=== PATIENT | male | born 1960 | race Caucasian/White ===

== ENCOUNTER 2021-05-28 10:03 | Emergency (ER) | payer OTHER, SELFPAY ==
--- NOTE | ~2021-05-28 | XR_ITS ---
EXAMINATION: XR knee LT min 4V EXAM DATE: 05/28/2021 10:37 INDICATION: Left knee pain after slipping on ice this morning. TECHNIQUE: Left knee frontal, crosstable lateral, orthogonal oblique projections for interpretation. There is no prior study for comparison. FINDINGS: No evidence osteochondral defect or joint body in the left knee joint. There are no acute fractures or dislocations identified. There is no subcutaneous gas. There is small joint effusion. Faint meniscal calcification. Chondrocalcinosis can be an age related finding, but with other possib le etiologies including CPPD, parathyroid disorders, hemochromatosis, gout. Mild arteriosclerosis. T here are no radiopaque foreign bodies. There is mild tricompartmental primary osteoarthritis. IMPRESSION: Mild degenerative changes. Reviewed, dictated and finalized at location B. INTERN IMPRESSION: Mild degenerative changes.
--- NOTE | 2021-05-28 10:10 | ED.LOWEXIN ---
HPI - Extremity Injury (Lower) General Chief Complaint: Extremity Injury, Lower Stated Complaint: lt knee injury Time Seen by Provider: 05/28/21 10:20 Source: patient, RN notes reviewed and old records reviewed Mode of arrival: ambulatory Limitations: no limitations History of Present Illness HPI Narrative: 60-year-old male presents to the [facility] with complaints of left knee pain for slipping on ice and hyperextending the left knee. States that occurred this morning. Did not hit head. No loss of consciousness. No back or neck pain. Has taken Tylenol. Related Data Home Medications Medication Instructions Recorded Confirmed atorvastatin 10 mg PO DAILY 05/28/21 05/28/21 losartan 50 mg PO DAILY 05/28/21 05/28/21 metoprolol tartrate 12.5 mg PO BID 05/28/21 05/28/21 Allergies Allergy/AdvReac Type Severity Reaction Status Date / Time lisinopril Allergy Unknown Verified 05/28/21 10:26 Review of Systems Review of Systems: All systems reviewed & are unremarkable except as noted in HPI and below Constitutional: Constitutional: Reports no additional constitutional complaints, Denies chills and Denies fever(s) Eyes: Eyes: Reports no additional eye complaints ENT: Reports system reviewed and no additional complaints, except as documented Cardiovascular: Cardiovascular: Reports no additional cardiovascular complaints and Denies chest pain Respiratory: Respiratory: Reports no additional respiratory complaints, Denies cough, Denies dyspnea and Denies wheezing Gastrointestinal: Gastrointestinal: Reports no additional gastrointestinal complaints, Denies abdominal pain, Denies nausea and Denies vomiting Musculoskeletal: Musculoskeletal: Reports as per HPI and Reports arthralgias (left knee) Integumentary/Breasts: Skin/Breast: Reports system reviewed and no additional complaints, except as docu Neurologic: Reports system reviewed and no additional complaints, except as documented Psychiatric: Psychiatric: Reports no additional psychiatric complaints Allergic/Immunologic: Allergic/Immunologic: Reports no additional allergic/immunologic complaints [facility] Past Medical History Medical History (Updated 05/28/21 @ 10:50 by Kristine Storey) High cholesterol History of high blood pressure Past heart attack Surgical History Surgical History (Updated 05/28/21 @ 10:27 by Kristine Storey) H/O eye surgery Lasik H/O gastric sleeve History of right hip replacement S/P coronary artery stent placement Social History Social History (Updated 05/28/21 @ 10:26 by Kristine Rayo Smoking status: Never smoker Living arrangements: with family Gender identity (if verbalized by the patient): Male Comments At the time of my signature, I reviewed and agree with the nursing past medical, surgical, social, and family history. There is no relevant family history pertinent to the patient complaint. Exam Const: General: healthy appearing, no acute distress and alert Nutritional Appearance: well nourished Orientation/consciousness: patient oriented x3 Limitations: no limitations HENMT: Head: normal to inspection Ears: external ears normal Eyes: Pupils: Equal, round and reactive pupils present Neck: Neck: normal visual inspection, no lymphadenopathy and no meningeal signs Chest: Chest palpation & inspection: normal inspection of the chest Resp: Effort & Inspection: normal respiratory effort and no use of accessory muscles Auscultation: clear to auscultation bilaterally, no crackles, no rales, no rhonchi and no wheezes Cardio: Rate: regular rate Rhythm: regular rhythm Back/Spine/Pelvis: Back: no CVA tenderness Cervical Spine: normal cervical lordosis, No cervical muscular tenderness and cervical ROM abnormal Thoracic/Lumbar Spine: thoracic and lumbar spine normal to inspection, No thoracic spinal tenderness and No lumbar spinal tenderness Skin: General skin exam: normal color Rashes: no rashes Wounds: no woun
[2021-05-28 10:24] VITALS: BP 180/81; PULSE 59; RESP 18; TEMP 36.8; O2SAT 100
[2021-05-28 10:58] VITALS: BP 158/77
== END 2021-05-28 10:58 | disposition home or self-care (01) ==
PROVIDERS: Emergency Provider Nurse Practitioner
DX: S83.92XA Sprain of unspecified site of left knee, initial encounter (principal); W18.40XA Slipping, tripping and stumbling without falling, unspecified, initial encounter; M25.462 Effusion, left knee; E78.00 Pure hypercholesterolemia, unspecified; I10 Essential (primary) hypertension; Z86.73 Personal history of transient ischemic attack (TIA), and cerebral infarction without residual deficits; Z98.84 Bariatric surgery status; Z96.641 Presence of right artificial hip joint; Z95.5 Presence of coronary angioplasty implant and graft
CPT/HCPCS: 73564; 99213; G0463

== ENCOUNTER 2021-09-01 00:42 | Day surgery (SDC) | payer OTHER, SELFPAY ==
[2021-08-11 14:59] VITALS: BMI 28.1
--- NOTE | 2021-09-01 07:26 | PM.HPGS ---
History of Present Illness History of Present Illness Consent: Risks, benefits, and alternatives have been discussed and questions answered. Patient agrees to proceed with procedure. Chief complaint: neoplasm screening Narrative: Hernan Landis is a 61 year old male For colon cancer screening. Review of Systems Review of Systems: All systems reviewed & are unremarkable except as noted in HPI and below PMFSH Past Medical History Medical History High cholesterol History of high blood pressure Past heart attack Surgical History Surgical History H/O eye surgery Lasik H/O gastric sleeve History of right hip replacement S/P coronary artery stent placement Social History Social History Smoking status: Never smoker Alcohol intake: current Alcohol use details: 1-2 drinks/month Substance use: never Substance use type: does not use Living arrangements: with family Gender identity (if verbalized by the patient): Male Spiritual care concerns: No Meds Home Medications and Allergies Home Medications Medication Instructions Recorded Confirmed Type atorvastatin 10 mg PO DAILY 05/28/21 08/11/21 History losartan 50 mg PO DAILY 05/28/21 08/11/21 History metoprolol tartrate 12.5 mg PO BID 05/28/21 08/11/21 History hydrochlorothiazide 12.5 mg PO DAILY 08/11/21 08/11/21 History Allergies Allergy/AdvReac Type Severity Reaction Status Date / Time lisinopril Allergy Intermediate Dyspnea / Verified 09/01/21 10:00 SOB Exam Resp: Auscultation: clear to auscultation bilaterally Cardio: Rate: regular rate Rhythm: regular rhythm GI: GI Palp: Yes Soft to palpation and No Tenderness to palpation present (GI) Assessment and Plan Assessment and plan (1) Colon cancer screening: Code(s): Z12.11 - Encounter for screening for malignant neoplasm of colon Status: Acute Assessment and Plan: Colonoscopy with possible biopsy or polypectomy or cautery or injection of substances.
[2021-09-01 10:02] VITALS: BP 137/74; PULSE 54; RESP 18; TEMP 36.9; O2SAT 100
[2021-09-01] MEDS: LACTATED RINGERS 1,000 ML 150 ML IV CONT (10:11)
--- NOTE | 2021-09-01 10:42 | WPDANESEPPF ---
Anes - Initial Pre Proc Eval Procedure: Operation Date: 09/01/21 11:00 Proposed Procedures p Screening Colonoscopy - Lee Melendez MD Date/Time: 09/01/21 10:42 Surgeon: Lee Melendez MD Pre Op Diagnosis: neoplasm screening Patient Data Age: 61 Gender: M Height: 1.73 m Weight: 82.1 kg Last Vital Signs Temp 98.5 F 09/01/21 10:02 Pulse 54 L 09/01/21 10:02 Resp 18 09/01/21 10:02 BP 137/74 09/01/21 10:02 Pulse Ox 100 09/01/21 10:02 Allergies Allergy/AdvReac Type Severity Reaction Status Date / Time lisinopril Allergy Intermediate Dyspnea / Verified 09/01/21 10:00 SOB Home Medications Medication Instructions Recorded Confirmed Type atorvastatin 10 mg PO DAILY 05/28/21 08/11/21 History losartan 50 mg PO DAILY 05/28/21 08/11/21 History metoprolol tartrate 12.5 mg PO BID 05/28/21 08/11/21 History hydrochlorothiazide 12.5 mg PO DAILY 08/11/21 08/11/21 History Patient hx anesthesia problems: none Family hx anesthesia problems: none Results Review: All pre-operative results and documents have been reviewed as part of the pre-operative evaluation. [facility] Past Medical History Medical History High cholesterol History of high blood pressure Past heart attack Surgical History Surgical History H/O eye surgery Lasik H/O gastric sleeve History of right hip replacement S/P coronary artery stent placement Social History Social History Smoking status: Never smoker Alcohol intake: current Alcohol use details: 1-2 drinks/month Substance use: never Substance use type: does not use Living arrangements: with family Gender identity (if verbalized by the patient): Male Spiritual care concerns: No Anes - Eval Final PreProcedure Day of Procedure 09/01/21 10:42 Patient weight: normal Heart: bradycardia Lungs: clear to auscultation Airway: Mallampati scale class II Neurological: alert and oriented Last oral intake: >/= 8 hours ASA classification: III Emergent: no Anesthetic plan: proceed Anesthesia type and monitoring: general GIVS and standard monitoring Results Review: All pre-operative results and documents have been reviewed as part of the pre-operative evaluation. Informed Consent: The patient's anesthetic plan and its attendant risks and benefits were discussed with the patient/family/POA. Questions were solicited and answers provided to the satisfaction of the patient/family/POA.
[2021-09-01 11:05] VITALS: BP 99/59; PULSE 57; RESP 14; O2SAT 100
[2021-09-01 11:15] VITALS: BP 105/65; PULSE 56; RESP 21; O2SAT 100
[2021-09-01 11:25] VITALS: BP 126/74; PULSE 53; RESP 20; O2SAT 99
== END 2021-09-01 11:37 | disposition home or self-care (01) ==
PROVIDERS: Visit Provider Internal Medicine Gastroenterology
PROC: 0DJD8ZZ Inspection of Lower Intestinal Tract, Via Natural or Artificial Opening Endoscopic (ICD-10-PCS; CPT 45378; principal; 2021-09-01 11:00)
DX: Z12.11 Encounter for screening for malignant neoplasm of colon (principal); K57.30 Diverticulosis of large intestine without perforation or abscess without bleeding; I10 Essential (primary) hypertension; I25.2 Old myocardial infarction; E78.00 Pure hypercholesterolemia, unspecified; Z95.5 Presence of coronary angioplasty implant and graft; Z98.84 Bariatric surgery status
CPT/HCPCS: 45378; J2704; J7120

== ENCOUNTER 2023-08-18 08:52 | Emergency (ER) | payer OTHER, SELFPAY ==
--- NOTE | ~2023-08-18 | XR_ITS ---
EXAMINATION: XR chest 2V DATE: 08/18/2023 09:48 INDICATION: Cough. Upper respiratory infection. Fever. TECHNIQUE: Frontal and lateral views of the chest were obtained. COMPARISON: Chest 2 views 10/08/2008 FINDINGS: A calcified right lung nodule and calcified right hilar lymph nodes are consistent with old granulomatous disease. No pleural effusion or pneumothorax. The heart size is normal. IMPRESSION: 1. No acute cardiopulmonary disease. Reviewed, dictated and finalized at location A.
--- NOTE | ~2023-08-18 | CT_ITS ---
EXAMINATION: CT abdomen pelvis wo con DATE: 08/18/2023 09:44 INDICATION: Right-sided flank pain. Fever. TECHNIQUE: Computed tomography (CT) of the abdomen and pelvis was performed without intravenous contr ast. Automated exposure control and iterative reconstruction technique were employed. The dose-length product was 690.21 mGy-cm. COMPARISON: None. FINDINGS: The visualized portions of the lung bases demonstrate mild atelectasis. No pleural effusion . The heart size is normal. There are coronary artery calcifications. No pericardial effusion. There is a small sliding hiatal hernia. There are changes of gastric sleeve procedure. The liver and gallbl adder are normal. Calcifications in the spleen are consistent with old granulomatous disease. The ortiz creas and adrenal glands are normal. There is a 1 mm stone in right kidney. There are peripelvic cyst s in left kidney measuring up to 3.3 cm. There is calcified atherosclerosis of the aorta and many of the other arteries. The prostate is mildly enlarged. There is diffuse bladder wall thickening, likely secondary to chronic outlet obstruction from the mildly enlarged prostate. There are no dilated loop s of bowel. The appendix is normal. There are no pathologically enlarged lymph nodes. There is no radha e intraperitoneal fluid. There is a total right hip arthroplasty. There is severe lumbar spondylosis. There is mild chronic anterior wedging of multiple lower thoracic vertebral bodies. IMPRESSION: 1. No specific etiology for the patient's symptoms. Reviewed, dictated and finalized at location A.
[2023-08-18 08:57] VITALS: BP 189/72; PULSE 95; RESP 18; TEMP 38.4; O2SAT 99
[2023-08-18 09:32] LABS: Basophils Percent Auto 0.2 % (0.2-1.2); Eosinophils Percent Auto 0.1 % (0-4.4); Hematocrit 42.3 % (42.0-52.0); Hemoglobin 14.3 g/dL (14.0-18.0); Immature Granulocyte Absolute 0.05 K/mm3 (0.00-0.031); Immature Granulocyte Percent A 0.3 % (0-0.5); Lymphocytes Absolute Auto 0.69 K/mm3 (0.9-3.2); Lymphocytes Percent Auto 4.7 % (18.3-44.2); Mean Corpuscular HGB Conc 33.8 g/dl (32-36); Mean Corpuscular Volume 88.7 fl (80-100); Monocytes Percent Auto 6.5 % (2.6-8.5); Neutrophils Absolute Auto 12.8 K/mm3 (1.3-6.7); Neutrophils Percent Auto 88.2 % (45.5-73.1); Platelet Count Result 164 k/mm3 (150-375); Red Blood Count 4.77 M/mm3 (4.6-6.20); Red Cell Distribution Width 12.8 % (11.5-14.5); White Blood Count 14.6 K/mm3 (4.5-10.0)
[2023-08-18 09:36] LABS: Alanine Aminotransferase 16 U/L (6-50); Albumin Level 4.3 g/dL (3.5-5.1); Alkaline Phosphatase 115 U/L (38-126); Anion Gap 7 mmol/L (4-12); Aspartate Amino Transferase 21 U/L (17-59); Bilirubin,Total 1.7 mg/dL (0.2-1.3); Blood Urea Nitrogen 16 mg/dL (9-20); Calcium 9.2 mg/dL (8.4-10.2); Carbon Dioxide 29 mmol/L (22-30); Chloride 101 mmol/L (98-107); Estimated CRCL calculation 72 ml/min; Estimated Glomerular Filt Rate > 60; Glucose 122 mg/dL (65-110); Potassium 3.5 mmol/L (3.4-5.0); Sodium 137 mmol/L (137-145)
[2023-08-18 09:37] LABS: Lactic Acid Reflex 1.2 mmol/L (0.7-2.0)
--- NOTE | 2023-08-18 09:41 | ED.GENADULT ---
HPI - General Adult General Chief complaint: Urogenital-Male Stated complaint: myalgias Time Seen by Provider: 08/18/23 09:09 Source: patient Mode of arrival: ambulatory Limitations: no limitations History of Present Illness HPI narrative: Patient is a 63-year-old male, with PMH of gastric sleeve, presents to the ED with report of fever, abdominal/flank pain. Patient reports since Wednesday night, he has had intermittent chills, fevers, nausea, difficulty urinating. He states he feels the urge to urinate, but is only able to void small amounts. Reports dysuria. Denies hematuria. Denies vomiting. Has been taking Tylenol for his fever at home. He does complain of intermittent pain throughout his right lower abdomen, extending around to his right lower back. He reports having a similar episode of symptoms 3 weeks ago, but states symptoms resolved on their own. Denies previous history of kidney stones. He does also complain of cough and sinus drainage. Denies sick contacts. Related Data Home Medications Medication Instructions Recorded Confirmed atorvastatin 10 mg tablet 10 mg PO DAILY 05/28/21 08/11/21 losartan 50 mg tablet 50 mg PO DAILY 05/28/21 08/11/21 metoprolol tartrate 25 mg tablet 12.5 mg PO BID 05/28/21 08/11/21 hydrochlorothiazide 12.5 mg capsule 12.5 mg PO DAILY 08/11/21 08/11/21 Allergies Allergy/AdvReac Type Severity Reaction Status Date / Time lisinopril Allergy Intermediate Dyspnea / Verified 09/01/21 10:00 SOB Review of Systems Review of Systems: CONSTITUTIONAL: See HPI. ENT: Reports sinus drainage. CARDIOVASCULAR: Denies chest pain, palpitations, or edema. RESPIRATORY: Reports cough. Denies dyspnea. GASTROINTESTINAL: See HPI. GENITOURINARY: See HPI. MUSCULOSKELETAL: See HPI. All systems reviewed & are unremarkable except as noted in HPI and below PMFSH Past Medical History Medical History High cholesterol History of high blood pressure Past heart attack Surgical History Surgical History H/O eye surgery Lasik H/O gastric sleeve History of right hip replacement S/P coronary artery stent placement Social History Social History Smoking status: Never smoker Alcohol intake: current Alcohol use details: 1-2 drinks/month Substance use: never Substance use type: does not use Living arrangements: with family Gender identity (if verbalized by the patient): Male Spiritual care concerns: No Exam Narrative: GENERAL: Mildly ill appearing, well-nourished, in no acute distress. HEAD: Normocephalic, atraumatic. RESPIRATORY: Airway patent, respirations nonlabored. Clear to auscultation bilaterally, no rales, rhonchi, wheezing. No focal lung sounds. CARDIOVASCULAR: Borderline tachycardic with regular rhythm without murmurs, rubs, or gallops. ABDOMINAL: Soft, mild tenderness throughout right lower abdomen, right lateral abdomen, nondistended. Normoactive BS. No significant CVA tenderness to percussion. MUSCULOSKELETAL: Moves all extremities. No gross deformities. SKIN: Warm, dry, mildly diaphoretic and flushed appearing. NEURO: A&O X3. Speech clear. PSYCHIATRIC: Appropriate mood and affect. Normal interaction. Course Vital Signs Vital signs: Vital Signs Temperature 101.2 F H 08/18/23 08:57 Pulse Rate 95 08/18/23 08:57 Respiratory Rate 18 08/18/23 08:57 Blood Pressure 189/72 H 08/18/23 08:57 Pulse Oximetry 99 08/18/23 08:57 Temperature 98.6 F 08/18/23 11:27 Pulse Rate 74 08/18/23 11:23 Respiratory Rate 18 08/18/23 11:23 Blood Pressure 123/59 L 08/18/23 11:23 Pulse Oximetry 97 08/18/23 11:23 Medical Decision Making MDM Narrative Medical decision making narrative: Patient presented to ED with fever, right-sided abdominal and flank pain,
[2023-08-18] MEDS: ONDANSETRON INJ 4 MG/2 ML VIAL IV PUSH (09:59)
[2023-08-18] MEDS: ACETAMINOPHEN 500 MG TABLET 1000 MG PO (09:59)
[2023-08-18] MEDS: MORPHINE SULFATE (*CRX) 4 MG/ML INJ IV PUSH (09:59)
[2023-08-18] MEDS: SODIUM CHLORIDE 0.9% IV 1,000 ML 999 ML IV CONT (10:00)
[2023-08-18 10:08] LABS: Influenza A QL RT-PCR Negative (Negative); Influenza B QL RT-PCR Negative (Negative); RSV RNA, RT-PCR Negative (Negative); SARS-CoV-2 RNA PCR Negative (Negative)
[2023-08-18 10:30] LABS: Appearance Urine Turbid (Clear); Bacteria Urine 4+ /hpf; Bilirubin Urine Negative (Negative); Blood Urine 3+ (Negative); Color Urine Yellow (Yellow); Glucose Urine UA Negative (Negative); Ketones Urine Trace mg/dL (Negative); Leukocyte Esterase Ur 3+ LEU/UL (Negative); Nitrate Urine Positive (Negative); Protein Urine 2+ mg/dL (Negative); RBC Urine 21-50 /hpf (0-2); Specific Grav Ur 1.021 (1.001-1.035); Squamous Epithelial Cell Urine None Seen /hpf (Few); WBC Urine >100 /hpf (0-3); pH Urine 5.5 (5.0-9.0)
[2023-08-18 10:33] LABS: Add Urine Microscopic? YES
[2023-08-18 11:23] VITALS: BP 123/59; PULSE 74; RESP 18; TEMP 37; O2SAT 97
[2023-08-18 11:27] VITALS: TEMP 37
== END 2023-08-18 12:19 | disposition home or self-care (01) ==
PROVIDERS: Emergency Medicine; Emergency Provider Physician Assistant
DX: N30.01 Acute cystitis with hematuria (principal); N40.0 Benign prostatic hyperplasia without lower urinary tract symptoms; Z20.822 Contact with and (suspected) exposure to COVID-19; I10 Essential (primary) hypertension; I25.2 Old myocardial infarction; E78.00 Pure hypercholesterolemia, unspecified; Z98.84 Bariatric surgery status; Z96.641 Presence of right artificial hip joint; Z95.5 Presence of coronary angioplasty implant and graft
CPT/HCPCS: 36415; 71046; 74176; 80053; 81001; 83605; 85025; 87040; 87077; 87086; 87088; 87186; 87637; 96361; 96365; 96375; 99284; A9270; J0696; J2270; J2405; J7030

== ENCOUNTER 2023-10-04 13:13 | Outpatient (CLI) | payer OTHER, SELFPAY ==
--- NOTE | ~2023-10-04 | XR_ITS ---
XR knee LT min 4V 10/04/2023 13:39 Indication: Left knee pain Procedure: 4 views left knee Comparison: 05/28/2021 Findings: Mild tricompartment osteoarthritis. No fracture, subluxation or dislocation. No significant joint effusion. No foreign bodies. Impression: 1: Mild tricompartment osteoarthritis of the left knee. Reviewed, dictated and finalized at location B. Impression: 1: Mild tricompartment osteoarthritis of the left knee.
--- NOTE | ~2023-10-04 | XR_ITS ---
XR hip LT min 2V 10/04/2023 13:38 Indication: Left hip pain Procedure: 2 views left hip Comparison: No prior studies for comparison. Findings: There is moderate osteoarthritis of the left hip. No significant soft tissue abnormality. T here is lower lumbar spondylosis. There is atherosclerosis. Impression: 1: Moderate osteoarthritis of the left hip. Reviewed, dictated and finalized at location B. Impression: 1: Moderate osteoarthritis of the left hip.
== END 2023-10-04 13:14 | disposition home or self-care (01) ==
LOC: ANHIMG 13:15
DX: M25.552 Pain in left hip (principal); M17.12 Unilateral primary osteoarthritis, left knee; M16.12 Unilateral primary osteoarthritis, left hip
CPT/HCPCS: 73502; 73564

== ENCOUNTER 2023-11-26 14:01 | Outpatient (CLI) | payer OTHER, SELFPAY ==
--- NOTE | 2023-11-26 14:19 | ECG_ITS ---
Test Date: 2023-11-26 14:31:13 Measurements Intervals [place] Rate: 61 P: 42 TN: 175 QRS: 26 QRSD: 146 T: -1 QT: 427 QTc: 431 Interpretive Statements SINUS RHYTHM RIGHT BUNDLE BRANCH BLOCK [120+ ms QRS DURATION, UPRIGHT V1, 40+ ms S IN I/aVL/V4/V5/V6] ABNORMAL ECG No previous ECG available for comparison Electronically Signed On 11-26-2023 15:09:06 CDT by Andreas Carbajal M.D.
[2023-11-26 14:26] LABS: Hematocrit 42.5 % (42.0-52.0); Hemoglobin 14.5 g/dL (14.0-18.0)
[2023-11-26 14:36] LABS: Albumin Level 3.9 g/dL (3.5-5.1); Estimated Glomerular Filt Rate 56; Glucose 114 mg/dL (65-110)
== END 2023-11-26 14:02 | disposition home or self-care (01) ==
LOC: ANHLAB 14:04
PROVIDERS: Visit Provider Orthopaedic Surgery
DX: Z01.818 Encounter for other preprocedural examination (principal); M16.12 Unilateral primary osteoarthritis, left hip; E78.5 Hyperlipidemia, unspecified; I25.10 Atherosclerotic heart disease of native coronary artery without angina pectoris
CPT/HCPCS: 36415; 82040; 82565; 82947; 85014; 85018; 93005

== ENCOUNTER 2024-02-02 07:48 | Outpatient (CLI) | payer OTHER, SELFPAY ==
[2024-02-02 09:57] LABS: Basophils Percent Auto 0.6 % (0.2-1.2); Eosinophils Absolute Auto 0.2 K/mm3 (0-0.3); Eosinophils Percent Auto 2.8 % (0-4.4); Hematocrit 39.1 % (42.0-52.0); Hemoglobin 13.4 g/dL (14.0-18.0); Immature Granulocyte Absolute 0.01 K/mm3 (0.00-0.031); Immature Granulocyte Percent A 0.2 % (0-0.5); Lymphocytes Absolute Auto 1.52 K/mm3 (0.9-3.2); Mean Corpuscular HGB Conc 34.3 g/dl (32-36); Mean Corpuscular Hemoglobin 30.9 pg (26-34); Mean Corpuscular Volume 90.1 fl (80-100); Mean Platelet Volume 10.6 fl (7.4-10.4); Monocytes Absolute Auto 0.5 K/mm3 (0.1-0.6); Monocytes Percent Auto 8.2 % (2.6-8.5); Neutrophils Absolute Auto 4.1 K/mm3 (1.3-6.7); Neutrophils Percent Auto 64.2 % (45.5-73.1); Platelet Count Result 156 k/mm3 (150-375); Red Blood Count 4.34 M/mm3 (4.6-6.20); Red Cell Distribution Width 13.1 % (11.5-14.5); White Blood Count 6.3 K/mm3 (4.5-10.0)
[2024-02-02 10:22] LABS: Albumin Level 4.3 g/dL (3.5-5.1)
[2024-02-02 10:25] LABS: Anion Gap 7 mmol/L (4-12); Blood Urea Nitrogen 16 mg/dL (9-20); Calcium 9.6 mg/dL (8.4-10.2); Carbon Dioxide 30 mmol/L (22-30); Chloride 103 mmol/L (98-107); Estimated Glomerular Filt Rate > 60; Glucose 104 mg/dL (65-110); Potassium 3.5 mmol/L (3.4-5.0); Sodium 140 mmol/L (137-145)
[2024-02-02 10:32] LABS: Urine Cotinine NEGATIVE
[2024-02-02 11:04] LABS: Hemoglobin A1C 5.4 % (<5.7)
[2024-02-02 12:40] LABS: MRSA (PCR) NOT DETECTED (NOT DETECTE)
== END 2024-02-02 07:49 | disposition home or self-care (01) ==
LOC: ANHSURGERY 07:56
PROVIDERS: Anesthesiology; Visit Provider Orthopaedic Surgery
DX: Z01.812 Encounter for preprocedural laboratory examination (principal); M16.12 Unilateral primary osteoarthritis, left hip; I10 Essential (primary) hypertension
CPT/HCPCS: 36415; 80048; 80307; 82040; 83036; 85025; 87641

== ENCOUNTER 2024-02-24 00:19 | Day surgery (SDC) | payer OTHER, SELFPAY ==
[2024-02-02 08:01] VITALS: BMI 31.2
--- NOTE | 2024-02-02 08:43 | PC.NURSE ---
Report to the Outpatient Waiting Room, entrance under the green pavilion located off [facility], at time _8 AM on date 02/24/24 . Planned Procedure Time: _10 AM .? Time changes happen often and if your time is changed the preop area will call you the afternoon before. - You and your visitor will be asked to self-screen and do not enter if you have any COVID symptoms. Please call surgeon if you need to reschedule. - A mask is optional within the hospital at this time. Patients may have clear liquids (water, carbonated beverages, clear teas, apple juice) until 3 hours prior to surgery ( 7AM)with a maximum of 20 ounces. - No food from midnight until time of surgery and no smoking - Infants may have breast milk until 4 hours before surgery, infant formula 6 hours prior to surgery. - Children will be allowed to drink immediately following surgery.? If applicable, please bring a bottle or sippy cup to assist with drinking. Juice, water, soda, and popsicles are readily available.? For infants on formula, please bring formula the day of surgery.? Pacifiers are allowed. Take only the following medications with a SIP of water on the morning of surgery: CARVEDILOL, HYDROCODONE IF NEEDED FOR PAIN DO NOT STOP ANY OF YOUR OTHER PRESCRIPTION MEDICATIONS PRIOR TO SURGERY EXCEPT THE FOLLOWING Medications to discontinue per physician _HOLD ASPIRIN PER DR YAN . _DR PRUITT STATES HOLD ASPIRIN 3-5 DAYS PRE OP. HOLD ALL VITAMINS AND SUPPLEMENTS 3 DAYS PRE OP .LAST DOSE02/20/24 Please no make-up, nail nigerien, hairspray, perfume, deodorant, or body powder the day of surgery.? No jewelry (including any body piercings) or valuables the day of surgery, leave them at home.? Please take a shower or bath the night before, or the morning of, surgery with an antibacterial soap.? Wear comfortable, loose fitting clothing.? Children are encouraged to wear pajamas. - Jewelry must be removed prior to entering the operating room.? Rings and piercings that are not removed may be cut off. - The hospital will not accept responsibility for valuables.? - Please leave all valuables, including medications, at home the day of surgery. If you are going home after surgery, a licensed airport driver must drive you home.? - NO public transportation without another adult if you receive anesthesia. - We recommend that an adult stay with you for 24 hours following discharge. - We also recommend that you do not drive, make important decision, drink alcoholic beverages, or take any drugs that were not prescribed by your health care provider for at least 24 hours after your discharge time. For Pediatric surgeries, we recommend two adults accompany the child home. Follow any additional instructions given to you from your surgeon. VERBAL AND WRITTEN instructions given to PATIENT AND AYSE and asked if any additional questions and then verbalized understanding. Patient advised to call surgeon office or pre surgery nurse liaison [phone] if any additional questions.
[2024-02-02 09:03] VITALS: BP 151/79; PULSE 57; RESP 18; TEMP 37.4; O2SAT 97
[2024-02-24] VITALS (13 sets, daily range): BP systolic 105–175; BP diastolic 47–85; PULSE 58–78; RESP 10–20; TEMP 36.4–36.8; O2SAT 93–100
--- NOTE | ~2024-02-24 | XR_ITS ---
EXAMINATION: XR hip LT min 2V DATE: 02/24/2024 12:30 INDICATION: Total left hip arthroplasty. Postop. TECHNIQUE: 2 views of left hip were obtained. COMPARISON: Left hip radiographs 01/03/24 FINDINGS: There is a total left hip arthroplasty in near-anatomic alignment. No fracture. There is ga s in the soft tissues, consistent with recent surgery. IMPRESSION: 1. Total left hip arthroplasty in near-anatomic alignment. Reviewed, dictated and finalized at location A. LLIGENCE CHIEF
--- NOTE | 2024-02-24 07:06 | WPDHPUPDATE1 ---
History and Physical Update Update Date/Time: 02/24/24 07:06 History and Physical has been reviewed, including an updated exam of the patient. There are NO changes in the patient's condition. Risks, benefits, and alternatives have been discussed and questions answered. Patient agrees to proceed with procedure.
[2024-02-24] MEDS: LACTATED RINGERS 1,000 ML 30 ML IV CONT ×2 (09:00→12:04)
[2024-02-24] MEDS: ACETAMINOPHEN 500 MG TABLET 1000 MG PO (09:00)
[2024-02-24] MEDS: TRANEXAMIC ACID 1,000MG/ISO100 1,000 MG/100 ML BAG 200 MG IVPB (09:00)
--- NOTE | 2024-02-24 09:13 | P.PNAN_ITS ---
Anes - Initial Pre Proc Eval Procedure: Operation Date: 02/24/24 10:00 Proposed Procedures p Left Total Hip Arthroplasty - Catrachito Lay MD Date/Time: 02/24/24 09:13 Surgeon: Catrachito Lay MD Pre Op Diagnosis: Prim O A Left Hip Patient Data Age: 63 Gender: M Height: 1.68 m Weight: 87.8 kg Last Vital Signs Temp 37.4 C 02/02/24 09:03 Pulse 57 L 02/02/24 09:03 Resp 18 02/02/24 09:03 BP 151/79 H 02/02/24 09:03 Pulse Ox 97 02/02/24 09:03 Allergies Allergy/AdvReac Type Severity Reaction Status Date / Time lisinopril Allergy Intermediate Dyspnea / Verified 02/02/24 09:37 SOB Home Medications Medication Instructions Recorded Confirmed Type atorvastatin 10 mg tablet 10 mg PO DAILY 05/28/21 02/02/24 History losartan 50 mg tablet 50 mg PO DAILY 05/28/21 02/02/24 History hydrochlorothiazide 12.5 mg capsule 12.5 mg PO DAILY 08/11/21 02/02/24 History ascorbate calcium (vitamin C) 500 500 mg PO DAILY 10/19/23 02/02/24 History mg tablet aspirin 81 mg chewable tablet 81 mg PO DAILY 10/19/23 02/02/24 History calcium 600 mg (as 1 tablet PO DAILY 10/19/23 02/02/24 History carbonate)-vitamin D3 10 mcg (400 unit) tablet carvedilol 6.25 mg tablet 6.25 mg PO BID 10/19/23 02/02/24 History multivitamin (Multiple Vitamins 1 tablet PO DAILY 10/19/23 02/02/24 History tablet) fexofenadine 180 mg tablet 180 mg PO DAILY 11/12/23 02/02/24 History (Trista Hives) cyanocobalamin (vitamin B-12) 500 500 mcg PO DAILY 02/02/24 02/02/24 History mcg tablet glucosamine HCl 1,500 mg tablet 1,500 mg PO BID 02/02/24 02/02/24 History hydrocodone 5 mg-acetaminophen 325 1 - 2 tablet PO PRN PRN pain 02/02/24 02/02/24 History mg tablet (scale score 7-10) tamsulosin 0.4 mg capsule 0.4 mg PO HS 02/02/24 02/02/24 History turmeric 400 mg capsule 400 mg PO DAILY 02/02/24 02/02/24 History vitamin B complex 1 tablet PO DAILY 02/02/24 02/02/24 History aspirin 81 mg tablet,delayed 81 mg PO BID 14 days #28 tabs 02/24/24 Rx release oxycodone-acetaminophen 5 mg-325 1 - 2 tablet PO Q4-6H PRN pain 7 02/24/24 Rx mg tablet days #30 tabs Laboratory Tests 02/24/24 08:22 Blood Type Pending Antibody Screen Pending Patient hx anesthesia problems: none Family hx anesthesia problems: none Results Review: All pre-operative results and documents have been reviewed as part of the pre- operative evaluation. [facility] Past Medical History Medical History Aortic valve sclerosis Asthma Benign paroxysmal positional vertigo CAD (coronary artery disease) [place]/STENT 2013 Coronary stent patent DJD (degenerative joint disease) ETD (eustachian tube dysfunction) bilateral High cholesterol History of high blood pressure Hyperlipemia Hypertension Mild intermittent asthma with (acute) exacerbation 12/22/2016 Obstructive sleep apnea 12/22/2016- Resolved NABIL on CPAP Other hyperlipidemia 12/22/2016 Other obesity due to excess calories BMI 38 [facility] needs to lose 12/22/2016 Past heart attack PLMD (periodic limb movement disorder) 07/04/2020 Primary snoring 09/26/2020 Sensorineural hearing loss (SNHL) of both ears Tinnitus of both ears Surgical History Surgical History H/O arthroscopic knee surgery (~09/2021) left knee H/O cardiac catheterization (~2013) H/O eye surgery Lasik H/O gastric sleeve (~01/2019) H/O sinus surgery History of carpal tunnel release Bilateral History of right hip replacement S/P coronary artery stent placement Family History Family History Father Heart disease Hypertension Mother Breast cancer Grandparent Hypertension Skin cancer Social History Social History Smoking status: Never smoker Additional smoking assessment comments: DENIES ANY FORM OF TOBACCO USE Alcohol intake: current Alcohol use details: 1-2 DRINKS PER MONTH Substance use: never Substance use type: does not use Do You Feel Safe in your Home?: Yes Lack of Transportation: No Lack of Food: Never True Current Housing: I Have Housing Concerned About Future Housing: No Difficulty Paying Gas/Electric Bills: No Difficulty Paying for Meds: No Currently Unemployed: No Education: High School Diploma/GED Difficulty w/ Childcare or Family Care: No Living arrangements: with family Gender identity (if verbalized by the patient): Male Spiritual care concerns: No Anes - Eval Final PreProcedure Day of Procedure 02/24/24 09:13 Patient weight: obese Heart: regular rate and rhythm Lungs: clear to auscultation Airway: Mallampati scale class II Neurological: alert and oriented Last oral intake: >/= 8 hours ASA classification: III Emergent: no Anesthetic plan: proceed Anesthesia type and monitoring: general ETT and standard monitoring Results Review: All pre-operative results and documents have been reviewed as part of the pre- operative evaluation. Informed Consent: The patient's anesthetic plan and its attendant risks and benefits were discussed with the patient/family/POA. Questions were solicited and answers provided to the satisfaction of the patient/family/POA.
[2024-02-24] MEDS: ceFAZolin 2 GM/D5W 50 ML 2 GM/50 ML BAG IVPB ×3 (09:55→23:02)
[2024-02-24] MEDS: SODIUM CHLORIDE 0.9% IV 37.7 ML, MORPHINE SULFATE INJ (*CRX) 2 MG, ROPivacaine HCL 1% 2... INFILTRATE (10:29)
--- NOTE | 2024-02-24 13:40 | ADMGEN ---
This patient, Hernan Landis, was admitted to Medical Room 242-01. Patient/family oriented to hospital policies and general routines including ID bracelet, bed and alarms, visiting hours, pain management, procedures, bathroom and other care routines, personal items, smoking policy, room service/diet, and visiting hours. Information on how to activate the Rapid Response Team has been discussed. Patient/Family are encouraged to report perceived risks to care and to ask questions if they do not understand what they are told or what they should do.
[2024-02-24] MEDS: ACETAMINOPHEN 325 MG TABLET 650 MG PO ×3 (14:15→23:01)
[2024-02-24] MEDS: SODIUM CHLORIDE 0.9% IV 1,000 ML 125 ML IV CONT ×2 (14:16→22:54)
--- NOTE | 2024-02-24 14:49 | PCOTNOTE ---
Pt currently sleeping after hip sx this morning. Will see pt in the am for OT evaluation.
--- NOTE | 2024-02-24 16:34 | P.OP_ITS ---
Procedure Note - Detailed Date of Procedure 02/24/24 Pre-op Diagnosis Left hip degenerative arthritis. Post-op Diagnosis Same Procedure Performed Left Total Hip Arthroplasty Surgeon Catrachito Lay MD Guide Changer Rosalba Prabhakar PA-C Anesthesia General Description of Procedure The patient was given preoperative antibiotics. A general anesthetic was administered. The patient was carefully placed in the lateral decubitus position on the PEG board. The shoulders and hips were carefully positioned for component and leg length positioning reference. The hip was prepped and draped in the usual sterile fashion. A longitudinal incision was created over the posterior aspect of the greater trochanter. Careful dissection was brought down through the deep fascia with electrocautery. A minimally invasive optimized posterior approach to the hip was performed. The short external rotators and capsule were taken down in an L-shaped capsulotomy. The tissue was tagged for later repair using number 2 high strength suture. The femoral neck was measured and taken in situ. The femoral head was removed. The acetabulum was carefully exposed. The inferior capsule was released. The labrum was resected. The acetabulum was sequentially reamed to one over the intended cup size. The cup was impacted into position with excellent press-fit. Typical anatomic landmarks, including the bony contact points as well as the inferior transverse acetabular ligament were used to confirm cup positioning with preoperative templating. Attention was turned to the femur, which was carefully exposed. The hip was reamed and then broached sequentially. Excellent press-fit was obtained with the broach. The hip was trialed. Measurements were utilized, including the lesser trochanter as well as the center of the femoral head and the tip of the trochanter, and excellent assessment of the offset and leg lengths were confirmed. The real component was impacted into position. Trialing confirmed appropriate leg length and offset with soft tissue balancing as well apparent feel of the leg, both at the knee and the heel. Soft tissues were assessed using the the iliotibial band. Reduction of the posterior capsule and external rotators were also used as a secondary assessment. The hip was copiously irrigated with pulsatile lavage periodically throughout the procedure. The real components were then assembled and reduced. The hip was stable throughout typical maneuvers, including extension, external rotation to 70 degrees, the position of sleep as well as flexion to 90 degrees with internal rotation past 35 degrees. The shake test confirmed stability without impingement. Osteo phytes were removed as necessary. The short external rotators and capsule were repaired back to the posterior trochanter through drill holes. The deep fascia was repaired with running number 2 barbed suture, followed by 2-0 Stratafix suture and 3-0 Stratafix suture in the dermis. Steri-Strips were placed on the skin, followed by a sterile occlusive dressing. There were no complications. Meticulous hemostasis was maintained with the AquaMantys device. The patient was brought to the recovery room in stable condition. There were no complications. Physician assistant professor of dietetics, Rosalba Prabhakar PA-C, required for surgery; including patient positioning, draping, tissue retraction, maintaining instrument position, hip dislocation/ relocation, wound closure, and dressing placement. Implants The Accolade II hip stem, 132 degree size 6 , was utilized with excellent press-fit. The 54 mm Trident II acetabular component was impacted with excellent press-fit stability. 10 degree elevated polyethylene liner the +0, 36 mm Biolox ceramic femoral head was utilized. Estimated Blood Loss 200 Drains No Packing No Pathology None sent Complications No immediate complications Condition Stable Disposition PACU [facility] Billing Surgery - Charge Forward: Surgery Billing
[2024-02-24] MEDS: ASPIRIN 81 MG ENTERIC TABLET PO (17:30)
[2024-02-24] MEDS: SENNA/DOCUSATE SODIUM TABLET 2 TAB PO (17:30)
[2024-02-24] MEDS: carvediloL 6.25 MG TABLET PO (17:30)
[2024-02-24] MEDS: oxyCODONE/ACETAMINOPHEN (*CRX) 5-325 MG TABLET 1 TABLET PO (17:34)
[2024-02-24] MEDS: TAMSULOSIN HCL 0.4 MG CAPSULE PO (20:59)
[2024-02-24] MEDS: FAMOTIDINE 20 MG TABLET PO (20:59)
[2024-02-24] MEDS: traMADol HCL (*CRX) 50 MG TABLET PO (23:01)
[2024-02-25 00:28] VITALS: BP 117/60; PULSE 64; RESP 20; TEMP 37; O2SAT 98
[2024-02-25] MEDS: oxyCODONE/ACETAMINOPHEN (*CRX) 5-325 MG TABLET 1 TABLET PO (05:08)
[2024-02-25 05:46] LABS: Basophils Percent Auto 0.2 % (0.2-1.2); Eosinophils Percent Auto 0.1 % (0-4.4); Hematocrit 36.4 % (42.0-52.0); Hemoglobin 12.5 g/dL (14.0-18.0); Immature Granulocyte Absolute 0.03 K/mm3 (0.00-0.031); Immature Granulocyte Percent A 0.3 % (0-0.5); Immature Platelet Fraction Pct 2.9 % (0.9-11.2); Lymphocytes Absolute Auto 1.08 K/mm3 (0.9-3.2); Lymphocytes Percent Auto 11.5 % (18.3-44.2); Mean Corpuscular HGB Conc 34.3 g/dl (32-36); Mean Corpuscular Hemoglobin 30.9 pg (26-34); Mean Corpuscular Volume 89.9 fl (80-100); Mean Platelet Volume 10.5 fl (7.4-10.4); Monocytes Absolute Auto 0.7 K/mm3 (0.1-0.6); Monocytes Percent Auto 7.3 % (2.6-8.5); Neutrophils Absolute Auto 7.6 K/mm3 (1.3-6.7); Neutrophils Percent Auto 80.6 % (45.5-73.1); Platelet Count Result 137 k/mm3 (150-375); Red Blood Count 4.05 M/mm3 (4.6-6.20); Red Cell Distribution Width 12.2 % (11.5-14.5); White Blood Count 9.4 K/mm3 (4.5-10.0)
[2024-02-25 06:00] VITALS: BP 142/62; PULSE 61; RESP 18; TEMP 36.8; O2SAT 97
[2024-02-25 06:02] LABS: Anion Gap 4 mmol/L (4-12); Blood Urea Nitrogen 16 mg/dL (9-20); Calcium 8.5 mg/dL (8.4-10.2); Carbon Dioxide 29 mmol/L (22-30); Chloride 105 mmol/L (98-107); Estimated CRCL calculation 78 ml/min; Estimated Glomerular Filt Rate > 60; Glucose 105 mg/dL (65-110); Potassium 4.1 mmol/L (3.4-5.0); Sodium 138 mmol/L (137-145)
[2024-02-25] MEDS: ACETAMINOPHEN 325 MG TABLET 650 MG PO (06:03)
[2024-02-25] MEDS: ceFAZolin 2 GM/D5W 50 ML 2 GM/50 ML BAG IVPB (06:04)
--- NOTE | 2024-02-25 07:43 | P.DS_ITS ---
DS: Admitting Diagnosis Discharge Date 02/25/24 Admitting Diagnosis Hip arthritis DS: Discharge Diagnosis Discharge Diagnosis (1) Status post total hip replacement, left: Code(s): Z96.642 - Presence of left artificial hip joint Status: Acute Assessment and Plan: Postop day 1: Left total Hip arthroplasty. Patient tolerated procedure well. No complications. Pain manageable with pain medication. No numbness or tingling. We had a lengthy discussion regarding postoperative wound care, limitations, expectations, and exercises. Patient shows good understanding. He has had initial physical therapy and is tolerating it well. DVT prophylaxis: 81 mg baby aspirin b.i.d. for 14 days. Pain medication: Percocet. Patient has followup appointment with Dr. Lay in 3 weeks. DS: Summary Hospital Course Reason for hospitalization: Total hip arthroplasty Hospital Course: Patient tolerated procedure well. Has had initial PT/OT and made good progress. Status at Discharge Functional status at discharge: uses cane/walker Overall status at discharge: patient is progressing back to baseline Time Spent with Patient Time attestation: Total time spent providing and/or coordinating discharge services: Exam Narrative: Overweight 63 y/o male. Resting comfortably in bed. Wearing compression socks bilaterally. Dressing dry and intact with no drainage. Mild swelling. No ecchymosis. No erythema. No hematoma. Range of motion limited due to pain. Calf nontender. Thigh nontender. Neurologic status intact. No varicosities. Distal pulses palpable. DS: Data Data Completed and Pending Labs on day of discharge: Labs from last 24 hours 02/25/24 02/24/24 05:03 08:22 WBC 9.4 RBC 4.05 L Hgb 12.5 L Hct 36.4 L MCV 89.9 MCH 30.9 MCHC 34.3 RDW 12.2 Plt Count 137 L MPV 10.5 H Immature Gran % (Auto) 0.3 Neut % (Auto) 80.6 H Lymph % (Auto) 11.5 L Emmons % (Auto) 7.3 Eos % (Auto) 0.1 Baso % (Auto) 0.2 Lymph # (Auto) 1.08 Emmons # (Auto) 0.7 H Eos # (Auto) 0.0 Baso # (Auto) 0.0 Abs Immat Gran (auto) 0.03 Absolute Neuts (auto) 7.6 H Absolute Nucleated RBC 0.000 Nucleated RBC % 0.0 % Immature Plt Fraction 2.9 Sodium 138 Potassium 4.1 Chloride 105 Carbon Dioxide 29 Anion Gap 4 BUN 16 Creatinine 0.90 Estim Creat Clear Calc 78 Estimated GFR > 60 Glucose 105 Calcium 8.5 Blood Type O Positive Antibody Screen Negative Discharge Plan Discharge Patient Disposition: Home, Self-Care Discharge Instructions: see green instruction sheets Patient Instructions: Pain Management (DC) Stand Alone Forms: General Discharge Instructions Follow-up/Referrals: Rosalba Prabhakar PA [Physician Market Superintendent] - Discharge Medications: New aspirin 81 mg tablet,delayed release (DR/EC) 81 mg PO BID 14 Days Qty: 28 0RF oxycodone-acetaminophen 5-325 mg tablet 1 - 2 tablet PO Q4-6H MDD 6 PRN (Reason: pain) 7 Days Qty: 30 0RF Continued losartan 50 mg tablet 50 mg PO DAILY atorvastatin 10 mg tablet 10 mg PO DAILY fexofenadine [Trista Hives] 180 mg tablet 180 mg PO DAILY calcium carbonate-vitamin D3 600 mg-10 mcg (400 unit) tablet 1 tablet PO DAILY carvedilol 6.25 mg tablet 6.25 mg PO BID Rx Instructions: must administer with a meal/food multivitamin [Multiple Vitamins] Tablet 1 tablet PO DAILY ascorbate calcium (vitamin C) 500 mg tablet 500 mg PO DAILY hydrochlorothiazide 12.5 mg Capsule 12.5 mg PO DAILY tamsulosin 0.4 mg capsule 0.4 mg PO HS vitamin B complex Tablet 1 tablet PO DAILY turmeric 400 mg Capsule 400 mg PO DAILY glucosamine HCl 1,500 mg Tablet 1,500 mg PO BID Rx Instructions: administer with a meal cyanocobalamin (vitamin B-12) 500 mcg Tablet 500 mcg PO DAILY Held hydrocodone-acetaminophen 5-325 mg tablet 1 - 2 tablet PO PRN MDD 3 PRN (Reason: pain (scale score 7-10)) Hold Instructions: Resume on 03/23/24. Hold while taking Oxycodone.
--- NOTE | 2024-02-25 07:46 | P.PNAN_ITS ---
Anes - Prog Note Post-Op Date/Time: 02/25/24 07:46 Cardiovascular status: normal Respiratory status: normal Airway patency: baseline Mental status: baseline Post-Op hydration status: normal Vital Signs: Last Vital Signs Temp 36.8 C 02/25/24 06:00 Pulse 61 02/25/24 06:00 Resp 18 02/25/24 06:00 BP 142/62 H 02/25/24 06:00 Pulse Ox 97 02/25/24 06:00 O2 Del Method Room Air 02/24/24 20:50 O2 Flow Rate 8 02/24/24 12:30 Pain Score (VAS): 2 I/O: Intake & Output 02/24/24 02/24/24 02/25/24 15:59 23:59 07:59 Intake Total 50 1530 250 Output Total 325 1000 Balance 50 1205 -750 Laboratory Tests 02/25/24 05:03 02/25/24 05:03 02/24/24 02/25/24 08:22 05:03 WBC 9.4 RBC 4.05 L Hgb 12.5 L Hct 36.4 L MCV 89.9 MCH 30.9 MCHC 34.3 RDW 12.2 Plt Count 137 L MPV 10.5 H Immature Gran % (Auto) 0.3 Neut % (Auto) 80.6 H Lymph % (Auto) 11.5 L Grundy % (Auto) 7.3 Eos % (Auto) 0.1 Baso % (Auto) 0.2 Lymph # (Auto) 1.08 Grundy # (Auto) 0.7 H Eos # (Auto) 0.0 Baso # (Auto) 0.0 Abs Immat Gran (auto) 0.03 Absolute Neuts (auto) 7.6 H Absolute Nucleated RBC 0.000 Nucleated RBC % 0.0 % Immature Plt Fraction 2.9 Sodium 138 Potassium 4.1 Chloride 105 Carbon Dioxide 29 Anion Gap 4 BUN 16 Creatinine 0.90 Estim Creat Clear Calc 78 Estimated GFR > 60 Glucose 105 Calcium 8.5 Blood Type O Positive Antibody Screen Negative Post-procedural complaints: none Patient Feedback: Patient satisfied with anesthetic care.
[2024-02-25] MEDS: FAMOTIDINE 20 MG TABLET PO (09:00)
[2024-02-25] MEDS: polyethylene glycoL 3350 17 GM POWD.PACK PO (09:00)
[2024-02-25] MEDS: ATORVASTATIN 10 MG TABLET PO (09:00)
[2024-02-25 09:01] VITALS: PULSE 60
[2024-02-25] MEDS: hydroCHLOROthiazide 12.5 MG CAPSULE PO (09:01)
[2024-02-25] MEDS: carvediloL 6.25 MG TABLET PO (09:01)
[2024-02-25] MEDS: SENNA/DOCUSATE SODIUM TABLET 2 TAB PO (09:01)
[2024-02-25] MEDS: LOSARTAN POTASSIUM 50 MG TABLET PO (09:01)
[2024-02-25] MEDS: ASPIRIN 81 MG ENTERIC TABLET PO (09:01)
[2024-02-25 09:56] VITALS: O2SAT 97
== END 2024-02-25 10:30 | disposition home or self-care (01) ==
LOC: ANHSURGERY 08:53 → ANH2MED 13:22
PROVIDERS: Physician Assistant Surgical; Visit Provider Orthopaedic Surgery
PROC: (CPT 27130; principal; 2024-02-24 10:00)
DX: M16.12 Unilateral primary osteoarthritis, left hip (principal); I10 Essential (primary) hypertension; E78.5 Hyperlipidemia, unspecified; I25.10 Atherosclerotic heart disease of native coronary artery without angina pectoris; J45.20 Mild intermittent asthma, uncomplicated; G47.33 Obstructive sleep apnea (adult) (pediatric); I25.2 Old myocardial infarction; G47.61 Periodic limb movement disorder; Z95.5 Presence of coronary angioplasty implant and graft; Z98.84 Bariatric surgery status; E66.9 Obesity, unspecified; Z68.31 Body mass index [BMI] 31.0-31.9, adult
CPT/HCPCS: 27130; 36415; 73502; 80048; 85025; 85055; 86850; 86900; 86901; 97110; 97161; 97165; A9270; C1776; J0171; J0330; J0690; J1100; J1171; J1200; J1885; J2003; J2250; J2270; J2405; J2704; J2795; J3010; J7030; J7120

== ENCOUNTER 2024-03-15 08:33 | Outpatient (CLI) | payer OTHER, SELFPAY ==
--- NOTE | ~2024-03-15 | XR_ITS ---
XR hip LT 2V w AP pelvis Ordering provider: NIKHIL Green History: . Z96.642 - Presence of left artificial hip joint . Comparison: None. FINDINGS: BONES: No acute fracture or dislocation. HIP JOINT SPACES: Bilateral hip arthroplasty. SACROILIAC JOINT SPACES/LUMBAR SPINE: The sacroiliac joint spaces are normal. Mild degenerative headley es of the visualized lower lumbar spine. PUBIC SYMPHYSIS: Pubic symphysitis. SOFT TISSUES: Normal. IMPRESSION: No acute osseous abnormality pelvis and left hip. Bilateral hip arthroplasty. Reviewed, dictated and finalized at location A. OL TRAFFIC SUPERVISOR
== END 2024-03-15 08:34 | disposition home or self-care (01) ==
PROVIDERS: Visit Provider Physician Assistant Surgical
DX: Z96.642 Presence of left artificial hip joint (principal)
CPT/HCPCS: 73502

== ENCOUNTER 2024-03-30 13:32 | Emergency (ER) | payer OTHER, SELFPAY ==
[2024-03-30 13:36] VITALS: BP 139/68; PULSE 73; RESP 18; TEMP 37.1; O2SAT 100
[2024-03-30 15:43] LABS: Add Urine Microscopic? YES; Appearance Urine Turbid (Clear); Bilirubin Urine Negative (Negative); Blood Urine 3+ (Negative); Color Urine Dark Yellow (Yellow); Glucose Urine UA Negative (Negative); Ketones Urine Trace mg/dL (Negative); Leukocyte Esterase Ur 3+ LEU/UL (Negative); Nitrate Urine Negative (Negative); Protein Urine 2+ mg/dL (Negative); Specific Grav Ur 1.023 (1.001-1.035); pH Urine 5.5 (5.0-9.0)
[2024-03-30 15:52] LABS: Bacteria Urine 2+ /hpf; Mucus Urine Present /lpf; Squamous Epithelial Cell Urine Occasional /hpf (Few); WBC Urine 51-100 /hpf (0-3)
[2024-03-30] MEDS: SULFAMETHOXAZOLE/TRIMETHOPRIM 800/160 MG DS TABLET 1 TAB PO (16:10)
--- NOTE | 2024-03-30 16:54 | ED.MALEGU ---
HPI - Male Genitourinary General Chief complaint: Urogenital-Male Stated complaint: chills, fever, foul urine Time Seen by Provider: 03/30/24 14:09 History of Present Illness HPI Narrative: Patient who has had struggles with multiple UTIs this year presents here with several days chills, suprapubic his comfort, foul-smelling urine, concerned that he has no other UTI. Called his urologist who told him to go to the ER. Related Data Home Medications ?Medication ?Instructions ?Recorded ?Confirmed ?Last Taken ?Type atorvastatin 10 mg tablet 10 mg PO DAILY 05/28/21 02/02/24 08/31/21 History losartan 50 mg tablet 50 mg PO DAILY 05/28/21 02/02/24 08/31/21 History hydrochlorothiazide 12.5 mg capsule 12.5 mg PO DAILY 08/11/21 02/02/24 08/31/21 History ascorbate calcium (vitamin C) 500 500 mg PO DAILY 10/19/23 02/02/24 Unknown History mg tablet calcium 600 mg (as 1 tablet PO DAILY 10/19/23 02/02/24 Unknown History carbonate)-vitamin D3 10 mcg (400 unit) tablet carvedilol 6.25 mg tablet 6.25 mg PO BID 10/19/23 02/24/24 02/24/24 History multivitamin (Multiple Vitamins 1 tablet PO DAILY 10/19/23 02/24/24 02/19/24 History tablet) fexofenadine 180 mg tablet 180 mg PO DAILY 11/12/23 02/02/24 Unknown History (Trista Hives) cyanocobalamin (vitamin B-12) 500 500 mcg PO DAILY 02/02/24 02/02/24 Unknown History mcg tablet glucosamine HCl 1,500 mg tablet 1,500 mg PO BID 02/02/24 02/02/24 Unknown History hydrocodone 5 mg-acetaminophen 325 1 - 2 tablet PO PRN PRN pain 02/02/24 02/02/24 Unknown History mg tablet (scale score 7-10) tamsulosin 0.4 mg capsule 0.4 mg PO HS 02/02/24 02/02/24 Unknown History turmeric 400 mg capsule 400 mg PO DAILY 02/02/24 02/02/24 Unknown History vitamin B complex 1 tablet PO DAILY 02/02/24 02/02/24 Unknown History Allergies Allergy/AdvReac Type Severity Reaction Status Date / Time lisinopril Allergy Intermediate Dyspnea / Verified 03/15/24 09:29 SOB Review of Systems Review of Systems: All systems reviewed & are unremarkable except as noted in HPI and below [facility] Past Medical History Medical History Aortic valve sclerosis Asthma Benign paroxysmal positional vertigo CAD (coronary artery disease) [place]/STENT 2013 Coronary stent patent DJD (degenerative joint disease) ETD (eustachian tube dysfunction) bilateral High cholesterol History of high blood pressure Hyperlipemia Hypertension Mild intermittent asthma with (acute) exacerbation 12/22/2016 Obstructive sleep apnea 12/22/2016- Resolved NABIL on CPAP Other hyperlipidemia 12/22/2016 Other obesity due to excess calories BMI 38 [facility] needs to lose 12/22/2016 Past heart attack PLMD (periodic limb movement disorder) 07/04/2020 Primary snoring 09/26/2020 Sensorineural hearing loss (SNHL) of both ears Tinnitus of both ears Surgical History Surgical History H/O arthroscopic knee surgery (~09/2021) left knee H/O cardiac catheterization (~2013) H/O eye surgery Lasik H/O gastric sleeve (~01/2019) H/O sinus surgery History of carpal tunnel release Bilateral History of right hip replacement S/P coronary artery stent placement Family History Family History Father Heart disease Hypertension Mother Breast cancer Grandparent Hypertension Skin cancer Social History Social History Smoking status: Never smoker Additional smoking assessment comments: DENIES ANY FORM OF TOBACCO USE Alcohol intake: never Alcohol use details: 1-2 DRINKS PER MONTH Substance use: never Substance use type: does not use Do You Feel Safe in your Home?: Yes Lack of Transportation: No Lack of Food: Never True Current Housing: I Have Housing Concerned About Future Housing: No Difficulty Paying Gas/Electric Bills: No Difficulty Paying for Meds: No Currently Unemployed: No Education: High School Diploma/GED Difficulty w/ Childcare or Family Care: No Living arrangements: with family Gender identity (if verbalized by the patient): Male Spiritual care concerns: No Exam Narrative: EXAMINATION OF ORGAN SYSTEMS/BODY AREAS: Constitutional: Vital signs per nursing GENERAL:[No acute distress, non-toxic appearing.] HEAD: Normal with no signs of head trauma. EYES: EOMI, conjunctiva normal ENT: Hearing grossly intact LUNGS: Nonlabored breathing. HEART: [Regular rate and rhythm] ABD: [Soft], [nontender to palpation]; No flank pain EXT: Normal range of motion SKIN: [No rashes or lesions.] NEURO: [Alert and oriented x 3. No gross focal sensory or strength deficits.] PSYCH: Normal affect Course Vital Signs Vital signs: Vital Signs Temperature 98.7 F 03/30/24 13:36 Pulse Rate 73 03/30/24 13:36 Respiratory Rate 18 03/30/24 13:36 Blood Pressure 139/68 03/30/24 13:36 Pulse Oximetry 100 03/30/24 13:36 Oxygen Delivery Room Air 03/30/24 13:36 Temperature 98.7 F 03/30/24 13:36 Pulse Rate 73 03/30/24 13:36 Respiratory Rate 18 03/30/24 13:36 Blood Pressure 139/68 03/30/24 13:36 Pulse Oximetry 100 03/30/24 13:36 Oxygen Delivery Room Air 03/30/24 13:36 MDM - Male Genitourinary MDM Narrative Medical decision making narrative: patient presenting with UTI symptoms, I did review urine culture from August with susceptibility to Bactrim and Macrobid. Patient has done well with bactrim in the past so I will start him on this, culture sent, follow-up to Urology provided, patient and agreeable to plan, return precautions provided Lab Data Labs: Lab Results 03/30/24 Range/Units 15:23 Urine Color Dark yellow (Yellow) Urine Appearance Turbid H (Clear) Urine pH 5.5 (5.0-9.0) Ur Specific Evans 1.023 (1.001-1.035) Urine Protein 2+ H (Negative) mg/dL Urine Glucose (UA) Negative (Negative) mg/dL Urine Ketones Trace H (Negative) mg/dL Ur Blood (Man) 3+ H (Negative) Urine Nitrate Negative (Negative) Urine Bilirubin Negative (Negative) Urine Urobilinogen 1.0 (<2.0) mg/dL Leukocyte Esterase Rfl 3+ H (Negative) JORDYN/UL Urine RBC 6-10 H (0-2) /hpf Urine WBC 51-100 H (0-3) /hpf Ur Squamous Epith Cells Occasional (Few) /hpf Urine Bacteria 2+ /hpf Urine Mucus Present /lpf Discharge Plan Discharge Clinical Impression: Urinary tract infection Patient Disposition: Home, Self-Care Condition: Stable Instructions: Antibiotic Form, Urinary Tract Infection in Men (ED) Additional Instructions: Please follow-up with your urologist, take the antibiotics as prescribed, you can always return to the ER if symptoms do not improve or if they worsen. Patient Language: French Prescriptions: New sulfamethoxazole-trimethoprim [Bactrim DS] 800-160 mg tablet 1 tablet PO Q12H Qty: 14 0RF No Action losartan 50 mg tablet 50 mg PO DAILY atorvastatin 10 mg tablet 10 mg PO DAILY fexofenadine [Trista Hives] 180 mg tablet 180 mg PO DAILY calcium carbonate-vitamin D3 600 mg-10 mcg (400 unit) tablet 1 tablet PO DAILY carvedilol 6.25 mg tablet 6.25 mg PO BID Rx Instructions: must administer with a meal/food multivitamin [Multiple Vitamins] Tablet 1 tablet PO DAILY ascorbate calcium (vitamin C) 500 mg tablet 500 mg PO DAILY hydrochlorothiazide 12.5 mg Capsule 12.5 mg PO DAILY tamsulosin 0.4 mg capsule 0.4 mg PO HS hydrocodone-acetaminophen 5-325 mg tablet 1 - 2 tablet PO PRN MDD 3 PRN (Reason: pain (scale score 7-10)) vitamin B complex Tablet 1 tablet PO DAILY turmeric 400 mg Capsule 400 mg PO DAILY glucosamine HCl 1,500 mg Tablet 1,500 mg PO BID Rx Instructions: administer with a meal cyanocobalamin (vitamin B-12) 500 mcg Tablet 500 mcg PO DAILY Follow-up/Referrals: Vikash Jones MD [Physician] - 3 Days UNKNOWN,DOCTOR [Primary Care Provider] -
== END 2024-03-30 16:10 | disposition home or self-care (01) ==
PROVIDERS: Emergency Provider Emergency Medicine
DX: N39.0 Urinary tract infection, site not specified (principal); I35.0 Nonrheumatic aortic (valve) stenosis; I25.10 Atherosclerotic heart disease of native coronary artery without angina pectoris; I25.2 Old myocardial infarction; I10 Essential (primary) hypertension; J45.20 Mild intermittent asthma, uncomplicated; E78.00 Pure hypercholesterolemia, unspecified; G47.33 Obstructive sleep apnea (adult) (pediatric); Z98.84 Bariatric surgery status; Z95.5 Presence of coronary angioplasty implant and graft; Z96.641 Presence of right artificial hip joint; Z79.899 Other long term (current) drug therapy
CPT/HCPCS: 81001; 87077; 87086; 87186; 99283; A9270

== ENCOUNTER 2024-06-21 12:35 | Outpatient (CLI) | payer OTHER, SELFPAY ==
--- NOTE | ~2024-06-21 | XR_ITS ---
XR knee LT min 4V Ordering provider: Catrachito Lay MD History: . M17.12 - Unilateral primary osteoarthritis, left knee . Comparison: October 04, 2023 FINDINGS: BONES: No acute fracture or dislocation. JOINT SPACES: Narrowing of the medial compartment. SOFT TISSUES: Normal. IMPRESSION: No acute osseous abnormality left knee. Severe osteoarthritic changes. Reviewed, dictated and finalized at location A. O ASSISTANT
--- OUTSIDE RECORDS SUMMARY | 2024-06-21 13:52 | XMS_ITS | Referral Summary ---
Author Organization [facility] Address [address] [place] [address] Care Team Providers Care Welding Machine Operator Electron Beam Name Role Phone Jordi Marcus MD Primary Care Provide r Allergies Active Allergy Reactions Criticality Noted Date Comments Lisinopril Unknown 02/13/2014 Medications fexofenadine (SHANNON ALLERGY) 180 mg tablet daily. 02/13/2014 Active ascorbic acid (VITAMIN C) 1,000 mg tablet daily. Acti ve aspirin 81 mg tablet daily. Active multivitamin tabletIndicatio ns:Vitamin Deficiency Prevention daily. Active nitroglycerin (NITROSTAT) 0.[address] 1 tablet (0.4 mg total) under the tongue every 5 (five) minutes as needed for chest pain. 90 tablet 1 10/27/2017 Active albuterol HFA (PROVENTIL HFA,VENTOLIN HFA,PROAIR HFA) 90 mcg/actuation inhaler Inhale 2 puffs every 6 hours as needed Active UNABLE TO FIND Med Name: Vitamin B complex B12 liquid 600mcg QD Active calcium carb/vit D3/minerals (CALCIUM-VITAMI N D ORAL) Take by mouth (Liquid) 500MG BID Active metoprolol tartrate (LOPRESSOR) 25 mg immediate release tablet Take 1/2 (one-half) tablet by mouth twice daily 90 tablet 3 08/28/2019 Active losartan (COZAAR) 50 mg tablet Take 1 tablet by mouth once daily 90 tablet 3 02/26/2020 Active atorvastatin (LIPITOR) 10 mg tablet Take 1 tablet (10 mg total) by mouth daily 90 tablet 3 03/01/2020 Active azelastine-flut icasone 137-50 mcg/spray spray,non-aeros olIndications:E TD (Eustachian tube dysfunction), bilateral 1 spray each side bid 23 g 5 05/26/2021 Active Active Problems Problem Noted Date Diagnosed Date ETD (Eustachian tube dysfunction), bilateral 11/2021 Tinnitus of both ears 05/27/2021 Sensorineural hearing loss (SNHL) of both ears 0 05/27/2021 Nasal obstruction 05/27/2021 Primary snoring 09/26/2020 Assessment & Plan (09/26/2020 2:47 PM CDT): Patient's most recent nocturnal polysomnogram completed on July 23, 2020 following 85 lb weight loss, demonstrated an AHI within normal limits. The patient was provided instructions on positional therapy, exercise program and a snore guard and continued weight loss if necessary. NABIL (obstructive sleep apnea) 07/04/2020 Assessment & Plan (07/04/2020 3:10 PM CDT): Due to the patient's weight loss I have ordered a nocturnal polysomnogram split night protocol if necessary, no MSLT. If insurance not approve in-lab sleep study the patient may proceed with a home sleep test. Patient will follow-up after the study is complete. PLMD (periodic limb movement disorder) Assessment & Plan (09/26/2020 2:48 PM CDT): Limbs movement are asymptomatic Assessment & Plan (07/04/2020 3:10 PM CDT): Patient denies that his limbs are moving at night when he sleeps. Social History Tobacco Use Types Packs/Day Years Used Date Smoking Tobacco: Never Smokeless Tobacco: Never Sex and Gender Information Value Date Recorded Sex Assigned at Not on file Legal Sex Male 3:32 AM REGISTERED NURSE AMBULATORY Gender Identity Male 09/06/2019 6:23 AM CDT Sexual Orientation Choose not to disclose 2019 6:23 AM CDT Last Filed Vital Signs Vital Sign Reading Time Taken Comments Blood Pressure 110/78 09/26/2020 2:31 PM CDT Pulse 64 09/26/2020 2:31 PM CDT Temperature 36.7 C (98.1 F) 05/26/2021 1:49 PM REGISTERED NURSE AMBULATORY Respiratory Rate 18 09/26/2020 2:31 PM CDT Oxygen Saturation 98% 09/26/2020 2:31 PM CDT Inhaled Oxygen Concentration - - Weight 79.4 kg (175 lb) 05/26/2021 1:49 PM REGISTERED NURSE AMBULATORY Height 172.7 cm (5' 8 ) 05/26/2021 1:49 PM REGISTERED NURSE AMBULATORY Body Mass Index 26.61 05/26/2021 1:49 PM REGISTERED NURSE AMBULATORY Plan of Treatment Not on file Insurance [facility] H[facility]O Address: [facility] [id number] [place] [id number] [facility] Member Subscriber Plan / Payer (Ef fective 2023-Present) Name:Hernan Landis Relation to Subscriber:Self Name:Hernan Landis Payer ID:[id number] (NAIC) Type:[employer] Address: [address] [place] [id number] Care Teams Welding Machine Operator Electron Beam Relationship Specialty Start Date End Date Jordi Marcus MD [address] [place] [address] PCP - General Family Medicine 07/04/20
--- OUTSIDE RECORDS SUMMARY | 2024-06-21 13:52 | XMS_ITS | Clinical Summary ---
Author Organization [facility] Address [address] [place] [address] Phone Care Team Providers Care Shake Loader Name Role Phone Ashley Gandhi MD Primary Care Provider [phone] Allergies Active Allergy Reactions Criticality Noted Date Comments Lisinopril Other (See Comments),Cough Medium 9 Wheezing Medications metoprolol tartrate (LOPRESSOR) 25 mg tablet Take 12.5 mg by mouth 2 times daily. Active atorvastatin (LIPITOR) 10 mg tablet Take 10 mg by mouth daily with supper. Active aspirin (ECOTRIN EC) 81 mg Tablet, Delayed Release (E.C.) Take 81 mg by mouth daily. Active fexofenadine (SHANNON) 180 mg tablet Take 180 mg by mouth daily. Active nitroglycerin (NITROSTAT) 0.4 mg Tablet, Sublingual Place 0.4 mg under tongue every 5 minutes as needed for Chest Pain. Active albuterol HFA 90 mcg inhaler Take 2 Puffs by inhalation every 6 hours as needed for Shortness of Breath. Active ondansetron (ZOFRAN ODT) 4 mg Tablet, Rapid Dissolve Place 1 Tablet (4 mg) under tongue every 6 hours as needed for Nausea/Emesis. 10 Tablet 02/16/2019 3:12 PM CDT 9 Active amLODIPine (NORVASC) 10 mg tablet Take 0.5 Tablets (5 mg) by mouth daily. Hold for sbp less than 130 30 Tablet 02/16/2019 3:12 PM CDT 9 Active Active Problems Problem Noted Date Diagnosed Date Post-operative nausea and vomiting 02/16/2019 Post-op pain 02/16/2019 Morbid obesity with body mass index of 40.0-49.9 02/15/2019 HTN (hypertension) 02/15/2019 Hyperlipidemia 02/15/2019 Obstructive sleep apnea 02/15/2019 Overview (02/15/2019): uses cpap Immunizations Immunization Administration Dates Next Due Influenza Seasonal Unspecified Formulation IM Family History Medical History Relation Name Comments Heart Disease Father Diabetes Mother Relation Name Status Comments Father Mother Alive Social History Tobacco Use Types Packs/Day Years Used Date Smoking Tobacco: Never Smokeless Tobacco: Never Alcohol Use Standard Drinks/Week Comments Yes 0 (1 standard drink = 0.6 oz pur e alcohol) mixed drinks 1 per month Sex and Gender Information Value Date Recorded Sex Assigned at Not on file Legal Sex Male 10:03 AM CDT Gender Identity Not on file Sexual Orientation Not on file Last Filed Vital Signs Vital Sign Reading Time Taken Comments Blood Pressure 139/70 02/16/2019 12:14 PM CDT Pulse 90 02/16/2019 12:14 PM CDT Temperature 36.8 C (98.3 F) 02/16/2019 12:14 PM CDT Respiratory Rate 16 02/16/2019 12:1 4 PM CDT Oxygen Saturation 97% 02/16/2019 12: 14 PM CDT Inhaled Oxygen Concentration - - Weight 112.6 kg (248 lb 3.2 oz) 02/16/2019 4:00 AM CDT Height 167.6 cm (5' 6 ) 02/15/2019 12:5 4 PM CDT Body Mass Index 40.06 02/15/2019 12:54 PM CDT Plan of Treatment Health Maintenance Due Date Last Done Comments Pre-Diabetes and Diabetes Screening 1961 DTAP/TDAP/TD VACCINES (1 - Tdap) 1980 COLORECTAL SCREENING 2006 Colorectal Cancer Screening 2006 FIT-DNA Q 3 years 2006 FIT/FOBT Q 1 year 2006 Flex Sig/CT Colonography Q 5 years 2006 ZOSTER VACCINE (1 of 2) 07/02/2011 RSV VACCINE (60+ or ) (1 - Risk 60-74 years 1-dose series) 2021 INFLUENZA VACCINE (#1) 2023 02/07/2018 PNEUMOCOCCAL VACCINE 0-49 YEARS Aged Out No longer eligible based on patient's age to complete this topic Medical Devices Implanted Type Area Operating Room Surgical Technologist Device Identifier Shelf Expiration Date Model / Serial / Lot Seamguard Endogia 60 Prpl [id number] - [id number] Implanted:Qty : 2 on 02/15/2019 by Elis Bales MD at [facility] Biological N/A: Stomach [employer] 10/16/2021 [id number] / / [id number] Seamguard Endogia 60 Blck [id number] - [id number] Implanted:Qty : 2 on 02/15/2019 by Elis Bales MD at [facility] Biological N/A: Stomach [employer] 01/16/2022 [id number] / / [id number] Seamguard Endogia 60 Prpl [id number] - [id number] Implanted:Qty : 1 on 02/15/2019 by Elis Bales MD at [facility] Biological N/A: Stomach [employer] 10/16/2021 [id number] / / [id number] Hip Hip Stent Stent Description:states one stent to lad Insurance RX [employer] PLANS (INTERNAL) [facility] Advance Directives For more information, please contact: [phone] * Full Code (Latest Code Status on File) Date Activated Date Inactivated Comments 02/15/2019 12:50 PM 02/16/2019 5:46 PM * Full Code Date Activated Date Inactivated Comments 02/15/2019 8:36 AM 02/15/2019 12:50 PM Care Teams Shake Loader Relationship Specialty Start Date End Date Ashley Gandhi MD [address] [place] [phone] PCP - General Internal Medicine 01/31/19
--- OUTSIDE RECORDS SUMMARY | 2024-06-21 13:52 | XMS_ITS | Encounter Summary ---
Author Organization [facility] Address [address] [place] [address] Care Team Providers Care Billiard Player Name Role Phone Ashley Gandhi MD Primary Care Provider [phone] Encounter Details Date Type Department Care Team (Late st Contact Info) Description 02/07/2019 Abstract [facility] Non Integrated Provider [address] [place] [address] [place] [address] [place] [address] [place] [address] Social History Tobacco Use Types Packs/Day Years [...] on file Sexual Orientation Not on file documented as of this encounter Functional Status documented as of this encounter Plan of Treatment Not on file documented as of this encounter Visit Diagnoses Not on filedocumented in this encounter Care Teams Billiard Player Relationship Specialty Start Date End Date Ashley Gandhi MD [address] [place] [phone] PCP - General Internal Medicine 01/31/19 documented as of this encounter
--- OUTSIDE RECORDS SUMMARY | 2024-06-21 13:52 | XMS_ITS | Clinical Summary ---
Author Organization [facility] Address [address] [place] [address] Care Team Providers Care Homebirth Midwife Name Role Phone Jodri Marcus MD Primary Care Provide r Allergies [...] are moving at night when he sleeps. Surgical History Surgery Date Site/Laterality Comments CARDIAC STENT PLACEMENT TOTAL HIP ARTHROPLASTY Right SINUS SURGERY CARDIAC CATHETERIZATION CARPAL TUNNEL RELEASE Bilateral LASIK Bilateral SLEEVE GASTROPLASTY Medical History Medical History Date Comments Allergic rhinitis Heart attack (HCC) Hypertension Family History Medical History Relation Name Comments Coronary artery disease Brother Fami ly history of coronary artery disease - (Added by TW Conv) Coronary artery disease Father Fami ly history of coronary artery disease - (Added by TW Conv) Heart attack Father Family history of heart attack - (Added by TW Conv) Cancer Mother Family history of cancer - (Added by TW Conv) Diabetes Mother Family history of diabetes mellitus - (Added by TW Conv) Relation Name Status Comments Brother Father Mother Social History Tobacco Use Types Packs/Day Years Used Date Smoking Tobacco: Never Smokeless Tobacco: Never Sex and Gender Information Value Date Recorded Sex Assigned at Not on file Legal Sex Male 3:32 AM CLAIMS ADJUSTOR Gender Identity Male 09/06/2019 6:23 AM CDT Sexual Orientation Choose not to disclose 2019 6:23 AM CDT Obstetrics History Last Filed Vital Signs Vital Sign Reading Time Taken Comments Blood Pressure 110/78 09/26/2020 2:31 PM CDT Pulse 64 09/26/2020 2:31 PM CDT Temperature 36.7 C (98.1 F) 05/26/2021 1:49 PM CLAIMS ADJUSTOR Respiratory Rate 18 09/26/2020 2:31 PM CDT Oxygen Saturation 98% 09/26/2020 2:31 PM CDT Inhaled Oxygen Concentration - - Weight 79.4 kg (175 lb) 05/26/2021 1:49 PM CLAIMS ADJUSTOR Height 172.7 cm (5' 8 ) 05/26/2021 1:49 PM CLAIMS ADJUSTOR Body Mass Index 26.61 05/26/2021 1:49 PM CLAIMS ADJUSTOR Plan of Treatment Health Maintenance Due Date Last Done Comments Colon Cancer Screening-Colonoscopy 1961 Depression Screening 1961 Hepatitis C Screening 1961 Prostate Cancer Screening-PSA 1961 Hepatitis B Screening 07/02/1979 Regular Well Visit/Exam 18-64 07/02/1979 Influenza Vaccine (#1) 2023 1, 03/22/2019, 03/22/2019, Additional history exists DTaP/Tdap/Td Vaccine (3 - Td or Tdap) 03/09/2024 03/09/2014, 07/30/2011 Pneumococcal vaccine <65 Aged Out 019, 02/21/2014, 02/02/2014, Additional history exists No longer eligible based on patient's age to complete this topic Zoster Vaccine Completed 08/23/2019, 04/18/2019 Insurance [facility] Care Teams Homebirth Midwife Relationship Specialty Start Date End Date Jordi Marcus MD [address] [place] [address] PCP - General Family Medicine 07/04/20
== END 2024-06-21 12:36 | disposition home or self-care (01) ==
PROVIDERS: Visit Provider Orthopaedic Surgery
DX: M17.12 Unilateral primary osteoarthritis, left knee (principal)
CPT/HCPCS: 73564

== ENCOUNTER 2024-07-08 14:59 | Emergency (ER) | payer OTHER, SELFPAY ==
[2024-07-08] VITALS (11 sets, daily range): BP systolic 118–143; BP diastolic 64–83; PULSE 61–84; RESP 11–18; TEMP 36.7; O2SAT 96–99
--- NOTE | ~2024-07-08 | XR_ITS ---
XR ankle RT min 3V DATE: 07/08/2024 17:16 INDICATION: Mild irregularity noted in the distal anterior margin of the tibia on right lower leg rad iographs TECHNIQUE: 4 views COMPARISON: 07/08/2024 right tibia and fibula FINDINGS: Smooth mild irregularity along the distal anterior tibial margin. No recent fracture or dis location of the ankle. Ankle mortise is intact. Extensive arterial calcifications. IMPRESSION: No recent fracture or dislocation Reviewed, dictated and finalized at location A.
--- NOTE | ~2024-07-08 | CT_ITS ---
EXAMINATION: CT chest abdomen pelvis w con DATE: 07/08/2024 16:25 INDICATION: Trauma. Left shoulder and rib pain. TECHNIQUE: Computed tomography (CT) of the chest, abdomen, and pelvis was performed with 100 CC Omnip aque 350 intravenous contrast. Automated exposure control and iterative reconstruction technique were employed. Exam dose: 1641.75 mGy-cm total exam DLP. COMPARISON: None FINDINGS: CHEST CT: Normal heart size. Prominent coronary artery calcifications. No pericardial effusion. There is aortic arch calcification but no thoracic aortic aneurysm or dissection is detected. No hilar or mediastinal mass lesion or lymphadenopathy. No pleural effusion. The lungs are clear of infiltrate or consolidation. No pneumothorax. Small sliding hiatal hernia ABDOMEN/PELVIS CT: The liver, gallbladder, bile ducts, pancreas, pancreatic duct, spleen, and adrenal glands are unremar kable. No space-occupying mass lesion or visceral laceration. Left parapelvic renal cyst. No suspicious renal mass lesions or urinary tract calculi or hydrouretero nephrosis. There is considerable streak artifact through the lower pelvis due to bilateral total hip arthroplast y. There is prostate enlargement calcifications. The urinary bladder is not completely demonstrated b ut no bladder wall thickening is identified in the areas where the bladder is well demonstrated. There is atherosclerotic calcification but no abdominal aortic aneurysm or dissection. No intraperitoneal or retroperitoneal or pelvic mass lesion or adenopathy or ascites. Postoperative change of the stomach. No bowel obstruction, bowel wall thickening, pneumatosis or intraperitoneal free air. Small fat-containing umbilical hernia. Hydroceles. Skeletal: There is a comminuted midshaft left clavicular fracture. Diffuse idiopathic skeletal hyperostosis of the thoracic spine. Prominent multilevel degenerative disc disease of the lumbar spine. Status post bilateral total hip arthroplasty. IMPRESSION: Comminuted fracture of the mid left clavicular shaft Prominent coronary artery calcification Small sliding hiatal hernia Left parapelvic renal cyst Postoperative change of the stomach Bilateral total hip arthroplasty Reviewed, dictated and finalized at Location A. Reviewed, dictated and finalized at location A.
--- NOTE | ~2024-07-08 | CT_ITS ---
EXAMINATION: CT cervical spine wo con DATE: 07/08/2024 16:18 INDICATION: Trauma TECHNIQUE: Computed tomography (CT) of the cervical spine was performed without intravenous contrast. Automated exposure control and iterative reconstruction technique were employed. Exam dose: 519.48 mGy-cm total exam DLP. COMPARISON: None FINDINGS: Normal alignment at the atlantoaxial joints. C1 and C2 are normally aligned and the odontoi d process is intact. No fracture or dislocation or locked facet or prevertebral soft tissue swelling. There is cervical spondylosis including severe degenerative disease at C5-6 and C6-7, degenerative ch camelia of the facet joints and prominent uncovertebral joint spurring at C5-6 and C6-7. No cervical mass lesion or lymphadenopathy. No mass or adenopathy of the superior mediastinum. Aortic arch calcification. The included upper lung zones are clear IMPRESSION: Cervical spondylosis, particularly involving C5-6 and C6-7; no fracture or dislocation o r locked facet Reviewed, dictated and finalized at Location A. Reviewed, dictated and finalized at location A. IMPRESSION: Cervical spondylosis, particularly involving C5-6 and C6-7; no fra cture or dislocation or locked facet
--- NOTE | ~2024-07-08 | XR_ITS ---
XR hip LT 2V w AP pelvis DATE: 07/08/2024 15:41 INDICATION: Left hip pain TECHNIQUE: AP pelvis. AP and lateral views of left hip. COMPARISON: 04/14/2024 pelvis and left hip FINDINGS: Prominent degenerative disc disease in the lower lumbar spine. Normal alignment at the pubic symphysis and sacral iliac joints. No pelvic fracture or bone destruction. Bilateral hip arthroplasty. No fracture or dislocation of either hip. Bilateral femoral artery calcifications. IMPRESSION: Bilateral hip arthroplasty; no fracture or dislocation Reviewed, dictated and finalized at location A.
--- NOTE | ~2024-07-08 | XR_ITS ---
XR tibia fibula RT 2V DATE: 07/08/2024 15:40 INDICATION: Anterior leg trauma TECHNIQUE: AP and lateral projections, 4 views COMPARISON: None FINDINGS: Normal alignment at the knee and ankle joints. There is mild irregularity at the distal anterior margin of the tibia. Right ankle 4 view radiographi c examination is recommended for more optimal evaluation of this area. Otherwise no fracture or dislocation of the tibia or fibula. Prominent femoral, popliteal, anterior posterior tibial artery calcification. IMPRESSION: Mild irregularity along the distal anterior tibial margin; right ankle 4 view radiographi c examination is recommended Reviewed, dictated and finalized at location A. IMPRESSION: Mild irregularity along the distal anterior tibial margin; right an kle 4 view radiographic examination is recommended
--- NOTE | ~2024-07-08 | CT_ITS ---
EXAMINATION: CT brain wo con DATE: 07/08/2024 16:17 INDICATION: Trauma TECHNIQUE: Computed tomography (CT) of the head was performed without intravenous contrast. The mA wa s adjusted according to patient size. Iterative reconstruction technique was employed. Exam dose: 60 5.33 mGy-cm total exam DLP. COMPARISON: None FINDINGS: Bilateral vertebral artery and particularly prominent lower carotid siphon internal carotid artery calcifications. No intracranial mass lesion or hemorrhage or cerebrovascular accident, midline shift or mass effect. Normal ventricular size. No subdural or epidural hematoma. The orbital contents are unremarkable. Bilateral nasal antral windows. Status post bilateral partial ethmoidectomy, with some soft tissue th ickening in the ethmoid regions. There is mild mucoperiosteal thickening of the maxillary sinuses, ri ght greater than left and a 1.6 cm mucous retention cyst or polyp along the left maxillary sinus wall . Small fluid levels in the sphenoid sinuses. The mastoid air cells are well-developed and aerated. No fracture or bone destruction of the cranial vault. IMPRESSION: Cerebral atherosclerosis No acute intracranial finding Status post bilateral nasal antral windows and partial ethmoidectomies Paranasal sinus disease as indicated above Reviewed, dictated and finalized at Location A. Reviewed, dictated and finalized at location A.
--- OUTSIDE RECORDS SUMMARY | 2024-07-08 15:02 | XMS_ITS | Encounter Summary ---
Author Organization [facility] Address [address] [place] [address] Care Team Providers Care Piped Buttonhole Machine Operator Name Role Phone Ivania Coates NP Primary Care Provider [phone] Regina Camilo- Primary Care Provid er Encounter Details Date Type Department Care Team (Late st Contact Info) Description 04/10/2022 Abstract [facility] [address] Jet Gomez [place] Social History Tobacco Use Types Packs/Day Years Used Date Smoking Tobacco: Never Smokeless Tobacco: Never Alcohol Use Standard Drinks/Week Comments Yes 0 (1 standard drink = 0.6 oz pur e alcohol) AUDIT-C Answer Date Recorded Frequency of Alcohol Consumption Monthly or less 06/13/2018 Average Number of Drinks Not on file 019 Frequency of Binge Drinking Not on file 05/21 PHQ-2 Answer Date Recorded PHQ-2 Score - If the patient scores above 3, please move on to questions 3-9 0 01/12/2022 Sex and Gender Information Value Date Recorded Sex Assigned at Not on file Legal Sex Male 1:16 AM CDT Gender Identity Not on file Sexual Orientation Not on file COVID-19 Exposure Response Date Recorded In the last 10 days, have yo u been in contact with someone who was confirmed or suspected to have Coronavirus/COVID-19? No / Unsure 03/31/2022 11:29 AM DIRECTOR OF MANAGED SERVICES documented as of this encounter Plan of Treatment Upcoming Encounters Date Type Department Care Team (Late st Contact Info) Description 07/25/2024 2:20 PM CDT Office Visit [facility] [address] [place] [phone] Regina Camilo, [facility]CULATION [facility] [address] [place], [place] [phone] 02/27/2025 2:00 PM DIRECTOR OF MANAGED SERVICES Office Visit [facility] [address] [place] [address] Jerardo Valenzuela MD [address] [facility] [address] [place] [phone] documented as of this encounter Procedures Procedure Name Priority Date/Time Associated Diagnosis Comments FOLATE (OUTSIDE LAB) Routine 02/20/2022 CBC (OUTSIDE LAB) Routine 02/20/2022 VITAMIN B-12 Routine 02/20/2022 COMPREHENSIVE METABOLIC PANEL Routine 02/20/2022 LIPID PANEL Routine 02/20/2022 MAGNESIUM Routine 02/20/2022 documented in this encounter Results * CBC (OUTSIDE LAB) (02/20/2022) WBC 4.6 HGB 15.3 HCT 45.2 PLT 140 02/20/2022 us Default History Genericprovider LAB-OUTSIDE/ABST RACTED Final Result * MAGNESIUM (02/20/2022) MAGNESIUM 2.4 02/20/2022 us Default History Genericprovider LABORATORY Final Result * LIPID PANEL (02/20/2022) Pathologist [facility] CHOLESTEROL 130 HDL 53 TRIGLYCERIDES 63 NON HDL CHOLESTEROL 77 LDL (CALCULATED) 63 02/20/2022 us Default History Genericprovider LABORATORY Final Result * FOLATE (OUTSIDE LAB) (02/20/2022) Pathologist [facility] FOLATE 22.0 02/20/2022 Default History Genericprovider LAB-OUTSIDE/ABST RACTED Final Result * VITAMIN B-12 (02/20/2022) [facility] VITAMIN B12 S/P/B 1,275 02/20/2022 Default History Genericprovider LABORATORY Final Result * (ABNORMAL) COMPREHENSIVE METABOLIC PANEL (02/20/2022) [facility] SODIUM S/P/B 141 POTASSIUM S/P/B 4.5 CO2 34 CHLORIDE S/P/B 105 GLUCOSE 98 mg/dL CALCIUM S/P/B 9.3 BUN 16 CREATININE S/P/B 0.93 0.7 - 1.3 EGFR NON-AFR. AMER. 94(A) <=90 ALKALINE PHOSPHATASE S/P/B 70 ALT 21 AST 18 BILIRUBIN TOTAL S/P/B 0.9 ALBUMIN S/P/B 4.2 3.5 - 5.0 TOTAL PROTEIN S/P/B 6.1 GLOBULIN 1.9 02/20/2022 Default History Genericprovider LABORATORY Final Result documented in this encounter Visit Diagnoses Not on filedocumented in this encounter Additional Health Concerns Infection Onset Date Last Indicated Resolved Time COVID-19 Rule Out 04/14/2023 04/14/2023 04/14/2023 7:19 AM DIRECTOR OF MANAGED SERVICES Influenza - Seasonal 04/14/2023 04/14/2023 024 12:33 AM DIRECTOR OF MANAGED SERVICES COVID-19 Rule Out 04/14/2023 04/14/2023 04/14/2023 11:18 AM DIRECTOR OF MANAGED SERVICES COVID-19 Rule Out 07/19/2023 07/19/2023 07/19/2023 10:33 AM CDT COVID-19 Rule Out 12/15/2023 12/15/2023 12/15/2023 4:19 PM CDT Assessment Noted Time PHQ-9 Depression Total Score: 0 07/09/19 2:46 PM CDT documented as of this encounter Care Teams Piped Buttonhole Machine Operator Relationship Specialty Start Date End Date Ivania Coates NP [address] [place] [address] PCP - General NURSE PRACTITIONER 06/24/21 06/16/22 Regina Camilo, FEDERICO- [address] [place] [address] PCP - General Nurse Practitioner Family 06/17/22 documented as of this encounter
--- OUTSIDE RECORDS SUMMARY | 2024-07-08 15:02 | XMS_ITS | Referral Summary ---
Author Organization [facility] Address [address] [place] [address] Care Team Providers Care Freight Clerk Name Role Phone Jordi Marcus MD Primary [...] on file Legal Sex Male 3:32 AM GENERAL MACHINE OPERATOR Gender Identity Male 09/06/2019 6:23 AM CDT Sexual Orientation Choose not to disclose 2019 6:23 AM CDT Last Filed Vital Signs Vital Sign Reading Time Taken Comments Blood Pressure 110/78 09/26/2020 2:31 PM CDT Pulse 64 09/26/2020 2:31 PM CDT Temperature 36.7 C (98.1 F) 05/26/2021 1:49 PM GENERAL MACHINE OPERATOR Respiratory Rate 18 09/26/2020 2:31 PM CDT Oxygen Saturation 98% 09/26/2020 2:31 PM CDT Inhaled Oxygen Concentration - - Weight 79.4 kg (175 lb) 05/26/2021 1:49 PM GENERAL MACHINE OPERATOR Height 172.7 cm (5' 8 ) 05/26/2021 1:49 PM GENERAL MACHINE OPERATOR Body Mass Index 26.61 05/26/2021 1:49 PM GENERAL MACHINE OPERATOR Plan of Treatment Not on file Insurance [facility] H[facility]/O Address: [facility] [id number] [place] [phone] [facility] Member Subscriber Plan / Payer (Ef fective 2023-Present) Name:Hernan Landis Relation to Subscriber:Self Name:Hernan Landis Payer ID:[id number] (NAIC) Type:[employer] Address: [address] [place] [id number] Care Teams Freight Clerk Relationship Specialty Start Date End Date Jordi Marcus MD [address] [place] [address] PCP - General Family Medicine 07/04/20
--- OUTSIDE RECORDS SUMMARY | 2024-07-08 15:02 | XMS_ITS | Encounter Summary ---
Author Organization [facility] Address [address] [place] [address] Care Team Providers Care Marketing Project Manager Name Role Phone Ashley Gandhi MD Primary Care Provider Un available Jordi Deng MD Primary Care Provider Unavailable Ahsley Gandhi MD Primary Care Provider Un available Jordi Marcus MD Primary Care Provider Jovanna vailable Ivania Coates SENIOR TECH MANUFACTURING ENGINEERING Primary Care Provider [phone] Regina CamiloDANIELA Primary Care Provid er Encounter Details Date Type Department Care Team (Late st Contact Info) Description 02/13/2015 Abstract [facility] [address] [place] [address] , Patti Solo MD Social History Tobacco Use Types Packs/Day Years Used Date Smoking Tobacco: Never Assessed Sex and Gender Information Value Date Recorded Sex Assigned at Not on file Legal Sex Male 1:16 AM CDT Gender Identity Not on file Sexual Orientation Not on file documented as of this encounter Plan of Treatment Upcoming Encounters Date Type Department Care Team (Late st Contact Info) Description 07/25/2024 2:20 PM CDT Office Visit [facility] [address] [place] [address] Regina Camilo FNP-BC [address] [place] [address] 02/27/2025 2:00 PM MANAGER CUSTOMER Office Visit [facility] [address] [place] [phone] Jerardo Valenzuela MD [address] [facility] [address] [place] [address] documented as of this encounter Visit Diagnoses Not on filedocumented in this encounter Additional Health Concerns Infection Onset Date Last Indicated Resolved Time COVID-19 Rule Out 04/14/2023 04/14/2023 04/14/2023 7:19 AM MANAGER CUSTOMER Influenza - Seasonal 04/14/2023 04/14/2023 024 12:33 AM MANAGER CUSTOMER COVID-19 Rule Out 04/14/2023 04/14/2023 04/14/2023 11:18 AM MANAGER CUSTOMER COVID-19 Rule Out 07/19/2023 07/19/2023 07/19/2023 10:33 AM CDT COVID-19 Rule Out 12/15/2023 12/15/2023 12/15/2023 4:19 PM CDT documented as of this encounter Care Teams Marketing Project Manager Relationship Specialty Start Date End Date Ashley Gandhi MD PCP - General INTERNAL MEDICINE 04/22/18 06/05/18 Jordi Deng MD PCP - General FAMILY PRACTICE 06/06/18 06/12/18 Ashley Gandhi MD PCP - General INTERNAL MEDICINE 06/13/18 05/14/20 Jordi Marcus MD PCP - General FAMILY PRACTICE 05/15/20 06/23/21 Ivania Coates NP [address] [place] [address] PCP - General NURSE PRACTITIONER 06/24/21 06/16/22 Regina Camilo, HOSPITALITY MANAGER-BC [address] [place] [address] PCP - General Nurse Practitioner Family 06/17/22 documented as of this encounter
--- OUTSIDE RECORDS SUMMARY | 2024-07-08 15:02 | XMS_ITS | Encounter Summary ---
Author Organization [facility] Address [address] [place] [address] Care Team Providers Care Mixing Pan Tender Name Role Phone Ashley Gandhi MD Primary Care Provider Un available Jordi Deng MD Primary Care Provider Unavailable Ashley Gandhi MD Primary Care Provider Un available Jordi Marcus MD Primary Care Provider Jovanna Ivania Perdomo SEISMIC OBSERVER Primary Care Provider [phone] Regina CamiloDANIELA Primary Care Provid er Encounter Details Date Type Department Care Team (Late st Contact Info) Description 07/07/[address] [facility] Conversion , Generic Conversion, Social History Tobacco Use Types Packs/Day Years [...] PM CDT Office Visit [facility] [address] [place] [phone] Regina Camilo FNP-BC [address] [place] [address] 02/27/2025 2:00 PM OIL HEAT TECHNICIAN Office Visit [facility] [address] [place] [address] Jerardo Valenzuela MD 3 [facility] [address] [place] [address] documented as of this encounter Visit Diagnoses Not on filedocumented in this encounter Additional Health Concerns Infection Onset Date Last Indicated Resolved Time COVID-19 Rule Out 04/14/2023 04/14/2023 04/14/2023 7:19 AM OIL HEAT TECHNICIAN Influenza - Seasonal 04/14/2023 04/14/2023 024 12:33 AM OIL HEAT TECHNICIAN COVID-19 Rule Out 04/14/2023 04/14/2023 04/14/2023 11:18 AM OIL HEAT TECHNICIAN COVID-19 Rule Out 07/19/2023 07/19/2023 07/19/2023 10:33 AM CDT COVID-19 Rule Out 12/15/2023 12/15/2023 12/15/2023 4:19 PM CDT documented as of this encounter Care Teams Mixing Pan Tender Relationship Specialty Start Date End Date Ashley Gandhi MD PCP - General INTERNAL MEDICINE 04/22/18 06/05/18 Jordi Deng MD PCP - General FAMILY PRACTICE 06/06/18 06/12/18 Ashley Gandhi MD PCP - General INTERNAL MEDICINE 06/13/18 05/14/20 Jordi Marcus MD PCP - General FAMILY PRACTICE 05/15/20 06/23/21 Ivania Coates NP [address] [place] [address] PCP - General NURSE PRACTITIONER 06/24/21 06/16/22 Regina Camilo FNP- [address] [place] [address] PCP - General Nurse Practitioner Family 06/17/22 documented as of this encounter
--- OUTSIDE RECORDS SUMMARY | 2024-07-08 15:02 | XMS_ITS | Clinical Summary ---
Author Organization [facility] Address [address] [place] [address] Care Team Providers Care Head Of Global Strategic Partnerships Name Role Phone Jordi Marcus MD Primary [...] on file Legal Sex Male 3:32 AM RADAR SYSTEMS ENGINEER Gender Identity Male 09/06/2019 6:23 AM CDT Sexual Orientation Choose not to disclose 2019 6:23 AM CDT Obstetrics History Last Filed Vital Signs Vital Sign Reading Time Taken Comments Blood Pressure 110/78 09/26/2020 2:31 PM CDT Pulse 64 09/26/2020 2:31 PM CDT Temperature 36.7 C (98.1 F) 05/26/2021 1:49 PM RADAR SYSTEMS ENGINEER Respiratory Rate 18 09/26/2020 2:31 PM CDT Oxygen Saturation 98% 09/26/2020 2:31 PM CDT Inhaled Oxygen Concentration - - Weight 79.4 kg (175 lb) 05/26/2021 1:49 PM RADAR SYSTEMS ENGINEER Height 172.7 cm (5' 8 ) 05/26/2021 1:49 PM RADAR SYSTEMS ENGINEER Body Mass Index 26.61 05/26/2021 1:49 PM RADAR SYSTEMS ENGINEER Plan of Treatment Health Maintenance Due Date [...] topic Zoster Vaccine Completed 08/23/2019, 04/18/2019 Insurance [facility] Care Teams Head Of Global Strategic Partnerships Relationship Specialty Start Date End Date Jordi aMrcus MD [address] [place] [address] PCP - General Family Medicine 07/04/20
--- OUTSIDE RECORDS SUMMARY | 2024-07-08 15:02 | XMS_ITS | Encounter Summary ---
Author Organization [facility] Address [address] [place] [address] Care Team Providers Care Finished Cigar Maker Name Role Phone Ashley Gandhi MD Primary Care Provider Un available Jordi Deng MD Primary Care Provider Unavailable Ashley Gandhi MD Primary Care Provider Un available Jordi Marcus MD Primary Care Provider Jovanna Ivania Perdomo PHOTOGRAPHY TEACHER Primary Care Provider [phone] Regina CamiloDANIELA Primary Care Provid er Encounter Details Date Type Department Care Team (Late st Contact Info) Description 02/03/2014 Abstract [facility] Clin[facility] Conversion , Generic Conversion, Social [...] Description 07/25/2024 2:20 PM CDT Office Visit [facility] [address] [place] [phone] Regina Camilo FNP-BC [address] [place] [address] 02/27/2025 2:00 PM YARROW GATHERER Office Visit [facility] [address] [place] [address] Jerardo Valenzuela MD 3 [facility] [address] [place] [address] documented as of this encounter Visit Diagnoses Not on filedocumented in this encounter Additional Health Concerns Infection Onset Date Last Indicated Resolved Time COVID-19 Rule Out 04/14/2023 04/14/2023 04/14/2023 7:19 AM YARROW GATHERER Influenza - Seasonal 04/14/2023 04/14/2023 024 12:33 AM YARROW GATHERER COVID-19 Rule Out 04/14/2023 04/14/2023 04/14/2023 11:18 AM YARROW GATHERER COVID-19 Rule Out 07/19/2023 07/19/2023 07/19/2023 10:33 AM CDT COVID-19 Rule Out 12/15/2023 12/15/2023 12/15/2023 4:19 PM CDT documented as of this encounter Care Teams Finished Cigar Maker Relationship Specialty Start Date End Date Ashley Gandhi MD PCP - General INTERNAL MEDICINE 04/22/18 06/05/18 Jordi Deng MD PCP - General FAMILY PRACTICE 06/06/18 06/12/18 Ashley Gandhi MD PCP - General INTERNAL MEDICINE 06/13/18 05/14/20 Jordi Marcus MD PCP - General FAMILY PRACTICE 05/15/20 06/23/21 Ivania Coates NP [address] [place] [address] PCP - General NURSE PRACTITIONER 06/24/21 06/16/22 Regina Camilo FNP- [address] [place] [address] PCP - General Nurse Practitioner Family 06/17/22 documented as of this encounter
--- OUTSIDE RECORDS SUMMARY | 2024-07-08 15:02 | XMS_ITS | Encounter Summary ---
Author Organization [facility] Address [address] [place] [address] Care Team Providers Care Steam Fitter Helper Name Role Phone Ashley Gandhi MD Primary Care Provider Un available Jordi Deng MD Primary Care Provider Unavailable Ashley Gandhi MD Primary Care Provider Un available Jordi Marcus MD Primary Care Provider Jovanna Ivania Perdomo CONSULTING ACTUARY Primary Care Provider [phone] Regina CamiloDANIELA Primary Care Provid er Encounter Details Date Type Department Care Team (Late st Contact Info) Description 06/06/2014 Abstract [facility] Conversion , Generic Conversion, Social History [...] 07/25/2024 2:20 PM CDT Office Visit [facility] [address] [place] [phone] Regina Camilo FNP-BC [address] [place] [address] 02/27/2025 2:00 PM INDUSTRIAL PSYCHOLOGIST Office Visit [facility] [address] [place] [address] Jerardo Valenzuela MD 3 [facility] [address] [place] [address] documented as of this encounter Visit Diagnoses Not on filedocumented in this encounter Additional Health Concerns Infection Onset Date Last Indicated Resolved Time COVID-19 Rule Out 04/14/2023 04/14/2023 04/14/2023 7:19 AM INDUSTRIAL PSYCHOLOGIST Influenza - Seasonal 04/14/2023 04/14/2023 024 12:33 AM INDUSTRIAL PSYCHOLOGIST COVID-19 Rule Out 04/14/2023 04/14/2023 04/14/2023 11:18 AM INDUSTRIAL PSYCHOLOGIST COVID-19 Rule Out 07/19/2023 07/19/2023 07/19/2023 10:33 AM CDT COVID-19 Rule Out 12/15/2023 12/15/2023 12/15/2023 4:19 PM CDT documented as of this encounter Care Teams Steam Fitter Helper Relationship Specialty Start Date End Date Ashley Gandhi MD PCP - General INTERNAL MEDICINE 04/22/18 06/05/18 Jordi Deng MD PCP - General FAMILY PRACTICE 06/06/18 06/12/18 Ashley Gandhi MD PCP - General INTERNAL MEDICINE 06/13/18 05/14/20 Jordi Marcus MD PCP - General FAMILY PRACTICE 05/15/20 06/23/21 Ivania Coates NP [address] [place] [address] PCP - General NURSE PRACTITIONER 06/24/21 06/16/22 Regina Camilo FNP- [address] [place] [address] PCP - General Nurse Practitioner Family 06/17/22 documented as of this encounter
--- OUTSIDE RECORDS SUMMARY | 2024-07-08 15:02 | XMS_ITS | Clinical Summary ---
Author Organization [facility] Address [address] [place] [address] Care Team Providers Care Chair Finisher Name Role Phone LucyRegina lback Elie [facility] Primary Care Provid er Allergies Active Allergy Reactions Criticality Noted Date Comments Lisinopril Shortness of Breath High 02/21/2014 Medications aspirin 81 MG chewable tablet Chew by mouth daily. 01/14/20 16 Active vitamin C (ASCORBIC ACID) 500 MG tablet Take by mouth daily. 04/16/20 15 Active Multiple Vitamin ([facility] DAILY MULTIPLE) Tab Take by mouth daily. 12/23/19 17 Active Calcium Carb-Cholecalcifero l (CALCIUM CARBONATE-VITAMIN D3) 600-400 MG-UNIT Tab Active Cyanocobalamin (VITAMIN B 12 OR) Ac tive nitroglycerin (NITROSTAT) 0.4 MG SL tabletIndications:S /P gastric bypass,Coronary atherosclerosis due to lipid rich plaque Place 1 tablet (0.4 mg total) under the tongue every 5 (five) minutes as needed for Chest Pain. 30 tablet 1 01/26/20 23 Active benzonatate (TESSALON PERLES) 100 MG capsuleIndications: Influenza A Take 1 capsule (100 mg total) by mouth 3 (three) times daily as needed for Cough. 30 capsule 04/14/20 23 Active tamsulosin (FLOMAX) 0.4 MG Cap Take 1 capsule (0.4 mg total) by mouth daily. 09/16/19 24 Active HYDROcodone-acetami nophen (NORCO) 5-325 MG tablet TAKE 1 TO 2 TABLETS BY MOUTH EVERY 12 HOURS NEEDED FOR PAIN 01/06/20 24 Active naloxone (NARCAN) 4 MG/0.1ML nasal spray CALL 911. ADMINISTER A SINGLE SPRAY INTRANASALLY INTO ONE NOSTRIL UPON SIGNS OF OPIOID OVERDOSE. MAY REPEAT AFTER 3 MINUTES IF NO RESPONSE. 01/06/20 24 Active atorvastatin (LIPITOR) 10 MG tabletIndications:O ther hyperlipidemia Take 1 tablet (10 mg total) by mouth nightly at bedtime. at bedtime 90 tablet 1 01/27/20 24 Active hydroCHLOROthiazide (MICROZIDE) 12.5 MG capsuleIndications: Essential hypertension Take 1 capsule (12.5 mg total) by mouth daily. 90 capsule 1 01/27/20 24 Active losartan (COZAAR) 50 MG tabletIndications:E ssential hypertension Take 1 tablet (50 mg total) by mouth daily. 90 tablet 1 01/27/20 24 Active carvedilol (COREG) 6.25 MG tablet Take 1 tablet by mouth twice daily 180 tablet 3 03/06/20 24 Active Active Problems Problem Noted Date Diagnosed Date Aortic valve sclerosis 02/17/2022 Coronary stent patent 02/13/2022 ETD (Eustachian tube dysfunction), bilateral 11/2021 Sensorineural hearing loss (SNHL) of both ears 0 05/27/2021 Tinnitus of both ears 05/27/2021 S/P gastric bypass 04/17/2019 Coronary artery disease of n ative artery of [place] heart with stable angina pectoris 12/22/2016 Overview (06/13/2018): jan [address] ramirez [place] Hypercholesterolemia 12/22/2016 Overview (06/13/2018): 11 8 14 normal 2015 [place] Benign paroxysmal positional vertigo 05/29/2013 Overview (06/13/2018): occasional bpv Essential hypertension 11/26/2011 Overview (06/13/2018): at home Resolved Problems Problem Noted Date Diagnosed Date Resolved Date Nasal obstruction 05/27/2021 11/02/2022 Primary snoring 09/26/2020 11/02/2022 Overview (11/02/2022): Last Assessment & Plan: Patient's most recent nocturnal polysomnogram completed on July 23, 2020 following 85 lb weight loss, demonstrated an AHI within normal limits. The patient was provided instructions on positional therapy, exercise program and a snore guard and continued weight loss if necessary. PLMD (periodic limb movement disorder) 07/04/2020 11/02/2022 Overview (11/02/2022): Last Assessment & Plan: Limbs movement are asymptomatic Mild intermittent asthma wit h acute exacerbation ([facility]) 12/22/2016 02/19/2021 Overview (06/13/2018): off meds no treatment Obstructive sleep apnea 12/22/201606/2020 Other depressive disorder 12/22/2016 Overview (06/13/2018): doing well on small dose of lexapro off meds Other obesity due to excess calories 12/22/2016 11/30/2019 Overview (06/13/2018): bmi 38 cardiac rehab needs to lose Encounters Date Type Department Care Team Description 06/27/2024 Telephone [facility], [address] [address] Jerardo Valenzuela MD Surgical Clearance 05/17/2024 Telephone [facility] [address] [place] [address] Regina Camilo, [facility]- Refill Request from Last 3 Months Immunizations Name Administration Dates Next Due Afluria 36 MONTHS+ (Prefille d Syringe IIV4) 03/22/2019 Flublok (RIV3, Trivalent, 0.5mL) 01/07/2024 Fluzone 6 Months+ Quad (0.5 mL Prefilled Syringe) 01/25/2023 Influenza (Fluvirin) >AGE 4 03/22/2019 Influenza (Generic) 02/17/2022 Influenza Adult (Generic) 02/27/2021,03/2018,02/05/2017,2014,02/05/2014,01/20/2013,02/17/2012,1 05/30/2009 Pneumococcal (Pneumovax 23) 06/13/2018, 0 Pneumococcal (Prevnar 13) 02/21/2014 Shingrix 08/23/2019,04/18/2019 Tdap (Adacel) 01/25/2023 Tdap (Generic) 07/30/2011 Family History Medical History Relation Comments Heart Disease Brother Other cancer Brother pacemaker Heart Disease Father Hypertension Father Cancer Maternal Aunt skin ca Hypertension Maternal Aunt No Known Problems Maternal Grandfather No Known Problems Maternal Grandmother Heart Disease Maternal Uncle Hypertension Maternal Uncle Cancer Mother breast ca Heart Disease Paternal Aunt No Known Problems Paternal Grandfather No Known Problems Paternal Grandmother Heart Disease Paternal Uncle Relation Status Comments Brother Alive Father Maternal Aunt Maternal Grandfather Maternal Grandmother Maternal Uncle Mother Alive Paternal Aunt Paternal Grandfather Paternal Grandmother Paternal Uncle Social History Tobacco Use Types Packs/Day Years Used Date Smoking Tobacco: Never Passive Smoke Exposure: Never Smokeless Tobacco: Never Tobacco Cessation:Counseling Given: Yes Alcohol Use Standard Drinks/Week Comments Yes 0 (1 standard drink = 0.6 oz pur e alcohol) 1-2 month AUDIT-C Answer Date Recorded Frequency of Alcohol Consumption Monthly or less 06/13/2018 Average Number of Drinks Not on file 019 Frequency of Binge Drinking Not on file 05/21 PHQ-2 Answer Date Recorded Patient Health Questionnaire-2 Score 0 12/15/2023 Sex and Gender Information Value Date Recorded Sex Assigned at Not on file Legal Sex Male 1:16 AM CDT Gender Identity Not on file Sexual Orientation Not on file Last Filed Vital Signs Vital Sign Reading Time Taken Comments Blood Pressure 160/90 02/22/2024 9:47 AM PRINCIPAL ACCOUNT CLERK Pulse 68 02/22/2024 9:47 AM PRINCIPAL ACCOUNT CLERK Temperature 36.7 C (98.1 F) 01/27/2024 3:10 PM CDT Respiratory Rate 20 01/27/2024 3:10 PM CDT Oxygen Saturation 99% 01/27/2024 3:10 PM CDT Inhaled Oxygen Concentration - - Weight 89.4 kg (197 lb) 02/22/2024 9:47 AM PRINCIPAL ACCOUNT CLERK Height 172.7 cm (5' 8 ) 02/22/2024 9:47 AM PRINCIPAL ACCOUNT CLERK Body Mass Index 29.95 02/22/2024 9:47 AM PRINCIPAL ACCOUNT CLERK Plan of Treatment Upcoming Encounters Date Type Department Care Team (Late st Contact Info) Description 07/25/2024 2:20 PM CDT Office Visit [facility] [address] [place] [address] [facility] [address] [place] [address] 02/27/2025 2:00 PM PRINCIPAL ACCOUNT CLERK Office Visit [facility] [address] [place] [phone] Jerardo Valenzuela MD 3 [facility] [address] [place] [address] Health Maintenance Due Date Last Done Comments Hepatitis C 07/02/1978 RSV Immunization or 60+ Years (1 - Risk 60-74 years 1-dose series) 2021 COVID-19 Vaccine ( - season) 2023 07/18/2020, 06/20/2020 PHQ-2 (Physician [place]) 04/19/2024 12/15/2023 Annual Physical 01/26/2025 01/27/2024, 12/2022, 01/12/2022, Additional history exists Pneumococcal Vaccine: Pediatrics (0 to 5 Years) and At-Risk Patients (6 to 64 Years) (3 of 3 - PPSV23 or PCV20) 2026 06/13/2018, 02/21/2014, 03/29/2010 Colorectal Cancer Screening Colonoscopy (10 Years) 09/02/2031 09/01/2021 DTaP, Tdap and Td Vaccines (3 - Td or Tdap) 01/25/2033 01/25/2023, 07/30/2011 Zoster Vaccines Completed 08/23/2019, 04/18/2019 Influenza Adult Completed 01/07/2024, 10/0 12/2022, 02/17/2022, Additional history exists Meningococcal B Vaccine Aged Out No l onger eligible based on patient's age to complete this topic Meningococcal Vaccine Aged Out No alondra william eligible based on patient's age to complete this topic RSV Immunizations Under 20 Months Aged Out No longer eligible based on patient's age to complete this topic Procedures Procedure Name Priority Date/Time Associated Diagnosis Comments COLONOSCOPY GENERIC (SCAN ORDER) 09/01/2021 from Last 3 Months or Most Recently Relevant to Health Maintenance Results * COLONOSCOPY GENERIC (09/01/2021) 09/01/2021 Narrative 09/01/2021 Ordered by an unspecified provider. us Documents Scanned SCANNING Final Result from Last 3 Months or Most Recently Relevant to Health Maintenance Insurance Advance Directives * Full Code (Latest Code Status on File) Date Activated Date Inactivated Comments 06/15/2022 10:28 AM 06/15/2022 5:12 PM Care Teams Chair Finisher Relationship Specialty Start Date End Date Regina Camilo, [facility] [address] [place] [address] PCP - General Nurse Practitioner Family 06/17/22
--- OUTSIDE RECORDS SUMMARY | 2024-07-08 15:02 | XMS_ITS | Encounter Summary ---
Author Organization [facility] Address [address] [place] [address] Care Team Providers Care Embossing Machine Operator Name Role Phone Ashley Gandhi MD Primary Care Provider Un available Jordi Deng MD Primary Care Provider Unavailable sAhley Gandhi MD Primary Care Provider Un available Jordi Marcus MD Primary Care Provider Jovanna vailable Ivania Coates PHYSICIAN RECRUITER Primary Care Provider [phone] Regina Camilo-DANIELA Primary Care Provid er Encounter Details Date Type Department Care Team (Late st Contact Info) Description 06/13/2013 Abstract [facility] CONVERSION [address] [place], [place] [id number] , Patti Solo MD Social History Tobacco [...] Description 07/25/2024 2:20 PM CDT Office Visit [address] [address] Regina Camilo FNP-BC [address] [place] [address] 02/27/2025 2:00 PM RESEARCH NUTRITIONIST Office Visit [facility] [address] [place] [phone] Jerardo Valenzuela MD 3 [facility] [address] [place] [address] documented as of this encounter Visit Diagnoses Not on filedocumented in this encounter Additional Health Concerns Infection Onset Date Last Indicated Resolved Time COVID-19 Rule Out 04/14/2023 04/14/2023 04/14/2023 7:19 AM RESEARCH NUTRITIONIST Influenza - Seasonal 04/14/2023 04/14/2023 024 12:33 AM RESEARCH NUTRITIONIST COVID-19 Rule Out 04/14/2023 04/14/2023 04/14/2023 11:18 AM RESEARCH NUTRITIONIST COVID-19 Rule Out 07/19/2023 07/19/2023 07/19/2023 10:33 AM CDT COVID-19 Rule Out 12/15/2023 12/15/2023 12/15/2023 4:19 PM CDT documented as of this encounter Care Teams Embossing Machine Operator Relationship Specialty Start Date End Date Ashley Gandhi MD PCP - General INTERNAL MEDICINE 04/22/18 06/05/18 Jordi Deng MD PCP - General FAMILY PRACTICE 06/06/18 06/12/18 Ashley Gandhi MD PCP - General INTERNAL MEDICINE 06/13/18 05/14/20 Jordi Marcus MD PCP - General FAMILY PRACTICE 05/15/20 06/23/21 Ivania Coates NP [address] [place] [address] PCP - General NURSE PRACTITIONER 06/24/21 06/16/22 Regina Camilo, PAINTING WORKER-BC [address] [place] [address] PCP - General Nurse Practitioner Family 06/17/22 documented as of this encounter
--- OUTSIDE RECORDS SUMMARY | 2024-07-08 15:02 | XMS_ITS | Encounter Summary ---
Author Organization [facility] Address [address] [place] [address] Care Team Providers Care Commercial Baking Teacher Name Role Phone Ashley Gandhi MD Primary Care Provider Un available Jordi Deng MD Primary Care Provider Unavailable Ashley Gandhi MD Primary Care Provider Un available Jordi Marcus MD Primary Care Provider Jovanna Ivania Perdomo GUT CARRIER Primary Care Provider [phone] Regina CamiloDANIELA Primary Care Provid er Encounter Details Date Type Department Care Team (Late st Contact Info) Description 06/26/2014 Abstract [facility] Clinics Conversion , Generic Conversion, Social [...] Description 07/25/2024 2:20 PM CDT Office Visit [facility] [address] [place] [phone] Regina Camilo FNP-BC [address] [place] [address] 02/27/2025 2:00 PM THUMB SEWER Office Visit [facility] [address] [place] [address] Jreardo Valenzuela MD 3 [facility] [address] [place] [address] documented as of this encounter Visit Diagnoses Not on filedocumented in this encounter Additional Health Concerns Infection Onset Date Last Indicated Resolved Time COVID-19 Rule Out 04/14/2023 04/14/2023 04/14/2023 7:19 AM THUMB SEWER Influenza - Seasonal 04/14/2023 04/14/2023 024 12:33 AM THUMB SEWER COVID-19 Rule Out 04/14/2023 04/14/2023 04/14/2023 11:18 AM THUMB SEWER COVID-19 Rule Out 07/19/2023 07/19/2023 07/19/2023 10:33 AM CDT COVID-19 Rule Out 12/15/2023 12/15/2023 12/15/2023 4:19 PM CDT documented as of this encounter Care Teams Commercial Baking Teacher Relationship Specialty Start Date End Date Ashley Gandhi MD PCP - General INTERNAL MEDICINE 04/22/18 06/05/18 Jordi Deng MD PCP - General FAMILY PRACTICE 06/06/18 06/12/18 Ashley Gandhi MD PCP - General INTERNAL MEDICINE 06/13/18 05/14/20 Jordi Marcus MD PCP - General FAMILY PRACTICE 05/15/20 06/23/21 Ivania Coates NP [address] [place] [address] PCP - General NURSE PRACTITIONER 06/24/21 06/16/22 Regina Camilo FNP- [address] [place] [address] PCP - General Nurse Practitioner Family 06/17/22 documented as of this encounter
--- OUTSIDE RECORDS SUMMARY | 2024-07-08 15:02 | XMS_ITS | Encounter Summary ---
Author Organization [facility] Address [address] [place] [address] Care Team Providers Care Photographic Machine Operator Name Role Phone Jordi Marcus MD Primary Care Provider Jovanna Ivania Perdomo NP Primary Care Provider [phone] Regina [facility] Primary Care Provid er Encounter Details Date Type Department Care Team (Late st Contact Info) Description 06/23/2021 [employer] Message [address] [address] [facility], [facility] Provider stent Social History Tobacco Use Types Packs/Day Years [...] please move on to questions 3-9 0 06/20/2021 Sex and Gender Information Value Date Recorded Sex Assigned at Not on file Legal Sex Male 1:16 AM CDT Gender Identity Not on file Sexual Orientation Not on file COVID-19 Exposure Response Date Recorded In the last 10 days, have yo u been in contact with someone who was confirmed or suspected to have Coronavirus/COVID-19? No / Unsure 06/20/2021 1:43 PM FINANCIAL REPRESENTATIVE documented as of this encounter Plan of Treatment Upcoming Encounters Date Type Department Care Team (Late st Contact Info) Description 07/25/2024 2:20 PM CDT Office Visit [facility] [address] [place] [phone] Regina Camilo [facility] [address] [place], [place] [phone] 02/27/2025 2:00 PM FINANCIAL REPRESENTATIVE [facility] [address] [place] [address] Jerardo Valenzuela MD 3 [facility] [address] [place] [phone] documented as of this encounter Visit Diagnoses Not on filedocumented in this encounter Additional Health Concerns Infection Onset Date Last Indicated Resolved Time COVID-19 Rule Out 04/14/2023 04/14/2023 04/14/2023 7:19 AM FINANCIAL REPRESENTATIVE Influenza - Seasonal 04/14/2023 04/14/2023 024 12:33 AM FINANCIAL REPRESENTATIVE COVID-19 Rule Out 04/14/2023 04/14/2023 04/14/2023 11:18 AM FINANCIAL REPRESENTATIVE COVID-19 Rule Out 07/19/2023 07/19/2023 07/19/2023 10:33 AM CDT COVID-19 Rule Out 12/15/2023 12/15/2023 12/15/2023 4:19 PM CDT Assessment Noted Time PHQ-9 Depression Total Score: 0 06/21/19 1:49 PM FINANCIAL REPRESENTATIVE documented as of this encounter Care Teams Photographic Machine Operator Relationship Specialty Start Date End Date Jordi Marcus MD PCP - General FAMILY PRACTICE 05/15/20 06/23/21 Ivania Coates NP [address] [place] [address] PCP - General NURSE PRACTITIONER 06/24/21 06/16/22 Regina Camilo, [facility]- [address] [place] [address] PCP - General Nurse Practitioner Family 06/17/22 documented as of this encounter
--- OUTSIDE RECORDS SUMMARY | 2024-07-08 15:02 | XMS_ITS | Encounter Summary ---
Author Organization [facility] Address [address] [place] [address] Care Team Providers Care Brush Holder Inspector Name Role Phone Ivania Coates NP Primary Care Provider [phone] [facility] Primary Care Provid er Encounter Details Date Type Department Care Team (Late st Contact Info) Description 08/11/2021 Open Learning Message [facility] [address] [place] [address] Ivania Coates PLASMA CUTTING MACHINE OPERATOR [address] [place] [address] Blood Pressure Social History Tobacco Use Types Packs/Day Years [...] please move on to questions 3-9 0 08/08/2021 Sex and Gender Information Value Date Recorded Sex Assigned at Not on file Legal Sex Male 1:16 AM CDT Gender Identity Not on file Sexual Orientation Not on file COVID-19 Exposure Response Date Recorded In the last 10 days, have yo u been in contact with someone who was confirmed or suspected to have Coronavirus/COVID-19? No / Unsure 08/08/2021 12:42 PM CDT documented as of this encounter Plan of Treatment Upcoming Encounters Date Type Department Care Team (Late st Contact Info) Description 07/25/2024 2:20 PM CDT Office Visit [facility] [address] [place] [address] Regina Camilo, [facility] [address] [place] [address] 02/27/2025 2:00 PM FARM CONSULTANT Office Visit [facility] [address] [place] [address] Jerardo Valenzuela MD 3 [facility] [address] [place] [phone] documented as of this encounter Visit Diagnoses Not on filedocumented in this encounter Additional Health Concerns Infection Onset Date Last Indicated Resolved Time COVID-19 Rule Out 04/14/2023 04/14/2023 04/14/2023 7:19 AM FARM CONSULTANT Influenza - Seasonal 04/14/2023 04/14/2023 024 12:33 AM FARM CONSULTANT COVID-19 Rule Out 04/14/2023 04/14/2023 04/14/2023 11:18 AM FARM CONSULTANT COVID-19 Rule Out 07/19/2023 07/19/2023 07/19/2023 10:33 AM CDT COVID-19 Rule Out 12/15/2023 12/15/2023 12/15/2023 4:19 PM CDT Assessment Noted Time PHQ-9 Depression Total Score: 0 07/09/19 2:46 PM CDT documented as of this encounter Care Teams Brush Holder Inspector Relationship Specialty Start Date End Date Ivania Coates NP [address] [place] [address] PCP - General NURSE PRACTITIONER 06/24/21 06/16/22 Regina Camilo, [facility] [address] [place] [address] PCP - General Nurse Practitioner [facility] 06/17/22 documented as of this encounter
--- OUTSIDE RECORDS SUMMARY | 2024-07-08 15:02 | XMS_ITS | Encounter Summary ---
Author Organization [facility] Address [address] [place] [address] Care Team Providers Care Med Spec Name Role Phone Ivania Coates NP Primary Care Provider [phone] Regina Camilo- Primary Care Provid er Encounter Details Date Type Department Care Team (Late st Contact Info) Description 02/02/[address] [facility] [address] [place] [address] [facility] Provider Summary of ECHO results Social History Tobacco Use Types Packs/Day Years [...] suspected to have Coronavirus/COVID-19? No / Unsure 01/27/2022 8:34 AM CDT documented as of this encounter Plan of Treatment Upcoming Encounters Date Type Department Care Team (Late st Contact Info) Description 07/25/2024 2:20 PM CDT Office Visit [facility] [address] [place] [phone] Regina Camilo, [facility] [address] [place] [address] 02/27/2025 2:00 PM BUSINESS ANALYTICS DIRECTOR Office Visit [facility] [address] [place] [address] Jerardo Valenzuela MD 3 [facility] [address] [place] [phone] documented as of this encounter Visit Diagnoses Not on filedocumented in this encounter Additional Health Concerns Infection Onset Date Last Indicated Resolved Time COVID-19 Rule Out 04/14/2023 04/14/2023 04/14/2023 7:19 AM BUSINESS ANALYTICS DIRECTOR Influenza - Seasonal 04/14/2023 04/14/2023 024 12:33 AM BUSINESS ANALYTICS DIRECTOR COVID-19 Rule Out 04/14/2023 04/14/2023 04/14/2023 11:18 AM BUSINESS ANALYTICS DIRECTOR COVID-19 Rule Out 07/19/2023 07/19/2023 07/19/2023 10:33 AM CDT COVID-19 Rule Out 12/15/2023 12/15/2023 12/15/2023 4:19 PM CDT Assessment Noted Time PHQ-9 Depression Total Score: 0 07/09/19 2:46 PM CDT documented as of this encounter Care Teams Med Spec Relationship Specialty Start Date End Date Ivania Coates NP [address] [place] [address] PCP - General NURSE PRACTITIONER 06/24/21 06/16/22 Regina Camilo, [facility]- [address] [place] [address] PCP - General Nurse Practitioner Family 06/17/22 documented as of this encounter
--- OUTSIDE RECORDS SUMMARY | 2024-07-08 15:02 | XMS_ITS | Encounter Summary ---
Author Organization [facility] Address [address] [place] [address] Care Team Providers Care Mortar Worker Name Role Phone Ivania Coates NP Primary Care Provider [phone] [facility] Primary Care Provid er Encounter Details Date Type Department Care Team (Late st Contact Info) Description 07/30/[address] [facility] [address] [place] [address] Ivania Coates BOTTOM PAINTER [address] [place] [address] GENEVIEVE Social History Tobacco Use Types Packs/Day Years [...] please move on to questions 3-9 0 07/08/2021 Sex and Gender Information Value Date Recorded Sex Assigned at Not on file Legal Sex Male 1:16 AM CDT Gender Identity Not on file Sexual Orientation Not on file COVID-19 Exposure Response Date Recorded In the last 10 days, have yo u been in contact with someone who was confirmed or suspected to have Coronavirus/COVID-19? No / Unsure 07/29/2021 7:10 AM CDT documented as of this encounter Plan of Treatment Upcoming Encounters Date Type Department Care Team (Late st Contact Info) Description 07/25/2024 2:20 PM CDT Office Visit [facility] [address] [place] [phone] Regina Camilo, [facility] [address] [place] [address] 02/27/2025 2:00 PM MEDICAL CASE WORKER Office Visit [facility] [address] [place] [phone] Jerardo Valenzuela MD 3 [facility] [address] [place] [phone] documented as of this encounter Visit Diagnoses Not on filedocumented in this encounter Additional Health Concerns Infection Onset Date Last Indicated Resolved Time COVID-19 Rule Out 04/14/2023 04/14/2023 04/14/2023 7:19 AM MEDICAL CASE WORKER Influenza - Seasonal 04/14/2023 04/14/2023 024 12:33 AM MEDICAL CASE WORKER COVID-19 Rule Out 04/14/2023 04/14/2023 04/14/2023 11:18 AM MEDICAL CASE WORKER COVID-19 Rule Out 07/19/2023 07/19/2023 07/19/2023 10:33 AM CDT COVID-19 Rule Out 12/15/2023 12/15/2023 12/15/2023 4:19 PM CDT Assessment Noted Time PHQ-9 Depression Total Score: 0 07/09/19 22 2:46 PM CDT documented as of this encounter Care Teams Mortar Worker Relationship Specialty Start Date End Date Ivania Coates, BOTTOM PAINTER [address] [place] [address] PCP - General NURSE PRACTITIONER 06/24/21 06/16/22 Regina Camilo, [facility] [address] [place] [address] PCP - General Nurse Practitioner [facility] 06/17/22 documented as of this encounter
--- OUTSIDE RECORDS SUMMARY | 2024-07-08 15:02 | XMS_ITS | Clinical Summary ---
Author Organization [facility] Address [address] [facility] [address] [place] [address] Phone Care Team Providers Care Community Health Program Representative Name Role Phone Ashley Gandhi MD Primary Care Provider [phone] Allergies Active Allergy Reactions Criticality Noted Date [...] this topic Medical Devices Implanted Type Area Graduate Nurse Device Identifier Shelf Expiration Date Model / Serial / Lot Seamguard Endogia 60 Prpl [id number] - [id number] Implanted:Qty : 2 on 02/15/2019 by Elis Bales MD at [facility] Biological N/A: Stomach [employer] 10/16/2021 [id number] / / [id number] Seamguard Endogia 60 Blck [id number] - [id number] Implanted:Qty : 2 on 02/15/2019 by Elis Bales MD at [facility] Biological N/A: Stomach [employer] 01/16/2022 [id number] / / [id number] Seamguard Endogia 60 Prpl [id number] - [id number] Implanted:Qty : 1 on 02/15/2019 by Elis Bales MD at [facility] Biological N/A: Stomach [employer] 10/16/2021 [id number] / / [id number] Hip Hip Stent Stent Description:states one stent to lad Insurance RX [employer] PLANS (INTERNAL) [facility] Plans Advance Directives For more information, please contact: [phone] * Full Code (Latest Code Status on File) Date Activated Date Inactivated Comments 02/15/2019 12:50 PM 02/16/2019 5:46 PM * Full Code Date Activated Date Inactivated Comments 02/15/2019 8:36 AM 02/15/2019 12:50 PM Care Teams Community Health Program Representative Relationship Specialty Start Date End Date Ashley Gandhi MD [address] [place] [phone] PCP - General Internal Medicine 01/31/19
--- OUTSIDE RECORDS SUMMARY | 2024-07-08 15:02 | XMS_ITS | Encounter Summary ---
Author Organization [facility] Address [address] [place] [address] Care Team Providers Care Laundry Housekeeping Aide Name Role Phone Ashley Gandhi MD Primary Care Provider [phone] Encounter Details Date Type Department Care Team (Late st Contact Info) Description 02/07/2019 Abstract [facility] Non Integrated Provider [address] [place] [address] [place] [address] [place] [address] [place] [address] Social History Tobacco Use Types [...] on filedocumented in this encounter Care Teams Laundry Housekeeping Aide Relationship Specialty Start Date End Date Ashley Gandhi MD [address] [place] [phone] PCP - General Internal Medicine 01/31/19 documented as of this encounter
--- OUTSIDE RECORDS SUMMARY | 2024-07-08 15:02 | XMS_ITS | Encounter Summary ---
Author Organization [facility] Address [address] [place] [address] Care Team Providers Care Loom Fixer Helper Name Role Phone Ashley Gandhi MD Primary Care Provider Un available Jordi Deng MD Primary Care Provider Unavailable Ashley Gandhi MD Primary Care Provider Un available Jordi Marcus MD Primary Care Provider Jovanna Ivania Perdomo CARGO VESSEL STEWARDESS Primary Care Provider [phone] Regina CamiloDANIELA Primary Care Provid er Encounter Details Date Type Department Care Team (Late st Contact Info) Description 03/16/2000 Abstract [facility] Conversion , Generic Conversion, Social [...] Description 07/25/2024 2:20 PM CDT Office Visit [facility] [address] [place] [phone] Regina Camilo FNP-BC [address] [place] [address] 02/27/2025 2:00 PM FIELD REP Office Visit [facility] [address] [place] [address] Jerardo Valenzuela MD 3 [facility] [address] [place] [address] documented as of this encounter Visit Diagnoses Not on filedocumented in this encounter Additional Health Concerns Infection Onset Date Last Indicated Resolved Time COVID-19 Rule Out 04/14/2023 04/14/2023 04/14/2023 7:19 AM FIELD REP Influenza - Seasonal 04/14/2023 04/14/2023 024 12:33 AM FIELD REP COVID-19 Rule Out 04/14/2023 04/14/2023 04/14/2023 11:18 AM FIELD REP COVID-19 Rule Out 07/19/2023 07/19/2023 07/19/2023 10:33 AM CDT COVID-19 Rule Out 12/15/2023 12/15/2023 12/15/2023 4:19 PM CDT documented as of this encounter Care Teams Loom Fixer Helper Relationship Specialty Start Date End Date Ashley Gandhi MD PCP - General INTERNAL MEDICINE 04/22/18 06/05/18 Jordi Deng MD PCP - General FAMILY PRACTICE 06/06/18 06/12/18 Ashley Gandhi MD PCP - General INTERNAL MEDICINE 06/13/18 05/14/20 Jordi Marcus MD PCP - General FAMILY PRACTICE 05/15/20 06/23/21 Ivania Coates NP [address] [place] [address] PCP - General NURSE PRACTITIONER 06/24/21 06/16/22 Regina Camilo FNP- [address] [place] [address] PCP - General Nurse Practitioner Family 06/17/22 documented as of this encounter
--- OUTSIDE RECORDS SUMMARY | 2024-07-08 15:02 | XMS_ITS | Encounter Summary ---
Author Organization [facility] Address [address] [place] [address] Care Team Providers Care Legal Biller Name Role Phone Ashley Gandhi MD Primary Care Provider Un available Jordi Deng MD Primary Care Provider Unavailable Ashley Gandhi MD Primary Care Provider Un available Jordi Marcus MD Primary Care Provider Jovanna vailable Ivania Coates [employer] Primary Care Provider [phone] Regina Camilo [facility] Primary Care Provid er Encounter Details Date Type Department Care Team (Late st Contact Info) Description 06/14/2017 Abstract [facility] Elinor Morales PA-C [address] [address] Social History Tobacco Use Types Packs/Day Years Used Date Smoking Tobacco: Never Assessed Sex and Gender Information Value Date Recorded Sex Assigned at Not on file Legal Sex Male 1:16 AM CDT Gender Identity Not on file Sexual Orientation Not on file documented as of this encounter Miscellaneous Notes * Letter - Elinor Morales PA-C - 06/14/2017 12:00 AM CST 06-14-2017 , Hernan Landis [address] [place] [id number] : 1960 Lab Order: PSA R35.0 Frequency of micturition PLEASE USE BLOOD THAT IS LAB ALREADY Normal [x] Stat [] MESSENGER documented in this encounter Plan of Treatment Upcoming Encounters Date Type Department Care Team (Late st Contact Info) Description 07/25/2024 2:20 PM CDT Office Visit [facility] [address] [place] [phone] Regina Camilo, [facility] [address] [place] [address] 02/27/2025 2:00 PM MAIL MESSENGER Office Visit [facility] [address] Jerardo Valenzuela MD [address] [place] [address] [place] [phone] documented as of this encounter Visit Diagnoses Not on filedocumented in this encounter Additional Health Concerns Infection Onset Date Last Indicated Resolved Time COVID-19 Rule Out 04/14/2023 04/14/2023 04/14/2023 7:19 AM MAIL MESSENGER Influenza - Seasonal 04/14/2023 04/14/2023 024 12:33 AM MAIL MESSENGER COVID-19 Rule Out 04/14/2023 04/14/2023 04/14/2023 11:18 AM MAIL MESSENGER COVID-19 Rule Out 07/19/2023 07/19/2023 07/19/2023 10:33 AM CDT COVID-19 Rule Out 12/15/2023 12/15/2023 12/15/2023 4:19 PM CDT documented as of this encounter Care Teams Legal Biller Relationship Specialty Start Date End Date Ashley Gandhi MD PCP - General INTERNAL MEDICINE 04/22/18 06/05/18 Jordi Deng MD PCP - General FAMILY PRACTICE 06/06/18 06/12/18 Ashley Gandhi MD PCP - General INTERNAL MEDICINE 06/13/18 05/14/20 Jordi Marcus MD PCP - General FAMILY PRACTICE 05/15/20 06/23/21 Ivania Coates, [facility] [address] [place] [address] PCP - General NURSE PRACTITIONER 06/24/21 06/16/22 Regina Camilo, [employer]- [address] [place] [address] PCP - General Nurse Practitioner Family 06/17/22 documented as of this encounter
--- NOTE | 2024-07-08 15:22 | ED_ITS ---
HPI - General Adult General Chief complaint: Trauma Stated complaint: tree fell on pt., multiple wounds Time Seen by Provider: 07/08/24 15:09 History of Present Illness HPI narrative: 64-year-old male presents emergency department for evaluation for head pain, neck pain, left shoulder pain, left hip pain and right tib-fib pain. Patient states that he was standing behind a tree that was felled. The tree then was than hold off him using a skid steer. Patient did sustain a left-sided head injury but denies any loss consciousness. Patient does have pain in the left shoulder with range of motion and pain the left upper back. Related Data Home Medications ?Medication ?Instructions ?Recorded ?Confirmed ?Last Taken ?Type atorvastatin 10 mg tablet 10 mg PO DAILY 05/28/21 06/21/24 08/31/21 History losartan 50 mg tablet 50 mg PO DAILY 05/28/21 06/21/24 08/31/21 History hydrochlorothiazide 12.5 mg capsule 12.5 mg PO DAILY 08/11/21 06/21/24 08/31/21 History ascorbate calcium (vitamin C) 500 500 mg PO DAILY 10/19/23 06/21/24 Unknown History mg tablet calcium 600 mg (as 1 tablet PO DAILY 10/19/23 06/21/24 Unknown History carbonate)-vitamin D3 10 mcg (400 unit) tablet carvedilol 6.25 mg tablet 6.25 mg PO BID 10/19/23 06/21/24 02/24/24 History multivitamin (Multiple Vitamins 1 tablet PO DAILY 10/19/23 06/21/24 02/19/24 History tablet) fexofenadine 180 mg tablet 180 mg PO DAILY 11/12/23 06/21/24 Unknown History (Trista Hives) cyanocobalamin (vitamin B-12) 500 500 mcg PO DAILY 02/02/24 06/21/24 Unknown History mcg tablet glucosamine HCl 1,500 mg tablet 1,500 mg PO BID 02/02/24 06/21/24 Unknown History hydrocodone 5 mg-acetaminophen 325 1 - 2 tablet PO PRN PRN pain 02/02/24 06/21/24 Unknown History mg tablet (scale score 7-10) tamsulosin 0.4 mg capsule 0.4 mg PO HS 02/02/24 06/21/24 Unknown History turmeric 400 mg capsule 400 mg PO DAILY 02/02/24 06/21/24 Unknown History vitamin B complex 1 tablet PO DAILY 02/02/24 06/21/24 Unknown History Allergies Allergy/AdvReac Type Severity Reaction Status Date / Time lisinopril Allergy Intermediate Dyspnea / Verified 07/08/24 15:26 SOB Review of Systems 2 Review of Systems: All systems reviewed & are unremarkable except as noted in HPI and below PMFSH Past Medical History Medical History Tinnitus of both ears Sensorineural hearing loss (SNHL) of both ears ETD (eustachian tube dysfunction) bilateral Aortic valve sclerosis Coronary stent patent Benign paroxysmal positional vertigo Primary snoring 09/26/2020 PLMD (periodic limb movement disorder) 07/04/2020 Other obesity due to excess calories BMI 38 [facility] needs to lose 12/22/2016 Other hyperlipidemia 12/22/2016 NABIL on CPAP Obstructive sleep apnea 12/22/2016- Resolved Mild intermittent asthma with (acute) exacerbation 12/22/2016 Hypertension Hyperlipemia DJD (degenerative joint disease) CAD (coronary artery disease) CT/STENT 2013 Asthma Past heart attack History of high blood pressure High cholesterol Surgical History Surgical History H/O sinus surgery History of carpal tunnel release Bilateral H/O cardiac catheterization (~2013) H/O arthroscopic knee surgery (~09/2021) left knee S/P coronary artery stent placement History of right hip replacement H/O eye surgery Lasik H/O gastric sleeve (~01/2019) Family History Family History Father Heart disease Hypertension Mother Breast cancer Grandparent Hypertension Skin cancer Social History Social History Smoking status: Never smoker Additional smoking assessment comments: DENIES ANY FORM OF TOBACCO USE Alcohol intake: never Alcohol use details: 1-2 DRINKS PER MONTH Substance use: never Substance use type: does not use Do You Feel Safe in your Home?: Yes Lack of Transportation: No Lack of Food: Never True Current Housing: I Have Housing Concerned About Future Housing: No Difficulty Paying Gas/Electric Bills: No Difficulty Paying for Meds: No Currently Unemployed: No Education: High School Diploma/GED Difficulty w/ Childcare or Family Care: No Living arrangements: with family Gender identity (if verbalized by the patient): Male Spiritual care concerns: No Exam 2 Narrative: APPEARANCE: Well appearing, no pain, no distress, well-nourished. HEAD: normocephalic, scalp abrasion EYES: PERRLA/EOMI, conjunctivae clear. NOSE: Normal no drainage EARS:TMS clear with good light reflex. THROAT: Pharynx clear, no exudate. NECK: Supple. No adenopathy, no masses. RESPIRATORY: Airway patent, respirations nonlabored. Clear to auscultation bilaterally, no rales, rhonchi, wheezing. CARDIOVASCULAR: Regular rate and rhythm without murmurs rubs or gallops. ABDOMINAL: Soft, nontender, nondistended, normal bowel sounds MUSCULOSKELETAL: Increased tenderness when moving left hip, pain with range of motion of left shoulder NEURO: Alert. Cranial nerves II through XII intact. Good gait. Good coordination SKIN: Skin abrasion to anterior right geiger PSYCHIATRIC: Normal affect/mood. Course Vital Signs Vital signs: Vital Signs Pulse Rate 61 07/08/24 15:14 Respiratory Rate 18 07/08/24 15:14 Blood Pressure 126/83 07/08/24 15:14 Pulse Oximetry 99 07/08/24 15:14 Oxygen Delivery Room Air 07/08/24 15:14 Temperature 98.1 F 07/08/24 15:45 Pulse Rate 65 07/08/24 18:46 Respiratory Rate 15 07/08/24 18:46 Blood Pressure 128/71 07/08/24 18:01 Pulse Oximetry 98 07/08/24 18:46 Oxygen Delivery Room Air 07/08/24 15:14 Medical Decision Making [facility] Narrative Medical decision making narrative: 64-year-old male presents emergency department for evaluation for injuries sustained after a felled tree landed on him. Patient did have a laceration to the left scalp that was repaired with [address] head and neck were negative. CT chest abdomen pelvis did show comminuted left clavicle fracture. Patient has no other lacerations but does have abrasions to his left clavicle and to right geiger. Patient was complaining of left hip pain, right geiger pain. X-rays of left hip and right geiger and right ankle were negative for acute fracture dislocation. Patient was up wound care, importance of follow-up with Orthopedics and on reasons to return to the emergency department. All questions are addressed. Differential Diagnosis Differential Diagnosis: Subdural hematoma, subarachnoid hemorrhage, cervical spine fracture, pneumonia, pneumothorax, pulmonary contusion, shoulder fracture, clavicle fracture, scapular fracture, hip dislocation, hip strain tibia and fibular fracture, ankle Vital Signs Vital Signs: Vital Signs Pulse Rate 61 07/08/24 15:14 Respiratory Rate 18 07/08/24 15:14 Blood Pressure 126/83 07/08/24 15:14 Pulse Oximetry 99 07/08/24 15:14 Oxygen Delivery Room Air 07/08/24 15:14 Temperature 98.1 F 07/08/24 15:45 Pulse Rate 65 07/08/24 18:46 Respiratory Rate 15 07/08/24 18:46 Blood Pressure 128/71 07/08/24 18:01 Pulse Oximetry 98 07/08/24 18:46 Oxygen Delivery Room Air 07/08/24 15:14 Lab Data Lab results reviewed: Yes I reviewed the patient's lab results. 07/08/24 15:22 07/08/24 16:09 Labs: Lab Results 07/08/24 07/08/24 Range/Units 15:22 16:09 WBC 8.8 (4.5-10.0) K/mm3 RBC 4.99 (4.6-6.20) M/mm3 Hgb 14.7 (14.0-18.0) g/dL Hct 43.7 (42.0-52.0) % MCV 87.6 (80-100) fl MCH 29.5 (26-34) pg MCHC 33.6 (32-36) g/dl RDW 13.4 (11.5-14.5) % Plt Count 169 (150-375) k/mm3 MPV 10.8 H (7.4-10.4) fl Immature Gran % (Auto) 1.0 H (0-0.5) % Neut % (Auto) 72.6 (45.5-73.1) % Lymph % (Auto) 18.7 (18.3-44.2) % [place] % (Auto) 5.7 (2.6-8.5) % Eos % (Auto) 1.8 (0-4.4) % Baso % (Auto) 0.2 (0.2-1.2) % Lymph # (Auto) 1.65 (0.9-3.2) K/mm3 [place] # (Auto) 0.5 (0.1-0.6) K/mm3 Eos # (Auto) 0.2 (0-0.3) K/mm3 Baso # (Auto) 0.0 (0.0-0.1) K/mm3 Abs Immat Gran (auto) 0.09 H (0.00-0.031) K/mm3 Absolute Neuts (auto) 6.4 (1.3-6.7) K/mm3 Absolute Nucleated RBC 0.000 (0.0-0.012) K/mm3 Nucleated RBC % 0.0 (0.0-0.2) % PT 13.9 (11.1-14.7) Seconds INR 1.0 APTT 24.2 (22.3-36.8) Seconds Sodium 138 (137-145) mmol/L Potassium 3.7 (3.4-5.0) mmol/L Chloride 102 (98-107) mmol/L Carbon Dioxide 28 (22-30) mmol/L Anion Gap 8 (4-12) mmol/L BUN 21 H (9-20) mg/dL Creatinine 1.11 1.30 (0.7-1.3) mg/dL Estim Creat Clear Calc 66 57 ml/min Estimated GFR > 60 56 L (59 - ) Glucose 122 H (65-110) mg/dL Calcium 9.4 (8.4-10.2) mg/dL Total Bilirubin 1.3 (0.2-1.3) mg/dL AST 39 (17-59) U/L ALT 25 (6-50) U/L Alkaline Phosphatase 97 (38-126) U/L Total Protein 7.0 (6.3-8.2) g/dL Albumin 4.3 (3.5-5.1) g/dL Imaging Data Radiologist's impression: Impressions Hip/Pelvis X-Ray 07/08/24 16:56 IMPRESSION: Bilateral hip arthroplasty; no fracture or dislocation Tibia/Fibula X-Ray 07/08/24 16:57 IMPRESSION: Mild irregularity along the distal anterior tibial margin; right ankle 4 view radiographic examination is recommended Head CT 07/08/24 17:03 IMPRESSION: Cerebral atherosclerosis No acute intracranial finding Status post bilateral nasal antral windows and partial ethmoidectomies Paranasal sinus disease as indicated above Ankle X-Ray 07/08/24 17:35 IMPRESSION: No recent fracture or dislocation Cervical Spine CT 07/08/24 18:14 IMPRESSION: Cervical spondylosis, particularly involving C5-6 and C6-7; no fracture or dislocation or locked facet Chest/Abdomen/Pelvis CT 07/08/24 18:19 IMPRESSION: Comminuted fracture of the mid left clavicular shaft Prominent coronary artery calcification Small sliding hiatal hernia Left parapelvic renal cyst Postoperative change of the stomach Bilateral total hip arthroplasty Discharge Plan Discharge Clinical Impression: Laceration of scalp, Closed fracture of left clavicle, Abrasion of leg Patient Disposition: Home, Self-Care Condition: Stable Instructions: Antibiotic Form, Clavicle Fracture (DC), How to Use a Sling (ED), Abrasion (ED), Staple Care (ED) Additional Instructions: Tylenol for pain control, replace Tylenol with [place] for additional pain control. Do not take [place] and Tylenol at the same time because both do contain acetaminophen. If you take Aleve make sure your also taking omeprazole/Prilosec for the next 2 weeks. Pouch sling on the left arm for comfort of the left clavicle fracture. Have close follow-up with Orthopedics. Your berto will need to come out in 7-10 days. These can be taken out by her primary care physician or by an urgent care. If you have any worsening symptoms then please call or return to the emergency department. Patient Language: Japanese Prescriptions: New cyclobenzaprine 10 mg tablet 10 mg PO BID PRN (Reason: muscle spasm) Qty: 14 0RF hydrocodone-acetaminophen 5-325 mg tablet 1 tablet PO Q12H PRN (Reason: pain) 7 Days Qty: 14 0RF No Action losartan 50 mg tablet 50 mg PO DAILY atorvastatin 10 mg tablet 10 mg PO DAILY fexofenadine [Trista Hives] 180 mg tablet 180 mg PO DAILY calcium carbonate-vitamin D3 600 mg-10 mcg (400 unit) tablet 1 tablet PO DAILY carvedilol 6.25 mg tablet 6.25 mg PO BID Rx Instructions: must administer with a meal/food multivitamin [Multiple Vitamins] Tablet 1 tablet PO DAILY ascorbate calcium (vitamin C) 500 mg tablet 500 mg PO DAILY hydrochlorothiazide 12.5 mg Capsule 12.5 mg PO DAILY tamsulosin 0.4 mg capsule 0.4 mg PO HS hydrocodone-acetaminophen 5-325 mg tablet 1 - 2 tablet PO PRN MDD 3 PRN (Reason: pain (scale score 7-10)) vitamin B complex Tablet 1 tablet PO DAILY turmeric 400 mg Capsule 400 mg PO DAILY glucosamine HCl 1,500 mg Tablet 1,500 mg PO BID Rx Instructions: administer with a meal cyanocobalamin (vitamin B-12) 500 mcg Tablet 500 mcg PO DAILY sulfamethoxazole-trimethoprim [Bactrim DS] 800-160 mg tablet 1 tablet PO Q12H Qty: 14 0RF Follow-up/Referrals: PHYSICIAN NOT ON STAFF,NONSTAFF [Primary Care Provider] - Catrachito Lay MD [Physician] -
--- NOTE | 2024-07-08 15:27 | ECG_ITS ---
Test Date: 2024-07-08 15:41:38 Measurements Intervals [place] Rate: 58 P: 38 CO: 181 QRS: 15 QRSD: 142 T: -13 QT: 412 QTc: 406 Interpretive Statements SINUS BRADYCARDIA RIGHT BUNDLE BRANCH BLOCK [120+ ms QRS DURATION, UPRIGHT V1, 40+ ms S IN I/aVL/V4/V5/V6] Compared to ECG 11/26/2023 14:31:13 NO SIGNIFICANT CHANGES Electronically Signed On 07-08-2024 17:41:21 CDT by Jessika Hyatt M.D.
[2024-07-08 15:28] LABS: Basophils Percent Auto 0.2 % (0.2-1.2); Eosinophils Absolute Auto 0.2 K/mm3 (0-0.3); Eosinophils Percent Auto 1.8 % (0-4.4); Hematocrit 43.7 % (42.0-52.0); Hemoglobin 14.7 g/dL (14.0-18.0); Immature Granulocyte Absolute 0.09 K/mm3 (0.00-0.031); Lymphocytes Absolute Auto 1.65 K/mm3 (0.9-3.2); Lymphocytes Percent Auto 18.7 % (18.3-44.2); Mean Corpuscular HGB Conc 33.6 g/dl (32-36); Mean Corpuscular Hemoglobin 29.5 pg (26-34); Mean Corpuscular Volume 87.6 fl (80-100); Mean Platelet Volume 10.8 fl (7.4-10.4); Monocytes Absolute Auto 0.5 K/mm3 (0.1-0.6); Monocytes Percent Auto 5.7 % (2.6-8.5); Neutrophils Absolute Auto 6.4 K/mm3 (1.3-6.7); Neutrophils Percent Auto 72.6 % (45.5-73.1); Platelet Count Result 169 k/mm3 (150-375); Red Blood Count 4.99 M/mm3 (4.6-6.20); Red Cell Distribution Width 13.4 % (11.5-14.5); White Blood Count 8.8 K/mm3 (4.5-10.0)
[2024-07-08] MEDS: HYDROmorphone HCL INJ (*CRX) 1 MG/ML SYR IV PUSH (15:35)
[2024-07-08 15:37] LABS: Alanine Aminotransferase 25 U/L (6-50); Albumin Level 4.3 g/dL (3.5-5.1); Alkaline Phosphatase 97 U/L (38-126); Anion Gap 8 mmol/L (4-12); Aspartate Amino Transferase 39 U/L (17-59); Bilirubin,Total 1.3 mg/dL (0.2-1.3); Blood Urea Nitrogen 21 mg/dL (9-20); Calcium 9.4 mg/dL (8.4-10.2); Carbon Dioxide 28 mmol/L (22-30); Chloride 102 mmol/L (98-107); Estimated CRCL calculation 66 ml/min; Estimated Glomerular Filt Rate > 60; Glucose 122 mg/dL (65-110); Potassium 3.7 mmol/L (3.4-5.0); Sodium 138 mmol/L (137-145)
[2024-07-08 15:39] LABS: Partial Thromboplastin Time 24.2 Seconds (22.3-36.8); Prothrombin Time 13.9 Seconds (11.1-14.7)
--- OUTSIDE RECORDS SUMMARY | 2024-07-08 16:03 | XMS_ITS | Encounter Summary ---
Author Organization [facility] Address [address] [place] [address] Care Team Providers Care Auditor Medical Claims Name Role Phone Ashley Gandhi MD Primary Care Provider Un available Jordi Deng MD Primary Care Provider Unavailable Ashley Gandhi MD Primary Care Provider Un available Jordi Marcus MD Primary Care Provider Jovanna Ivania Perdomo STRUCTURES TECHNICIAN Primary Care Provider [phone] Regina CamiloDANIELA Primary Care Provid er Encounter Details Date Type Department Care Team (Late st Contact Info) Description 02/03/2014 Abstract [facility] Clin[facility] Conversion , Generic Conversion, Social History [...] Description 07/25/2024 2:20 PM CDT Office Visit [address] [place] [phone] Regina Camilo FNP-BC [address] [place] [address] 02/27/2025 2:00 PM CAGER OPERATOR Office Visit [facility] [address] [place] [address] Jerardo Valenzuela MD 3 [facility] [address] [place] [address] documented as of this encounter Visit Diagnoses Not on filedocumented in this encounter Additional Health Concerns Infection Onset Date Last Indicated Resolved Time COVID-19 Rule Out 04/14/2023 04/14/2023 04/14/2023 7:19 AM CAGER OPERATOR Influenza - Seasonal 04/14/2023 04/14/2023 024 12:33 AM CAGER OPERATOR COVID-19 Rule Out 04/14/2023 04/14/2023 04/14/2023 11:18 AM CAGER OPERATOR COVID-19 Rule Out 07/19/2023 07/19/2023 07/19/2023 10:33 AM CDT COVID-19 Rule Out 12/15/2023 12/15/2023 12/15/2023 4:19 PM CDT documented as of this encounter Care Teams Auditor Medical Claims Relationship Specialty Start Date End Date Ashley Gandhi MD PCP - General INTERNAL MEDICINE 04/22/18 06/05/18 Jordi Deng MD PCP - General FAMILY PRACTICE 06/06/18 06/12/18 Ashley Gandhi MD PCP - General INTERNAL MEDICINE 06/13/18 05/14/20 Jordi Marcus MD PCP - General FAMILY PRACTICE 05/15/20 06/23/21 Ivania Coates NP [address] [place] [address] PCP - General NURSE PRACTITIONER 06/24/21 06/16/22 Regina Camilo FNP- [address] [place] [address] PCP - General Nurse Practitioner Family 06/17/22 documented as of this encounter
--- OUTSIDE RECORDS SUMMARY | 2024-07-08 16:03 | XMS_ITS | Encounter Summary ---
Author Organization [facility] Address [address] [place] [address] Care Team Providers Care Air Route Controller Name Role Phone Ivania Coates NP Primary Care Provider [phone] [facility] Primary Care Provid er Encounter Details Date Type Department Care Team (Late st Contact Info) Description 08/11/2021 [employer] Message [facility] [address] [place] [address] Ivania Coates CULLET CRUSHER AND WASHER [address] [place] [address] Blood Pressure Social History Tobacco [...] Description 07/25/2024 2:20 PM CDT Office Visit [facility] [address] [place] [address] Regina Camilo, [facility] [address] [place] [address] 02/27/2025 2:00 PM ATTENDING PSYCHIATRIST Office Visit [facility] [address] [place] [address] Jerardo Valenzuela MD 3 [facility] [address] [place] [address] documented as of this encounter Visit Diagnoses Not on filedocumented in this encounter Additional Health Concerns Infection Onset Date Last Indicated Resolved Time COVID-19 Rule Out 04/14/2023 04/14/2023 04/14/2023 7:19 AM ATTENDING PSYCHIATRIST Influenza - Seasonal 04/14/2023 04/14/2023 024 12:33 AM ATTENDING PSYCHIATRIST COVID-19 Rule Out 04/14/2023 04/14/2023 04/14/2023 11:18 AM ATTENDING PSYCHIATRIST COVID-19 Rule Out 07/19/2023 07/19/2023 07/19/2023 10:33 AM CDT COVID-19 Rule Out 12/15/2023 12/15/2023 12/15/2023 4:19 PM CDT Assessment Noted Time PHQ-9 Depression Total Score: 0 07/09/19 2:46 PM CDT documented as of this encounter Care Teams Air Route Controller Relationship Specialty Start Date End Date Ivania Coates NP [address] [place] [address] PCP - General NURSE PRACTITIONER 06/24/21 06/16/22 Regina Camilo, [facility] [address] [place] [address] PCP - General Nurse Practitioner [facility] 06/17/22 documented as of this encounter
--- OUTSIDE RECORDS SUMMARY | 2024-07-08 16:03 | XMS_ITS | Encounter Summary ---
Author Organization [facility] Address [address] [place] [address] Care Team Providers Care Wood Sawyer Name Role Phone Ashley Gandhi MD Primary Care Provider [phone] Encounter Details Date Type Department Care Team (Late st Contact Info) Description 02/07/2019 Abstract [facility] Non Integrated Provider [address] [place] [address] [place] [address] [place] [address] [place] [address] Social History Tobacco Use Types [...] on filedocumented in this encounter Care Teams Wood Sawyer Relationship Specialty Start Date End Date Ashley Gandhi MD [address] [place] [id number] PCP - General Internal Medicine 01/31/19 documented as of this encounter
--- OUTSIDE RECORDS SUMMARY | 2024-07-08 16:03 | XMS_ITS | Encounter Summary ---
Author Organization [facility] Address [address] [place] [address] Care Team Providers Care Math Professor Name Role Phone Ashley Gandhi MD Primary Care Provider Un available Jordi Deng MD Primary Care Provider Unavailable Ashley Gandhi MD Primary Care Provider Un available Jordi Marcus MD Primary Care Provider Jovanna Ivania Perdomo BUSINESS SERVICES VICE PRESIDENT Primary Care Provider [phone] Regina CamiloDANIELA Primary Care Provid er Encounter Details Date Type Department Care Team (Late st Contact Info) Description 06/06/2014 Abstract [facility] Clin[facility] Conversion , Generic Conversion, Social [...] 07/25/2024 2:20 PM CDT Office Visit [facility] [address] [place] [phone] Regina Camilo FNP-BC [address] [place] [address] 02/27/2025 2:00 PM PIG CASTING MACHINE OPERATOR Office Visit [facility] [address] [place] [address] Jerardo Valenzuela MD 3 [facility] [address] [place] [address] documented as of this encounter Visit Diagnoses Not on filedocumented in this encounter Additional Health Concerns Infection Onset Date Last Indicated Resolved Time COVID-19 Rule Out 04/14/2023 04/14/2023 04/14/2023 7:19 AM PIG CASTING MACHINE OPERATOR Influenza - Seasonal 04/14/2023 04/14/2023 024 12:33 AM PIG CASTING MACHINE OPERATOR COVID-19 Rule Out 04/14/2023 04/14/2023 04/14/2023 11:18 AM PIG CASTING MACHINE OPERATOR COVID-19 Rule Out 07/19/2023 07/19/2023 07/19/2023 10:33 AM CDT COVID-19 Rule Out 12/15/2023 12/15/2023 12/15/2023 4:19 PM CDT documented as of this encounter Care Teams Math Professor Relationship Specialty Start Date End Date Ashley Gandhi MD PCP - General INTERNAL MEDICINE 04/22/18 06/05/18 Jordi Deng MD PCP - General FAMILY PRACTICE 06/06/18 06/12/18 Ashley Gandhi MD PCP - General INTERNAL MEDICINE 06/13/18 05/14/20 Jordi Marcus MD PCP - General FAMILY PRACTICE 05/15/20 06/23/21 Ivania Coates NP [address] [place] [address] PCP - General NURSE PRACTITIONER 06/24/21 06/16/22 Regina Camilo FNP- [address] [place] [address] PCP - General Nurse Practitioner Family 06/17/22 documented as of this encounter
--- OUTSIDE RECORDS SUMMARY | 2024-07-08 16:03 | XMS_ITS | Encounter Summary ---
Author Organization [facility] Address [address] [place] [address] Care Team Providers Care Supervisor Display Fabrication Name Role Phone Ivania Coates NP Primary Care Provider [phone] Regina Camilo- Primary Care Provid er Encounter Details Date Type Department Care Team (Late st Contact Info) Description 02/02/2022 [employer] Message [facility] [address] [place] [address] [email or web address] Provider Summary of ECHO results Social [...] Description 07/25/2024 2:20 PM CDT Office Visit [facility] [address] [place] [phone] Regina Camilo, [facility] [address] [place] [address] 02/27/2025 2:00 PM UPHOLSTERER LIMOUSINE AND HEARSE Office Visit [facility] [address] [place] [address] Jerardo Valenzuela MD 3 [facility] [address] [place] [address] documented as of this encounter Visit Diagnoses Not on filedocumented in this encounter Additional Health Concerns Infection Onset Date Last Indicated Resolved Time COVID-19 Rule Out 04/14/2023 04/14/2023 04/14/2023 7:19 AM UPHOLSTERER LIMOUSINE AND HEARSE Influenza - Seasonal 04/14/2023 04/14/2023 024 12:33 AM UPHOLSTERER LIMOUSINE AND HEARSE COVID-19 Rule Out 04/14/2023 04/14/2023 04/14/2023 11:18 AM UPHOLSTERER LIMOUSINE AND HEARSE COVID-19 Rule Out 07/19/2023 07/19/2023 07/19/2023 10:33 AM CDT COVID-19 Rule Out 12/15/2023 12/15/2023 12/15/2023 4:19 PM CDT Assessment Noted Time PHQ-9 Depression Total Score: 0 07/09/19 2:46 PM CDT documented as of this encounter Care Teams Supervisor Display Fabrication Relationship Specialty Start Date End Date Ivania Coates NP [address] [place] [address] PCP - General NURSE PRACTITIONER 06/24/21 06/16/22 Regina Camilo, RETURNS PROCESSOR- [address] [place] [address] PCP - General Nurse Practitioner Family 06/17/22 documented as of this encounter
--- OUTSIDE RECORDS SUMMARY | 2024-07-08 16:03 | XMS_ITS | Encounter Summary ---
Author Organization [facility] Address [address] [place] [address] Care Team Providers Care Community Nutrition Educator Name Role Phone Ashley Gandhi MD Primary Care Provider Un available Jordi Deng MD Primary Care Provider Unavailable Ashley Gandhi MD Primary Care Provider Un available Jordi Marcus MD Primary Care Provider Jovanna vailable Ivania Coates ANGLE ROLL OPERATOR Primary Care Provider [phone] Regina Camilo [facility] Primary Care Provid er Encounter Details Date Type Department Care Team (Late st Contact Info) Description 06/14/2017 Abstract [facility] Elinor Morales PA-C [address] [address] Social History Tobacco Use Types [...] 12:00 AM CST 06-14-2017 , Hernan Landis [address] [place] [id number] : 1960 Lab Order: PSA R35.0 Frequency of micturition PLEASE USE BLOOD THAT IS LAB ALREADY Normal [x] Stat [] ENT TEACHING COORDINATOR documented in this encounter Plan of Treatment Upcoming Encounters Date Type Department Care Team (Late st Contact Info) Description 07/25/2024 2:20 PM CDT Office Visit [facility] [address] [place] [phone] Regina Camilo, [facility] [address] [place] [address] 02/27/2025 2:00 PM STUDENT TEACHING COORDINATOR Office Visit [facility] [address] Jerardo Valenzuela MD [address] [place] [address] [place] [address] documented as of this encounter Visit Diagnoses Not on filedocumented in this encounter Additional Health Concerns Infection Onset Date Last Indicated Resolved Time COVID-19 Rule Out 04/14/2023 04/14/2023 04/14/2023 7:19 AM STUDENT TEACHING COORDINATOR Influenza - Seasonal 04/14/2023 04/14/2023 024 12:33 AM STUDENT TEACHING COORDINATOR COVID-19 Rule Out 04/14/2023 04/14/2023 04/14/2023 11:18 AM STUDENT TEACHING COORDINATOR COVID-19 Rule Out 07/19/2023 07/19/2023 07/19/2023 10:33 AM CDT COVID-19 Rule Out 12/15/2023 12/15/2023 12/15/2023 4:19 PM CDT documented as of this encounter Care Teams Community Nutrition Educator Relationship Specialty Start Date End Date Ashley Gandhi MD PCP - General INTERNAL MEDICINE 04/22/18 06/05/18 Jordi Deng MD PCP - General FAMILY PRACTICE 06/06/18 06/12/18 Ashley Gandhi MD PCP - General INTERNAL MEDICINE 06/13/18 05/14/20 Jordi Marcus MD PCP - General FAMILY PRACTICE 05/15/20 06/23/21 Ivania Coates, TYSON [address] [place] [address] PCP - General NURSE PRACTITIONER 06/24/21 06/16/22 Regina Camilo, MARKETING AND COMMUNICATIONS OFFICER- [address] [place] [address] PCP - General Nurse Practitioner Family 06/17/22 documented as of this encounter
--- OUTSIDE RECORDS SUMMARY | 2024-07-08 16:03 | XMS_ITS | Encounter Summary ---
Author Organization [facility] Address [address] [place] [address] Care Team Providers Care Cellophane Press Operator Name Role Phone Ivania Coates NP Primary Care Provider [phone] Regina Camilo- Primary Care Provid er Encounter Details Date Type Department Care Team (Late st Contact Info) Description 04/10/2022 Abstract [facility] [address] Jet Gomez [place] Social History Tobacco Use [...] Coronavirus/COVID-19? No / Unsure 03/31/2022 11:29 AM BOLT HEADER documented as of this encounter Plan of Treatment Upcoming Encounters Date Type Department Care Team (Late st Contact Info) Description 07/25/2024 2:20 PM CDT Office Visit [facility] [address] [place] [phone] Regina Camilo, [facility] [address] [place], [place] [phone] 02/27/2025 2:00 PM BOLT HEADER Office Visit [facility] [address] [place] [address] Jerardo Valenzuela MD 3 [facility] [address] [place] [address] documented as of this encounter Procedures [...] Final Result * LIPID PANEL (02/20/2022) Pathologist [facility] [place] CHOLESTEROL 130 HDL 53 TRIGLYCERIDES 63 NON HDL CHOLESTEROL 77 LDL (CALCULATED) 63 02/20/2022 us Default History Genericprovider LABORATORY Final Result * FOLATE (OUTSIDE LAB) (02/20/2022) Pathologist [facility] [place] FOLATE 22.0 02/20/2022 Default History Genericprovider LAB-OUTSIDE/ABST RACTED Final Result * VITAMIN B-12 (02/20/2022) [facility] VITAMIN B12 S/P/B 1,275 02/20/2022 Default History Genericprovider LABORATORY Final Result * (ABNORMAL) COMPREHENSIVE METABOLIC PANEL (02/20/2022) [facility] SODIUM S/P/B 141 POTASSIUM S/P/B 4.5 [...] Rule Out 04/14/2023 04/14/2023 04/14/2023 7:19 AM BOLT HEADER Influenza - Seasonal 04/14/2023 04/14/2023 024 12:33 AM BOLT HEADER COVID-19 Rule Out 04/14/2023 04/14/2023 04/14/2023 11:18 AM BOLT HEADER COVID-19 Rule Out 07/19/2023 07/19/2023 07/19/2023 10:33 AM CDT COVID-19 Rule Out 12/15/2023 12/15/2023 12/15/2023 4:19 PM CDT Assessment Noted Time PHQ-9 Depression Total Score: 0 07/09/19 2:46 PM CDT documented as of this encounter Care Teams Cellophane Press Operator Relationship Specialty Start Date End Date Ivania Coates NP [address] [place] [address] PCP - General NURSE PRACTITIONER 06/24/21 06/16/22 Regina Camilo, FEDERICO- [address] [place] [address] PCP - General Nurse Practitioner Family 06/17/22 documented as of this encounter
--- OUTSIDE RECORDS SUMMARY | 2024-07-08 16:03 | XMS_ITS | Referral Summary ---
Author Organization [facility] Address [address] [place] [address] Care Team Providers Care Conveyancer Name Role Phone Jordi Marcus MD Primary [...] on file Legal Sex Male 3:32 AM HUMAN RESOURCE CONSULTANT Gender Identity Male 09/06/2019 6:23 AM CDT Sexual Orientation Choose not to disclose 2019 6:23 AM CDT Last Filed Vital Signs Vital Sign Reading Time Taken Comments Blood Pressure 110/78 09/26/2020 2:31 PM CDT Pulse 64 09/26/2020 2:31 PM CDT Temperature 36.7 C (98.1 F) 05/26/2021 1:49 PM HUMAN RESOURCE CONSULTANT Respiratory Rate 18 09/26/2020 2:31 PM CDT Oxygen Saturation 98% 09/26/2020 2:31 PM CDT Inhaled Oxygen Concentration - - Weight 79.4 kg (175 lb) 05/26/2021 1:49 PM HUMAN RESOURCE CONSULTANT Height 172.7 cm (5' 8 ) 05/26/2021 1:49 PM HUMAN RESOURCE CONSULTANT Body Mass Index 26.61 05/26/2021 1:49 PM HUMAN RESOURCE CONSULTANT Plan of Treatment Not on file Insurance [facility] Member Subscriber Plan / Payer (Ef fective 2023-Present) Name:Hernan Landis Relation to Subscriber:Self Name:Hernan Landis Payer ID:[id number] (NAIC) Type:BC ALLIANCE Address: [id number] [place] [phone] Care Teams Conveyancer Relationship Specialty Start Date End Date Jordi Marcus MD [address] [place] [address] PCP - General Family Medicine 07/04/20
--- OUTSIDE RECORDS SUMMARY | 2024-07-08 16:03 | XMS_ITS | Encounter Summary ---
Author Organization [facility] Address [address] [place] [address] Care Team Providers Care Heel Gouger Name Role Phone Ivania Coates NP Primary Care Provider [phone] [facility] Primary Care Provid er Encounter Details Date Type Department Care Team (Late st Contact Info) Description 07/30/2021 [employer] Message [facility] [address] [place] [address] Ivania Coates PROJECT ENGINEERING DIRECTOR [address] [place] [address] GENEVIEVE Social History Tobacco Use [...] CDT Office Visit [facility] [address] [place] [phone] Regina Camilo, [facility] [address] [place] [address] 02/27/2025 2:00 PM STORES NAVAL Office Visit [facility] [address] [place] [phone] Jerardo Valenzuela MD 3 [facility] [address] [place] [phone] documented as of this encounter Visit Diagnoses Not on filedocumented in this encounter Additional Health Concerns Infection Onset Date Last Indicated Resolved Time COVID-19 Rule Out 04/14/2023 04/14/2023 04/14/2023 7:19 AM STORES NAVAL Influenza - Seasonal 04/14/2023 04/14/2023 024 12:33 AM STORES NAVAL COVID-19 Rule Out 04/14/2023 04/14/2023 04/14/2023 11:18 AM STORES NAVAL COVID-19 Rule Out 07/19/2023 07/19/2023 07/19/2023 10:33 AM CDT COVID-19 Rule Out 12/15/2023 12/15/2023 12/15/2023 4:19 PM CDT Assessment Noted Time PHQ-9 Depression Total Score: 0 07/09/19 22 2:46 PM CDT documented as of this encounter Care Teams Heel Gouger Relationship Specialty Start Date End Date Ivania Coates, PROJECT ENGINEERING DIRECTOR [address] [place] [address] PCP - General NURSE PRACTITIONER 06/24/21 06/16/22 Regina Camilo, [facility] [address] [place] [address] PCP - General Nurse Practitioner [facility] 06/17/22 documented as of this encounter
--- OUTSIDE RECORDS SUMMARY | 2024-07-08 16:03 | XMS_ITS | Encounter Summary ---
Author Organization [facility] Address [address] [place] [address] Care Team Providers Care Body Component Engineer Name Role Phone Ashley Gandhi MD Primary Care Provider Un available Jordi Deng MD Primary Care Provider Unavailable Ashley Gandhi MD Primary Care Provider Un available Jordi Marcus MD Primary Care Provider Jovanna Ivania Perdomo ARMATURE REPAIRER Primary Care Provider [phone] Regina CamiloDANIELA Primary Care Provid er Encounter Details Date Type Department Care Team (Late st Contact Info) Description 03/16/2000 Abstract [facility] Conversion , Generic Conversion, Social History [...] Description 07/25/2024 2:20 PM CDT Office Visit [facility] [address] [place] [phone] Regina Camilo FNP-BC [address] [place] [address] 02/27/2025 2:00 PM TAKE AWAY ATTENDANT Office Visit [facility] [address] [place] [address] Jerardo Valenzuela MD 3 [facility] [address] [place] [address] documented as of this encounter Visit Diagnoses Not on filedocumented in this encounter Additional Health Concerns Infection Onset Date Last Indicated Resolved Time COVID-19 Rule Out 04/14/2023 04/14/2023 04/14/2023 7:19 AM TAKE AWAY ATTENDANT Influenza - Seasonal 04/14/2023 04/14/2023 024 12:33 AM TAKE AWAY ATTENDANT COVID-19 Rule Out 04/14/2023 04/14/2023 04/14/2023 11:18 AM TAKE AWAY ATTENDANT COVID-19 Rule Out 07/19/2023 07/19/2023 07/19/2023 10:33 AM CDT COVID-19 Rule Out 12/15/2023 12/15/2023 12/15/2023 4:19 PM CDT documented as of this encounter Care Teams Body Component Engineer Relationship Specialty Start Date End Date Ashley Gandhi MD PCP - General INTERNAL MEDICINE 04/22/18 06/05/18 Jordi Deng MD PCP - General FAMILY PRACTICE 06/06/18 06/12/18 Ashley Gandhi MD PCP - General INTERNAL MEDICINE 06/13/18 05/14/20 Jordi Marcus MD PCP - General FAMILY PRACTICE 05/15/20 06/23/21 Ivania Coates NP [address] [place] [address] PCP - General NURSE PRACTITIONER 06/24/21 06/16/22 Regina Camilo FNP- [address] [place] [address] PCP - General Nurse Practitioner Family 06/17/22 documented as of this encounter
--- OUTSIDE RECORDS SUMMARY | 2024-07-08 16:03 | XMS_ITS | Clinical Summary ---
Author Organization [facility] Address [address] [facility] [address] [place] [address] Phone Care Team Providers Care Benefits Assistant Name Role Phone Ashley Gandhi MD Primary Care Provider [phone] Allergies Active Allergy Reactions Criticality Noted Date [...] this topic Medical Devices Implanted Type Area Programmer Analyst Device Identifier Shelf Expiration Date Model / Serial / Lot Seamguard Endogia 60 Prpl [id number] - [id number] Implanted:Qty : 2 on 02/15/2019 by Elis Bales MD at [facility] [employer] N/A: Stomach [employer] 10/16/2021 [id number] / / [id number] Seamguard Endogia 60 Blck [id number] - [id number] Implanted:Qty : 2 on 02/15/2019 by Elis Bales MD at [facility] [employer] N/A: Stomach [employer] 01/16/2022 [id number] / / [id number] Seamguard Endogia 60 Prpl [id number] - [id number] Implanted:Qty : 1 on 02/15/2019 by Elis Bales MD at [facility] [employer] N/A: Stomach [employer] 10/16/2021 [id number] / / [id number] Hip Hip Stent Stent Description:states one stent to lad Insurance RX [employer] PLANS (INTERNAL) [facility] Advance Directives For more information, please contact: [phone] * Full Code (Latest Code Status on File) Date Activated Date Inactivated Comments 02/15/2019 12:50 PM 02/16/2019 5:46 PM * Full Code Date Activated Date Inactivated Comments 02/15/2019 8:36 AM 02/15/2019 12:50 PM Care Teams Benefits Assistant Relationship Specialty Start Date End Date Ashley Gandhi MD [address] [place] [phone] PCP - General Internal Medicine 01/31/19
--- OUTSIDE RECORDS SUMMARY | 2024-07-08 16:03 | XMS_ITS | Encounter Summary ---
Author Organization [facility] Address [address] [place] [address] Care Team Providers Care Long Term Acute Care Registered Nurse Name Role Phone Ashley Gandhi MD Primary Care Provider Un available Jordi Deng MD Primary Care Provider Unavailable Ashley Gandhi MD Primary Care Provider Un available Jordi Marcus MD Primary Care Provider Jovanna vailable Ivania Coates ADVENTURE GUIDE Primary Care Provider [phone] Regina Camilo-DANIELA Primary Care Provid er Encounter Details Date Type Department Care Team (Late st Contact Info) Description 06/13/2013 Abstract [facility] CON[facility] [address] [place], [place] [phone] , Patti Solo MD Social History Tobacco [...] Description 07/25/2024 2:20 PM CDT Office Visit [address] [address] Regina Camilo FNP-BC [address] [place] [address] 02/27/2025 2:00 PM GYROSCOPIC INSTRUMENT TESTER Office Visit [place] [facility] [address] [place] [phone] Jerardo Valenzuela MD 3 [facility] [address] [place] [address] documented as of this encounter Visit Diagnoses Not on filedocumented in this encounter Additional Health Concerns Infection Onset Date Last Indicated Resolved Time COVID-19 Rule Out 04/14/2023 04/14/2023 04/14/2023 7:19 AM GYROSCOPIC INSTRUMENT TESTER Influenza - Seasonal 04/14/2023 04/14/2023 024 12:33 AM GYROSCOPIC INSTRUMENT TESTER COVID-19 Rule Out 04/14/2023 04/14/2023 04/14/2023 11:18 AM GYROSCOPIC INSTRUMENT TESTER COVID-19 Rule Out 07/19/2023 07/19/2023 07/19/2023 10:33 AM CDT COVID-19 Rule Out 12/15/2023 12/15/2023 12/15/2023 4:19 PM CDT documented as of this encounter Care Teams Long Term Acute Care Registered Nurse Relationship Specialty Start Date End Date Ashley Gandhi MD PCP - General INTERNAL MEDICINE 04/22/18 06/05/18 Jordi Deng MD PCP - General FAMILY PRACTICE 06/06/18 06/12/18 Ashley Gandhi MD PCP - General INTERNAL MEDICINE 06/13/18 05/14/20 Jordi Marcus MD PCP - General FAMILY PRACTICE 05/15/20 06/23/21 Ivania Coates NP [address] [place] [address] PCP - General NURSE PRACTITIONER 06/24/21 06/16/22 Regina Camilo, CRM SPECIALIST-BC [address] [place] [address] PCP - General Nurse Practitioner Family 06/17/22 documented as of this encounter
--- OUTSIDE RECORDS SUMMARY | 2024-07-08 16:03 | XMS_ITS | Encounter Summary ---
Author Organization [facility] Address [address] [place] [address] Care Team Providers Care Vegetable Cook Name Role Phone Jordi Marcus MD Primary Care Provider Jovanna Ivania Perdomo NP Primary Care Provider [phone] [facility] Primary Care Provid er Encounter Details Date Type Department Care Team (Late st Contact Info) Description 06/23/2021 [employer] Message [address] [address] [facility] Provider stent Social History Tobacco Use Types [...] Coronavirus/COVID-19? No / Unsure 06/20/2021 1:43 PM FLOATING LABOR GANG SUPERVISOR documented as of this encounter Plan of Treatment Upcoming Encounters Date Type Department Care Team (Late st Contact Info) Description 07/25/2024 2:20 PM CDT Office [facility] [address] [place] [phone] Regina Camilo [facility] [address] [place], [place] [phone] 02/27/2025 2:00 PM FLOATING LABOR GANG SUPERVISOR [facility] [address] [place] [address] Jerardo Valenzuela MD 3 [facility] [address] [place] [address] documented as of this encounter Visit Diagnoses Not on filedocumented in this encounter Additional Health Concerns Infection Onset Date Last Indicated Resolved Time COVID-19 Rule Out 04/14/2023 04/14/2023 04/14/2023 7:19 AM FLOATING LABOR GANG SUPERVISOR Influenza - Seasonal 04/14/2023 04/14/2023 024 12:33 AM FLOATING LABOR GANG SUPERVISOR COVID-19 Rule Out 04/14/2023 04/14/2023 04/14/2023 11:18 AM FLOATING LABOR GANG SUPERVISOR COVID-19 Rule Out 07/19/2023 07/19/2023 07/19/2023 10:33 AM CDT COVID-19 Rule Out 12/15/2023 12/15/2023 12/15/2023 4:19 PM CDT Assessment Noted Time PHQ-9 Depression Total Score: 0 06/21/19 1:49 PM FLOATING LABOR GANG SUPERVISOR documented as of this encounter Care Teams Vegetable Cook Relationship Specialty Start Date End Date Jordi Marcus MD PCP - General FAMILY PRACTICE 05/15/20 06/23/21 Ivania Coates NP [address] [place] [address] PCP - General NURSE PRACTITIONER 06/24/21 06/16/22 Regina Camilo, [facility]- [address] [place] [address] PCP - General Nurse Practitioner Family 06/17/22 documented as of this encounter
--- OUTSIDE RECORDS SUMMARY | 2024-07-08 16:03 | XMS_ITS | Encounter Summary ---
Author Organization [facility] Address [address] [place] [address] Care Team Providers Care Skip Miner Name Role Phone Ashley Gandhi MD Primary Care Provider Un available Jordi Deng MD Primary Care Provider Unavailable Ashley Gandhi MD Primary Care Provider Un available Jordi Marcus MD Primary Care Provider Jovanna vailable Ivania Coates UPHOLSTERY ESTIMATOR Primary Care Provider [phone] Regina CamiloDANIELA Primary Care Provid er Encounter Details Date Type Department Care Team (Late st Contact Info) Description 02/13/2015 Abstract [facility] [address] [place] [address] , Patti Solo MD Social History Tobacco [...] 07/25/2024 2:20 PM CDT Office Visit [facility] [address] [place] [address] Regina Camilo FNP-BC [address] [place] [address] 02/27/2025 2:00 PM PROCESSOR GRAIN Office Visit [facility] [address] [place] [phone] Jerardo Valenzuela MD 3 [facility] [address] [place] [address] documented as of this encounter Visit Diagnoses Not on filedocumented in this encounter Additional Health Concerns Infection Onset Date Last Indicated Resolved Time COVID-19 Rule Out 04/14/2023 04/14/2023 04/14/2023 7:19 AM PROCESSOR GRAIN Influenza - Seasonal 04/14/2023 04/14/2023 024 12:33 AM PROCESSOR GRAIN COVID-19 Rule Out 04/14/2023 04/14/2023 04/14/2023 11:18 AM PROCESSOR GRAIN COVID-19 Rule Out 07/19/2023 07/19/2023 07/19/2023 10:33 AM CDT COVID-19 Rule Out 12/15/2023 12/15/2023 12/15/2023 4:19 PM CDT documented as of this encounter Care Teams Skip Miner Relationship Specialty Start Date End Date Ashley Gandhi MD PCP - General INTERNAL MEDICINE 04/22/18 06/05/18 Jordi Deng MD PCP - General FAMILY PRACTICE 06/06/18 06/12/18 Ashley Gandhi MD PCP - General INTERNAL MEDICINE 06/13/18 05/14/20 Jordi Marcus MD PCP - General FAMILY PRACTICE 05/15/20 06/23/21 Ivania Coates NP [address] [place] [address] PCP - General NURSE PRACTITIONER 06/24/21 06/16/22 Regina Camilo, CLAY HOUSE WORKER-BC [address] [place] [address] PCP - General Nurse Practitioner Family 06/17/22 documented as of this encounter
--- OUTSIDE RECORDS SUMMARY | 2024-07-08 16:03 | XMS_ITS | Clinical Summary ---
Author Organization [facility] Address [address] [place] [address] Care Team Providers Care Payment Poster Name Role Phone LucyRegina black Elie [facility] Primary Care Provid er Allergies Active [...] artery disease of n ative artery of [place] heart with stable angina pectoris 12/22/2016 Overview [...] Mild intermittent asthma wit h acute exacerbation ([facility]) 12/22/2016 02/19/2021 Overview (06/13/2018): off meds no treatment Obstructive sleep apnea 12/22/201606/2020 Other depressive disorder 12/22/2016 Overview (06/13/2018): doing well on small dose of lexapro off meds Other obesity due to excess calories 12/22/2016 11/30/2019 Overview (06/13/2018): bmi 38 cardiac rehab needs to lose Encounters Date Type Department Care Team Description 06/27/2024 [facility]phone [facility] [address] [address] Jerardo Valenzuela MD Surgical Clearance 05/17/[address] [facility] [address] [place] [address] Regina Camilo, [facility]- Refill Request from Last 3 Months Immunizations [...] Comments Blood Pressure 160/90 02/22/2024 9:47 AM ASSET PROTECTION PROFESSIONAL Pulse 68 02/22/2024 9:47 AM ASSET PROTECTION PROFESSIONAL Temperature 36.7 C (98.1 F) 01/27/2024 3:10 PM CDT Respiratory Rate 20 01/27/2024 3:10 PM CDT Oxygen Saturation 99% 01/27/2024 3:10 PM CDT Inhaled Oxygen Concentration - - Weight 89.4 kg (197 lb) 02/22/2024 9:47 AM ASSET PROTECTION PROFESSIONAL Height 172.7 cm (5' 8 ) 02/22/2024 9:47 AM ASSET PROTECTION PROFESSIONAL Body Mass Index 29.95 02/22/2024 9:47 AM ASSET PROTECTION PROFESSIONAL Plan of Treatment Upcoming Encounters Date Type Department Care Team (Late st Contact Info) Description 07/25/2024 2:20 PM CDT Office Visit [facility] [address] [place] [address] [facility] [address] [place] [address] 02/27/2025 2:00 PM ASSET PROTECTION PROFESSIONAL Office Visit [facility] [address] [place] [phone] Jerardo Valenzuela MD 3 [facility] [address] [place] [phone] Health Maintenance Due Date Last Done Comments Hepatitis C 07/02/1978 RSV Immunization or 60+ Years (1 - Risk 60-74 years 1-dose series) 2021 COVID-19 Vaccine ( - season) 2023 07/18/2020, 06/20/2020 PHQ-2 (Physician Pana) 04/19/2024 12/15/2023 Annual Physical 01/26/2025 01/27/2024, 12/2022, [...] Most Recently Relevant to Health Maintenance Insurance [id number] Advance Directives * Full Code (Latest Code Status on File) Date Activated Date Inactivated Comments 06/15/2022 10:28 AM 06/15/2022 5:12 PM Care Teams Payment Poster Relationship Specialty Start Date End Date Regina Camilo, [facility] [address] [place] [address] PCP - General Nurse Practitioner Family 06/17/22
--- OUTSIDE RECORDS SUMMARY | 2024-07-08 16:03 | XMS_ITS | Clinical Summary ---
Author Organization [facility] Address [address] [place] [address] Care Team Providers Care Green Building Materials Designer Name Role Phone Jordi Marcus MD Primary [...] on file Legal Sex Male 3:32 AM GROUP MARKETING VP Gender Identity Male 09/06/2019 6:23 AM CDT Sexual Orientation Choose not to disclose 2019 6:23 AM CDT Obstetrics History Last Filed Vital Signs Vital Sign Reading Time Taken Comments Blood Pressure 110/78 09/26/2020 2:31 PM CDT Pulse 64 09/26/2020 2:31 PM CDT Temperature 36.7 C (98.1 F) 05/26/2021 1:49 PM GROUP MARKETING VP Respiratory Rate 18 09/26/2020 2:31 PM CDT Oxygen Saturation 98% 09/26/2020 2:31 PM CDT Inhaled Oxygen Concentration - - Weight 79.4 kg (175 lb) 05/26/2021 1:49 PM GROUP MARKETING VP Height 172.7 cm (5' 8 ) 05/26/2021 1:49 PM GROUP MARKETING VP Body Mass Index 26.61 05/26/2021 1:49 PM GROUP MARKETING VP Plan of Treatment Health Maintenance Due Date [...] topic Zoster Vaccine Completed 08/23/2019, 04/18/2019 Insurance [facility] Care Teams Green Building Materials Designer Relationship Specialty Start Date End Date Jordi Marcus MD [address] [place] [address] PCP - General Family Medicine 07/04/20
--- OUTSIDE RECORDS SUMMARY | 2024-07-08 16:03 | XMS_ITS | Encounter Summary ---
Author Organization [facility] Address [address] [place] [address] Care Team Providers Care Technical Support 1 Software Engineer Name Role Phone Ashley Gandhi MD Primary Care Provider Un available Jordi Deng MD Primary Care Provider Unavailable Ashley Gandhi MD Primary Care Provider Un available Jordi Marcus MD Primary Care Provider Jovanna Ivania Perdomo TEST BORER HELPER Primary Care Provider [phone] Regina CamiloDANIELA Primary Care Provid er Encounter Details Date Type Department Care Team (Late st Contact Info) Description 07/07/[address] [facility] Clin[facility] Conversion , Generic Conversion, Social [...] Description 07/25/2024 2:20 PM CDT Office Visit [facility] [address] [place] [phone] Regina Camilo FNP-BC [address] [place] [address] 02/27/2025 2:00 PM WEB SYSTEMS DEVELOPER Office Visit [facility] [facility] [address] [place] [address] Jerardo Valenzuela MD 3 [facility] [address] [place] [address] documented as of this encounter Visit Diagnoses Not on filedocumented in this encounter Additional Health Concerns Infection Onset Date Last Indicated Resolved Time COVID-19 Rule Out 04/14/2023 04/14/2023 04/14/2023 7:19 AM WEB SYSTEMS DEVELOPER Influenza - Seasonal 04/14/2023 04/14/2023 024 12:33 AM WEB SYSTEMS DEVELOPER COVID-19 Rule Out 04/14/2023 04/14/2023 04/14/2023 11:18 AM WEB SYSTEMS DEVELOPER COVID-19 Rule Out 07/19/2023 07/19/2023 07/19/2023 10:33 AM CDT COVID-19 Rule Out 12/15/2023 12/15/2023 12/15/2023 4:19 PM CDT documented as of this encounter Care Teams Technical Support 1 Software Engineer Relationship Specialty Start Date End Date Ashley Gandhi MD PCP - General INTERNAL MEDICINE 04/22/18 06/05/18 Jordi Deng MD PCP - General FAMILY PRACTICE 06/06/18 06/12/18 Ashley Gandhi MD PCP - General INTERNAL MEDICINE 06/13/18 05/14/20 Jordi Marcus MD PCP - General FAMILY PRACTICE 05/15/20 06/23/21 Ivania Coates NP [address] [place] [address] PCP - General NURSE PRACTITIONER 06/24/21 06/16/22 Regina Camilo FNP- [address] [place] [address] PCP - General Nurse Practitioner Family 06/17/22 documented as of this encounter
--- OUTSIDE RECORDS SUMMARY | 2024-07-08 16:03 | XMS_ITS | Encounter Summary ---
Author Organization [facility] Address [address] [place] [address] Care Team Providers Care Guardian Ad Litem Name Role Phone Ashley Gandhi MD Primary Care Provider Un available Jordi Deng MD Primary Care Provider Unavailable Ashley Gandhi MD Primary Care Provider Un available Jordi Marcus MD Primary Care Provider Jovanna Ivania Perdomo BOOK SEWER Primary Care Provider [phone] Regina CamiloDANIELA Primary Care Provid er Encounter Details Date Type Department Care Team (Late st Contact Info) Description 06/26/2014 Abstract [facility] Clinics Conversion , Generic Conversion, Social [...] 07/25/2024 2:20 PM CDT Office Visit [facility] [address] [place] [phone] Regina Camilo FNP-BC [address] [place] [address] 02/27/2025 2:00 PM ENTRY LEVEL FINANCE Office Visit [facility] [address] [place] [address] Jerardo Valenzuela MD 3 [facility] [address] [place] [address] documented as of this encounter Visit Diagnoses Not on filedocumented in this encounter Additional Health Concerns Infection Onset Date Last Indicated Resolved Time COVID-19 Rule Out 04/14/2023 04/14/2023 04/14/2023 7:19 AM ENTRY LEVEL FINANCE Influenza - Seasonal 04/14/2023 04/14/2023 024 12:33 AM ENTRY LEVEL FINANCE COVID-19 Rule Out 04/14/2023 04/14/2023 04/14/2023 11:18 AM ENTRY LEVEL FINANCE COVID-19 Rule Out 07/19/2023 07/19/2023 07/19/2023 10:33 AM CDT COVID-19 Rule Out 12/15/2023 12/15/2023 12/15/2023 4:19 PM CDT documented as of this encounter Care Teams Guardian Ad Litem Relationship Specialty Start Date End Date Ashley Gandhi MD PCP - General INTERNAL MEDICINE 04/22/18 06/05/18 Jordi Deng MD PCP - General FAMILY PRACTICE 06/06/18 06/12/18 Ashley Gandhi MD PCP - General INTERNAL MEDICINE 06/13/18 05/14/20 Jordi Marcus MD PCP - General FAMILY PRACTICE 05/15/20 06/23/21 Ivania Coates NP [address] [place] [address] PCP - General NURSE PRACTITIONER 06/24/21 06/16/22 Regina Camilo FNP- [address] [place] [address] PCP - General Nurse Practitioner Family 06/17/22 documented as of this encounter
[2024-07-08 16:32] LABS: Estimated CRCL calculation 57 ml/min; Estimated Glomerular Filt Rate 56
[2024-07-08] MEDS: HYDROmorphone HCL INJ (*CRX) 1 MG/ML SYR 0.5 MG IV PUSH (19:16)
[2024-07-08] MEDS: HYDROcodone/acetaminophen (*CRX) 5-325 MG TABLET 1 TAB PO (19:16)
[2024-07-08] MEDS: ONDANSETRON HCL ODT 4 MG TABLET PO (19:53)
--- NOTE | 2024-07-08 20:50 | PC.NURSE ---
Pt remains pale, diaphoretic and nauseated. VSS at this time. Also had another episode of emesis. VO for antiemetic from Dr James obtained.
[2024-07-08] MEDS: PROCHLORPERAZINE EDISYLATE 10 MG/2 ML VIAL IV PUSH (20:59)
--- NOTE | 2024-07-08 21:32 | PC.NURSE ---
after Dilaudid administration prior to discharge pt began getting diaphoretic and nauseous. kept pt in ED for observation until sx resolve.
== END 2024-07-08 21:30 | disposition home or self-care (01) ==
PROVIDERS: Emergency Provider Emergency Medicine
DX: S01.01XA Laceration without foreign body of scalp, initial encounter (principal); S42.022A Displaced fracture of shaft of left clavicle, initial encounter for closed fracture; S80.811A Abrasion, right lower leg, initial encounter; I35.8 Other nonrheumatic aortic valve disorders; I10 Essential (primary) hypertension; I25.10 Atherosclerotic heart disease of native coronary artery without angina pectoris; I25.2 Old myocardial infarction; E78.49 Other hyperlipidemia; J45.20 Mild intermittent asthma, uncomplicated; G47.33 Obstructive sleep apnea (adult) (pediatric); H90.3 Sensorineural hearing loss, bilateral; Z95.5 Presence of coronary angioplasty implant and graft; Z96.643 Presence of artificial hip joint, bilateral; Z98.84 Bariatric surgery status; W20.8XXA Other cause of strike by thrown, projected or falling object, initial encounter; M47.812 Spondylosis without myelopathy or radiculopathy, cervical region; K44.9 Diaphragmatic hernia without obstruction or gangrene; N28.1 Cyst of kidney, acquired; I45.10 Unspecified right bundle-branch block; R00.1 Bradycardia, unspecified
CPT/HCPCS: 12001; 36415; 70450; 71260; 72125; 73502; 73590; 73610; 74177; 80053; 85025; 85610; 85730; 93005; 96374; 96375; 96376; 99284; A4565; A9270; J0780; J1171; J2004; Q9967

== ENCOUNTER 2024-07-10 13:34 | Outpatient (CLI) | payer OTHER, SELFPAY ==
--- NOTE | ~2024-07-10 | XR_ITS ---
XR clavicle LT Ordering provider: Catrachito Lay MD History: . S42.023A - Displaced fracture of shaft of unspecified cla... . Comparison: None. FINDINGS: BONES: Comminuted fracture of the mid clavicle with displacement of fragments. Avulsion Fracture of d istal end of the clavicular with second toe third degree subluxation of the acromioclavicular joint. JOINT SPACES: Normal. No acromioclavicular separation. SOFT TISSUES: Normal. IMPRESSION: Comminuted fracture of the midshaft of the left clavicle. Avulsion fracture of the distal end of the left clavicle with secondary to third degree Displacement of the acromioclavicular joint. Reviewed, dictated and finalized at location A. IMPRESSION: Comminuted fracture of the midshaft of the left clavicle. Avulsion fracture of the distal end of the left clavicle with secondary to thir d degree Displacement of the acromioclavicular joint.
--- OUTSIDE RECORDS SUMMARY | 2024-07-10 15:32 | XMS_ITS | Encounter Summary ---
Author Organization [facility] Address [address] [place] [address] Care Team Providers Care Afterschool Babysitter Name Role Phone Ivania Coates NP Primary Care Provider [phone] [facility] Primary Care Provid er Encounter Details Date Type Department Care Team (Late st Contact Info) Description 07/30/[address] [facility] [address] [place] [address] Ivania Coates COVER CUTTER MACHINE [address] [place] [address] GENEVIEVE Social History Tobacco Use [...] 07/25/2024 2:20 PM CDT Office Visit [facility] [address] [place] [phone] Regina Camilo, [facility] [address] [place] [address] 02/27/2025 2:00 PM CONDENSER OPERATOR Office Visit [facility] [address] [place] [phone] Jerardo Valenzuela MD 3 [facility] [address] [place] [address] documented as of this encounter Visit Diagnoses Not on filedocumented in this encounter Additional Health Concerns Infection Onset Date Last Indicated Resolved Time COVID-19 Rule Out 04/14/2023 04/14/2023 04/14/2023 7:19 AM CONDENSER OPERATOR Influenza - Seasonal 04/14/2023 04/14/2023 024 12:33 AM CONDENSER OPERATOR COVID-19 Rule Out 04/14/2023 04/14/2023 04/14/2023 11:18 AM CONDENSER OPERATOR COVID-19 Rule Out 07/19/2023 07/19/2023 07/19/2023 10:33 AM CDT COVID-19 Rule Out 12/15/2023 12/15/2023 12/15/2023 4:19 PM CDT Assessment Noted Time PHQ-9 Depression Total Score: 0 07/09/19 22 2:46 PM CDT documented as of this encounter Care Teams Afterschool Babysitter Relationship Specialty Start Date End Date Ivania Coates, COVER CUTTER MACHINE [address] [place] [address] PCP - General NURSE PRACTITIONER 06/24/21 06/16/22 Regina Camilo, [facility] [address] [place] [address] PCP - General Nurse Practitioner [facility] 06/17/22 documented as of this encounter
--- OUTSIDE RECORDS SUMMARY | 2024-07-10 15:32 | XMS_ITS | Encounter Summary ---
Author Organization [facility] Address [address] [place] [address] Care Team Providers Care Automatic Beading Lathe Operator Name Role Phone Ashley Gandhi MD Primary Care Provider Un available Jordi Deng MD Primary Care Provider Unavailable Ashley Gandhi MD Primary Care Provider Un available Jordi Marcus MD Primary Care Provider Jovanna vailable Ivania Coates MANAGER CLUB Primary Care Provider [phone] Regina Camilo [facility] Primary Care Provid er Encounter Details Date Type Department Care Team (Late st Contact Info) Description 06/14/2017 Abstract [facility] Elinor Morales PA-C [address] [address] Social History Tobacco Use Types [...] 12:00 AM CST 06-14-2017 , Hernan Landis [address] [place] [id number] : 1960 Lab Order: PSA R35.0 Frequency of micturition PLEASE USE BLOOD THAT IS LAB ALREADY Normal [x] Stat [] PARAPROFESSIONAL documented in this encounter Plan of Treatment Upcoming Encounters Date Type Department Care Team (Late st Contact Info) Description 07/25/2024 2:20 PM CDT Office Visit [facility] [address] [place] [phone] Regina Camilo, [facility] [address] [place] [address] 02/27/2025 2:00 PM HOME PARAPROFESSIONAL Office Visit [facility] [address] Jerardo Valenzuela MD [address] [place] [address] [place] [address] documented as of this encounter Visit Diagnoses Not on filedocumented in this encounter Additional Health Concerns Infection Onset Date Last Indicated Resolved Time COVID-19 Rule Out 04/14/2023 04/14/2023 04/14/2023 7:19 AM HOME PARAPROFESSIONAL Influenza - Seasonal 04/14/2023 04/14/2023 024 12:33 AM HOME PARAPROFESSIONAL COVID-19 Rule Out 04/14/2023 04/14/2023 04/14/2023 11:18 AM HOME PARAPROFESSIONAL COVID-19 Rule Out 07/19/2023 07/19/2023 07/19/2023 10:33 AM CDT COVID-19 Rule Out 12/15/2023 12/15/2023 12/15/2023 4:19 PM CDT documented as of this encounter Care Teams Automatic Beading Lathe Operator Relationship Specialty Start Date End Date Ashley Gandhi MD PCP - General INTERNAL MEDICINE 04/22/18 06/05/18 Jordi Deng MD PCP - General FAMILY PRACTICE 06/06/18 06/12/18 Ashley Gandhi MD PCP - General INTERNAL MEDICINE 06/13/18 05/14/20 Jordi Marcus MD PCP - General FAMILY PRACTICE 05/15/20 06/23/21 Ivania Coates, TYSON [address] [place] [address] PCP - General NURSE PRACTITIONER 06/24/21 06/16/22 Regina Camilo, BRAKE LINING CURER- [address] [place] [address] PCP - General Nurse Practitioner Family 06/17/22 documented as of this encounter
--- OUTSIDE RECORDS SUMMARY | 2024-07-10 15:32 | XMS_ITS | Encounter Summary ---
Author Organization [facility] Address [address] [place] [address] Care Team Providers Care Castables Worker Name Role Phone Ashley Gandhi MD Primary Care Provider Un available Jordi Deng MD Primary Care Provider Unavailable Ashley Gandhi MD Primary Care Provider Un available Jordi Marcus MD Primary Care Provider Jovanna vailable Ivania Coates CENTRIFUGAL SUPERVISOR Primary Care Provider [phone] Regina CamiloDANIELA Primary Care Provid er Encounter Details Date Type Department Care Team (Late st Contact Info) Description 02/13/2015 Abstract [facility] [address] [place] [address] , Patti Solo MD Social History Tobacco [...] 07/25/2024 2:20 PM CDT Office Visit [facility] [address] [place] [address] Regina Camilo FNP-BC [address] [place] [address] 02/27/2025 2:00 PM ACTING INSTRUCTOR Office Visit [facility] [address] [place] [phone] Jerardo Valenzuela MD 3 [facility] [address] [place] [address] documented as of this encounter Visit Diagnoses Not on filedocumented in this encounter Additional Health Concerns Infection Onset Date Last Indicated Resolved Time COVID-19 Rule Out 04/14/2023 04/14/2023 04/14/2023 7:19 AM ACTING INSTRUCTOR Influenza - Seasonal 04/14/2023 04/14/2023 024 12:33 AM ACTING INSTRUCTOR COVID-19 Rule Out 04/14/2023 04/14/2023 04/14/2023 11:18 AM ACTING INSTRUCTOR COVID-19 Rule Out 07/19/2023 07/19/2023 07/19/2023 10:33 AM CDT COVID-19 Rule Out 12/15/2023 12/15/2023 12/15/2023 4:19 PM CDT documented as of this encounter Care Teams Castables Worker Relationship Specialty Start Date End Date Ashley Gandhi MD PCP - General INTERNAL MEDICINE 04/22/18 06/05/18 Jordi Deng MD PCP - General FAMILY PRACTICE 06/06/18 06/12/18 Ashley Gandhi MD PCP - General INTERNAL MEDICINE 06/13/18 05/14/20 Jordi Marcus MD PCP - General FAMILY PRACTICE 05/15/20 06/23/21 Ivania Coates NP [address] [place] [address] PCP - General NURSE PRACTITIONER 06/24/21 06/16/22 Regina Camilo, FINANCIAL REPORTING DIRECTOR-BC [address] [place] [address] PCP - General Nurse Practitioner Family 06/17/22 documented as of this encounter
--- OUTSIDE RECORDS SUMMARY | 2024-07-10 15:32 | XMS_ITS | Encounter Summary ---
Author Organization [facility] Address [address] [place] [address] Care Team Providers Care Sql Ssrs Developer Name Role Phone Ivania Coates NP Primary Care Provider [phone] Regina Camilo- Primary Care Provid er Encounter Details Date Type Department Care Team (Late st Contact Info) Description 02/02/2022 [email or web address] Message [facility] [address] [place] [address] [facility] Provider Summary of ECHO results Social [...] Description 07/25/2024 2:20 PM CDT Office Visit [facility] [address] [place] [phone] Regina Camilo, [facility] [address] [place] [address] 02/27/2025 2:00 PM RN HEMATOLOGY Office Visit [facility] [address] [place] [address] Jerardo Valenzuela MD 3 [facility] [address] [place] [address] documented as of this encounter Visit Diagnoses Not on filedocumented in this encounter Additional Health Concerns Infection Onset Date Last Indicated Resolved Time COVID-19 Rule Out 04/14/2023 04/14/2023 04/14/2023 7:19 AM RN HEMATOLOGY Influenza - Seasonal 04/14/2023 04/14/2023 024 12:33 AM RN HEMATOLOGY COVID-19 Rule Out 04/14/2023 04/14/2023 04/14/2023 11:18 AM RN HEMATOLOGY COVID-19 Rule Out 07/19/2023 07/19/2023 07/19/2023 10:33 AM CDT COVID-19 Rule Out 12/15/2023 12/15/2023 12/15/2023 4:19 PM CDT Assessment Noted Time PHQ-9 Depression Total Score: 0 07/09/19 2:46 PM CDT documented as of this encounter Care Teams Sql Ssrs Developer Relationship Specialty Start Date End Date Ivania Coatse NP [address] [place] [address] PCP - General NURSE PRACTITIONER 06/24/21 06/16/22 Regina Camilo, WAX SPECIALIST- [address] [place] [address] PCP - General Nurse Practitioner Family 06/17/22 documented as of this encounter
--- OUTSIDE RECORDS SUMMARY | 2024-07-10 15:32 | XMS_ITS | Encounter Summary ---
Author Organization [facility] Address [address] [place] [address] Care Team Providers Care Gaggerman Name Role Phone Ashley Gandhi MD Primary Care Provider Un available Jordi Deng MD Primary Care Provider Unavailable Ashley Gandhi MD Primary Care Provider Un available Jordi Marcus MD Primary Care Provider Jovanna Ivania Perdomo SPRING FORGER Primary Care Provider [phone] Regina CamiloDANIELA Primary Care Provid er Encounter Details Date Type Department Care Team (Late st Contact Info) Description 02/03/2014 Abstract [facility] Conversion , Generic Conversion, Social [...] 07/25/2024 2:20 PM CDT Office Visit [address] [place] [phone] Regina Camilo FNP-BC [address] [place] [address] 02/27/2025 2:00 PM INSULATION AND FLOORING ASSEMBLER Office Visit [facility] [address] [place] [address] Jerardo Valenzuela MD 3 [facility] [address] [place] [address] documented as of this encounter Visit Diagnoses Not on filedocumented in this encounter Additional Health Concerns Infection Onset Date Last Indicated Resolved Time COVID-19 Rule Out 04/14/2023 04/14/2023 04/14/2023 7:19 AM INSULATION AND FLOORING ASSEMBLER Influenza - Seasonal 04/14/2023 04/14/2023 024 12:33 AM INSULATION AND FLOORING ASSEMBLER COVID-19 Rule Out 04/14/2023 04/14/2023 04/14/2023 11:18 AM INSULATION AND FLOORING ASSEMBLER COVID-19 Rule Out 07/19/2023 07/19/2023 07/19/2023 10:33 AM CDT COVID-19 Rule Out 12/15/2023 12/15/2023 12/15/2023 4:19 PM CDT documented as of this encounter Care Teams Gaggerman Relationship Specialty Start Date End Date Ashley Gandhi MD PCP - General INTERNAL MEDICINE 04/22/18 06/05/18 Jordi Deng MD PCP - General FAMILY PRACTICE 06/06/18 06/12/18 Ashley Gandhi MD PCP - General INTERNAL MEDICINE 06/13/18 05/14/20 Jordi Marcus MD PCP - General FAMILY PRACTICE 05/15/20 06/23/21 Ivania Coates NP [address] [place] [address] PCP - General NURSE PRACTITIONER 06/24/21 06/16/22 Regina Camilo FNP- [address] [place] [address] PCP - General Nurse Practitioner Family 06/17/22 documented as of this encounter
--- OUTSIDE RECORDS SUMMARY | 2024-07-10 15:32 | XMS_ITS | Encounter Summary ---
Author Organization [facility] Address [address] [place] [address] Care Team Providers Care General Dentist/Owner Name Role Phone Ashley Gandhi MD Primary Care Provider Un available Jordi Deng MD Primary Care Provider Unavailable Ashley Gandhi MD Primary Care Provider Un available Jordi Marcus MD Primary Care Provider Jovanna Ivania Perdomo ANIMAL DAYCARE PROVIDER Primary Care Provider [phone] Regina CamiloDANIELA Primary Care Provid er Encounter Details Date Type Department Care Team (Late st Contact Info) Description 07/07/2005 Abstract [facility] Conversion , Generic Conversion, Social [...] PM CDT Office Visit [facility] [address] [place] [phone] Regina Camilo FNP-BC [address] [place] [address] 02/27/2025 2:00 PM PICCOLOIST Office Visit [facility] [address] [place] [address] Jerardo Valenzuela MD 3 [facility] [address] [place] [address] documented as of this encounter Visit Diagnoses Not on filedocumented in this encounter Additional Health Concerns Infection Onset Date Last Indicated Resolved Time COVID-19 Rule Out 04/14/2023 04/14/2023 04/14/2023 7:19 AM PICCOLOIST Influenza - Seasonal 04/14/2023 04/14/2023 024 12:33 AM PICCOLOIST COVID-19 Rule Out 04/14/2023 04/14/2023 04/14/2023 11:18 AM PICCOLOIST COVID-19 Rule Out 07/19/2023 07/19/2023 07/19/2023 10:33 AM CDT COVID-19 Rule Out 12/15/2023 12/15/2023 12/15/2023 4:19 PM CDT documented as of this encounter Care Teams General Dentist/Owner Relationship Specialty Start Date End Date Ashley Gandhi MD PCP - General INTERNAL MEDICINE 04/22/18 06/05/18 Jordi Deng MD PCP - General FAMILY PRACTICE 06/06/18 06/12/18 Ashley Gandhi MD PCP - General INTERNAL MEDICINE 06/13/18 05/14/20 Jordi Marcus MD PCP - General FAMILY PRACTICE 05/15/20 06/23/21 Ivania Coates NP [address] [place] [address] PCP - General NURSE PRACTITIONER 06/24/21 06/16/22 Regina Camilo FNP- [address] [place] [address] PCP - General Nurse Practitioner Family 06/17/22 documented as of this encounter
--- OUTSIDE RECORDS SUMMARY | 2024-07-10 15:32 | XMS_ITS | Clinical Summary ---
Author Organization [facility] Address [address] [place] [address] Care Team Providers Care Appliquer Name Role Phone LucyRegina black Elie [facility] Primary Care Provid er Allergies [...] artery disease of n ative artery of [place] heart with stable angina pectoris 12/22/2016 Overview [...] Mild intermittent asthma wit h acute exacerbation ([facility]) 12/22/2016 02/19/2021 Overview (06/13/2018): off meds no treatment Obstructive sleep apnea 12/22/201606/2020 Other depressive disorder 12/22/2016 Overview (06/13/2018): doing well on small dose of lexapro off meds Other obesity due to excess calories 12/22/2016 11/30/2019 Overview (06/13/2018): bmi 38 cardiac rehab needs to lose Encounters Date Type Department Care Team Description 06/27/2024 [facility]phone [facility] [address] [address] Jerardo Valenzuela MD Surgical Clearance 05/17/[address] [facility] [address] [place] [address] Regina Camilo, [facility]- Refill Request from Last 3 Months [...] Comments Blood Pressure 160/90 02/22/2024 9:47 AM SAP FICO ARCHITECT Pulse 68 02/22/2024 9:47 AM SAP FICO ARCHITECT Temperature 36.7 C (98.1 F) 01/27/2024 3:10 PM CDT Respiratory Rate 20 01/27/2024 3:10 PM CDT Oxygen Saturation 99% 01/27/2024 3:10 PM CDT Inhaled Oxygen Concentration - - Weight 89.4 kg (197 lb) 02/22/2024 9:47 AM SAP FICO ARCHITECT Height 172.7 cm (5' 8 ) 02/22/2024 9:47 AM SAP FICO ARCHITECT Body Mass Index 29.95 02/22/2024 9:47 AM SAP FICO ARCHITECT Plan of Treatment Upcoming Encounters Date Type Department Care Team (Late st Contact Info) Description 07/25/2024 2:20 PM CDT Office Visit [facility] [address] [place] [address] [facility] [address] [place] [address] 02/27/2025 2:00 PM SAP FICO ARCHITECT Office Visit [facility] [address] [place] [phone] Jerardo Valenzuela MD 3 [facility] [address] [place] [address] Health Maintenance Due Date Last Done Comments Hepatitis C 07/02/1979 RSV Immunization or 60+ Years (1 - Risk 60-74 years 1-dose series) 2021 COVID-19 Vaccine ( - season) 2023 07/18/2020, 06/20/2020 PHQ-2 (Physician [place]) 04/19/2024 12/15/2023 Annual Physical 01/26/2025 01/27/2024, 12/2022, [...] 10:28 AM 06/15/2022 5:12 PM Care Teams Appliquer Relationship Specialty Start Date End Date Regina Camilo, [facility] [address] [place] [address] PCP - General Nurse Practitioner Family 06/17/22
--- OUTSIDE RECORDS SUMMARY | 2024-07-10 15:32 | XMS_ITS | Clinical Summary ---
Author Organization [facility] Address [address] [place] [address] Care Team Providers Care Hollow Handle Knife Assembler Name Role Phone Jordi Marcus MD Primary [...] on file Legal Sex Male 3:32 AM SENIOR STAFF SPECIALIZED EMPLOYMENT Gender Identity Male 09/06/2019 6:23 AM CDT Sexual Orientation Choose not to disclose 2019 6:23 AM CDT Obstetrics History Last Filed Vital Signs Vital Sign Reading Time Taken Comments Blood Pressure 110/78 09/26/2020 2:31 PM CDT Pulse 64 09/26/2020 2:31 PM CDT Temperature 36.7 C (98.1 F) 05/26/2021 1:49 PM SENIOR STAFF SPECIALIZED EMPLOYMENT Respiratory Rate 18 09/26/2020 2:31 PM CDT Oxygen Saturation 98% 09/26/2020 2:31 PM CDT Inhaled Oxygen Concentration - - Weight 79.4 kg (175 lb) 05/26/2021 1:49 PM SENIOR STAFF SPECIALIZED EMPLOYMENT Height 172.7 cm (5' 8 ) 05/26/2021 1:49 PM SENIOR STAFF SPECIALIZED EMPLOYMENT Body Mass Index 26.61 05/26/2021 1:49 PM SENIOR STAFF SPECIALIZED EMPLOYMENT Plan of Treatment Health Maintenance Due Date [...] topic Zoster Vaccine Completed 08/23/2019, 04/18/2019 Insurance [facility] Address: [facility] [address] [place] [address] Care Teams Hollow Handle Knife Assembler Relationship Specialty Start Date End Date Jordi Marcus MD [address] [place] [address] PCP - General Family Medicine 07/04/20
--- OUTSIDE RECORDS SUMMARY | 2024-07-10 15:32 | XMS_ITS | Encounter Summary ---
Author Organization [facility] Address [address] [place] [address] Care Team Providers Care Client Hr Manager Name Role Phone Ashley Gandhi MD Primary Care Provider [phone] Encounter Details Date Type Department Care Team (Late st Contact Info) Description 02/07/2019 Abstract Pending Sale To [facility] Non Integrated Provider [address] [place] [address] [place] [address] [place] [address] [place] [address] Social History Tobacco Use Types [...] on filedocumented in this encounter Care Teams Client Hr Manager Relationship Specialty Start Date End Date Ashley Gandhi MD [address] [place] [phone] PCP - General Internal Medicine 01/31/19 documented as of this encounter
--- OUTSIDE RECORDS SUMMARY | 2024-07-10 15:32 | XMS_ITS | Encounter Summary ---
Author Organization [facility] Address [address] [place] [address] Care Team Providers Care Third Cook Name Role Phone Ashley Gandhi MD Primary Care Provider Un available Jordi Deng MD Primary Care Provider Unavailable Ashley Gandhi MD Primary Care Provider Un available Jordi Marcus MD Primary Care Provider Jovanna vailable Ivania Coates ORACLE SOLUTIONS ARCHITECT Primary Care Provider [phone] Regina Camilo-DANIELA Primary Care Provid er Encounter Details Date Type Department Care Team (Late st Contact Info) Description 06/13/2013 Abstract [facility] CONVERSION [address] [place], [place] [id number] , Patti Solo MD Social History Tobacco [...] Description 07/25/2024 2:20 PM CDT Office Visit [address] [address] Regina Camilo FNP-BC [address] [place] [address] 02/27/2025 2:00 PM WASHING MACHINE OPERATOR Office Visit [facility] [address] [place] [phone] Jerardo Valenzuela MD 3 [facility] [address] [place] [address] documented as of this encounter Visit Diagnoses Not on filedocumented in this encounter Additional Health Concerns Infection Onset Date Last Indicated Resolved Time COVID-19 Rule Out 04/14/2023 04/14/2023 04/14/2023 7:19 AM WASHING MACHINE OPERATOR Influenza - Seasonal 04/14/2023 04/14/2023 024 12:33 AM WASHING MACHINE OPERATOR COVID-19 Rule Out 04/14/2023 04/14/2023 04/14/2023 11:18 AM WASHING MACHINE OPERATOR COVID-19 Rule Out 07/19/2023 07/19/2023 07/19/2023 10:33 AM CDT COVID-19 Rule Out 12/15/2023 12/15/2023 12/15/2023 4:19 PM CDT documented as of this encounter Care Teams Third Cook Relationship Specialty Start Date End Date Ashley Gandhi MD PCP - General INTERNAL MEDICINE 04/22/18 06/05/18 Jordi Deng MD PCP - General FAMILY PRACTICE 06/06/18 06/12/18 Ashley Gandhi MD PCP - General INTERNAL MEDICINE 06/13/18 05/14/20 Jordi Marcus MD PCP - General FAMILY PRACTICE 05/15/20 06/23/21 Ivania Coates NP [address] [place] [address] PCP - General NURSE PRACTITIONER 06/24/21 06/16/22 Regina Camilo, FORGE SHOP SUPERVISOR-BC [address] [place] [address] PCP - General Nurse Practitioner Family 06/17/22 documented as of this encounter
--- OUTSIDE RECORDS SUMMARY | 2024-07-10 15:32 | XMS_ITS | Encounter Summary ---
Author Organization [facility] Address [address] [place] [address] Care Team Providers Care Donkey Doctor Name Role Phone Ashley Gandhi MD Primary Care Provider Un available Jordi Deng MD Primary Care Provider Unavailable Ashley Gandhi MD Primary Care Provider Un available Jordi Marcus MD Primary Care Provider Jovanna Ivania Perdomo RN PATIENT CARE Primary Care Provider [phone] Regina CamiloDANIELA Primary Care Provid er Encounter Details Date Type Department Care Team (Late st Contact Info) Description 06/26/2014 Abstract [facility] Conversion , Generic Conversion, [...] 07/25/2024 2:20 PM CDT Office Visit [facility] [address] [place] [phone] Regina Camilo FNP-BC [address] [place] [address] 02/27/2025 2:00 PM PRE K LEAD TEACHER Office Visit [facility] [address] [place] [address] Jerardo Valenzuela MD 3 [facility] [address] [place] [address] documented as of this encounter Visit Diagnoses Not on filedocumented in this encounter Additional Health Concerns Infection Onset Date Last Indicated Resolved Time COVID-19 Rule Out 04/14/2023 04/14/2023 04/14/2023 7:19 AM PRE K LEAD TEACHER Influenza - Seasonal 04/14/2023 04/14/2023 024 12:33 AM PRE K LEAD TEACHER COVID-19 Rule Out 04/14/2023 04/14/2023 04/14/2023 11:18 AM PRE K LEAD TEACHER COVID-19 Rule Out 07/19/2023 07/19/2023 07/19/2023 10:33 AM CDT COVID-19 Rule Out 12/15/2023 12/15/2023 12/15/2023 4:19 PM CDT documented as of this encounter Care Teams Donkey Doctor Relationship Specialty Start Date End Date Ashley Gandhi MD PCP - General INTERNAL MEDICINE 04/22/18 06/05/18 Jordi Deng MD PCP - General FAMILY PRACTICE 06/06/18 06/12/18 Ashley Gandhi MD PCP - General INTERNAL MEDICINE 06/13/18 05/14/20 Jordi Marcus MD PCP - General FAMILY PRACTICE 05/15/20 06/23/21 Ivania Coates NP [address] [place] [address] PCP - General NURSE PRACTITIONER 06/24/21 06/16/22 Regina Camilo FNP- [address] [place] [address] PCP - General Nurse Practitioner Family 06/17/22 documented as of this encounter
--- OUTSIDE RECORDS SUMMARY | 2024-07-10 15:32 | XMS_ITS | Referral Summary ---
Author Organization [facility] Address [address] [place] [address] Care Team Providers Care Dough Maker Name Role Phone Jordi Marcus MD Primary [...] on file Legal Sex Male 3:32 AM BUS MONITOR Gender Identity Male 09/06/2019 6:23 AM CDT Sexual Orientation Choose not to disclose 2019 6:23 AM CDT Last Filed Vital Signs Vital Sign Reading Time Taken Comments Blood Pressure 110/78 09/26/2020 2:31 PM CDT Pulse 64 09/26/2020 2:31 PM CDT Temperature 36.7 C (98.1 F) 05/26/2021 1:49 PM BUS MONITOR Respiratory Rate 18 09/26/2020 2:31 PM CDT Oxygen Saturation 98% 09/26/2020 2:31 PM CDT Inhaled Oxygen Concentration - - Weight 79.4 kg (175 lb) 05/26/2021 1:49 PM BUS MONITOR Height 172.7 cm (5' 8 ) 05/26/2021 1:49 PM BUS MONITOR Body Mass Index 26.61 05/26/2021 1:49 PM BUS MONITOR Plan of Treatment Not on file Insurance BY [facility] H[facility]/O Address: [facility] [id number] [place] [phone] [facility] Member Subscriber Plan / Payer (Ef fective 2023-Present) Name:Hernan Landis Relation to Subscriber:Self Name:Hernan Landis Payer ID:[id number] (NAIC) Type:[employer] Address: [id number] [place] [id number] Care Teams Dough Maker Relationship Specialty Start Date End Date Jordi Marcus MD [address] [place] [address] PCP - General Family Medicine 07/04/20
--- OUTSIDE RECORDS SUMMARY | 2024-07-10 15:32 | XMS_ITS | Clinical Summary ---
Author Organization [facility] Address [address] [facility] [address] [place] [address] Phone Care Team Providers Care Deaf And Hard Of Hearing Teacher Name Role Phone Ashley Gandhi MD Primary Care Provider [phone] Allergies Active Allergy Reactions Criticality Noted Date [...] this topic Medical Devices Implanted Type Area Building Maintenance Custodian Device Identifier Shelf Expiration Date Model / Serial / Lot Seamguard Endogia 60 Prpl [id number] - [id number] Implanted:Qty : 2 on 02/15/2019 by Elis Bales MD at [facility] Biological N/A: Stomach [employer] 10/16/2021 [id number] / / [id number] Seamguard Endogia 60 Blck [id number] - [id number] Implanted:Qty : 2 on 02/15/2019 by Elis Bales MD at [facility] Biological N/A: Stomach [employer] 01/16/2022 [id number] / / [id number] Seamguard Endogia 60 Prpl [id number] - [id number] Implanted:Qty : 1 on 02/15/2019 by Elis Bales MD at [facility] Biological N/A: Stomach [employer] 10/16/2021 [id number] / / [id number] Hip Hip Stent Stent Description:states one stent to lad Insurance RX [employer] PLANS (INTERNAL) [facility] Plans Advance Directives For more information, please contact: [phone] * Full Code (Latest Code Status on File) Date Activated Date Inactivated Comments 02/15/2019 12:50 PM 02/16/2019 5:46 PM * Full Code Date Activated Date Inactivated Comments 02/15/2019 8:36 AM 02/15/2019 12:50 PM Care Teams Deaf And Hard Of Hearing Teacher Relationship Specialty Start Date End Date Ashley Gandhi MD [address] [place] [phone] PCP - General Internal Medicine 01/31/19
--- OUTSIDE RECORDS SUMMARY | 2024-07-10 15:32 | XMS_ITS | Encounter Summary ---
Author Organization [facility] Address [address] [place] [address] Care Team Providers Care Compact Assembler Name Role Phone Ashley Gandhi MD Primary Care Provider Un available Jordi Deng MD Primary Care Provider Unavailable Ashley Gandhi MD Primary Care Provider Un available Jordi Marcus MD Primary Care Provider Jovanna Ivania Perdomo METAL MOLD DRESSER Primary Care Provider [phone] Regina CamiloDANIELA Primary Care Provid er Encounter Details Date Type Department Care Team (Late st Contact Info) Description 03/16/[address] [facility] Clinics Conversion , Generic Conversion, Social [...] Office Visit [facility] [address] [place] [phone] Regina Camilo FNP-BC [address] [place] [address] 02/27/2025 2:00 PM CLINICAL PRODUCT SPECIALIST Office Visit [facility] [address] [place] [address] Jerardo Valenzuela MD 3 [facility] [address] [place] [address] documented as of this encounter Visit Diagnoses Not on filedocumented in this encounter Additional Health Concerns Infection Onset Date Last Indicated Resolved Time COVID-19 Rule Out 04/14/2023 04/14/2023 04/14/2023 7:19 AM CLINICAL PRODUCT SPECIALIST Influenza - Seasonal 04/14/2023 04/14/2023 024 12:33 AM CLINICAL PRODUCT SPECIALIST COVID-19 Rule Out 04/14/2023 04/14/2023 04/14/2023 11:18 AM CLINICAL PRODUCT SPECIALIST COVID-19 Rule Out 07/19/2023 07/19/2023 07/19/2023 10:33 AM CDT COVID-19 Rule Out 12/15/2023 12/15/2023 12/15/2023 4:19 PM CDT documented as of this encounter Care Teams Compact Assembler Relationship Specialty Start Date End Date Ashley Gandhi MD PCP - General INTERNAL MEDICINE 04/22/18 06/05/18 Jordi Deng MD PCP - General FAMILY PRACTICE 06/06/18 06/12/18 Ashley Gandhi MD PCP - General INTERNAL MEDICINE 06/13/18 05/14/20 Jordi Marcus MD PCP - General FAMILY PRACTICE 05/15/20 06/23/21 Ivania Coates NP [address] [place] [address] PCP - General NURSE PRACTITIONER 06/24/21 06/16/22 Regina Camilo FNP- [address] [place] [address] PCP - General Nurse Practitioner Family 06/17/22 documented as of this encounter
--- OUTSIDE RECORDS SUMMARY | 2024-07-10 15:32 | XMS_ITS | Encounter Summary ---
Author Organization [facility] Address [address] [place] [address] Care Team Providers Care Weaver Needle Loom Name Role Phone Ivania Coates NP Primary Care Provider [phone] Regina Camilo- Primary Care Provid er Encounter Details Date Type Department Care Team (Late st Contact Info) Description 04/10/2022 Abstract [facility] [address] Jet Gomez [place] Social History Tobacco Use [...] Coronavirus/COVID-19? No / Unsure 03/31/2022 11:29 AM MANAGER MEAT documented as of this encounter Plan of Treatment Upcoming Encounters Date Type Department Care Team (Late st Contact Info) Description 07/25/2024 2:20 PM CDT Office Visit [facility] [address] [place] [phone] Regina Camilo, [facility] [address] [place], [place] [phone] 02/27/2025 2:00 PM MANAGER MEAT Office Visit [facility] [address] [place] [address] Jerardo Valenzuela MD 3 [facility] [address] [place] [address] documented as of this encounter Procedures [...] Final Result * LIPID PANEL (02/20/2022) Pathologist [facility] CHOLESTEROL 130 HDL 53 TRIGLYCERIDES 63 NON HDL CHOLESTEROL 77 LDL (CALCULATED) 63 02/20/2022 us Default History Genericprovider LABORATORY Final Result * FOLATE (OUTSIDE LAB) (02/20/2022) Pathologist [facility] FOLATE 22.0 02/20/2022 Default History Genericprovider LAB-OUTSIDE/ABST RACTED Final Result * VITAMIN B-12 (02/20/2022) [facility] VITAMIN B12 S/P/B 1,275 02/20/2022 Default History Genericprovider LABORATORY Final Result * (ABNORMAL) COMPREHENSIVE METABOLIC PANEL (02/20/2022) [facility] SODIUM S/P/B 141 POTASSIUM S/P/B 4.5 [...] Out 04/14/2023 04/14/2023 04/14/2023 7:19 AM MANAGER MEAT Influenza - Seasonal 04/14/2023 04/14/2023 024 12:33 AM MANAGER MEAT COVID-19 Rule Out 04/14/2023 04/14/2023 04/14/2023 11:18 AM MANAGER MEAT COVID-19 Rule Out 07/19/2023 07/19/2023 07/19/2023 10:33 AM CDT COVID-19 Rule Out 12/15/2023 12/15/2023 12/15/2023 4:19 PM CDT Assessment Noted Time PHQ-9 Depression Total Score: 0 07/09/19 2:46 PM CDT documented as of this encounter Care Teams Weaver Needle Loom Relationship Specialty Start Date End Date Ivania Coates NP [address] [place] [address] PCP - General NURSE PRACTITIONER 06/24/21 06/16/22 Regina Camilo, FED[place]- [address] [place] [address] PCP - General Nurse Practitioner Family 06/17/22 documented as of this encounter
--- OUTSIDE RECORDS SUMMARY | 2024-07-10 15:32 | XMS_ITS | Encounter Summary ---
Author Organization [facility] Address [address] [place] [address] Care Team Providers Care Private Tutors And Teachers Name Role Phone Ashley Gandhi MD Primary Care Provider Un available Jordi Deng MD Primary Care Provider Unavailable Ashley Gandhi MD Primary Care Provider Un available Jordi Marcus MD Primary Care Provider Jovanna Ivania Perdomo BOILER/CHILLER TECHNICIAN Primary Care Provider [phone] Regina CamiloDANIELA Primary Care Provid er Encounter Details Date Type Department Care Team (Late st Contact Info) Description 06/06/2014 Abstract [facility] Conversion , Generic Conversion, Social [...] Description 07/25/2024 2:20 PM CDT Office Visit [facility] [address] [place] [phone] Regina Camilo FNP-BC [address] [place] [address] 02/27/2025 2:00 PM INSIDE WIRER Office Visit [facility] [address] [place] [address] Jerardo Valenzuela MD 3 [facility] [address] [place] [address] documented as of this encounter Visit Diagnoses Not on filedocumented in this encounter Additional Health Concerns Infection Onset Date Last Indicated Resolved Time COVID-19 Rule Out 04/14/2023 04/14/2023 04/14/2023 7:19 AM INSIDE WIRER Influenza - Seasonal 04/14/2023 04/14/2023 024 12:33 AM INSIDE WIRER COVID-19 Rule Out 04/14/2023 04/14/2023 04/14/2023 11:18 AM INSIDE WIRER COVID-19 Rule Out 07/19/2023 07/19/2023 07/19/2023 10:33 AM CDT COVID-19 Rule Out 12/15/2023 12/15/2023 12/15/2023 4:19 PM CDT documented as of this encounter Care Teams Private Tutors And Teachers Relationship Specialty Start Date End Date Ashley Gandhi MD PCP - General INTERNAL MEDICINE 04/22/18 06/05/18 Jordi Deng MD PCP - General FAMILY PRACTICE 06/06/18 06/12/18 Ashley Gandhi MD PCP - General INTERNAL MEDICINE 06/13/18 05/14/20 Jordi Marcus MD PCP - General FAMILY PRACTICE 05/15/20 06/23/21 Ivania Coates NP [address] [place] [address] PCP - General NURSE PRACTITIONER 06/24/21 06/16/22 Regina Camilo FNP- [address] [place] [address] PCP - General Nurse Practitioner Family 06/17/22 documented as of this encounter
--- OUTSIDE RECORDS SUMMARY | 2024-07-10 15:32 | XMS_ITS | Encounter Summary ---
Author Organization [facility] Address [address] [place] [address] Care Team Providers Care Trekking Guide Name Role Phone Jordi Marcus MD Primary Care Provider Jovanna Ivania Perdomo NP Primary Care Provider [phone] [facility] Primary Care Provid er Encounter Details Date Type Department Care Team (Late st Contact Info) Description 06/23/[address] [employer] [address] [address] [facility] Provider stent Social History Tobacco Use [...] Coronavirus/COVID-19? No / Unsure 06/20/2021 1:43 PM CONSTRUCTION IRONWORKER HELPER documented as of this encounter Plan of Treatment Upcoming Encounters Date Type Department Care Team (Late st Contact Info) Description 07/25/2024 2:20 PM CDT Office Visit [facility] [address] [place] [phone] Regina Camilo [facility] [address] [place], [place] [phone] 02/27/2025 2:00 PM CONSTRUCTION IRONWORKER HELPER [facility] [address] [place] [address] Jerardo Valenzuela MD 3 [facility] [address] [place] [address] documented as of this encounter Visit Diagnoses Not on filedocumented in this encounter Additional Health Concerns Infection Onset Date Last Indicated Resolved Time COVID-19 Rule Out 04/14/2023 04/14/2023 04/14/2023 7:19 AM CONSTRUCTION IRONWORKER HELPER Influenza - Seasonal 04/14/2023 04/14/2023 024 12:33 AM CONSTRUCTION IRONWORKER HELPER COVID-19 Rule Out 04/14/2023 04/14/2023 04/14/2023 11:18 AM CONSTRUCTION IRONWORKER HELPER COVID-19 Rule Out 07/19/2023 07/19/2023 07/19/2023 10:33 AM CDT COVID-19 Rule Out 12/15/2023 12/15/2023 12/15/2023 4:19 PM CDT Assessment Noted Time PHQ-9 Depression Total Score: 0 06/21/19 1:49 PM CONSTRUCTION IRONWORKER HELPER documented as of this encounter Care Teams Trekking Guide Relationship Specialty Start Date End Date Jordi Marcus MD PCP - General FAMILY PRACTICE 05/15/20 06/23/21 Ivania Coates NP [address] [place] [address] PCP - General NURSE PRACTITIONER 06/24/21 06/16/22 Regina Camilo, [facility]- [address] [place] [address] PCP - General Nurse Practitioner Family 06/17/22 documented as of this encounter
--- OUTSIDE RECORDS SUMMARY | 2024-07-10 15:32 | XMS_ITS | Encounter Summary ---
Author Organization [facility] Address [address] [place] [address] Care Team Providers Care Building Supplies Salesperson Retail Name Role Phone Ivania Coates NP Primary Care Provider [phone] [facility] Primary Care Provid er Encounter Details Date Type Department Care Team (Late st Contact Info) Description 08/11/2021 [email or web address] Message [facility] [address] [place] [address] Ivania Coates PANTOGRAPH ENGRAVER [address] [place] [address] Blood Pressure Social History Tobacco [...] CDT Office Visit [facility] [address] [place] [address] Regina Camilo, [facility] [address] [place] [address] 02/27/2025 2:00 PM MERINGUER Office Visit [facility] [address] [place] [address] Jerardo Valenzuela MD 3 [facility] [address] [place] [address] documented as of this encounter Visit Diagnoses Not on filedocumented in this encounter Additional Health Concerns Infection Onset Date Last Indicated Resolved Time COVID-19 Rule Out 04/14/2023 04/14/2023 04/14/2023 7:19 AM MERINGUER Influenza - Seasonal 04/14/2023 04/14/2023 024 12:33 AM MERINGUER COVID-19 Rule Out 04/14/2023 04/14/2023 04/14/2023 11:18 AM MERINGUER COVID-19 Rule Out 07/19/2023 07/19/2023 07/19/2023 10:33 AM CDT COVID-19 Rule Out 12/15/2023 12/15/2023 12/15/2023 4:19 PM CDT Assessment Noted Time PHQ-9 Depression Total Score: 0 07/09/19 2:46 PM CDT documented as of this encounter Care Teams Building Supplies Salesperson Retail Relationship Specialty Start Date End Date Ivania Coates NP [address] [place] [address] PCP - General NURSE PRACTITIONER 06/24/21 06/16/22 Regina Camilo, [facility] [address] [place] [address] PCP - General Nurse Practitioner [facility] 06/17/22 documented as of this encounter
== END 2024-07-10 13:35 | disposition home or self-care (01) ==
PROVIDERS: Visit Provider Orthopaedic Surgery
DX: S42.022A Displaced fracture of shaft of left clavicle, initial encounter for closed fracture (principal); S42.032A Displaced fracture of lateral end of left clavicle, initial encounter for closed fracture; S43.102A Unspecified dislocation of left acromioclavicular joint, initial encounter; X58.XXXA Exposure to other specified factors, initial encounter
CPT/HCPCS: 73000

== ENCOUNTER 2024-07-18 09:46 | Outpatient (CLI) | payer OTHER, SELFPAY ==
--- OUTSIDE RECORDS SUMMARY | 2024-07-18 10:35 | XMS_ITS | Clinical Summary ---
Author Organization [facility] Address [address] [place] [address] Phone Care Team Providers Care Administration Intern Name Role Phone Ashley Gandhi MD Primary Care Provider [phone] Allergies Active Allergy Reactions Criticality Noted Date [...] this topic Medical Devices Implanted Type Area Teacher Preschool Device Identifier Shelf Expiration Date Model / Serial / Lot Seamguard Endogia 60 Prpl [id number] - [id number] Implanted:Qty : 2 on 02/15/2019 by Elis Bales MD at [facility] Biological N/A: Stomach [employer] 10/16/2021 [id number] / / [id number] Seamguard Endogia 60 Blck [id number] - [id number] Implanted:Qty : 2 on 02/15/2019 by Elis Bales MD at [facility] Biological N/A: Stomach [employer] 01/16/2022 [id number] / / [id number] Seamguard Endogia 60 Prpl [id number] - [id number] Implanted:Qty : 1 on 02/15/2019 by Elis Bales MD at [facility] Biological N/A: Stomach [employer] 10/16/2021 [id number] / / [id number] Hip Hip Stent Stent Description:states one stent to lad Insurance RX [employer] PLANS (INTERNAL) [facility] Plans Advance Directives For more information, please contact: [phone] * Full Code (Latest Code Status on File) Date Activated Date Inactivated Comments 02/15/2019 12:50 PM 02/16/2019 5:46 PM * Full Code Date Activated Date Inactivated Comments 02/15/2019 8:36 AM 02/15/2019 12:50 PM Care Teams Administration Intern Relationship Specialty Start Date End Date Ashley Gandhi MD [address] [place] [phone] PCP - General Internal Medicine 01/31/19
--- OUTSIDE RECORDS SUMMARY | 2024-07-18 10:35 | XMS_ITS | Encounter Summary ---
Author Organization [facility] Address [address] [place] [address] Care Team Providers Care Hookman Name Role Phone Ivania Coates NP Primary Care Provider [phone] [facility] Primary Care Provid er Encounter Details Date Type Department Care Team (Late st Contact Info) Description 07/30/2021 POI Message [facility] [address] [place] [address] Ivania Coates TANK HOUSE SUPERVISOR [address] [place] [address] GENEVIEVE Social History Tobacco Use [...] PM CDT Office Visit [facility] [address] [place] [phone] Regina Camilo, [facility] [address] [place] [address] 02/27/2025 2:00 PM IRON GUARDRAIL INSTALLER Office Visit [facility] [address] [place] [phone] Jerardo Valenzuela MD 3 [facility] [address] [place] [address] documented as of this encounter Visit Diagnoses Not on filedocumented in this encounter Additional Health Concerns Infection Onset Date Last Indicated Resolved Time COVID-19 Rule Out 04/14/2023 04/14/2023 04/14/2023 7:19 AM IRON GUARDRAIL INSTALLER Influenza - Seasonal 04/14/2023 04/14/2023 024 12:33 AM IRON GUARDRAIL INSTALLER COVID-19 Rule Out 04/14/2023 04/14/2023 04/14/2023 11:18 AM IRON GUARDRAIL INSTALLER COVID-19 Rule Out 07/19/2023 07/19/2023 07/19/2023 10:33 AM CDT COVID-19 Rule Out 12/15/2023 12/15/2023 12/15/2023 4:19 PM CDT Assessment Noted Time PHQ-9 Depression Total Score: 0 07/09/19 22 2:46 PM CDT documented as of this encounter Care Teams Hookman Relationship Specialty Start Date End Date vIania Coates, TANK HOUSE SUPERVISOR [address] [place] [address] PCP - General NURSE PRACTITIONER 06/24/21 06/16/22 Regina Camilo, [facility] [address] [place] [address] PCP - General Nurse Practitioner [facility] 06/17/22 documented as of this encounter
--- OUTSIDE RECORDS SUMMARY | 2024-07-18 10:35 | XMS_ITS | Encounter Summary ---
Author Organization [facility] Address [address] [place] [address] Care Team Providers Care Service Line Bus Cleaner Name Role Phone Ashley Gandhi MD Primary Care Provider Un available Jordi Deng MD Primary Care Provider Unavailable Ashley Gandhi MD Primary Care Provider Un available Jordi Marcus MD Primary Care Provider Jovanna vailable Ivania Coates TRAFFIC OPERATIONS ENGINEER Primary Care Provider [phone] Regina CamiloDANIELA Primary Care Provid er Encounter Details Date Type Department Care Team (Late st Contact Info) Description 02/13/2015 Abstract [facility] [address] [place] [address] , Patti Solo MD Social History Tobacco [...] [facility] [address] [place] [address] Regina Camilo FNP-BC [address] [place] [address] 02/27/2025 2:00 PM ANTENNA MACHINE OPERATOR Office Visit [facility] [address] [place] [phone] Jerardo Valenzuela MD 3 [facility] [address] [place] [address] documented as of this encounter Visit Diagnoses Not on filedocumented in this encounter Additional Health Concerns Infection Onset Date Last Indicated Resolved Time COVID-19 Rule Out 04/14/2023 04/14/2023 04/14/2023 7:19 AM ANTENNA MACHINE OPERATOR Influenza - Seasonal 04/14/2023 04/14/2023 024 12:33 AM ANTENNA MACHINE OPERATOR COVID-19 Rule Out 04/14/2023 04/14/2023 04/14/2023 11:18 AM ANTENNA MACHINE OPERATOR COVID-19 Rule Out 07/19/2023 07/19/2023 07/19/2023 10:33 AM CDT COVID-19 Rule Out 12/15/2023 12/15/2023 12/15/2023 4:19 PM CDT documented as of this encounter Care Teams Service Line Bus Cleaner Relationship Specialty Start Date End Date Ashley Gandhi MD PCP - General INTERNAL MEDICINE 04/22/18 06/05/18 Jordi Deng MD PCP - General FAMILY PRACTICE 06/06/18 06/12/18 Ashley Gandhi MD PCP - General INTERNAL MEDICINE 06/13/18 05/14/20 Jordi Marcus MD PCP - General FAMILY PRACTICE 05/15/20 06/23/21 Ivania Coates NP [address] [place] [address] PCP - General NURSE PRACTITIONER 06/24/21 06/16/22 Regina Camilo, DIRECTOR VOICE-BC [address] [place] [address] PCP - General Nurse Practitioner Family 06/17/22 documented as of this encounter
--- OUTSIDE RECORDS SUMMARY | 2024-07-18 10:35 | XMS_ITS | Encounter Summary ---
Author Organization [facility] Address [address] [place] [address] Care Team Providers Care Grades 9 12 Tutor Name Role Phone Jordi Marcus MD Primary Care Provider Jovanna Ivania Perdomo NP Primary Care Provider [phone] [facility] Primary Care Provid er Encounter Details Date Type Department Care Team (Late st Contact Info) Description 06/23/2021 [employer] Message [address] [address] [facility], [facility] Provider stent Social History Tobacco [...] Coronavirus/COVID-19? No / Unsure 06/20/2021 1:43 PM REWINDER documented as of this encounter Plan of Treatment Upcoming Encounters Date Type Department Care Team (Late st Contact Info) Description 07/25/2024 2:20 PM CDT Office Visit [facility] [address] [place] [phone] Regina Camilo [facility] [address] [place], [place] [phone] 02/27/2025 2:00 PM REWINDER [facility] [address] [place] [address] Jerardo Valenzuela MD 3 [facility] [address] [place] [phone] documented as of this encounter Visit Diagnoses Not on filedocumented in this encounter Additional Health Concerns Infection Onset Date Last Indicated Resolved Time COVID-19 Rule Out 04/14/2023 04/14/2023 04/14/2023 7:19 AM REWINDER Influenza - Seasonal 04/14/2023 04/14/2023 024 12:33 AM REWINDER COVID-19 Rule Out 04/14/2023 04/14/2023 04/14/2023 11:18 AM REWINDER COVID-19 Rule Out 07/19/2023 07/19/2023 07/19/2023 10:33 AM CDT COVID-19 Rule Out 12/15/2023 12/15/2023 12/15/2023 4:19 PM CDT Assessment Noted Time PHQ-9 Depression Total Score: 0 06/21/19 1:49 PM REWINDER documented as of this encounter Care Teams Grades 9 12 Tutor Relationship Specialty Start Date End Date Jordi Marcus MD PCP - General FAMILY PRACTICE 05/15/20 06/23/21 Ivania Coates NP [address] [place] [address] PCP - General NURSE PRACTITIONER 06/24/21 06/16/22 Regina Camilo, [facility]- [address] [place] [address] PCP - General Nurse Practitioner Family 06/17/22 documented as of this encounter
--- OUTSIDE RECORDS SUMMARY | 2024-07-18 10:35 | XMS_ITS | Clinical Summary ---
Author Organization [facility] Address [address] [place] [address] Care Team Providers Care S3B Multi Sensor Operator Name Role Phone LucyRegina black Elie [facility] Primary Care Provid er Allergies Active Allergy [...] artery disease of n ative artery of [place] heart with stable angina pectoris 12/22/2016 Overview [...] Mild intermittent asthma wit h acute exacerbation ([facility]) 12/22/2016 02/19/2021 Overview (06/13/2018): off meds no treatment Obstructive sleep apnea 12/22/201606/2020 Other depressive disorder 12/22/2016 Overview (06/13/2018): doing well on small dose of lexapro off meds Other obesity due to excess calories 12/22/2016 11/30/2019 Overview (06/13/2018): bmi 38 cardiac rehab needs to lose Encounters Date Type Department Care Team Description 07/17/2024 Telephone [facility], [address] [phone] Jerardo Valenzuela MD Information ([facility] Pre Testing Anesthesia) 07/10/2024 Scan UNX INFO SRVCS Scanned, Doc Med [facility] Image (SCAN) 06/27/2024 Telephone [facility], [address] [phone] Jerardo Valenzuela MD Surgical Clearance 05/17/2024 Telephone [facility] [address] [place] [phone] Regina Camilo, [facility] Refill Request from Last 3 Months Immunizations [...] Comments Blood Pressure 160/90 02/22/2024 9:47 AM FLOOR RENOVATOR Pulse 68 02/22/2024 9:47 AM FLOOR RENOVATOR Temperature 36.7 C (98.1 F) 01/27/2024 3:10 PM CDT Respiratory Rate 20 01/27/2024 3:10 PM CDT Oxygen Saturation 99% 01/27/2024 3:10 PM CDT Inhaled Oxygen Concentration - - Weight 89.4 kg (197 lb) 02/22/2024 9:47 AM FLOOR RENOVATOR Height 172.7 cm (5' 8 ) 02/22/2024 9:47 AM FLOOR RENOVATOR Body Mass Index 29.95 02/22/2024 9:47 AM FLOOR RENOVATOR Plan of Treatment Upcoming Encounters Date Type Department Care Team (Late st Contact Info) Description 07/25/2024 2:20 PM CDT Office Visit [facility] [address] [place] [phone] [facility] [address] [place] [address] 02/27/2025 2:00 PM FLOOR RENOVATOR [facility] [address] [place] [phone] Jerardo Valenzuela MD [address] [place] [phone] Health Maintenance Due Date Last Done Comments Hepatitis C 07/02/1978 RSV Immunization or 60+ Years (1 - Risk 60-74 years 1-dose series) 2021 COVID-19 Vaccine ( season) 2023 07/18/2020, 06/20/2020 PHQ-2 (Physician [place]) 04/19/2024 12/15/2023 Annual Physical 01/26/2025 01/27/2024, 12/2022, 01/12/2022, Additional history exists Pneumococcal Vaccine: Pediatrics (0 to 5 Years) and At-Risk Patients (6 to 64 Years) (3 of 3 - PPSV23 or PCV20) 2026 06/13/2018, 02/21/2014, 03/29/2010 Colorectal Cancer Screening Colonoscopy (10 Years) 09/02/2031 09/01/2021 DTaP, Tdap and Td Vaccines (3 - Td or Tdap) 01/25/2033 01/25/2023, 07/30/2011 Zoster Vaccines Completed 08/23/2019, 04/18/2019 Meningococcal B Vaccine Aged Out No l onger eligible based on patient's age to complete this topic Meningococcal Vaccine Aged Out No alondra william eligible based on patient's age to complete this topic RSV Immunizations Under 20 Months Aged Out No longer eligible based on patient's age to complete this topic Procedures Procedure Name Priority Date/Time Associated Diagnosis Comments IMAGE GENERIC 07/10/2024 COLONOSCOPY GENERIC (SCAN ORDER) 09/01/2021 from Last 3 Months or Most Recently Relevant to Health Maintenance Results * IMAGE GENERIC (07/10/2024) Anatomical Region Laterality Modality Other 07/10/2024 us Doc Med [facility] Scanned SCANNING Final Resu lt * COLONOSCOPY GENERIC (09/01/2021) 09/01/2021 Narrative 09/01/2021 Ordered by an unspecified provider. us Documents Scanned SCANNING Final Result from Last 3 Months or Most Recently Relevant to Health Maintenance Insurance Advance Directives * Full Code (Latest Code Status on File) Date Activated Date Inactivated Comments 06/15/2022 10:28 AM 06/15/2022 5:12 PM Care Teams S3B Multi Sensor Operator Relationship Specialty Start Date End Date Regina Camilo, FOAM CHARGER- [address] [place] [address] PCP - General Nurse Practitioner Family 06/17/22
--- OUTSIDE RECORDS SUMMARY | 2024-07-18 10:35 | XMS_ITS | Encounter Summary ---
Author Organization [facility] Address [address] [place] [address] Care Team Providers Care Foreign Broadcast Specialist Name Role Phone Ivania Coates NP Primary Care Provider [phone] [facility] Primary Care Provid er Encounter Details Date Type Department Care Team (Late st Contact Info) Description 08/11/2021 [place] [facility] [address] [place] [address] Ivania Coates STREETCAR CONDUCTOR [address] [place] [address] Blood Pressure Social History Tobacco [...] Visit [facility] [address] [place] [address] Regina Camilo, [facility] [address] [place] [address] 02/27/2025 2:00 PM MANAGER HOME Office Visit [facility] [address] [place] [address] Jerardo Valenzuela MD 3 [facility] [address] [place] [address] documented as of this encounter Visit Diagnoses Not on filedocumented in this encounter Additional Health Concerns Infection Onset Date Last Indicated Resolved Time COVID-19 Rule Out 04/14/2023 04/14/2023 04/14/2023 7:19 AM MANAGER HOME Influenza - Seasonal 04/14/2023 04/14/2023 024 12:33 AM MANAGER HOME COVID-19 Rule Out 04/14/2023 04/14/2023 04/14/2023 11:18 AM MANAGER HOME COVID-19 Rule Out 07/19/2023 07/19/2023 07/19/2023 10:33 AM CDT COVID-19 Rule Out 12/15/2023 12/15/2023 12/15/2023 4:19 PM CDT Assessment Noted Time PHQ-9 Depression Total Score: 0 07/09/19 2:46 PM CDT documented as of this encounter Care Teams Foreign Broadcast Specialist Relationship Specialty Start Date End Date Ivania Coates NP [address] [place] [address] PCP - General NURSE PRACTITIONER 06/24/21 06/16/22 Regina Camilo, [facility] [address] [place] [address] PCP - General Nurse Practitioner [facility] 06/17/22 documented as of this encounter
--- OUTSIDE RECORDS SUMMARY | 2024-07-18 10:35 | XMS_ITS | Encounter Summary ---
Author Organization [facility] Address [address] [place] [address] Care Team Providers Care Stratigraphy Teacher Name Role Phone Ashley Gandhi MD Primary Care Provider Un available Jordi Deng MD Primary Care Provider Unavailable Ashley Gandhi MD Primary Care Provider Un available Jordi Marcus MD Primary Care Provider Jovanna vailable Ivania Coates ASSEMBLER FITTER Primary Care Provider [phone] Regina Camilo-DANIELA Primary Care Provid er Encounter Details Date Type Department Care Team (Late st Contact Info) Description 06/13/2013 Abstract [facility] CONVERSION [address] [place], [place] [id number] , Patti Solo MD Social History Tobacco [...] Description 07/25/2024 2:20 PM CDT Office Visit [address] [address] Regina Camilo FNP-BC [address] [place] [address] 02/27/2025 2:00 PM RURAL SERVICE ENGINEER Office Visit [facility] [address] [place] [phone] Jerardo Valenzuela MD 3 [facility] [address] [place] [address] documented as of this encounter Visit Diagnoses Not on filedocumented in this encounter Additional Health Concerns Infection Onset Date Last Indicated Resolved Time COVID-19 Rule Out 04/14/2023 04/14/2023 04/14/2023 7:19 AM RURAL SERVICE ENGINEER Influenza - Seasonal 04/14/2023 04/14/2023 024 12:33 AM RURAL SERVICE ENGINEER COVID-19 Rule Out 04/14/2023 04/14/2023 04/14/2023 11:18 AM RURAL SERVICE ENGINEER COVID-19 Rule Out 07/19/2023 07/19/2023 07/19/2023 10:33 AM CDT COVID-19 Rule Out 12/15/2023 12/15/2023 12/15/2023 4:19 PM CDT documented as of this encounter Care Teams Stratigraphy Teacher Relationship Specialty Start Date End Date Ashley Gandhi MD PCP - General INTERNAL MEDICINE 04/22/18 06/05/18 Jordi Deng MD PCP - General FAMILY PRACTICE 06/06/18 06/12/18 Ashley Gandhi MD PCP - General INTERNAL MEDICINE 06/13/18 05/14/20 Jordi Marcus MD PCP - General FAMILY PRACTICE 05/15/20 06/23/21 Ivania Coates NP [address] [place] [address] PCP - General NURSE PRACTITIONER 06/24/21 06/16/22 Regina Camilo, SHOWER ATTENDANT-BC [address] [place] [address] PCP - General Nurse Practitioner Family 06/17/22 documented as of this encounter
--- OUTSIDE RECORDS SUMMARY | 2024-07-18 10:35 | XMS_ITS | Encounter Summary ---
Author Organization [facility] Address [address] [place] [address] Care Team Providers Care Tanker Truck Driver Name Role Phone Ashley Gandhi MD Primary Care Provider [phone] Encounter Details Date Type Department Care Team (Late st Contact Info) Description 02/07/2019 Abstract [facility] Non Integrated Provider [address] [place] [address] [place] [address] [place] [address] [place] [address] Social History Tobacco Use Types [...] on filedocumented in this encounter Care Teams Tanker Truck Driver Relationship Specialty Start Date End Date Ashley Gandhi MD [address] [place] [phone] PCP - General Internal Medicine 01/31/19 documented as of this encounter
--- OUTSIDE RECORDS SUMMARY | 2024-07-18 10:35 | XMS_ITS | Encounter Summary ---
Author Organization [facility] Address [address] [place] [address] Care Team Providers Care Jack Spooler Tender Name Role Phone Ashley Gandhi MD Primary Care Provider Un available Jordi Deng MD Primary Care Provider Unavailable Ashley Gandhi MD Primary Care Provider Un available Jordi Marcus MD Primary Care Provider Jovanna vailable Ivania Coates OVERNIGHT ASSOCIATE Primary Care Provider [phone] Regina Camilo [facility] Primary Care Provid er Encounter Details Date Type Department Care Team (Late st Contact Info) Description 06/14/2017 Abstract [facility] Elinor Morales PA-C [address] [address] Social History Tobacco Use Types [...] 12:00 AM CST 06-14-2017 , Hernan Landis [address] [place] [address] : 1960 Lab Order: PSA R35.0 Frequency of micturition PLEASE USE BLOOD THAT IS LAB ALREADY Normal [x] Stat [] TONEAL DIALYSIS REGISTERED NURSE documented in this encounter Plan of Treatment Upcoming Encounters Date Type Department Care Team (Late st Contact Info) Description 07/25/2024 2:20 PM CDT Office Visit [facility] [address] [place] [phone] Regina Camilo, [facility] [address] [place] [address] 02/27/2025 2:00 PM PERITONEAL DIALYSIS REGISTERED NURSE Office Visit [facility] [address] Jerardo Valenzuela MD [address] [place] [address] [place] [address] documented as of this encounter Visit Diagnoses Not on filedocumented in this encounter Additional Health Concerns Infection Onset Date Last Indicated Resolved Time COVID-19 Rule Out 04/14/2023 04/14/2023 04/14/2023 7:19 AM PERITONEAL DIALYSIS REGISTERED NURSE Influenza - Seasonal 04/14/2023 04/14/2023 024 12:33 AM PERITONEAL DIALYSIS REGISTERED NURSE COVID-19 Rule Out 04/14/2023 04/14/2023 04/14/2023 11:18 AM PERITONEAL DIALYSIS REGISTERED NURSE COVID-19 Rule Out 07/19/2023 07/19/2023 07/19/2023 10:33 AM CDT COVID-19 Rule Out 12/15/2023 12/15/2023 12/15/2023 4:19 PM CDT documented as of this encounter Care Teams Jack Spooler Tender Relationship Specialty Start Date End Date Ashley Gandhi MD PCP - General INTERNAL MEDICINE 04/22/18 06/05/18 Jordi Deng MD PCP - General FAMILY PRACTICE 06/06/18 06/12/18 Ashley Gandhi MD PCP - General INTERNAL MEDICINE 06/13/18 05/14/20 Jordi Marcus MD PCP - General FAMILY PRACTICE 05/15/20 06/23/21 Ivania Coates, TYSON [address] [place] [address] PCP - General NURSE PRACTITIONER 06/24/21 06/16/22 Regina Camilo, HANGER OFF- [address] [place] [address] PCP - General Nurse Practitioner Family 06/17/22 documented as of this encounter
--- OUTSIDE RECORDS SUMMARY | 2024-07-18 10:36 | XMS_ITS | Encounter Summary ---
Author Organization [facility] Address [address] [place] [address] Care Team Providers Care Education Dean Name Role Phone Ivania Coates NP Primary Care Provider [phone] Regina Camilo- Primary Care Provid er Encounter Details Date Type Department Care Team (Late st Contact Info) Description 04/10/2022 Abstract [facility] [address] Jet Gomez [place] Social History Tobacco Use [...] Coronavirus/COVID-19? No / Unsure 03/31/2022 11:29 AM SHEET METAL SUPERVISOR documented as of this encounter Plan of Treatment Upcoming Encounters Date Type Department Care Team (Late st Contact Info) Description 07/25/2024 2:20 PM CDT Office Visit [facility] [address] [place] [phone] Regina Camilo, [facility] [address] [place], [place] [phone] 02/27/2025 2:00 PM SHEET METAL SUPERVISOR Office Visit [facility] [address] [place] [address] Jerardo Valenzuela MD 3 [facility] [address] [place] [address] documented as of this encounter Procedures [...] Final Result * LIPID PANEL (02/20/2022) Pathologist [facility] CHOLESTEROL 130 HDL 53 TRIGLYCERIDES 63 NON HDL CHOLESTEROL 77 LDL (CALCULATED) 63 02/20/2022 us Default History Genericprovider LABORATORY Final Result * FOLATE (OUTSIDE LAB) (02/20/2022) Pathologist [facility] FOLATE 22.0 02/20/2022 Default History Genericprovider LAB-OUTSIDE/ABST RACTED Final Result * VITAMIN B-12 (02/20/2022) [facility] VITAMIN B12 S/P/B 1,275 02/20/2022 Default History Genericprovider LABORATORY Final Result * (ABNORMAL) COMPREHENSIVE METABOLIC PANEL (02/20/2022) [facility] SODIUM S/P/B 141 POTASSIUM S/P/B 4.5 [...] Rule Out 04/14/2023 04/14/2023 04/14/2023 7:19 AM SHEET METAL SUPERVISOR Influenza - Seasonal 04/14/2023 04/14/2023 024 12:33 AM SHEET METAL SUPERVISOR COVID-19 Rule Out 04/14/2023 04/14/2023 04/14/2023 11:18 AM SHEET METAL SUPERVISOR COVID-19 Rule Out 07/19/2023 07/19/2023 07/19/2023 10:33 AM CDT COVID-19 Rule Out 12/15/2023 12/15/2023 12/15/2023 4:19 PM CDT Assessment Noted Time PHQ-9 Depression Total Score: 0 07/09/19 2:46 PM CDT documented as of this encounter Care Teams Education Dean Relationship Specialty Start Date End Date Ivania Coates NP [address] [place] [address] PCP - General NURSE PRACTITIONER 06/24/21 06/16/22 Regina Camilo, FED[place]- [address] [place] [address] PCP - General Nurse Practitioner Family 06/17/22 documented as of this encounter
--- OUTSIDE RECORDS SUMMARY | 2024-07-18 10:36 | XMS_ITS | Encounter Summary ---
Author Organization [facility] Address [address] [place] [address] Care Team Providers Care Multi Craft Maintenance Technician Name Role Phone Ashley Gandhi MD Primary Care Provider Un available Jordi Deng MD Primary Care Provider Unavailable Ashley Gandhi MD Primary Care Provider Un available Jordi Marcus MD Primary Care Provider Jovanna Ivania Perdomo RESEARCH QUALITY ASSURANCE SPECIALIST Primary Care Provider [phone] Regina CamiloDANIELA Primary Care Provid er Encounter Details Date Type Department Care Team (Late st Contact Info) Description 06/06/2014 Abstract [facility] Clinics Conversion , Generic Conversion, [...] [facility] [address] [place] [phone] Regina Camilo FNP-BC [address] [place] [address] 02/27/2025 2:00 PM BILLBOARD POSTER HELPER Office Visit [facility] [address] [place] [address] Jerardo Valenzuela MD 3 [facility] [address] [place] [address] documented as of this encounter Visit Diagnoses Not on filedocumented in this encounter Additional Health Concerns Infection Onset Date Last Indicated Resolved Time COVID-19 Rule Out 04/14/2023 04/14/2023 04/14/2023 7:19 AM BILLBOARD POSTER HELPER Influenza - Seasonal 04/14/2023 04/14/2023 024 12:33 AM BILLBOARD POSTER HELPER COVID-19 Rule Out 04/14/2023 04/14/2023 04/14/2023 11:18 AM BILLBOARD POSTER HELPER COVID-19 Rule Out 07/19/2023 07/19/2023 07/19/2023 10:33 AM CDT COVID-19 Rule Out 12/15/2023 12/15/2023 12/15/2023 4:19 PM CDT documented as of this encounter Care Teams Multi Craft Maintenance Technician Relationship Specialty Start Date End Date Ashley Gandhi MD PCP - General INTERNAL MEDICINE 04/22/18 06/05/18 Jordi Deng MD PCP - General FAMILY PRACTICE 06/06/18 06/12/18 Ashley Gandhi MD PCP - General INTERNAL MEDICINE 06/13/18 05/14/20 Jordi Marcus MD PCP - General FAMILY PRACTICE 05/15/20 06/23/21 Ivania Coates NP [address] [place] [address] PCP - General NURSE PRACTITIONER 06/24/21 06/16/22 Regina Camilo FNP- [address] [place] [address] PCP - General Nurse Practitioner Family 06/17/22 documented as of this encounter
--- OUTSIDE RECORDS SUMMARY | 2024-07-18 10:36 | XMS_ITS | Encounter Summary ---
Author Organization [facility] Address [address] [place] [address] Care Team Providers Care Radiology Manager Name Role Phone Ashley Gandhi MD Primary Care Provider Un available Jordi Deng MD Primary Care Provider Unavailable Ashley Gandhi MD Primary Care Provider Un available Jordi Marcus MD Primary Care Provider Jovanna Ivania Perdomo CAN FEEDER Primary Care Provider [phone] Regina CamiloDANIELA Primary Care Provid er Encounter Details Date Type Department Care Team (Late st Contact Info) Description 03/16/2000 Abstract [facility] Clinics Conversion , Generic Conversion, Social [...] Description 07/25/2024 2:20 PM CDT Office Visit [facility] [address] [place] [phone] Regina Camilo FNP-BC [address] [place] [address] 02/27/2025 2:00 PM LUBRICATING SPECIALIST Office Visit [facility] [address] [place] [address] Jerardo Valenzuela MD 3 [facility] [address] [place] [address] documented as of this encounter Visit Diagnoses Not on filedocumented in this encounter Additional Health Concerns Infection Onset Date Last Indicated Resolved Time COVID-19 Rule Out 04/14/2023 04/14/2023 04/14/2023 7:19 AM LUBRICATING SPECIALIST Influenza - Seasonal 04/14/2023 04/14/2023 024 12:33 AM LUBRICATING SPECIALIST COVID-19 Rule Out 04/14/2023 04/14/2023 04/14/2023 11:18 AM LUBRICATING SPECIALIST COVID-19 Rule Out 07/19/2023 07/19/2023 07/19/2023 10:33 AM CDT COVID-19 Rule Out 12/15/2023 12/15/2023 12/15/2023 4:19 PM CDT documented as of this encounter Care Teams Radiology Manager Relationship Specialty Start Date End Date Ashley Gandhi MD PCP - General INTERNAL MEDICINE 04/22/18 06/05/18 Jordi Deng MD PCP - General FAMILY PRACTICE 06/06/18 06/12/18 Ashley Gandhi MD PCP - General INTERNAL MEDICINE 06/13/18 05/14/20 Jordi Marcus MD PCP - General FAMILY PRACTICE 05/15/20 06/23/21 Ivania Coates NP [address] [place] [address] PCP - General NURSE PRACTITIONER 06/24/21 06/16/22 Regina Camilo FNP- [address] [place] [address] PCP - General Nurse Practitioner Family 06/17/22 documented as of this encounter
--- OUTSIDE RECORDS SUMMARY | 2024-07-18 10:36 | XMS_ITS | Encounter Summary ---
Author Organization [facility] Address [address] [place] [address] Care Team Providers Care French Tutor Name Role Phone Regina Camilo-DANIELA Primary Care Provid er Reason for Visit * Reason Comments Image (SCAN) Encounter Details Date Type Department Care Team (Latest Contact Info) Description 07/10/2024 Scan HEALTH INFO SRVCS Scanned, Doc Med Group Image (SCAN) Social History Tobacco Use Types Packs/Day Years Used Date Smoking Tobacco: Never Passive Smoke Exposure: Never Smokeless Tobacco: Never Alcohol Use Standard [...] Upcoming Encounters Date Type Department Care Team ( Contact Info) Description 07/25/2024 2:20 PM CDT Office Visit [address] [phone] Regina Camilo FNP-DANIELA [address] [place] [address] 02/27/2025 2:00 PM COMPUTED TOMOGRAPHY SCANNER OPERATOR Office Visit [facility] [address] [place] [address] Jerardo Valenzuela MD 3 [facility] [address] [place] [address] documented as of this encounter Procedures Procedure Name Priority Date/Time Associated Diagnosis Comments IMAGE GENERIC 07/10/2024 documented in this encounter Results * IMAGE GENERIC (07/10/2024) Anatomical Region Laterality Modality Other 07/10/2024 us Doc Med Group Scanned SCANNING Final Resu lt documented in this encounter Visit Diagnoses Not on filedocumented in this encounter Additional Health Concerns Assessment Noted Time PHQ-9 Depression Total Score: 0 07/09/19 2:46 PM CDT documented as of this encounter Care Teams French Tutor Relationship Specialty Start Date End Date Regina Camilo FNP-BC [address] [place] [address] PCP - General Nurse Practitioner Family 06/17/22 documented as of this encounter
--- OUTSIDE RECORDS SUMMARY | 2024-07-18 10:36 | XMS_ITS | Clinical Summary ---
Author Organization [facility] Address [address] [place] [address] Care Team Providers Care Freight Broker Name Role Phone Jordi Marcus MD Primary [...] on file Legal Sex Male 3:32 AM PSYCHOLOGY FELLOW Gender Identity Male 09/06/2019 6:23 AM CDT Sexual Orientation Choose not to disclose 2019 6:23 AM CDT Obstetrics History Last Filed Vital Signs Vital Sign Reading Time Taken Comments Blood Pressure 110/78 09/26/2020 2:31 PM CDT Pulse 64 09/26/2020 2:31 PM CDT Temperature 36.7 C (98.1 F) 05/26/2021 1:49 PM PSYCHOLOGY FELLOW Respiratory Rate 18 09/26/2020 2:31 PM CDT Oxygen Saturation 98% 09/26/2020 2:31 PM CDT Inhaled Oxygen Concentration - - Weight 79.4 kg (175 lb) 05/26/2021 1:49 PM PSYCHOLOGY FELLOW Height 172.7 cm (5' 8 ) 05/26/2021 1:49 PM PSYCHOLOGY FELLOW Body Mass Index 26.61 05/26/2021 1:49 PM PSYCHOLOGY FELLOW Plan of Treatment Health Maintenance Due Date [...] topic Zoster Vaccine Completed 08/23/2019, 04/18/[address] [facility] Care Teams Freight Broker Relationship Specialty Start Date End Date Jordi Marcus MD [address] [address] PCP - General Family Medicine 07/04/20
--- OUTSIDE RECORDS SUMMARY | 2024-07-18 10:36 | XMS_ITS | Encounter Summary ---
Author Organization [facility] Address [address] [place] [address] Care Team Providers Care Metal Roofer Name Role Phone Ashley Gandhi MD Primary Care Provider Un available Jordi Deng MD Primary Care Provider Unavailable Ashley Gandhi MD Primary Care Provider Un available Jordi Marcus MD Primary Care Provider Jovanna Ivania Perdomo BUILDING MAINTENANCE ENGINEER Primary Care Provider [phone] Regina CamiloDANIELA Primary Care Provid er Encounter Details Date Type Department Care Team (Late st Contact Info) Description 07/07/2005 Abstract [facility] Clinics Conversion , Generic Conversion, [...] CDT Office Visit [facility] [address] [place] [phone] Regina Camilo FNP-BC [address] [place] [address] 02/27/2025 2:00 PM FIXED INCOME MANAGER Office Visit [facility] [address] [place] [address] Jerardo Valenzuela MD 3 [facility] [address] [place] [address] documented as of this encounter Visit Diagnoses Not on filedocumented in this encounter Additional Health Concerns Infection Onset Date Last Indicated Resolved Time COVID-19 Rule Out 04/14/2023 04/14/2023 04/14/2023 7:19 AM FIXED INCOME MANAGER Influenza - Seasonal 04/14/2023 04/14/2023 024 12:33 AM FIXED INCOME MANAGER COVID-19 Rule Out 04/14/2023 04/14/2023 04/14/2023 11:18 AM FIXED INCOME MANAGER COVID-19 Rule Out 07/19/2023 07/19/2023 07/19/2023 10:33 AM CDT COVID-19 Rule Out 12/15/2023 12/15/2023 12/15/2023 4:19 PM CDT documented as of this encounter Care Teams Metal Roofer Relationship Specialty Start Date End Date Ashley Gandhi MD PCP - General INTERNAL MEDICINE 04/22/18 06/05/18 Jordi Deng MD PCP - General FAMILY PRACTICE 06/06/18 06/12/18 Ashley Gandhi MD PCP - General INTERNAL MEDICINE 06/13/18 05/14/20 Jordi Marcus MD PCP - General FAMILY PRACTICE 05/15/20 06/23/21 Ivania Coates NP [address] [place] [address] PCP - General NURSE PRACTITIONER 06/24/21 06/16/22 Regina Camilo FNP- [address] [place] [address] PCP - General Nurse Practitioner Family 06/17/22 documented as of this encounter
--- OUTSIDE RECORDS SUMMARY | 2024-07-18 10:36 | XMS_ITS | Encounter Summary ---
Author Organization [facility] Address [address] [place] [address] Care Team Providers Care Poultry Raiser Name Role Phone Ivania Coates NP Primary Care Provider [phone] Regina Camilo- Primary Care Provid er Encounter Details Date Type Department Care Team (Late st Contact Info) Description 02/02/2022 [employer] Message [facility] [address] [place] [address] [address] Provider Summary of ECHO results Social History [...] [facility] [address] [place] [phone] Regina Camilo, [facility] [address] [place] [address] 02/27/2025 2:00 PM VP ANALYSIS Office Visit [facility] [address] [place] [address] Jerardo Valenzuela MD 3 [facility] [address] [place] [address] documented as of this encounter Visit Diagnoses Not on filedocumented in this encounter Additional Health Concerns Infection Onset Date Last Indicated Resolved Time COVID-19 Rule Out 04/14/2023 04/14/2023 04/14/2023 7:19 AM VP ANALYSIS Influenza - Seasonal 04/14/2023 04/14/2023 024 12:33 AM VP ANALYSIS COVID-19 Rule Out 04/14/2023 04/14/2023 04/14/2023 11:18 AM VP ANALYSIS COVID-19 Rule Out 07/19/2023 07/19/2023 07/19/2023 10:33 AM CDT COVID-19 Rule Out 12/15/2023 12/15/2023 12/15/2023 4:19 PM CDT Assessment Noted Time PHQ-9 Depression Total Score: 0 07/09/19 2:46 PM CDT documented as of this encounter Care Teams Poultry Raiser Relationship Specialty Start Date End Date Ivania Coates NP [address] [place] [address] PCP - General NURSE PRACTITIONER 06/24/21 06/16/22 Regina Camilo, POWER GENERATION EQUIPMENT REPAIRER- [address] [place] [address] PCP - General Nurse Practitioner Family 06/17/22 documented as of this encounter
--- OUTSIDE RECORDS SUMMARY | 2024-07-18 10:36 | XMS_ITS | Encounter Summary ---
Author Organization [facility] Address [address] [place] [address] Care Team Providers Care Printed Circuit Boards Router Name Role Phone Ashley Gandhi MD Primary Care Provider Un available Jordi Deng MD Primary Care Provider Unavailable Ashley Gandhi MD Primary Care Provider Un available Jordi Marcus MD Primary Care Provider Jovanna Ivania Perdomo CARDIOVASCULAR DISEASE SPECIALIST Primary Care Provider [phone] Regina CamiloDANIELA Primary Care Provid er Encounter Details Date Type Department Care Team (Late st Contact Info) Description 02/03/2014 Abstract [facility] Conversion , Generic Conversion, Social [...] PM CDT Office Visit [facility] [address] [place] [phone] Regina Camilo FNP-BC [address] [place] [address] 02/27/2025 2:00 PM CONTAINER PACKER OPERATOR Office Visit [facility] [address] [place] [address] Jerardo Valenzuela MD 3 [facility] [address] [place] [address] documented as of this encounter Visit Diagnoses Not on filedocumented in this encounter Additional Health Concerns Infection Onset Date Last Indicated Resolved Time COVID-19 Rule Out 04/14/2023 04/14/2023 04/14/2023 7:19 AM CONTAINER PACKER OPERATOR Influenza - Seasonal 04/14/2023 04/14/2023 024 12:33 AM CONTAINER PACKER OPERATOR COVID-19 Rule Out 04/14/2023 04/14/2023 04/14/2023 11:18 AM CONTAINER PACKER OPERATOR COVID-19 Rule Out 07/19/2023 07/19/2023 07/19/2023 10:33 AM CDT COVID-19 Rule Out 12/15/2023 12/15/2023 12/15/2023 4:19 PM CDT documented as of this encounter Care Teams Printed Circuit Boards Router Relationship Specialty Start Date End Date Ashley Gandhi MD PCP - General INTERNAL MEDICINE 04/22/18 06/05/18 Jordi Deng MD PCP - General FAMILY PRACTICE 06/06/18 06/12/18 Ashley Gandhi MD PCP - General INTERNAL MEDICINE 06/13/18 05/14/20 Jordi Marcus MD PCP - General FAMILY PRACTICE 05/15/20 06/23/21 Ivania Coates NP [address] [place] [address] PCP - General NURSE PRACTITIONER 06/24/21 06/16/22 Regina Camilo FNP- [address] [place] [address] PCP - General Nurse Practitioner Family 06/17/22 documented as of this encounter
--- OUTSIDE RECORDS SUMMARY | 2024-07-18 10:36 | XMS_ITS | Referral Summary ---
Author Organization [facility] Address [address] [place] [address] Care Team Providers Care Health Concierge Name Role Phone Jordi Marcus MD Primary [...] on file Legal Sex Male 3:32 AM AGILE TEST LEAD Gender Identity Male 09/06/2019 6:23 AM CDT Sexual Orientation Choose not to disclose 2019 6:23 AM CDT Last Filed Vital Signs Vital Sign Reading Time Taken Comments Blood Pressure 110/78 09/26/2020 2:31 PM CDT Pulse 64 09/26/2020 2:31 PM CDT Temperature 36.7 C (98.1 F) 05/26/2021 1:49 PM AGILE TEST LEAD Respiratory Rate 18 09/26/2020 2:31 PM CDT Oxygen Saturation 98% 09/26/2020 2:31 PM CDT Inhaled Oxygen Concentration - - Weight 79.4 kg (175 lb) 05/26/2021 1:49 PM AGILE TEST LEAD Height 172.7 cm (5' 8 ) 05/26/2021 1:49 PM AGILE TEST LEAD Body Mass Index 26.61 05/26/2021 1:49 PM AGILE TEST LEAD Plan of Treatment Not on file [facility] Member Subscriber Plan / Payer (Ef fective 2023-Present) Name:Hernan Landis Relation to Subscriber:Self Name:Hernan Landis Payer ID:[id number] (NAIC) Type:BC [employer] Address: [address] [place] [id number] Care Teams Health Concierge Relationship Specialty Start Date End Date Jordi Marcus MD [address] [place] [address] PCP - General Family Medicine 07/04/20
--- OUTSIDE RECORDS SUMMARY | 2024-07-18 10:36 | XMS_ITS | Encounter Summary ---
Author Organization [facility] Address [address] [place] [address] Care Team Providers Care Human Factors Scientist Name Role Phone LucySa sofiaundra Elie [facility] Primary Care Provid er Reason for Visit * Reason Onset Date Comments Information 07/17/2024 [facility] Pre Testing Anesthesia Encounter Details Date Type Department Care Team (Late st Contact Info) Description 07/17/2024 Telephone [facility] [address] [place] [address] Jerardo Valenzuela MD 3 [facility] [address] [place] [address] Information ([facility] Pre Testing Anesthesia) Social History Tobacco Use Types Packs/Day Years [...] on file documented as of this encounter Progress Notes * Kimberly Mitchell - 07/17/2024 12:52 PM CDTSummary: [facility] Pre- Testing Anesthesia 07/17/2024 [facility] Pre-Testing Anesthesia for upcoming surgery F) [phone] 03/13/2024 OV notes documented in this encounter Plan of Treatment Upcoming Encounters Date Type Department Care Team (Late st Contact Info) Description 07/25/2024 2:20 PM CDT Office Visit [facility] [address] [place] [phone] Regina Camilo FNP- [address] [place], [place] [phone] 02/27/2025 2:00 PM SPIRITUAL CARE COORDINATOR Office Visit [facility] [address] [place] [address] Jerardo Valenzuela MD [address] [place] [address] documented as of this encounter Visit Diagnoses Not on filedocumented in this encounter Additional Health Concerns Assessment Noted Time PHQ-9 Depression Total Score: 0 07/09/19 22 2:46 PM CDT documented as of this encounter Care Teams Human Factors Scientist Relationship Specialty Start Date End Date Regina Camilo FNP-BC [address] [place] [address] PCP - General Nurse Practitioner Family 06/17/22 documented as of this encounter
--- OUTSIDE RECORDS SUMMARY | 2024-07-18 10:36 | XMS_ITS | Encounter Summary ---
Author Organization [facility] Address [address] [place] [address] Care Team Providers Care Cheesemaker Helper Name Role Phone Ashley Gandhi MD Primary Care Provider Un available Jordi Deng MD Primary Care Provider Unavailable Ashley Gandhi MD Primary Care Provider Un available Jordi Marcus MD Primary Care Provider Jovanna Iavnia Perdomo SADDLE TREE STITCHER Primary Care Provider [phone] Regina CamiloDANIELA Primary Care Provid er Encounter Details Date Type Department Care Team (Late st Contact Info) Description 06/26/2014 Abstract [facility] Conversion , Generic Conversion, [...] Description 07/25/2024 2:20 PM CDT Office Visit [facility] [address] [place] [phone] Regina Camilo FNP-BC [address] [place] [address] 02/27/2025 2:00 PM CHARTER BOAT CAPTAIN Office Visit [facility] [address] [place] [address] Jerardo Valenzuela MD 3 [facility] [address] [place] [address] documented as of this encounter Visit Diagnoses Not on filedocumented in this encounter Additional Health Concerns Infection Onset Date Last Indicated Resolved Time COVID-19 Rule Out 04/14/2023 04/14/2023 04/14/2023 7:19 AM CHARTER BOAT CAPTAIN Influenza - Seasonal 04/14/2023 04/14/2023 024 12:33 AM CHARTER BOAT CAPTAIN COVID-19 Rule Out 04/14/2023 04/14/2023 04/14/2023 11:18 AM CHARTER BOAT CAPTAIN COVID-19 Rule Out 07/19/2023 07/19/2023 07/19/2023 10:33 AM CDT COVID-19 Rule Out 12/15/2023 12/15/2023 12/15/2023 4:19 PM CDT documented as of this encounter Care Teams Cheesemaker Helper Relationship Specialty Start Date End Date Ashley Gandhi MD PCP - General INTERNAL MEDICINE 04/22/18 06/05/18 Jordi Deng MD PCP - General FAMILY PRACTICE 06/06/18 06/12/18 Ashley Gandhi MD PCP - General INTERNAL MEDICINE 06/13/18 05/14/20 Jordi Marcus MD PCP - General FAMILY PRACTICE 05/15/20 06/23/21 Ivania Coates NP [address] [place] [address] PCP - General NURSE PRACTITIONER 06/24/21 06/16/22 Regina Camilo FNP- [address] [place] [address] PCP - General Nurse Practitioner Family 06/17/22 documented as of this encounter
[2024-07-18 14:30] LABS: Anion Gap 6 mmol/L (4-12); Blood Urea Nitrogen 17 mg/dL (9-20); Carbon Dioxide 30 mmol/L (22-30); Chloride 102 mmol/L (98-107); Estimated Glomerular Filt Rate > 60; Glucose 105 mg/dL (65-110); Potassium 3.8 mmol/L (3.4-5.0); Sodium 138 mmol/L (137-145)
== END 2024-07-18 09:47 | disposition home or self-care (01) ==
LOC: ANHGOSHLAB 09:47
PROVIDERS: Visit Provider Anesthesiology
DX: Z51.81 Encounter for therapeutic drug level monitoring (principal); Z79.899 Other long term (current) drug therapy
CPT/HCPCS: 36415; 80048

== ENCOUNTER 2024-07-18 10:10 | Outpatient (CLI) | payer OTHER, SELFPAY ==
--- NOTE | ~2024-07-18 | MR_ITS ---
MRI of the left knee Clinical history: MCL sprain Technique: Coronal proton density and proton density-weighted images, sagittal proton-density and T2 fat-sat images, and axial proton-density fat-saturated images were acquired. Findings: The ACL is probably intact with severe mucoid degenerative change with associated increased signal diffusely. Posterior cruciate ligament intact with mild intrasubstance degenerative signal. T here is high-grade, probable complete tear of the proximal MCL. Lateral collateral ligament complex i s intact. Popliteus tendon is intact. There is complex tearing of the posterior horn and body of the medial meniscus, with large areas of v ertical/radial tearing. No lateral meniscal tear seen. There is extensive marrow edema at the posterolateral tibial plateau and posterolateral femoral condy le region, suggestive of contusions, presumably related to direct impaction injury. There is addition al bone contusion at the anteromedial aspect of the medial femoral condyle. There is mild to moderate chondromalacia along the lateral patellar facet. There is extensive high-grade chondromalacia of the femoral trochlea on the lateral aspect. There is extensive high-grade chondromalacia of the medial c ompartment on both sides of the joint. There is mild chondral thinning in the lateral compartment. Extensor mechanism is intact. Large joint effusion present with moderate to large complex Singh's cys t. There is subcutaneous soft tissue edema about the knee. Impression: High-grade, probable complete tear of the proximal MCL. Bone contusions at the posterolateral tibial plateau and posterolateral femoral condyle, probably due to direct impaction injury. Additional bone contusion at the anteromedial aspect of the medial femor al condyle. Complex tearing of the posterior horn and body of the medial meniscus, as detailed above. Large joint effusion with moderate to large complex Singh's cyst. Tricompartmental degenerative change, as detailed above, worst in the medial and patellofemoral darrell rtment. Severe mucoid degenerative change of the ACL. Reviewed, dictated and finalized at location M. Impression: High-grade, probable complete tear of the proximal MCL. Bone contusions at the posterolateral tibial plateau and posterolateral femoral condyle, probably due to direct impaction injury. Additional bone contusion at the anteromedial aspect of the medial femoral condyle. Complex tearing of the posterior horn and body of the medial meniscus, as detai led above. Large joint effusion with moderate to large complex Singh's cyst. Tricompartmental degenerative change, as detailed above, worst in the medial an d patellofemoral compartment. Severe mucoid degenerative change of the ACL.
== END 2024-07-18 10:11 | disposition home or self-care (01) ==
PROVIDERS: PCP Orthopaedic Surgery; Visit Provider Orthopaedic Surgery
DX: S83.412A Sprain of medial collateral ligament of left knee, initial encounter (principal); S80.12XA Contusion of left lower leg, initial encounter; S83.232A Complex tear of medial meniscus, current injury, left knee, initial encounter; M25.462 Effusion, left knee; M71.22 Synovial cyst of popliteal space [Baker], left knee; X58.XXXA Exposure to other specified factors, initial encounter
CPT/HCPCS: 73721

== ENCOUNTER 2024-07-19 00:32 | Day surgery (SDC) | payer OTHER, SELFPAY ==
[2024-07-14 08:18] VITALS: BMI 29.7
--- NOTE | 2024-07-14 08:19 | PC.NURSE ---
Addendum entered by Quentin Gu RN 07/17/24 11:40: Patient thought he was to stop aspirin 3 days before surgery. Took last dose 07-15-2024. Office made aware he had not held it 7 days. They are going to speak with Dr Lay and if needed with call patient. Original Note: Report to the Outpatient Waiting Room, entrance under the green pavilion located off [facility], at time _0700_ on date _[id number]_. Planned Procedure Time: _0900_.? Time changes happen often and if your time is changed the preop area will call you the afternoon before. - You and your visitor will be asked to self-screen and do not enter if you have any COVID symptoms. Please call surgeon if you need to reschedule. - A mask is optional within the hospital at this time. Patients may have clear liquids (water, carbonated beverages, clear teas, apple juice) until 3 hours prior to surgery with a maximum of 20 ounces. - No food from midnight until time of surgery and no smoking, or chewing tobacco (or any form of nicotine). No chewing gum, candy or mints. Take only the following medications with a SIP of water on the morning of surgery: __Carvidilol and if needed Hydrocodone____ DO NOT STOP ANY OF YOUR OTHER PRESCRIPTION MEDICATIONS PRIOR TO SURGERY EXCEPT THE FOLLOWING Hold all vitamins and supplements for 3 days per anesthesiologist. Medications to discontinue per physician Date to take last dose Please no make-up, nail chilean, hairspray, perfume, deodorant, or body powder the day of surgery.? No jewelry (including any body piercings) or valuables the day of surgery, leave them at home.? Please take a shower or bath the night before, or the morning of, surgery with an antibacterial soap.? Wear comfortable, loose fitting clothing.? - Jewelry must be removed prior to entering the operating room.? Rings and piercings that are not removed may be cut off. - The hospital will not accept responsibility for valuables.? - Please leave all valuables, including medications, at home the day of surgery. If you are going home after surgery, a licensed warehouse associate driver must drive you home.? - NO public transportation without another adult if you receive anesthesia. - We recommend that an adult stay with you for 24 hours following discharge. - We also recommend that you do not drive, make important decision, drink alcoholic beverages, or take any drugs that were not prescribed by your health care provider for at least 24 hours after your discharge time. Follow any additional instructions given to you from your surgeon. Telephone instructions given to __Hernan__and asked if any additional questions and then verbalized understanding. Patient advised to call surgeon office or pre surgery nurse liaison [phone] if any additional questions.
[2024-07-19] VITALS (9 sets, daily range): BP systolic 137–176; BP diastolic 65–101; PULSE 61–77; RESP 12–16; TEMP 36.1; O2SAT 96–100
--- NOTE | ~2024-07-19 | XR_ITS ---
EXAMINATION: XR surgery orthopedic DATE: 07/19/2024 11:31 INDICATION: ORIF left clavicle fracture TECHNIQUE: AP view of the left clavicle is obtained. COMPARISON: The left clavicle radiograph dated 07/10/[address] dated 07/08/2024 FINDINGS: Interval from reduction to essentially anatomic alignment of the previously seen mildly comminuted mi d diaphyseal fracture left clavicle. The fracture is fixed with a plate and screws extending along th e cephalad margin of the clavicle. 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 Endotracheal tube tip in th e upper thoracic trachea below level of the thoracic inlet. IMPRESSION: 1. Interval reduction and internal fixation of a comminuted mid diaphyseal left clavicle fracture whi ch is now in near-anatomic alignment. 2. Reduction of previously widened left acromioclavicular joint with small crescentic calcific densit y dorsal to the joint space which suggests small capsular avulsion fracture fragment related to prior acromioclavicular joint separation. Reviewed, dictated and finalized at location A. IMPRESSION: 1. Interval reduction and internal fixation of a comminuted mid diaphyseal left clavicle fracture which is now in near-anatomic alignment. 2. Reduction of previously widened left acromioclavicular joint with small anand centic calcific density dorsal to the joint space which suggests small capsular avulsion fracture fragment related to prior acromioclavicular joint separation .
--- OUTSIDE RECORDS SUMMARY | 2024-07-19 00:35 | XMS_ITS | Encounter Summary ---
Author Organization [facility] Address [address] [place] [address] Care Team Providers Care Asset Protection Specialist Name Role Phone Ivania Coates NP Primary Care Provider [phone] Regina Camilo- Primary Care Provid er Encounter Details Date Type Department Care Team (Late st Contact Info) Description 04/10/2022 Abstract [facility] [address] Jet Gomez MA Social History Tobacco Use [...] Coronavirus/COVID-19? No / Unsure 03/31/2022 11:29 AM SENIOR MANAGER MERGERS & ACQUISITIONS documented as of this encounter Plan of Treatment Upcoming Encounters Date Type Department Care Team (Late st Contact Info) Description 07/25/2024 2:20 PM CDT Office Visit [facility] [address] [place] [address] Regina Camilo, [facility] [address] [place], [place] [address] 02/27/2025 2:00 PM SENIOR MANAGER MERGERS & ACQUISITIONS Office Visit [facility] [address] [place] [address] Jerardo Valenzuela MD 3 [facility] [address] [place] [address] documented as of this encounter Procedures [...] RACTED Final Result * VITAMIN B-12 (02/20/2022) [facility] VITAMIN B12 S/P/B 1,275 02/20/2022 Default History Genericprovider LABORATORY Final Result * (ABNORMAL) COMPREHENSIVE METABOLIC PANEL (02/20/2022) [facility] SODIUM S/P/B 141 POTASSIUM S/P/B 4.5 CO2 [...] Rule Out 04/14/2023 04/14/2023 04/14/2023 7:19 AM SENIOR MANAGER MERGERS & ACQUISITIONS Influenza - Seasonal 04/14/2023 04/14/2023 024 12:33 AM SENIOR MANAGER MERGERS & ACQUISITIONS COVID-19 Rule Out 04/14/2023 04/14/2023 04/14/2023 11:18 AM SENIOR MANAGER MERGERS & ACQUISITIONS COVID-19 Rule Out 07/19/2023 07/19/2023 07/19/2023 10:33 AM CDT COVID-19 Rule Out 12/15/2023 12/15/2023 12/15/2023 4:19 PM CDT Assessment Noted Time PHQ-9 Depression Total Score: 0 07/09/19 2:46 PM CDT documented as of this encounter Care Teams Asset Protection Specialist Relationship Specialty Start Date End Date Ivania Coates NP [address] [place] [address] PCP - General NURSE PRACTITIONER 06/24/21 06/16/22 Regina Camilo, [place]- [address] [place] [address] PCP - General Nurse Practitioner Family 06/17/22 documented as of this encounter
--- OUTSIDE RECORDS SUMMARY | 2024-07-19 00:35 | XMS_ITS | Encounter Summary ---
Author Organization [facility] Address [address] [place] [address] Care Team Providers Care Teller Manager Name Role Phone Ivania Coates NP Primary Care Provider [phone] Regina Camilo- Primary Care Provid er Encounter Details Date Type Department Care Team (Late st Contact Info) Description 02/02/2022 ShareYourCart Message [facility] [address] [place] [address] [facility] Provider Summary of ECHO results Social [...] Visit [facility] [address] [place] [address] Regina Camilo, [facility] [address] [place] [address] 02/27/2025 2:00 PM CHIEF LIBRARIAN BRANCH OR DEPARTMENT Office Visit [facility] [address] [place] [address] Jerardo Valenzuela MD 3 [facility] [address] [place] [address] documented as of this encounter Visit Diagnoses Not on filedocumented in this encounter Additional Health Concerns Infection Onset Date Last Indicated Resolved Time COVID-19 Rule Out 04/14/2023 04/14/2023 04/14/2023 7:19 AM CHIEF LIBRARIAN BRANCH OR DEPARTMENT Influenza - Seasonal 04/14/2023 04/14/2023 024 12:33 AM CHIEF LIBRARIAN BRANCH OR DEPARTMENT COVID-19 Rule Out 04/14/2023 04/14/2023 04/14/2023 11:18 AM CHIEF LIBRARIAN BRANCH OR DEPARTMENT COVID-19 Rule Out 07/19/2023 07/19/2023 07/19/2023 10:33 AM CDT COVID-19 Rule Out 12/15/2023 12/15/2023 12/15/2023 4:19 PM CDT Assessment Noted Time PHQ-9 Depression Total Score: 0 07/09/19 2:46 PM CDT documented as of this encounter Care Teams Teller Manager Relationship Specialty Start Date End Date Ivania Coates NP [address] [place] [address] PCP - General NURSE PRACTITIONER 06/24/21 06/16/22 Regina Camilo, DATABASE CONSULTANT- [address] [place] [address] PCP - General Nurse Practitioner Family 06/17/22 documented as of this encounter
--- OUTSIDE RECORDS SUMMARY | 2024-07-19 00:35 | XMS_ITS | Encounter Summary ---
Author Organization [facility] Address [address] [place] [address] Care Team Providers Care Back Sewer Name Role Phone Jordi Marcus MD Primary Care Provider Jovanna Ivania Perdomo NP Primary Care Provider [phone] [facility] Primary Care Provid er Encounter Details Date Type Department Care Team (Late st Contact Info) Description 06/23/[address] Glazeon [address] [address] [facility] Provider stent Social History Tobacco Use [...] Coronavirus/COVID-19? No / Unsure 06/20/2021 1:43 PM SHAKE BACKBOARD NOTCHER documented as of this encounter Plan of Treatment Upcoming Encounters Date Type Department Care Team (Late st Contact Info) Description 07/25/2024 2:20 PM CDT Office Visit [facility] [address] [place] [phone] Regina Camilo [facility] [address] [place], [place] [address] 02/27/2025 2:00 PM SHAKE BACKBOARD NOTCHER [facility] [address] [place] [address] Jerardo Valenzuela MD 3 [facility] [address] [place] [address] documented as of this encounter Visit Diagnoses Not on filedocumented in this encounter Additional Health Concerns Infection Onset Date Last Indicated Resolved Time COVID-19 Rule Out 04/14/2023 04/14/2023 04/14/2023 7:19 AM SHAKE BACKBOARD NOTCHER Influenza - Seasonal 04/14/2023 04/14/2023 024 12:33 AM SHAKE BACKBOARD NOTCHER COVID-19 Rule Out 04/14/2023 04/14/2023 04/14/2023 11:18 AM SHAKE BACKBOARD NOTCHER COVID-19 Rule Out 07/19/2023 07/19/2023 07/19/2023 10:33 AM CDT COVID-19 Rule Out 12/15/2023 12/15/2023 12/15/2023 4:19 PM CDT Assessment Noted Time PHQ-9 Depression Total Score: 0 06/21/19 1:49 PM SHAKE BACKBOARD NOTCHER documented as of this encounter Care Teams Back Sewer Relationship Specialty Start Date End Date Jordi Marcus MD PCP - General FAMILY PRACTICE 05/15/20 06/23/21 Ivania Coates NP [address] [place] [address] PCP - General NURSE PRACTITIONER 06/24/21 06/16/22 Regina Camilo, [facility]- [address] [place] [address] PCP - General Nurse Practitioner Family 06/17/22 documented as of this encounter
--- OUTSIDE RECORDS SUMMARY | 2024-07-19 00:35 | XMS_ITS | Encounter Summary ---
Author Organization [facility] Address [address] [place] [address] Care Team Providers Care Prepress Supervisor Name Role Phone Ashley Gandhi MD Primary Care Provider Un available Jordi Deng MD Primary Care Provider Unavailable Ashley Gandhi MD Primary Care Provider Un available Jordi Marcus MD Primary Care Provider Jovanna Ivania Perdomo AUTO SERVICER Primary Care Provider [phone] Regina CamiloDANIELA Primary Care Provid er Encounter Details Date Type Department Care Team (Late st Contact Info) Description 02/03/2014 Abstract [facility] Conversion , Generic Conversion, Social [...] Description 07/25/2024 2:20 PM CDT Office Visit [facility] [address] [place] [phone] Regina Camilo FNP-BC [address] [place] [address] 02/27/2025 2:00 PM EVENT SPECIALIST FOOD DEMONSTRATOR Office Visit [facility] [address] [place] [address] Jerardo Valenzuela MD 3 [facility] [address] [place] [address] documented as of this encounter Visit Diagnoses Not on filedocumented in this encounter Additional Health Concerns Infection Onset Date Last Indicated Resolved Time COVID-19 Rule Out 04/14/2023 04/14/2023 04/14/2023 7:19 AM EVENT SPECIALIST FOOD DEMONSTRATOR Influenza - Seasonal 04/14/2023 04/14/2023 024 12:33 AM EVENT SPECIALIST FOOD DEMONSTRATOR COVID-19 Rule Out 04/14/2023 04/14/2023 04/14/2023 11:18 AM EVENT SPECIALIST FOOD DEMONSTRATOR COVID-19 Rule Out 07/19/2023 07/19/2023 07/19/2023 10:33 AM CDT COVID-19 Rule Out 12/15/2023 12/15/2023 12/15/2023 4:19 PM CDT documented as of this encounter Care Teams Prepress Supervisor Relationship Specialty Start Date End Date Ashley Gandhi MD PCP - General INTERNAL MEDICINE 04/22/18 06/05/18 Jordi Deng MD PCP - General FAMILY PRACTICE 06/06/18 06/12/18 Ashley Gandhi MD PCP - General INTERNAL MEDICINE 06/13/18 05/14/20 Jordi Marcus MD PCP - General FAMILY PRACTICE 05/15/20 06/23/21 Ivania Coates NP [address] [place] [address] PCP - General NURSE PRACTITIONER 06/24/21 06/16/22 Regina Camilo FNP- [address] [place] [address] PCP - General Nurse Practitioner Family 06/17/22 documented as of this encounter
--- OUTSIDE RECORDS SUMMARY | 2024-07-19 00:35 | XMS_ITS | Encounter Summary ---
Author Organization [facility] Address [address] [place] [address] Care Team Providers Care Polyethylene Combiner Name Role Phone Ashley Gandhi MD Primary Care Provider Un available Jordi Deng MD Primary Care Provider Unavailable Ashley Gandhi MD Primary Care Provider Un available Jordi Marcus MD Primary Care Provider Jovanna vailable Ivania Coates BOATBUILDER APPRENTICE WOOD Primary Care Provider [phone] Regina Camilo [facility] Primary Care Provid er Encounter Details Date Type Department Care Team (Late st Contact Info) Description 06/14/2017 Abstract [facility] Elinor Morales PA-C [address] [address] Social History Tobacco Use Types [...] 12:00 AM CST 06-14-2017 , Hernan Landis [address] [place] [address] : 1960 Lab Order: PSA R35.0 Frequency of micturition PLEASE USE BLOOD THAT IS LAB ALREADY Normal [x] Stat [] KER STOCKER documented in this encounter Plan of Treatment Upcoming Encounters Date Type Department Care Team (Late st Contact Info) Description 07/25/2024 2:20 PM CDT Office Visit [facility] [address] [place] [phone] Regina Camilo, [facility] [address] [place] [address] 02/27/2025 2:00 PM CHECKER STOCKER Office Visit [facility] [address] Jerardo Valenzuela MD [address] [place] [address] [place] [address] documented as of this encounter Visit Diagnoses Not on filedocumented in this encounter Additional Health Concerns Infection Onset Date Last Indicated Resolved Time COVID-19 Rule Out 04/14/2023 04/14/2023 04/14/2023 7:19 AM CHECKER STOCKER Influenza - Seasonal 04/14/2023 04/14/2023 024 12:33 AM CHECKER STOCKER COVID-19 Rule Out 04/14/2023 04/14/2023 04/14/2023 11:18 AM CHECKER STOCKER COVID-19 Rule Out 07/19/2023 07/19/2023 07/19/2023 10:33 AM CDT COVID-19 Rule Out 12/15/2023 12/15/2023 12/15/2023 4:19 PM CDT documented as of this encounter Care Teams Polyethylene Combiner Relationship Specialty Start Date End Date Ashley Gandhi MD PCP - General INTERNAL MEDICINE 04/22/18 06/05/18 Jordi Deng MD PCP - General FAMILY PRACTICE 06/06/18 06/12/18 Ashley Gandhi MD PCP - General INTERNAL MEDICINE 06/13/18 05/14/20 Jordi Marcus MD PCP - General FAMILY PRACTICE 05/15/20 06/23/21 Ivania Coates, TYSON [address] [place] [address] PCP - General NURSE PRACTITIONER 06/24/21 06/16/22 Regina Camilo, CARVER HAND- [address] [place] [address] PCP - General Nurse Practitioner Family 06/17/22 documented as of this encounter
--- OUTSIDE RECORDS SUMMARY | 2024-07-19 00:35 | XMS_ITS | Encounter Summary ---
Author Organization [facility] Address [address] [place] [address] Care Team Providers Care Slubber Frame Changer Name Role Phone Ashley Gandhi MD Primary Care Provider Un available Jordi Deng MD Primary Care Provider Unavailable Ashley Gandhi MD Primary Care Provider Un available Jordi Marcus MD Primary Care Provider Jovanna vailable Ivania Coates COMMUNITY DEVELOPMENT PLANNER Primary Care Provider [phone] Regina CamiloDANIELA Primary Care Provid er Encounter Details Date Type Department Care Team (Late st Contact Info) Description 02/13/2015 Abstract [facility] CONVERSION [address] [place] [address] , Patti Solo MD Social History Tobacco [...] Office Visit [facility] [address] [place] [address] Regina Camilo FNP-BC [address] [place] [address] 02/27/2025 2:00 PM IRON INSTALLER Office Visit [facility] [address] [place] [phone] Jerardo Valenzuela MD 3 [facility] [address] [place] [address] documented as of this encounter Visit Diagnoses Not on filedocumented in this encounter Additional Health Concerns Infection Onset Date Last Indicated Resolved Time COVID-19 Rule Out 04/14/2023 04/14/2023 04/14/2023 7:19 AM IRON INSTALLER Influenza - Seasonal 04/14/2023 04/14/2023 024 12:33 AM IRON INSTALLER COVID-19 Rule Out 04/14/2023 04/14/2023 04/14/2023 11:18 AM IRON INSTALLER COVID-19 Rule Out 07/19/2023 07/19/2023 07/19/2023 10:33 AM CDT COVID-19 Rule Out 12/15/2023 12/15/2023 12/15/2023 4:19 PM CDT documented as of this encounter Care Teams Slubber Frame Changer Relationship Specialty Start Date End Date Ashley Gandhi MD PCP - General INTERNAL MEDICINE 04/22/18 06/05/18 Jordi Deng MD PCP - General FAMILY PRACTICE 06/06/18 06/12/18 Ashley Gandhi MD PCP - General INTERNAL MEDICINE 06/13/18 05/14/20 Jordi Marcus MD PCP - General FAMILY PRACTICE 05/15/20 06/23/21 Ivania Coates NP [address] [place] [address] PCP - General NURSE PRACTITIONER 06/24/21 06/16/22 Regina Camilo, INGOT SUPERVISOR-BC [address] [place] [address] PCP - General Nurse Practitioner Family 06/17/22 documented as of this encounter
--- OUTSIDE RECORDS SUMMARY | 2024-07-19 00:35 | XMS_ITS | Encounter Summary ---
Author Organization [facility] Address [address] [place] [address] Care Team Providers Care Seed Cutter Name Role Phone Ivania Coates NP Primary Care Provider [phone] [facility] Primary Care Provid er Encounter Details Date Type Department Care Team (Late st Contact Info) Description 07/30/2021 [employer] Message [facility] [address] [place] [address] Ivania Coates DIRECTOR LEARNING AND DEVELOPMENT [address] [place] [address] GENEVIEVE Social History Tobacco Use [...] 07/25/2024 2:20 PM CDT Office Visit [facility] [address] [place] [phone] Regina Camilo, [facility] [address] [place] [address] 02/27/2025 2:00 PM OBSTETRICAL NURSE Office Visit [facility] [address] [place] [phone] Jerardo Valenzuela MD 3 [facility] [address] [place] [address] documented as of this encounter Visit Diagnoses Not on filedocumented in this encounter Additional Health Concerns Infection Onset Date Last Indicated Resolved Time COVID-19 Rule Out 04/14/2023 04/14/2023 04/14/2023 7:19 AM OBSTETRICAL NURSE Influenza - Seasonal 04/14/2023 04/14/2023 024 12:33 AM OBSTETRICAL NURSE COVID-19 Rule Out 04/14/2023 04/14/2023 04/14/2023 11:18 AM OBSTETRICAL NURSE COVID-19 Rule Out 07/19/2023 07/19/2023 07/19/2023 10:33 AM CDT COVID-19 Rule Out 12/15/2023 12/15/2023 12/15/2023 4:19 PM CDT Assessment Noted Time PHQ-9 Depression Total Score: 0 07/09/19 22 2:46 PM CDT documented as of this encounter Care Teams Seed Cutter Relationship Specialty Start Date End Date Ivania Coates, DIRECTOR LEARNING AND DEVELOPMENT [address] [place] [address] PCP - General NURSE PRACTITIONER 06/24/21 06/16/22 Regina Camilo, [facility] [address] [place] [address] PCP - General Nurse Practitioner [facility] 06/17/22 documented as of this encounter
--- OUTSIDE RECORDS SUMMARY | 2024-07-19 00:35 | XMS_ITS | Encounter Summary ---
Author Organization [facility] Address [address] [place] [address] Care Team Providers Care Production Line Welder Name Role Phone Regina Camilo-DANIELA Primary Care [...] Description 07/25/2024 2:20 PM CDT Office Visit [address] [phone] Regina Camilo FNP-DANIELA [address] [place] [address] 02/27/2025 2:00 PM AUTO FORMER MACHINE OPERATOR Office Visit [facility] [address] [place] [address] Jerardo Valenzuela MD 3 [facility] [address] [place] [address] documented as of this encounter [...] documented as of this encounter Care Teams Production Line Welder Relationship Specialty Start Date End Date Regina Camilo FNP-BC [address] [place] [address] PCP - General Nurse Practitioner Family 06/17/22 documented as of this encounter
--- OUTSIDE RECORDS SUMMARY | 2024-07-19 00:35 | XMS_ITS | Encounter Summary ---
Author Organization [facility] Address [address] [place] [address] Care Team Providers Care Vessel Ordinary Seaman Name Role Phone Ivania Coates NP Primary Care Provider [phone] [facility] Primary Care Provid er Encounter Details Date Type Department Care Team (Late st Contact Info) Description 08/11/2021 [employer] Message [facility] [address] [place] [address] Ivania Coates GLOBAL RECRUITER [address] [place] [address] Blood Pressure Social History Tobacco [...] PM CDT Office Visit [facility] [address] [place] [address] Regina Camilo, [facility] [address] [place] [address] 02/27/2025 2:00 PM SUPERVISOR DUMPING Office Visit [facility] [address] [place] [address] Jerardo Valenzuela MD 3 [facility] [address] [place] [address] documented as of this encounter Visit Diagnoses Not on filedocumented in this encounter Additional Health Concerns Infection Onset Date Last Indicated Resolved Time COVID-19 Rule Out 04/14/2023 04/14/2023 04/14/2023 7:19 AM SUPERVISOR DUMPING Influenza - Seasonal 04/14/2023 04/14/2023 024 12:33 AM SUPERVISOR DUMPING COVID-19 Rule Out 04/14/2023 04/14/2023 04/14/2023 11:18 AM SUPERVISOR DUMPING COVID-19 Rule Out 07/19/2023 07/19/2023 07/19/2023 10:33 AM CDT COVID-19 Rule Out 12/15/2023 12/15/2023 12/15/2023 4:19 PM CDT Assessment Noted Time PHQ-9 Depression Total Score: 0 07/09/19 2:46 PM CDT documented as of this encounter Care Teams Vessel Ordinary Seaman Relationship Specialty Start Date End Date Ivania Coates NP [address] [facility] [address] PCP - General NURSE PRACTITIONER 06/24/21 06/16/22 Regina Camilo, [facility] [address] [place] [address] PCP - General Nurse Practitioner [facility] 06/17/22 documented as of this encounter
--- OUTSIDE RECORDS SUMMARY | 2024-07-19 00:35 | XMS_ITS | Encounter Summary ---
Author Organization [facility] Address [address] [place] [address] Care Team Providers Care Pond Worker Name Role Phone Ashley Gandhi MD Primary Care Provider Un available Jordi Deng MD Primary Care Provider Unavailable Ashley Gandhi MD Primary Care Provider Un available Jordi Marcus MD Primary Care Provider Jovanna Ivania Perdomo BISQUE GRADER Primary Care Provider [phone] Regina CamiloDANIELA Primary Care Provid er Encounter Details Date Type Department Care Team (Late st Contact Info) Description 07/07/2005 Abstract [facility] Conversion , Generic Conversion, Social [...] Office Visit [facility] [address] [place] [phone] Regina Camilo FNP-BC [address] [place] [address] 02/27/2025 2:00 PM AIR TOOL OPERATOR Office Visit [facility] [address] [place] [address] Jerardo Valenzuela MD 3 [facility] [address] [place] [address] documented as of this encounter Visit Diagnoses Not on filedocumented in this encounter Additional Health Concerns Infection Onset Date Last Indicated Resolved Time COVID-19 Rule Out 04/14/2023 04/14/2023 04/14/2023 7:19 AM AIR TOOL OPERATOR Influenza - Seasonal 04/14/2023 04/14/2023 024 12:33 AM AIR TOOL OPERATOR COVID-19 Rule Out 04/14/2023 04/14/2023 04/14/2023 11:18 AM AIR TOOL OPERATOR COVID-19 Rule Out 07/19/2023 07/19/2023 07/19/2023 10:33 AM CDT COVID-19 Rule Out 12/15/2023 12/15/2023 12/15/2023 4:19 PM CDT documented as of this encounter Care Teams Pond Worker Relationship Specialty Start Date End Date Ashley Gandhi MD PCP - General INTERNAL MEDICINE 04/22/18 06/05/18 Jordi Deng MD PCP - General FAMILY PRACTICE 06/06/18 06/12/18 Ashley Gandhi MD PCP - General INTERNAL MEDICINE 06/13/18 05/14/20 Jordi Marcus MD PCP - General FAMILY PRACTICE 05/15/20 06/23/21 Ivania Coates NP [address] [place] [address] PCP - General NURSE PRACTITIONER 06/24/21 06/16/22 Regina Camilo FNP- [address] [place] [address] PCP - General Nurse Practitioner Family 06/17/22 documented as of this encounter
--- OUTSIDE RECORDS SUMMARY | 2024-07-19 00:35 | XMS_ITS | Encounter Summary ---
Author Organization [facility] Address [address] [place] [address] Care Team Providers Care Quality Assurance Calibrator Name Role Phone Ashley Gandhi MD Primary Care Provider Un available Jordi Deng MD Primary Care Provider Unavailable Ashley Gandhi MD Primary Care Provider Un available Jordi Marcus MD Primary Care Provider Jovanna Ivania Perdomo REFRACTORY BRICKLAYER Primary Care Provider [phone] Regina CamiloDANIELA Primary Care Provid er Encounter Details Date Type Department Care Team (Late st Contact Info) Description 03/16/2000 Abstract [facility] Clin[facility] Conversion , Generic Conversion, Social [...] CDT Office Visit [facility] [address] [place] [phone] Regina Camilo FNP-BC [address] [place] [address] 02/27/2025 2:00 PM CARE TECHNICIAN Office Visit [facility] [address] [place] [address] Jerardo Valenzuela MD 3 [facility] [address] [place] [address] documented as of this encounter Visit Diagnoses Not on filedocumented in this encounter Additional Health Concerns Infection Onset Date Last Indicated Resolved Time COVID-19 Rule Out 04/14/2023 04/14/2023 04/14/2023 7:19 AM CARE TECHNICIAN Influenza - Seasonal 04/14/2023 04/14/2023 024 12:33 AM CARE TECHNICIAN COVID-19 Rule Out 04/14/2023 04/14/2023 04/14/2023 11:18 AM CARE TECHNICIAN COVID-19 Rule Out 07/19/2023 07/19/2023 07/19/2023 10:33 AM CDT COVID-19 Rule Out 12/15/2023 12/15/2023 12/15/2023 4:19 PM CDT documented as of this encounter Care Teams Quality Assurance Calibrator Relationship Specialty Start Date End Date Ashley Gandhi MD PCP - General INTERNAL MEDICINE 04/22/18 06/05/18 Jordi Deng MD PCP - General FAMILY PRACTICE 06/06/18 06/12/18 Ashley Gandhi MD PCP - General INTERNAL MEDICINE 06/13/18 05/14/20 Jordi Marcus MD PCP - General FAMILY PRACTICE 05/15/20 06/23/21 Ivania Coates NP [address] [place] [address] PCP - General NURSE PRACTITIONER 06/24/21 06/16/22 Regina Camilo FNP- [address] [place] [address] PCP - General Nurse Practitioner Family 06/17/22 documented as of this encounter
--- OUTSIDE RECORDS SUMMARY | 2024-07-19 00:35 | XMS_ITS | Clinical Summary ---
Author Organization [facility] Address [address] [place] [address] Care Team Providers Care Human Resource Advisor Name Role Phone LucyRegina black Elie [facility] Primary Care Provid er Allergies [...] artery disease of n ative artery of [place] heart with stable angina pectoris 12/22/2016 Overview [...] Mild intermittent asthma wit h acute exacerbation ([facility]) 12/22/2016 02/19/2021 Overview (06/13/2018): off meds no treatment Obstructive sleep apnea 12/22/201606/2020 Other depressive disorder 12/22/2016 Overview (06/13/2018): doing well on small dose of lexapro off meds Other obesity due to excess calories 12/22/2016 11/30/2019 Overview (06/13/2018): bmi 38 cardiac rehab needs to lose Encounters Date Type Department Care Team Description 07/17/2024 Telephone [facility], [address] [phone] Jerardo Valenzuela MD Information ([facility] Pre Testing Anesthesia) 07/10/2024 Scan 5app INFO SRVCS Scanned, [facility] Image (SCAN) 06/27/2024 Telephone [facility], [address] [phone] Jerardo Valenzuela MD Surgical Clearance 05/17/[address] [facility] [address] [place] [phone] Regina Camilo, [facility] Refill Request from Last 3 Months Immunizations [...] Comments Blood Pressure 160/90 02/22/2024 9:47 AM MANAGEMENT COORDINATOR Pulse 68 02/22/2024 9:47 AM MANAGEMENT COORDINATOR Temperature 36.7 C (98.1 F) 01/27/2024 3:10 PM CDT Respiratory Rate 20 01/27/2024 3:10 PM CDT Oxygen Saturation 99% 01/27/2024 3:10 PM CDT Inhaled Oxygen Concentration - - Weight 89.4 kg (197 lb) 02/22/2024 9:47 AM MANAGEMENT COORDINATOR Height 172.7 cm (5' 8 ) 02/22/2024 9:47 AM MANAGEMENT COORDINATOR Body Mass Index 29.95 02/22/2024 9:47 AM MANAGEMENT COORDINATOR Plan of Treatment Upcoming Encounters Date Type Department Care Team (Late st Contact Info) Description 07/25/2024 2:20 PM CDT Office Visit [facility] [address] [place] [phone] [facility] [address] [place] [address] 02/27/2025 2:00 PM MANAGEMENT COORDINATOR [facility] [address] [place] [phone] Jerardo Valenzuela MD [address] [place] [address] Health Maintenance Due Date Last Done Comments Hepatitis C 07/02/1979 RSV Immunization or 60+ Years (1 - Risk 60-74 years 1-dose series) 2021 COVID-19 Vaccine ( season) 2023 07/18/2020, 06/20/2020 PHQ-2 (Physician Inez) 04/19/2024 12/15/2023 Annual Physical 01/26/2025 01/27/2024, 12/2022, [...] 10:28 AM 06/15/2022 5:12 PM Care Teams Human Resource Advisor Relationship Specialty Start Date End Date Regina Camilo, DUMPSTER OPERATOR- [address] [place] [address] PCP - General Nurse Practitioner Family 06/17/22
--- OUTSIDE RECORDS SUMMARY | 2024-07-19 00:35 | XMS_ITS | Referral Summary ---
Author Organization [facility] Address [address] [place] [address] Care Team Providers Care Construction Stonemason Name Role Phone Jordi Marcus MD Primary [...] on file Legal Sex Male 3:32 AM ELECTRICAL AND RADIO AIRCRAFT MECHANIC Gender Identity Male 09/06/2019 6:23 AM CDT Sexual Orientation Choose not to disclose 2019 6:23 AM CDT Last Filed Vital Signs Vital Sign Reading Time Taken Comments Blood Pressure 110/78 09/26/2020 2:31 PM CDT Pulse 64 09/26/2020 2:31 PM CDT Temperature 36.7 C (98.1 F) 05/26/2021 1:49 PM ELECTRICAL AND RADIO AIRCRAFT MECHANIC Respiratory Rate 18 09/26/2020 2:31 PM CDT Oxygen Saturation 98% 09/26/2020 2:31 PM CDT Inhaled Oxygen Concentration - - Weight 79.4 kg (175 lb) 05/26/2021 1:49 PM ELECTRICAL AND RADIO AIRCRAFT MECHANIC Height 172.7 cm (5' 8 ) 05/26/2021 1:49 PM ELECTRICAL AND RADIO AIRCRAFT MECHANIC Body Mass Index 26.61 05/26/2021 1:49 PM ELECTRICAL AND RADIO AIRCRAFT MECHANIC Plan of Treatment Not on file Insurance [facility] Member Subscriber Plan / Payer (Ef fective 2023-Present) Name:Hernan Landis Relation to Subscriber:Self Name:Hernan Landis Payer ID:[id number] (NAIC) Type:BC ALLIANCE Address: [id number] [place] [id number] Care Teams Construction Stonemason Relationship Specialty Start Date End Date Jordi Marcus MD [address] [place] [address] PCP - General Family Medicine 07/04/20
--- OUTSIDE RECORDS SUMMARY | 2024-07-19 00:35 | XMS_ITS | Encounter Summary ---
Author Organization [facility] Address [address] [place] [address] Care Team Providers Care Ship Harbor Pilot Name Role Phone Ashley Gandhi MD Primary Care Provider Un available Jordi Deng MD Primary Care Provider Unavailable Ashley Gandhi MD Primary Care Provider Un available Jordi Marcus MD Primary Care Provider Jovanna vailable Ivania Coates MARKET REPORTER Primary Care Provider [phone] Regina Camilo-DANIELA Primary Care Provid er Encounter Details Date Type Department Care Team (Late st Contact Info) Description 06/13/2013 Abstract [facility] CONVERSION [address] [place], [place] [phone] , Patti Solo MD Social History Tobacco [...] Description 07/25/2024 2:20 PM CDT Office Visit [address] [address] Regina Camilo FNP-BC [address] [place] [address] 02/27/2025 2:00 PM ICU NURSE Office Visit [facility] [address] [place] [phone] Jerardo Valenzuela MD 3 [facility] [address] [place] [address] documented as of this encounter Visit Diagnoses Not on filedocumented in this encounter Additional Health Concerns Infection Onset Date Last Indicated Resolved Time COVID-19 Rule Out 04/14/2023 04/14/2023 04/14/2023 7:19 AM ICU NURSE Influenza - Seasonal 04/14/2023 04/14/2023 024 12:33 AM ICU NURSE COVID-19 Rule Out 04/14/2023 04/14/2023 04/14/2023 11:18 AM ICU NURSE COVID-19 Rule Out 07/19/2023 07/19/2023 07/19/2023 10:33 AM CDT COVID-19 Rule Out 12/15/2023 12/15/2023 12/15/2023 4:19 PM CDT documented as of this encounter Care Teams Ship Harbor Pilot Relationship Specialty Start Date End Date Ashley Gandhi MD PCP - General INTERNAL MEDICINE 04/22/18 06/05/18 Jordi Deng MD PCP - General FAMILY PRACTICE 06/06/18 06/12/18 Ashley Gandhi MD PCP - General INTERNAL MEDICINE 06/13/18 05/14/20 Jordi Marcus MD PCP - General FAMILY PRACTICE 05/15/20 06/23/21 Ivania Coates NP [address] [place] [address] PCP - General NURSE PRACTITIONER 06/24/21 06/16/22 Regina Camilo, MANAGER CORE-BC [address] [place] [address] PCP - General Nurse Practitioner Family 06/17/22 documented as of this encounter
--- OUTSIDE RECORDS SUMMARY | 2024-07-19 00:35 | XMS_ITS | Clinical Summary ---
Author Organization [facility] Address [address] [place] [address] Phone Care Team Providers Care Veneer Jointer Operator Name Role Phone Ashley Gandhi MD Primary Care Provider [phone] Allergies Active Allergy Reactions Criticality Noted Date [...] this topic Medical Devices Implanted Type Area Carpet Loom Fixer Device Identifier Shelf Expiration Date Model / Serial / Lot Seamguard Endogia 60 Prpl [id number] - [id number] Implanted:Qty : 2 on 02/15/2019 by Elis Bales MD at [facility] Biological N/A: Stomach [employer] 10/16/2021 [id number] / / [id number] Seamguard Endogia 60 Blck [id number] - [id number] Implanted:Qty : 2 on 02/15/2019 by Elis Bales MD at [facility] Biological N/A: Stomach [employer] 01/16/2022 [id number] / / [id number] Seamguard Endogia 60 Prpl [id number] - [id number] Implanted:Qty : 1 on 02/15/2019 by Elis Bales MD at [facility] Biological N/A: Stomach [employer] 10/16/2021 [id number] / / [id number] Hip Hip Stent Stent Description:states one stent to lad Insurance RX [employer] PLANS (INTERNAL) [facility] Plans Advance Directives For more information, please contact: [phone] * Full Code (Latest Code Status on File) Date Activated Date Inactivated Comments 02/15/2019 12:50 PM 02/16/2019 5:46 PM * Full Code Date Activated Date Inactivated Comments 02/15/2019 8:36 AM 02/15/2019 12:50 PM Care Teams Veneer Jointer Operator Relationship Specialty Start Date End Date Ashley Gandhi MD [address] [place] [phone] PCP - General Internal Medicine 01/31/19
--- OUTSIDE RECORDS SUMMARY | 2024-07-19 00:35 | XMS_ITS | Encounter Summary ---
Author Organization [facility] Address [address] [place] [address] Care Team Providers Care Drywall Taper Name Role Phone Ashley Gandhi MD Primary Care Provider [phone] Encounter Details Date Type Department Care Team (Late st Contact Info) Description 02/07/2019 Abstract [facility] Non Integrated Provider [address] [place] [address] [place] [address] [place] [address] [place] [address] Social History Tobacco Use Types [...] on filedocumented in this encounter Care Teams Drywall Taper Relationship Specialty Start Date End Date Ashley Gandhi MD [address] [place] [phone] PCP - General Internal Medicine 01/31/19 documented as of this encounter
--- OUTSIDE RECORDS SUMMARY | 2024-07-19 00:35 | XMS_ITS | Encounter Summary ---
Author Organization [facility] Address [address] [place] [address] Care Team Providers Care Air Table Operator Name Role Phone Ashley Gandhi MD Primary Care Provider Un available Jordi Deng MD Primary Care Provider Unavailable Ashley Gandhi MD Primary Care Provider Un available Jordi Marcus MD Primary Care Provider Jovanna Ivania Perdomo APPLE CHECKER Primary Care Provider [phone] Regina CamiloDANIELA Primary Care Provid er Encounter Details Date Type Department Care Team (Late st Contact Info) Description 06/26/2014 Abstract [facility] Clinics Conversion , Generic Conversion, Social [...] [facility] [address] [place] [phone] Regina Camilo FNP-BC [address] [place] [address] 02/27/2025 2:00 PM JOB COUNSELOR Office Visit [facility] [address] [place] [address] Jerardo Valenzuela MD 3 [facility] [address] [place] [address] documented as of this encounter Visit Diagnoses Not on filedocumented in this encounter Additional Health Concerns Infection Onset Date Last Indicated Resolved Time COVID-19 Rule Out 04/14/2023 04/14/2023 04/14/2023 7:19 AM JOB COUNSELOR Influenza - Seasonal 04/14/2023 04/14/2023 024 12:33 AM JOB COUNSELOR COVID-19 Rule Out 04/14/2023 04/14/2023 04/14/2023 11:18 AM JOB COUNSELOR COVID-19 Rule Out 07/19/2023 07/19/2023 07/19/2023 10:33 AM CDT COVID-19 Rule Out 12/15/2023 12/15/2023 12/15/2023 4:19 PM CDT documented as of this encounter Care Teams Air Table Operator Relationship Specialty Start Date End Date Ashley Gandhi MD PCP - General INTERNAL MEDICINE 04/22/18 06/05/18 Jordi Deng MD PCP - General FAMILY PRACTICE 06/06/18 06/12/18 Ashley Gandhi MD PCP - General INTERNAL MEDICINE 06/13/18 05/14/20 Jordi Marcus MD PCP - General FAMILY PRACTICE 05/15/20 06/23/21 Ivania Coates NP [address] [place] [address] PCP - General NURSE PRACTITIONER 06/24/21 06/16/22 Regina Camilo FNP- [address] [place] [address] PCP - General Nurse Practitioner Family 06/17/22 documented as of this encounter
--- OUTSIDE RECORDS SUMMARY | 2024-07-19 00:35 | XMS_ITS | Clinical Summary ---
Author Organization [facility] Address [address] [place] [address] Care Team Providers Care Cable Television Program Director Name Role Phone Jordi Marcus MD Primary [...] on file Legal Sex Male 3:32 AM TICKET AGENT Gender Identity Male 09/06/2019 6:23 AM CDT Sexual Orientation Choose not to disclose 2019 6:23 AM CDT Obstetrics History Last Filed Vital Signs Vital Sign Reading Time Taken Comments Blood Pressure 110/78 09/26/2020 2:31 PM CDT Pulse 64 09/26/2020 2:31 PM CDT Temperature 36.7 C (98.1 F) 05/26/2021 1:49 PM TICKET AGENT Respiratory Rate 18 09/26/2020 2:31 PM CDT Oxygen Saturation 98% 09/26/2020 2:31 PM CDT Inhaled Oxygen Concentration - - Weight 79.4 kg (175 lb) 05/26/2021 1:49 PM TICKET AGENT Height 172.7 cm (5' 8 ) 05/26/2021 1:49 PM TICKET AGENT Body Mass Index 26.61 05/26/2021 1:49 PM TICKET AGENT Plan of Treatment Health Maintenance Due Date [...] topic Zoster Vaccine Completed 08/23/2019, 04/18/2019 Insurance [facility] Care Teams Cable Television Program Director Relationship Specialty Start Date End Date Jordi Marcus MD [address] [place] [address] PCP - General Family Medicine 07/04/20
--- OUTSIDE RECORDS SUMMARY | 2024-07-19 00:35 | XMS_ITS | Encounter Summary ---
Author Organization [facility] Address [address] [place] [address] Care Team Providers Care Machine Programmer Name Role Phone Ashley Gandhi MD Primary Care Provider Un available Jordi Deng MD Primary Care Provider Unavailable Ashley Gandhi MD Primary Care Provider Un available Jordi Marcus MD Primary Care Provider Jovanna Ivania Perdomo CORE WINDER Primary Care Provider [phone] Regina CamiloDANIELA Primary Care Provid er Encounter Details Date Type Department Care Team (Late st Contact Info) Description 06/06/2014 Abstract [facility] Conversion , Generic Conversion, Social History [...] CDT Office Visit [facility] [address] [place] [phone] Regina Camilo FNP-BC [address] [place] [address] 02/27/2025 2:00 PM IMPORT CUSTOMER SERVICE MANAGER Office Visit [facility] [address] [place] [address] Jerardo Valenzuela MD 3 [facility] [address] [place] [address] documented as of this encounter Visit Diagnoses Not on filedocumented in this encounter Additional Health Concerns Infection Onset Date Last Indicated Resolved Time COVID-19 Rule Out 04/14/2023 04/14/2023 04/14/2023 7:19 AM IMPORT CUSTOMER SERVICE MANAGER Influenza - Seasonal 04/14/2023 04/14/2023 024 12:33 AM IMPORT CUSTOMER SERVICE MANAGER COVID-19 Rule Out 04/14/2023 04/14/2023 04/14/2023 11:18 AM IMPORT CUSTOMER SERVICE MANAGER COVID-19 Rule Out 07/19/2023 07/19/2023 07/19/2023 10:33 AM CDT COVID-19 Rule Out 12/15/2023 12/15/2023 12/15/2023 4:19 PM CDT documented as of this encounter Care Teams Machine Programmer Relationship Specialty Start Date End Date Ashley Gandhi MD PCP - General INTERNAL MEDICINE 04/22/18 06/05/18 Jordi Deng MD PCP - General FAMILY PRACTICE 06/06/18 06/12/18 Ashley Gandhi MD PCP - General INTERNAL MEDICINE 06/13/18 05/14/20 Jordi Marcus MD PCP - General FAMILY PRACTICE 05/15/20 06/23/21 Ivania Coates NP [address] [place] [address] PCP - General NURSE PRACTITIONER 06/24/21 06/16/22 Regina Camilo FNP- [address] [place] [address] PCP - General Nurse Practitioner Family 06/17/22 documented as of this encounter
[2024-07-19] MEDS: LACTATED RINGERS 1,000 ML 30 ML IV CONT ×2 (07:45→12:07)
[2024-07-19] MEDS: KETOROLAC 15 MG/ML VIAL (*BKC) IV PUSH (07:50)
[2024-07-19] MEDS: ACETAMINOPHEN 500 MG TABLET 1000 MG PO (07:50)
--- NOTE | 2024-07-19 08:08 | WPDANESEPPF ---
Anes - Initial Pre Proc Eval Procedure: Operation Date: 07/19/24 09:00 Proposed Procedures p Open Reduction Internal Fixation Left Clavicle Fracture - Catrachito Lay MD Date/Time: 07/19/24 08:08 Surgeon: Catrachito Lay MD Pre Op Diagnosis: Left Clavicle Fracture Patient Data Age: 64 Gender: M Height: 1.73 m Weight: 90.7 kg Last Vital Signs Temp 36.1 C L 07/19/24 06:56 Pulse 68 07/19/24 06:56 Resp 16 07/19/24 06:56 BP 150/77 H 07/19/24 07:41 Pulse Ox 98 07/19/24 06:56 O2 Del Method Room Air 07/19/24 06:56 Allergies Allergy/AdvReac Type Severity Reaction Status Date / Time lisinopril Allergy Intermediate Dyspnea / Verified 07/19/24 07:47 SOB Home Medications ?Medication ?Instructions ?Recorded ?Confirmed ?Type atorvastatin 10 mg tablet 10 mg PO DAILY 05/28/21 07/19/24 History losartan 50 mg tablet 50 mg PO DAILY 05/28/21 07/19/24 History hydrochlorothiazide 12.5 mg capsule 12.5 mg PO DAILY 08/11/21 07/19/24 History ascorbate calcium (vitamin C) 500 500 mg PO DAILY 10/19/23 07/19/24 History mg tablet calcium 600 mg (as 1 tablet PO DAILY 10/19/23 07/19/24 History carbonate)-vitamin D3 10 mcg (400 unit) tablet carvedilol 6.25 mg tablet 6.25 mg PO BID 10/19/23 07/19/24 History multivitamin (Multiple Vitamins 1 tablet PO DAILY 10/19/23 07/19/24 History tablet) fexofenadine 180 mg tablet 180 mg PO DAILY 11/12/23 07/19/24 History (Trista Hives) cyanocobalamin (vitamin B-12) 500 500 mcg PO DAILY 02/02/24 07/19/24 History mcg tablet glucosamine HCl 1,500 mg tablet 1,500 mg PO BID 02/02/24 07/19/24 History tamsulosin 0.4 mg capsule 0.4 mg PO HS 02/02/24 07/19/24 History turmeric 400 mg capsule 400 mg PO DAILY 02/02/24 07/19/24 History vitamin B complex 1 tablet PO DAILY 02/02/24 07/19/24 History cyclobenzaprine 10 mg tablet 10 mg PO BID PRN muscle spasm #14 07/08/24 07/14/24 Rx tabs hydrocodone 5 mg-acetaminophen 325 1 tablet PO Q12H PRN pain 7 days 07/08/24 07/14/24 Rx mg tablet #14 tabs aspirin 81 mg tablet,delayed 81 mg PO DAILY 07/14/24 07/17/24 History release (Adult Low Dose Aspirin) Patient hx anesthesia problems: post op nausea/vomiting Family hx anesthesia problems: none Results Review: All pre-operative results and documents have been reviewed as part of the pre-operative evaluation. [facility] Past Medical History Medical History (Updated 07/11/24 @ 15:56 by Conchita Alcantar CMA) Tinnitus of both ears Sensorineural hearing loss (SNHL) of both ears ETD (eustachian tube dysfunction) bilateral Aortic valve sclerosis Coronary stent patent Benign paroxysmal positional vertigo Primary snoring 09/26/2020 PLMD (periodic limb movement disorder) 07/04/2020 Other obesity due to excess calories BMI 38 [facility] needs to lose 12/22/2016 Other hyperlipidemia 12/22/2016 NABIL on CPAP Obstructive sleep apnea 12/22/2016- Resolved Mild intermittent asthma with (acute) exacerbation 12/22/2016 Hypertension Hyperlipemia DJD (degenerative joint disease) CAD (coronary artery disease) [place]/STENT 2013 Asthma Past heart attack History of high blood pressure High cholesterol Surgical History Surgical History (Updated 07/18/24 @ 13:16 by Steven Sanabria DO) H/O sinus surgery History of carpal tunnel release Bilateral H/O cardiac catheterization (~2013) H/O arthroscopic knee surgery (~09/2021) left knee S/P coronary artery stent placement 2013 History of right hip replacement H/O eye surgery Lasik H/O gastric sleeve (~01/2019) Family History Family History Father Heart disease Hypertension Mother Breast cancer Grandparent Hypertension Skin cancer Social History Social History Smoking status: Never smoker Additional smoking assessment comments: DENIES ANY FORM OF TOBACCO USE Alcohol intake: current Alcohol use details: 1-2 DRINKS PER MONTH Substance use: never Substance use type: does not use Do You Feel Safe in your Home?: Yes Lack of Transportation: No Lack of Food: Never True Current Housing: I Have Housing Concerned About Future Housing: No Difficulty Paying Gas/Electric Bills: No Difficulty Paying for Meds: No Currently Unemployed: No Education: High School Diploma/GED Difficulty w/ Childcare or Family Care: No Living arrangements: with family Gender identity (if verbalized by the patient): Male Spiritual care concerns: No Anes - Eval Final PreProcedure Day of Procedure 07/19/24 08:08 Patient weight: obese Heart: regular rate and rhythm Lungs: clear to auscultation Airway: Mallampati scale class II Neurological: alert and oriented Last oral intake: >/= 8 hours ASA classification: III Emergent: no Anesthetic plan: proceed Anesthesia type and monitoring: general ETT and standard monitoring Results Review: All pre-operative results and documents have been reviewed as part of the pre-operative evaluation. Informed Consent: The patient's anesthetic plan and its attendant risks and benefits were discussed with the patient/family/POA. Questions were solicited and answers provided to the satisfaction of the patient/family/POA.
[2024-07-19] MEDS: SCOPOLAMINE 1 MG PATCH 1 PATCH TRANSDERM (08:37)
--- NOTE | 2024-07-19 08:46 | SUR.PREOP ---
0800 PT AND STATE PT HAS AN ABRASION TO RIGHT TA WHICH IS DRESSED, NO DRAINAGE PRESENT.
--- NOTE | 2024-07-19 09:05 | WPDHPUPDATE1 ---
History and Physical Update Update Date/Time: 07/19/24 09:05 History and Physical has been reviewed, including an updated exam of the patient. There are NO changes in the patient's condition. Risks, benefits, and alternatives have been discussed and questions answered. Patient agrees to proceed with procedure.
[2024-07-19] MEDS: BUPIVACAINE/EPINEPHRINE 0.5% 30 ML VIAL INFILTRATE (09:35)
[2024-07-19] MEDS: ceFAZolin 2 GM/D5W 50 ML 2 GM/50 ML BAG IVPB (09:35)
[2024-07-19] MEDS: oxyCODONE HCL (*CRX) 5 MG TAB IR PO (13:42)
--- NOTE | 2024-07-19 16:42 | W.PM.PROC2 ---
Procedure Note - Detailed Date of Procedure 07/19/24 Pre-op Diagnosis Left Clavicle Displaced, Comminuted Fracture Post-op Diagnosis Same Procedure Performed ORIF displaced midshaft comminuted clavicle fracture, left Surgeon Catrachito Lay MD Manager Underwriting Rosalba Prabhakar PA-C Anesthesia General Findings Central comminution. The superior fragment reduced anatomically. A small posterior medial fragment was devoid of soft tissue attachment and was thus resected. The reduction was nearly anatomic. Excellent bone quality and purchase of all screws. Description of Procedure The patient was given a general anesthetic. Preoperative antibiotics were administered. The patient was placed in the beach chair position. The shoulder was prepped and draped in usual sterile fashion exposing the clavicle widely. A transverse incision was created over the fracture site. Careful blunt dissection was brought down to the clavicle. The subcutaneous skin nerves were protected where able. Self-retaining retractors were placed. The fracture was cleared of hematoma and irrigated. Careful exposure of the fracture ends was accomplished without undue soft tissue stripping. The neurovascular structures were carefully protected throughout the procedure. Anatomic reduction was obtained with reduction forceps. The precontoured plate was applied. Excellent fixation was obtained with a combination of locking and nonlocking screws. Postoperative x-ray confirmed appropriate screw lengths. The wound was irrigated and closed with layers using interrupted Vicryl and interrupted and running Monocryl suture followed by Steri-Strips. Sterile dressing was applied. The patient was brought to the recovery room in stable condition. There were no complications. Implants Accumed 8 hole titanium clavicle plate. Four locking screws and 2 compression screws. Estimated Blood Loss 20 Drains No Packing No Pathology None sent Complications No immediate complications Condition Stable Disposition PACU [facility] Billing Surgery - Charge Forward: Surgery Billing
== END 2024-07-19 14:12 | disposition home or self-care (01) ==
PROVIDERS: PCP Nurse Practitioner Family; Visit Provider Orthopaedic Surgery
PROC: (CPT 23515; principal; 2024-07-19 09:00)
DX: S42.022A Displaced fracture of shaft of left clavicle, initial encounter for closed fracture (principal); E78.49 Other hyperlipidemia; J45.909 Unspecified asthma, uncomplicated; I10 Essential (primary) hypertension; I25.10 Atherosclerotic heart disease of native coronary artery without angina pectoris; G47.33 Obstructive sleep apnea (adult) (pediatric); I25.2 Old myocardial infarction; E78.00 Pure hypercholesterolemia, unspecified; I35.8 Other nonrheumatic aortic valve disorders; G47.61 Periodic limb movement disorder; M19.90 Unspecified osteoarthritis, unspecified site; R06.83 Snoring; W22.8XXA Striking against or struck by other objects, initial encounter; E66.9 Obesity, unspecified; Z68.30 Body mass index [BMI] 30.0-30.9, adult; Z79.899 Other long term (current) drug therapy; Z79.891 Long term (current) use of opiate analgesic; Z79.82 Long term (current) use of aspirin; Z99.89 Dependence on other enabling machines and devices; Z98.890 Other specified postprocedural states; Z95.5 Presence of coronary angioplasty implant and graft; Z98.84 Bariatric surgery status; Z80.3 Family history of malignant neoplasm of breast; Z84.0 Family history of diseases of the skin and subcutaneous tissue; Z82.49 Family history of ischemic heart disease and other diseases of the circulatory system
CPT/HCPCS: 23515; 99199; A4565; A9270; C1713; J0690; J1100; J1171; J1596; J1885; J2003; J2250; J2371; J2405; J2704; J3010; J7120

== ENCOUNTER 2024-08-30 12:56 | Outpatient (CLI) | payer OTHER, SELFPAY ==
--- NOTE | ~2024-08-30 | XR_ITS ---
XR clavicle LT 08/30/2024 13:13 Indication: Orthopedic hardware aftercare. Procedure: 2 views left clavicle Comparison: 07/10/2024 Findings: There is a left midclavicular fracture transfixed by side plate and screws. Fracture fragme nts in anatomic alignment. Acromioclavicular joint and anatomic alignment. Surrounding osseous struct ures are unremarkable. Small ossific density superior to the AC joint is likely posttraumatic. Impression: 1: Anatomic alignment of left clavicle fracture status post reduction with sideplate and screws. Reviewed, dictated and finalized at location A. Impression: 1: Anatomic alignment of left clavicle fracture status post reduction with side plate and screws.
--- OUTSIDE RECORDS SUMMARY | 2024-08-30 13:12 | XMS_ITS | Encounter Summary ---
Author Organization [facility] Address [address] [place] [address] Care Team Providers Care Compass Operator Name Role Phone Jordi Marcus MD Primary Care Provider Jovanna Ivania Perdomo NP Primary Care Provider [phone] [facility] Primary Care Provid er Encounter Details Date Type Department Care Team (Late st Contact Info) Description 06/23/2021 FreeCharge Message [address] [phone] [facility], [facility] Provider stent Social History Tobacco Use Types [...] Information Value Date Recorded Sex Assigned at Male 07/25/2024 2:46 PM CDT Legal Sex Male 1:16 AM CDT Gender Identity Male 07/25/2024 2:46 PM CDT Sexual Orientation Straight 07/25/2024 2: 46 PM CDT COVID-19 Exposure Response Date Recorded In the last 10 days, have yo u been in contact with someone who was confirmed or suspected to have Coronavirus/COVID-19? No / Unsure 06/20/2021 1:43 PM DIRECTOR OF GRADUATE ADMISSIONS documented as of this encounter Plan of Treatment Upcoming Encounters Date Type Department Care Team (Late st Contact Info) Description 01/23/2025 2:20 PM CDT Office Visit [facility] [address] [place] [phone] Regina Camilo, [facility] [address] [place] [address] 02/27/2025 2:00 PM DIRECTOR OF GRADUATE ADMISSIONS Office Visit [facility] [address] [place] [phone] Jerardo Valenzuela MD 3 [facility] [address] [place] [phone] documented as of this encounter Visit Diagnoses Not on filedocumented in this encounter Additional Health Concerns Infection Onset Date Last Indicated Resolved Time COVID-19 Rule Out 04/14/2023 04/14/2023 04/14/2023 7:19 AM DIRECTOR OF GRADUATE ADMISSIONS Influenza - Seasonal 04/14/2023 04/14/2023 024 12:33 AM DIRECTOR OF GRADUATE ADMISSIONS COVID-19 Rule Out 04/14/2023 04/14/2023 04/14/2023 11:18 AM DIRECTOR OF GRADUATE ADMISSIONS COVID-19 Rule Out 07/19/2023 07/19/2023 07/19/2023 10:33 AM CDT COVID-19 Rule Out 12/15/2023 12/15/2023 12/15/2023 4:19 PM CDT Assessment Noted Time PHQ-9 Depression Total Score: 0 06/21/19 22 1:49 PM DIRECTOR OF GRADUATE ADMISSIONS documented as of this encounter Care Teams Compass Operator Relationship Specialty Start Date End Date Jordi Marcus MD PCP - General FAMILY PRACTICE 05/15/20 06/23/21 Ivania Coates NP [address] [id number] PCP - General NURSE PRACTITIONER 06/24/21 06/16/22 Regina Camilo SALES REPRESENTATIVE MEATS- [address] [id number] PCP - General Nurse Practitioner Family 06/17/22 documented as of this encounter
--- OUTSIDE RECORDS SUMMARY | 2024-08-30 13:12 | XMS_ITS | Encounter Summary ---
Author Organization [facility] Address [address] [place] [address] Care Team Providers Care Nibbler Operator Name Role Phone Ashley Gandhi MD Primary Care Provider Un available Jordi Deng MD Primary Care Provider Unavailable Ashley Gandhi MD Primary Care Provider Un available Jordi Marcus MD Primary Care Provider Jovanna vailable Ivania Coates BARREL AND RECEIVER ALIGNER Primary Care Provider [phone] Regina Camilo [facility] Primary Care Provid er Encounter Details Date Type Department Care Team (Late st Contact Info) Description 02/13/2015 Abstract [facility] [address] [place] [address] , Generic ConversionMD Social History Tobacco Use Types Packs/Day Years Used Date Smoking Tobacco: Never Assessed Sex and Gender Information Value Date Recorded Sex Assigned at Male 07/25/2024 2:46 PM CDT Legal Sex Male 1:16 AM CDT Gender Identity Male 07/25/2024 2:46 PM CDT Sexual Orientation Straight 07/25/2024 2: 46 PM CDT documented as of this encounter Plan of Treatment Upcoming Encounters Date Type Department Care Team (Late st Contact Info) Description 01/23/2025 2:20 PM CDT Office Visit [facility] [address] [place] [address] Regina Camilo, [facility] [address] [place], [place] [phone] 02/27/2025 2:00 PM WIRE BRUSH OPERATOR Office Visit [facility] [address] [place] [address] Jerardo Valenzuela MD 3 [facility] [address] [place] [address] documented as of this encounter Visit Diagnoses Not on filedocumented in this encounter Additional Health Concerns Infection Onset Date Last Indicated Resolved Time COVID-19 Rule Out 04/14/2023 04/14/2023 04/14/2023 7:19 AM WIRE BRUSH OPERATOR Influenza - Seasonal 04/14/2023 04/14/2023 024 12:33 AM WIRE BRUSH OPERATOR COVID-19 Rule Out 04/14/2023 04/14/2023 04/14/2023 11:18 AM WIRE BRUSH OPERATOR COVID-19 Rule Out 07/19/2023 07/19/2023 07/19/2023 10:33 AM CDT COVID-19 Rule Out 12/15/2023 12/15/2023 12/15/2023 4:19 PM CDT documented as of this encounter Care Teams Nibbler Operator Relationship Specialty Start Date End Date Ashley Gandhi MD PCP - General INTERNAL MEDICINE 04/22/18 06/05/18 Jordi Deng MD PCP - General FAMILY PRACTICE 06/06/18 06/12/18 Ashley Gandhi MD PCP - General INTERNAL MEDICINE 06/13/18 05/14/20 Jordi Marcus MD PCP - General FAMILY PRACTICE 05/15/20 06/23/21 Ivania Coates NP [address] [place] [address] PCP - General NURSE PRACTITIONER 06/24/21 06/16/22 Regina Camilo VESSEL MANAGER- [address] [place] [address] PCP - General Nurse Practitioner Family 06/17/22 documented as of this encounter
--- OUTSIDE RECORDS SUMMARY | 2024-08-30 13:12 | XMS_ITS | Encounter Summary ---
Author Organization [facility] Address [address] [place] [address] Care Team Providers Care Research Physician Name Role Phone Ivania Coates NP Primary Care Provider [phone] [facility] Primary Care Provid er Encounter Details Date Type Department Care Team (Late st Contact Info) Description 07/30/2021 VoAPPs Message [facility] [address] [place] [address] Ivania Coates NP [address] [place] [address] GENEVIEVE Social History Tobacco Use [...] Description 01/23/2025 2:20 PM CDT Office Visit [facility] [address] [place] [phone] [facility] [address] [place], [place] [phone] 02/27/2025 2:00 PM RETURN TO FACTORY CLERK Office Visit [facility] [phone] Jerardo Valenzuela MD 3 [facility] [address] [place] [address] documented as of this encounter Visit Diagnoses Not on filedocumented in this encounter Additional Health Concerns Infection Onset Date Last Indicated Resolved Time COVID-19 Rule Out 04/14/2023 04/14/2023 04/14/2023 7:19 AM RETURN TO FACTORY CLERK Influenza - Seasonal 04/14/2023 04/14/2023 024 12:33 AM RETURN TO FACTORY CLERK COVID-19 Rule Out 04/14/2023 04/14/2023 04/14/2023 11:18 AM RETURN TO FACTORY CLERK COVID-19 Rule Out 07/19/2023 07/19/2023 07/19/2023 10:33 AM CDT COVID-19 Rule Out 12/15/2023 12/15/2023 12/15/2023 4:19 PM CDT Assessment Noted Time PHQ-9 Depression Total Score: 0 07/09/19 2:46 PM CDT documented as of this encounter Care Teams Research Physician Relationship Specialty Start Date End Date Ivania Coates NP [address] [place] [address] PCP - General NURSE PRACTITIONER 06/24/21 06/16/22 Regina Camilo, [facility]- [address] [place] [id number] PCP - General Nurse Practitioner Family 06/17/22 documented as of this encounter
--- OUTSIDE RECORDS SUMMARY | 2024-08-30 13:12 | XMS_ITS | Encounter Summary ---
Author Organization [facility] Address [address] [place] [address] Care Team Providers Care Instructor Physical Education Name Role Phone Ivania Coates NP Primary Care Provider [phone] Regina Camilo- Primary Care Provid er Encounter Details Date Type Department Care Team (Late st Contact Info) Description 04/10/2022 Abstract [facility] [address] Jet Gomez MA Social History Tobacco Use [...] Recorded In the last 10 days, have sue u been in contact with someone who was confirmed or suspected to have Coronavirus/COVID-19? No / Unsure 03/31/2022 11:29 AM CENTRAL OFFICE MAINTAINER documented as of this encounter Plan of Treatment Upcoming Encounters Date Type Department Care Team (Late st Contact Info) Description 01/23/2025 2:20 PM CDT Office Visit [facility] [address] [place] [phone] Regina Camilo, [facility] [address] [place], [place] [phone] 02/27/2025 2:00 PM CENTRAL OFFICE MAINTAINER Office Visit [facility] [address] [place] [phone] Jerardo Valenzuela MD 3 [facility] [address] [place] [phone] documented as of this encounter Procedures [...] LABORATORY Final Result * LIPID PANEL (02/20/2022) CHOLESTEROL 130 HDL 53 TRIGLYCERIDES 63 NON HDL CHOLESTEROL 77 LDL (CALCULATED) 63 02/20/2022 us Default History Genericprovider LABORATORY Final Result * FOLATE (OUTSIDE LAB) (02/20/2022) Pathologist [facility] FOLATE 22.0 02/20/2022 us Default History Genericprovider LAB-OUTSIDE/ABST RACTED Final Result * VITAMIN B-12 (02/20/2022) Pathologist [facility] VITAMIN B12 S/P/B 1,275 02/20/2022 us Default History Genericprovider LABORATORY Final Result * (ABNORMAL) COMPREHENSIVE METABOLIC PANEL (02/20/2022) Pathologist [facility] SODIUM S/P/B 141 POTASSIUM S/P/B 4.5 CO2 34 CHLORIDE S/P/B 105 GLUCOSE 98 mg/dL CALCIUM S/P/B 9.3 BUN 16 CREATININE S/P/B 0.93 0.7 - 1.3 EGFR NON-AFR. AMER. 94(A) <=90 ALKALINE PHOSPHATASE S/P/B 70 ALT 21 AST 18 BILIRUBIN TOTAL S/P/B 0.9 ALBUMIN S/P/B 4.2 3.5 - 5.0 TOTAL PROTEIN S/P/B 6.1 GLOBULIN 1.9 02/20/2022 us Default History Genericprovider LABORATORY Final Result documented in this encounter Visit Diagnoses Not on filedocumented in this encounter Additional Health Concerns Infection Onset Date Last Indicated Resolved Time COVID-19 Rule Out 04/14/2023 04/14/2023 04/14/2023 7:19 AM CENTRAL OFFICE MAINTAINER Influenza - Seasonal 04/14/2023 04/14/2023 024 12:33 AM CENTRAL OFFICE MAINTAINER COVID-19 Rule Out 04/14/2023 04/14/2023 04/14/2023 11:18 AM CENTRAL OFFICE MAINTAINER COVID-19 Rule Out 07/19/2023 07/19/2023 07/19/2023 10:33 AM CDT COVID-19 Rule Out 12/15/2023 12/15/2023 12/15/2023 4:19 PM CDT Assessment Noted Time PHQ-9 Depression Total Score: 0 07/09/19 2:46 PM CDT documented as of this encounter Care Teams Instructor Physical Education Relationship Specialty Start Date End Date Ivania Coates NP [address] [place] [address] PCP - General NURSE PRACTITIONER 06/24/21 06/16/22 Regina Camilo FNP- [address] [place] [address] PCP - General Nurse Practitioner Family 06/17/22 documented as of this encounter
--- OUTSIDE RECORDS SUMMARY | 2024-08-30 13:12 | XMS_ITS | Encounter Summary ---
Author Organization [facility] Address [address] [place] [address] Care Team Providers Care Catalyst Plant Supervisor Name Role Phone Ivania Coates NP Primary Care Provider [phone] Regina Camilo- Primary Care Provid er Encounter Details Date Type Department Care Team (Late st Contact Info) Description 02/02/2022 Tabacus Initative Message [facility] [address] [place] [address] [facility] Provider Summary of ECHO results Social [...] Description 01/23/2025 2:20 PM CDT Office Visit [facility] [address] [place] [address] Regina Camilo, [facility] [address] [place] [address] 02/27/2025 2:00 PM COLD MEAT CHEF Office Visit [facility] [address] [place] [address] Jerardo Valenzuela MD 3 [facility] [address] [place] [phone] documented as of this encounter Visit Diagnoses Not on filedocumented in this encounter Additional Health Concerns Infection Onset Date Last Indicated Resolved Time COVID-19 Rule Out 04/14/2023 04/14/2023 04/14/2023 7:19 AM COLD MEAT CHEF Influenza - Seasonal 04/14/2023 04/14/2023 024 12:33 AM COLD MEAT CHEF COVID-19 Rule Out 04/14/2023 04/14/2023 04/14/2023 11:18 AM COLD MEAT CHEF COVID-19 Rule Out 07/19/2023 07/19/2023 07/19/2023 10:33 AM CDT COVID-19 Rule Out 12/15/2023 12/15/2023 12/15/2023 4:19 PM CDT Assessment Noted Time PHQ-9 Depression Total Score: 0 07/09/19 2:46 PM CDT documented as of this encounter Care Teams Catalyst Plant Supervisor Relationship Specialty Start Date End Date Ivania Coates NP [address] [place] [address] PCP - General NURSE PRACTITIONER 06/24/21 06/16/22 Regina Camilo [facility] [address] [place] [address] PCP - General Nurse Practitioner Family 06/17/22 documented as of this encounter
--- OUTSIDE RECORDS SUMMARY | 2024-08-30 13:12 | XMS_ITS | Encounter Summary ---
Author Organization [facility] Address [address] [place] [address] Care Team Providers Care Academic Support Coordinator Name Role Phone Ashley Gandhi MD Primary Care Provider Un available Jordi Deng MD Primary Care Provider Unavailable Ashley Gandhi MD Primary Care Provider Un available Jordi Marcus MD Primary Care Provider Jovanna vailable Ivania Coates SCHEDULER Primary Care Provider [phone] Regina Camilo Primary Care Provid er Encounter Details Date Type Department Care Team (Late st Contact Info) Description 07/07/2005 Abstract [facility] Conversion , Generic Conversion, Social [...] Description 01/23/2025 2:20 PM CDT Office Visit [address] [address] Regina Camilo FNP-DANIELA [address] [place] [address] 02/27/2025 2:00 PM BANK CLERK Office Visit [facility] [address] [place] [phone] Jerardo Valenzuela MD 3 [facility] [address] [place] [address] documented as of this encounter Visit Diagnoses Not on filedocumented in this encounter Additional Health Concerns Infection Onset Date Last Indicated Resolved Time COVID-19 Rule Out 04/14/2023 04/14/2023 04/14/2023 7:19 AM BANK CLERK Influenza - Seasonal 04/14/2023 04/14/2023 024 12:33 AM BANK CLERK COVID-19 Rule Out 04/14/2023 04/14/2023 04/14/2023 11:18 AM BANK CLERK COVID-19 Rule Out 07/19/2023 07/19/2023 07/19/2023 10:33 AM CDT COVID-19 Rule Out 12/15/2023 12/15/2023 12/15/2023 4:19 PM CDT documented as of this encounter Care Teams Academic Support Coordinator Relationship Specialty Start Date End Date Ashley Gandhi MD PCP - General INTERNAL MEDICINE 04/22/18 06/05/18 Jordi Deng MD PCP - General FAMILY PRACTICE 06/06/18 06/12/18 Ashley Gandhi MD PCP - General INTERNAL MEDICINE 06/13/18 05/14/20 Jordi Marcus MD PCP - General FAMILY PRACTICE 05/15/20 06/23/21 Ivania Coates NP [address] [place] [address] PCP - General NURSE PRACTITIONER 06/24/21 06/16/22 Regina Camilo, NOC ENGINEER- [address] [place] [address] PCP - General Nurse Practitioner Family 06/17/22 documented as of this encounter
--- OUTSIDE RECORDS SUMMARY | 2024-08-30 13:12 | XMS_ITS | Encounter Summary ---
Author Organization [facility] Address [address] [place] [address] Care Team Providers Care Search Advertising Strategist Name Role Phone Ashley Gandhi MD Primary Care Provider Un available Jordi Deng MD Primary Care Provider Unavailable Ashley Gandhi MD Primary Care Provider Un available Jordi Marcus MD Primary Care Provider Jovanna vailable Ivania Coates LAND RESOURCE SPECIALIST Primary Care Provider [phone] Regina Camilo Primary Care Provid er Encounter Details Date Type Department Care Team (Late st Contact Info) Description 03/16/2000 Abstract [facility] Conversion , Generic Conversion, Social [...] Description 01/23/2025 2:20 PM CDT Office Visit [address] [address] Regina Camilo FNP-DANIELA [address] [place] [address] 02/27/2025 2:00 PM SENIOR ANDROID SOFTWARE ENGINEER Office Visit [facility] [address] [place] [phone] Jerardo Valenzuela MD 3 [facility] [address] [place] [address] documented as of this encounter Visit Diagnoses Not on filedocumented in this encounter Additional Health Concerns Infection Onset Date Last Indicated Resolved Time COVID-19 Rule Out 04/14/2023 04/14/2023 04/14/2023 7:19 AM SENIOR ANDROID SOFTWARE ENGINEER Influenza - Seasonal 04/14/2023 04/14/2023 024 12:33 AM SENIOR ANDROID SOFTWARE ENGINEER COVID-19 Rule Out 04/14/2023 04/14/2023 04/14/2023 11:18 AM SENIOR ANDROID SOFTWARE ENGINEER COVID-19 Rule Out 07/19/2023 07/19/2023 07/19/2023 10:33 AM CDT COVID-19 Rule Out 12/15/2023 12/15/2023 12/15/2023 4:19 PM CDT documented as of this encounter Care Teams Search Advertising Strategist Relationship Specialty Start Date End Date Ashley Gandhi MD PCP - General INTERNAL MEDICINE 04/22/18 06/05/18 Jordi Deng MD PCP - General FAMILY PRACTICE 06/06/18 06/12/18 Ashley Gandhi MD PCP - General INTERNAL MEDICINE 06/13/18 05/14/20 Jordi Marcus MD PCP - General FAMILY PRACTICE 05/15/20 06/23/21 Ivania Coates NP [address] [place] [address] PCP - General NURSE PRACTITIONER 06/24/21 06/16/22 Regina Camilo, REMNANTS CUTTER- [address] [place] [address] PCP - General Nurse Practitioner Family 06/17/22 documented as of this encounter
--- OUTSIDE RECORDS SUMMARY | 2024-08-30 13:12 | XMS_ITS | Encounter Summary ---
Author Organization [facility] Address [address] [place] [address] Care Team Providers Care Government Instructor Name Role Phone Ashley Gandhi MD Primary Care Provider [phone] Encounter Details Date Type Department Care Team (Late st Contact Info) Description 02/07/2019 Abstract [facility] Non Integrated Provider [address] [place] [address] [place] [address] [place] [address] [place] [address] Social History Tobacco Use Types [...] on filedocumented in this encounter Care Teams Government Instructor Relationship Specialty Start Date End Date Ashley Gandhi MD [address] [place] [phone] PCP - General Internal Medicine 01/31/19 documented as of this encounter
--- OUTSIDE RECORDS SUMMARY | 2024-08-30 13:12 | XMS_ITS | Encounter Summary ---
Author Organization [facility] Address [address] [place] [address] Care Team Providers Care Director Apparel Name Role Phone Ashley Gandhi MD Primary Care Provider Un available Jordi Deng MD Primary Care Provider Unavailable Ashley Gandhi MD Primary Care Provider Un available Jordi Marcus MD Primary Care Provider Jovanna vailable Ivania Coates LAUNDRY TECH Primary Care Provider [phone] Regina Camilo Primary Care Provid er Encounter Details Date Type Department Care Team (Late st Contact Info) Description 06/06/2014 Abstract [facility] Conversion , Generic Conversion, Social [...] Description 01/23/2025 2:20 PM CDT Office Visit [address] [address] Regina Camilo FNP-DANIELA [address] [place] [address] 02/27/2025 2:00 PM PERSONAL INJURY LITIGATION PARALEGAL Office Visit [facility] [address] [place] [phone] Jerardo Valenzuela MD 3 [facility] [address] [place] [address] documented as of this encounter Visit Diagnoses Not on filedocumented in this encounter Additional Health Concerns Infection Onset Date Last Indicated Resolved Time COVID-19 Rule Out 04/14/2023 04/14/2023 04/14/2023 7:19 AM PERSONAL INJURY LITIGATION PARALEGAL Influenza - Seasonal 04/14/2023 04/14/2023 024 12:33 AM PERSONAL INJURY LITIGATION PARALEGAL COVID-19 Rule Out 04/14/2023 04/14/2023 04/14/2023 11:18 AM PERSONAL INJURY LITIGATION PARALEGAL COVID-19 Rule Out 07/19/2023 07/19/2023 07/19/2023 10:33 AM CDT COVID-19 Rule Out 12/15/2023 12/15/2023 12/15/2023 4:19 PM CDT documented as of this encounter Care Teams Director Apparel Relationship Specialty Start Date End Date Ashley Gandhi MD PCP - General INTERNAL MEDICINE 04/22/18 06/05/18 Jordi Deng MD PCP - General FAMILY PRACTICE 06/06/18 06/12/18 Ashley Gandhi MD PCP - General INTERNAL MEDICINE 06/13/18 05/14/20 Jordi Marcus MD PCP - General FAMILY PRACTICE 05/15/20 06/23/21 Ivania Coates NP [address] [place] [address] PCP - General NURSE PRACTITIONER 06/24/21 06/16/22 Regina Camilo, SENIOR SPEECH PATHOLOGIST- [address] [place] [address] PCP - General Nurse Practitioner Family 06/17/22 documented as of this encounter
--- OUTSIDE RECORDS SUMMARY | 2024-08-30 13:12 | XMS_ITS | Clinical Summary ---
Author Organization [facility] Address [address] [place] [address] Care Team Providers Care Printing Engineer Name Role Phone Jordi Marcus MD Primary [...] on file Legal Sex Male 3:32 AM DREDGE MASTER Gender Identity Male 09/06/2019 6:23 AM CDT Sexual Orientation Choose not to disclose 2019 6:23 AM CDT Obstetrics History Last Filed Vital Signs Vital Sign Reading Time Taken Comments Blood Pressure 110/78 09/26/2020 2:31 PM CDT Pulse 64 09/26/2020 2:31 PM CDT Temperature 36.7 C (98.1 F) 05/26/2021 1:49 PM DREDGE MASTER Respiratory Rate 18 09/26/2020 2:31 PM CDT Oxygen Saturation 98% 09/26/2020 2:31 PM CDT Inhaled Oxygen Concentration - - Weight 79.4 kg (175 lb) 05/26/2021 1:49 PM DREDGE MASTER Height 172.7 cm (5' 8 ) 05/26/2021 1:49 PM DREDGE MASTER Body Mass Index 26.61 05/26/2021 1:49 PM DREDGE MASTER Plan of Treatment Health Maintenance Due Date [...] topic Zoster Vaccine Completed 08/23/2019, 04/18/2019 [facility] Care Teams Printing Engineer Relationship Specialty Start Date End Date Jordi Marcus MD [address] [place] [address] PCP - General Family Medicine 07/04/20
--- OUTSIDE RECORDS SUMMARY | 2024-08-30 13:12 | XMS_ITS | Encounter Summary ---
Author Organization [facility] Address [address] [place] [address] Care Team Providers Care Ground Mixer Name Role Phone Ashley Gandhi MD Primary Care Provider Un available Jordi Deng MD Primary Care Provider Unavailable Ashley Gandhi MD Primary Care Provider Un available Jordi Marcus MD Primary Care Provider Jovanna vailable Ivania Coates LEAF STRIPPER Primary Care Provider [phone] Regina Camilo Primary Care Provid er Encounter Details Date Type Department Care Team (Late st Contact Info) Description 02/03/2014 Abstract [facility] Conversion , Generic Conversion, Social History [...] Description 01/23/2025 2:20 PM CDT Office Visit [address] [address] Regina Camilo FNP-DANIELA [address] [place] [address] 02/27/2025 2:00 PM CLIENT SERVICE PROFESSIONAL Office Visit [facility] [address] [place] [phone] Jerardo Valenzuela MD 3 [facility] [address] [place] [address] documented as of this encounter Visit Diagnoses Not on filedocumented in this encounter Additional Health Concerns Infection Onset Date Last Indicated Resolved Time COVID-19 Rule Out 04/14/2023 04/14/2023 04/14/2023 7:19 AM CLIENT SERVICE PROFESSIONAL Influenza - Seasonal 04/14/2023 04/14/2023 024 12:33 AM CLIENT SERVICE PROFESSIONAL COVID-19 Rule Out 04/14/2023 04/14/2023 04/14/2023 11:18 AM CLIENT SERVICE PROFESSIONAL COVID-19 Rule Out 07/19/2023 07/19/2023 07/19/2023 10:33 AM CDT COVID-19 Rule Out 12/15/2023 12/15/2023 12/15/2023 4:19 PM CDT documented as of this encounter Care Teams Ground Mixer Relationship Specialty Start Date End Date Ashley Gandhi MD PCP - General INTERNAL MEDICINE 04/22/18 06/05/18 Jordi Deng MD PCP - General FAMILY PRACTICE 06/06/18 06/12/18 Ashley Gandhi MD PCP - General INTERNAL MEDICINE 06/13/18 05/14/20 Jordi Marcus MD PCP - General FAMILY PRACTICE 05/15/20 06/23/21 Ivania Coates NP [address] [place] [address] PCP - General NURSE PRACTITIONER 06/24/21 06/16/22 Regina Camilo, TELEGRAPH AND TELETYPE OPERATOR- [address] [place] [address] PCP - General Nurse Practitioner Family 06/17/22 documented as of this encounter
--- OUTSIDE RECORDS SUMMARY | 2024-08-30 13:12 | XMS_ITS | Clinical Summary ---
Author Organization [facility] Address [address] [facility] [address] [place] [address] Phone Care Team Providers Care V Belt Inspector Name Role Phone Ashley Gandhi MD Primary Care Provider [phone] Allergies Active Allergy Reactions Criticality Noted Date [...] series) 2021 INFLUENZA VACCINE (#1) 2023 02/07/2018 Medical Devices Implanted Type Area Manager System Device Identifier Shelf Expiration Date Model / Serial / Lot Seamguard Endogia 60 Prpl [id number] - [id number] Implanted:Qty : 2 on 02/15/2019 by Elis Bales MD at [facility] Biological N/A: Stomach [employer] 10/16/2021 [id number] / / [id number] Seamguard Endogia 60 Blck [id number] - [id number] Implanted:Qty : 2 on 02/15/2019 by Elis Bales MD at [facility] Biological N/A: Stomach [employer] 01/16/2022 [id number] / / [id number] Seamguard Endogia 60 Prpl [id number] - [id number] Implanted:Qty : 1 on 02/15/2019 by lEis Bales MD at [facility] Biological N/A: Stomach [employer] 10/16/2021 [id number] / / [id number] Hip Hip Stent Stent Description:states one stent to lad Insurance RX [employer] PLANS (INTERNAL) [facility] Plans Advance Directives For more information, please contact: [phone] * Full Code (Latest Code Status on File) Date Activated Date Inactivated Comments 02/15/2019 12:50 PM 02/16/2019 5:46 PM * Full Code Date Activated Date Inactivated Comments 02/15/2019 8:36 AM 02/15/2019 12:50 PM Care Teams V Belt Inspector Relationship Specialty Start Date End Date Ashley Gandhi MD [address] [place] [phone] PCP - General Internal Medicine 01/31/19
--- OUTSIDE RECORDS SUMMARY | 2024-08-30 13:12 | XMS_ITS | Encounter Summary ---
Author Organization [facility] Address [address] [place] [address] Care Team Providers Care Student Career Development Specialist Name Role Phone Ivania Coates NP Primary Care Provider [phone] [facility] Primary Care Provid er Encounter Details Date Type Department Care Team (Late st Contact Info) Description 08/11/2021 Exostat Medical Message [facility] [address] [place] [address] Ivania Coates PERSONAL LINES INSURANCE AGENT [address] [place] [address] Blood Pressure Social History Tobacco [...] Description 01/23/2025 2:20 PM CDT Office Visit [facility] [address] [place] [phone] [facility] [address] [place], [place] [phone] 02/27/2025 2:00 PM ACCOUNT SUPPORT MANAGER Office Visit [facility] [address] [place] [phone] Jerardo Valenzuela MD [address] [place] [address] [place] [address] documented as of this encounter Visit Diagnoses Not on filedocumented in this encounter Additional Health Concerns Infection Onset Date Last Indicated Resolved Time COVID-19 Rule Out 04/14/2023 04/14/2023 04/14/2023 7:19 AM ACCOUNT SUPPORT MANAGER Influenza - Seasonal 04/14/2023 04/14/2023 024 12:33 AM ACCOUNT SUPPORT MANAGER COVID-19 Rule Out 04/14/2023 04/14/2023 04/14/2023 11:18 AM ACCOUNT SUPPORT MANAGER COVID-19 Rule Out 07/19/2023 07/19/2023 07/19/2023 10:33 AM CDT COVID-19 Rule Out 12/15/2023 12/15/2023 12/15/2023 4:19 PM CDT Assessment Noted Time PHQ-9 Depression Total Score: 0 07/09/19 2:46 PM CDT documented as of this encounter Care Teams Student Career Development Specialist Relationship Specialty Start Date End Date Ivania Coates NP [address] [place] [address] PCP - General NURSE PRACTITIONER 06/24/21 06/16/22 Regina Camilo, SHELLFISH SHUCKER- [address] [place] [phone] PCP - General Nurse Practitioner Family 06/17/22 documented as of this encounter
--- OUTSIDE RECORDS SUMMARY | 2024-08-30 13:12 | XMS_ITS | Encounter Summary ---
Author Organization [facility] Address [address] [place] [address] Care Team Providers Care Assisted Living Housekeeper Name Role Phone Ashley Gandhi MD Primary Care Provider Un available Jordi Deng MD Primary Care Provider Unavailable Ashley Gandhi MD Primary Care Provider Un available Jordi Marcus MD Primary Care Provider Jovanna vailable Ivania Coates SPACE PLANNER Primary Care Provider [phone] Regina Camilo Primary Care Provid er Encounter Details Date Type Department Care Team (Late st Contact Info) Description 06/26/2014 Abstract [facility] Clinics Conversion , Generic Conversion, Social History [...] Description 01/23/2025 2:20 PM CDT Office Visit [address] [address] Regina Camilo FNP-DANIELA [address] [place] [address] 02/27/2025 2:00 PM COMPOSITE TECHNICIAN Office Visit [facility] [address] [place] [phone] Jerardo Valenzuela MD [address] [facility] [address] [place] [address] documented as of this encounter Visit Diagnoses Not on filedocumented in this encounter Additional Health Concerns Infection Onset Date Last Indicated Resolved Time COVID-19 Rule Out 04/14/2023 04/14/2023 04/14/2023 7:19 AM COMPOSITE TECHNICIAN Influenza - Seasonal 04/14/2023 04/14/2023 024 12:33 AM COMPOSITE TECHNICIAN COVID-19 Rule Out 04/14/2023 04/14/2023 04/14/2023 11:18 AM COMPOSITE TECHNICIAN COVID-19 Rule Out 07/19/2023 07/19/2023 07/19/2023 10:33 AM CDT COVID-19 Rule Out 12/15/2023 12/15/2023 12/15/2023 4:19 PM CDT documented as of this encounter Care Teams Assisted Living Housekeeper Relationship Specialty Start Date End Date Ashley Gandhi MD PCP - General INTERNAL MEDICINE 04/22/18 06/05/18 Jordi Deng MD PCP - General FAMILY PRACTICE 06/06/18 06/12/18 Ashley Gandhi MD PCP - General INTERNAL MEDICINE 06/13/18 05/14/20 Jordi Marcus MD PCP - General FAMILY PRACTICE 05/15/20 06/23/21 Ivania Coates NP [address] [place] [address] PCP - General NURSE PRACTITIONER 06/24/21 06/16/22 Regina Camilo, [employer]- [address] [place] [address] PCP - General Nurse Practitioner Family 06/17/22 documented as of this encounter
--- OUTSIDE RECORDS SUMMARY | 2024-08-30 13:12 | XMS_ITS | Clinical Summary ---
Author Organization [facility] Address [address] [place] [address] Care Team Providers Care Deicer Tester Name Role Phone LucyRegina black Elie [facility] Primary Care Provid er Allergies Active Allergy Reactions Criticality Noted Date Comments Lisinopril Shortness of Breath High 02/21/2014 Medications aspirin 81 MG chewable tablet Chew by mouth daily. 6 Active vitamin C (ASCORBIC ACID) 500 MG tablet Take by mouth daily. 5 Active Multiple Vitamin ([facility] DAILY MULTIPLE) Tab Take by mouth daily. 7 Active Calcium Carb-Cholecalciferol (CALCIUM CARBONATE-VITAMIN D3) 600-400 MG-UNIT Tab Active Cyanocobalamin (VITAMIN B 12 OR) Ac tive nitroglycerin (NITROSTAT) 0.4 MG SL tabletIndications:S/ P gastric bypass,Coronary atherosclerosis due to lipid rich plaque Place 1 tablet (0.4 mg total) under the tongue every 5 (five) minutes as needed for Chest Pain. 30 tablet 1 3 Active tamsulosin (FLOMAX) 0.4 MG Cap Take 1 capsule (0.4 mg total) by mouth daily. 4 Active carvedilol (COREG) 6.25 MG tablet Take 1 tablet by mouth twice daily 180 tablet 3 4 Active losartan (COZAAR) 50 MG tabletIndications:Es sential hypertension Take 1 tablet (50 mg total) by mouth daily. 90 tablet 1 5 Active hydroCHLOROthiazide (MICROZIDE) 12.5 MG capsuleIndications:E ssential hypertension Take 1 capsule (12.5 mg total) by mouth daily. 90 capsule 1 5 Active atorvastatin (LIPITOR) 10 MG tabletIndications:Ot her hyperlipidemia Take 1 tablet (10 mg total) by mouth nightly at bedtime. at bedtime 90 tablet 1 5 Active meclizine (ANTIVERT) 25 MG tablet Take 1 tablet (25 mg total) by mouth 3 (three) times daily as needed. 30 tablet 5 09/07/19 25 Active ondansetron (ZOFRAN-ODT) 4 MG disintegrating tablet Take 1 tablet (4 mg total) by mouth every 8 (eight) hours as needed for Nausea. 20 tablet 5 Active Active Problems Problem Noted Date Diagnosed Date Aortic valve sclerosis 02/17/2022 Coronary stent patent 02/13/2022 ETD (Eustachian tube dysfunction), bilateral 11/2021 Sensorineural hearing loss (SNHL) of both ears 0 05/27/2021 Tinnitus of both ears 05/27/2021 S/P gastric bypass 04/17/2019 Coronary artery disease of n ative artery of [place] heart with stable angina pectoris 12/22/2016 Overview (06/13/2018): jan [address] ramirez [place] Hypercholesterolemia 12/22/2016 Overview (06/13/2018): 11 8 14 normal 2015 [place] Essential hypertension 11/26/2011 Overview (06/13/2018): at home [...] Mild intermittent asthma wit h acute exacerbation (HHS/HCC) 12/22/2016 02/19/2021 Overview (06/13/2018): off meds no treatment Obstructive sleep apnea 12/22/201606/2020 Other depressive disorder 12/22/2016 Overview (06/13/2018): doing well on small dose of lexapro off meds Other obesity due to excess calories 12/22/2016 11/30/2019 Overview (06/13/2018): bmi 38 cardiac rehab needs to lose Benign paroxysmal positional vertigo 05/29/2013 07/29/2024 Overview (06/13/2018): occasional bpv Encounters Date Type Department Care Team Description 08/27/2024 6:32 PM CDT - 08/27/2024 9:00 PM CDT Emergency [facility] Emergency Room [id number] [place] [id number] Fletcher Gonzalez MD Dizziness Discharge Disposition: Home or Self Care (Routine Discharge) 08/27/2024 Travel 07/25/2024 2:20 PM CDT Office Visit [facility] [address] [place] [address] Regina Camilo, [facility]- Follow Up 07/25/2024 Travel 07/19/2024 Scan [facility] HEALTH INFO SRVCS Scanned, Doc Med Group Image (SCAN); Procedure (SCAN) 07/17/2024 Telephone [facility], [facility] [address] [place] [address] Jerardo Valenzuela MD Information ([facility] Pre Testing Anesthesia) 07/10/2024 Scan HEALTH INFO SRVCS Scanned, Doc Med Group Image (SCAN) 06/27/2024 Telephone [facility] [address], [facility] [address] [place] [address] Jerardo Valenzuela MD Surgical Clearance from Last 3 Months Immunizations Immunization Administration Dates Next Due Afluria 36 MONTHS+ [...] Orientation Straight 07/25/2024 2: 46 PM CDT Last Filed Vital Signs Vital Sign Reading Time Taken Comments Blood Pressure 175/84 08/27/2024 8:45 PM CDT Pulse 71 08/27/2024 8:45 PM CDT Temperature 36.3 C (97.4 F) 08/27/2024 8:45 PM CDT Respiratory Rate 23 08/27/2024 8:45 PM CDT Oxygen Saturation 94% 08/27/2024 8:45 PM CDT Inhaled Oxygen Concentration - - Weight 91.6 kg (202 lb) 08/27/2024 6:37 PM CDT Height 172.7 cm (5' 8 ) 08/27/2024 6:37 PM CDT Body Mass Index 30.71 08/27/2024 6:37 PM CDT Plan of Treatment Upcoming Encounters Date Type Department Care Team (Late st Contact Info) Description 01/23/2025 2:20 PM CDT Office Visit [facility] [address] [place] [address] Regina Camilo, [facility] [address] [place], [place] [id number] 02/27/2025 2:00 PM UNARMED SECURITY GUARD Office Visit [facility] [address] [place] [phone] Jerardo Valenzuela MD [address] [place] [phone] Health Maintenance Due Date Last Done Comments Hepatitis C 07/02/1979 RSV Immunization or 60+ Years (1 - Risk 60-74 years 1-dose series) 2021 Pneumococcal Vaccine: 50+ Years (3 of 3 - PCV20 or PCV21) 06/13/2023 06/13/2018, 02/21/2014, 03/29/2010 COVID-19 Vaccine (3 - season) 2023 07/18/2020, 06/20/2020 PHQ-2 (Physician [place]) 04/19/2024 12/15/2023 Annual Physical 01/26/2025 01/27/2024, 12/2022, 01/12/2022, Additional history exists Colorectal Cancer Screening Colonoscopy (10 Years) 09/02/2031 [...] Procedure Name Priority Date/Time Associated Diagnosis Comments CTA HEAD+NECK STAT 08/27/2024 7:47 PM CDT MAGNESIUM STAT 08/27/2024 6:50 PM CDT CK (CPK) STAT 08/27/2024 6:50 PM CDT TROPONIN, QUANT STAT 08/27/2024 6:50 PM CDT COMPREHENSIVE METABOLIC PANEL STAT 08/27/2024 6:50 PM CDT CBC W/DIFF AUTOMATED STAT 08/27/2024 6:50 PM CDT ECG 12-LEAD Routine 08/27/2024 6:36 PM CDT IMAGE GENERIC 07/19/2024 PROCEDURE GENERIC (SCAN ORDER) 07/19/2024 IMAGE GENERIC 07/10/2024 COLONOSCOPY GENERIC (SCAN ORDER) 09/01/2021 from Last 3 Months or Most Recently Relevant to Health Maintenance Results * CTA HEAD+NECK (08/27/2024 7:47 PM CDT) Anatomical Region Laterality Modality Head, Neck Computed Tomogra phy 08/27/2024 7:56 PM CDT Impressions 08/27/2024 8:08 PM CDT IMPRESSION: 1. No acute intracranial abnormality. 2. No acute abnormality of the intracranial or cervical arterial vasculature. 3. Calcific atherosclerosis of the bifurcation of the right common carotid artery with 75% stenosis. 4. Mild stenosis of the intracranial segments of the internal carotid arteries secondary to calcific atherosclerosis. Referred By: Interpreted By: Jordi Hernandez MD, 08/27/2024 7:56 PM Narrative 08/27/2024 8:08 PM CDT [facility] [address] [place] [id number] INDICATION: Persistent dizziness, concern for posterior stroke COMPARISON: None TECHNIQUE: Noncontrast CT images of the head. CTA images of the head and neck obtained following the administration of IV contrast. MIP reconstructions were performed. Radiation dose reduction technique utilized. FINDINGS: HEAD NONVASCULAR: Symmetric appearance of the cerebral hemispheres without evidence of significant intracranial mass effect or midline shift. No intracranial hemorrhage or abnormal extra-axial fluid collection is identified. Ventricles and basal cisterns are normal. Evaluation of the posterior fossa is unremarkable. No depressed fracture of the calvarium. Mastoid air cells are clear. Postsurgical changes in the maxillary sinuses and ethmoid air cells. Mucosal thickening of the maxillary sinuses and ethmoid air cells. Mucous retention cyst left maxillary sinus. HEAD VASCULAR: Intracranial segments of the internal carotid arteries exhibit mild stenosis secondary to calcific atherosclerosis. Anterior cerebral arteries and anterior communicating artery within normal limits. Middle cerebral arteries within normal limits. Posterior cerebral arteries within normal limits. Intracranial vertebrobasilar system within normal limits. Incidental note of variant origin of the right PICA. Bilateral superior cerebellar arteries enhance. No aneurysmal dilation or flow-limiting dissection identified. NECK VASCULAR: Typical three vessel anatomic configuration of the aortic arch. Subclavian arteries within normal limits. Vertebral artery origins within normal limits. Streak artifact limits evaluation of V1 segment of the left vertebral artery; no acute abnormality identified. Remainder of the cervical segments of the vertebral arteries are unremarkable. Right common carotid artery within normal limits. Calcific atherosclerosis of the bifurcation with 75% stenosis. Distal aspects of the right internal carotid artery exhibits no significant abnormality. Left common carotid artery and normal limits. Trace calcific atherosclerosis of the bifurcation without measurable stenosis. Cervical segment of the left internal carotid artery is unremarkable. OTHER: Cervical soft tissues exhibit no acute abnormality. No suspicious thyroid nodule. Superior mediastinum exhibits no acute abnormality. Lung apices are clear. ORIF of left clavicle fracture. Cervical osseous structures appear grossly intact at this technique; chronic multilevel degenerative change present. Degenerative dentition. Procedure Note Jordi Hernandez MD - 08/27/2024 [facility] [address] [facility] [place] [address] INDICATION: Persistent dizziness, concern for posterior stroke COMPARISON: None TECHNIQUE: Noncontrast CT images of the head. CTA images of the head and neck obtained following the administration ofIV contrast. MIP reconstructions were performed. Radiation dose reduction technique utilized. FINDINGS: HEAD NONVASCULAR: Symmetric appearance of the cerebral hemispheres without evidence ofsignificant intracranial mass effect or midline shift. No intracranial hemorrhage or abnormal extra-axial fluid collection isidentified. Ventricles and basal cisterns are normal. Evaluation of the posterior fossa is unremarkable. No depressed fracture of the calvarium. Mastoid air cells are clear. Postsurgical changes in the maxillary sinusesand ethmoid air cells. Mucosal thickening of the maxillary sinuses andethmoid air cells. Mucous retention cyst left maxillary sinus. HEAD VASCULAR: Intracranial segments of the internal carotid arteries exhibit mildstenosis secondary to calcific atherosclerosis. Anterior cerebral arteries and anterior communicating artery within normallimits. Middle cerebral arteries within normal limits. Posterior cerebral arteries within normal limits. Intracranial vertebrobasilar system within normal limits. Incidental noteof variant origin of the right PICA. Bilateral superior cerebellararteries enhance. No aneurysmal dilation or flow-limiting dissection identified. NECK VASCULAR: Typical three vessel anatomic configuration of the aortic arch. Subclavianarteries within normal limits. Vertebral artery origins within normal limits. Streak artifact limitsevaluation of V1 segment of the left vertebral artery; no acuteabnormality identified. Remainder of the cervical segments of thevertebral arteries are unremarkable. Right common carotid artery within normal limits. Calcific atherosclerosisof the bifurcation with 75% stenosis. Distal aspects of the right internalcarotid artery exhibits no significant abnormality. Left common carotid artery and normal limits. Trace calcificatherosclerosis of the bifurcation without measurable stenosis. Cervicalsegment of the left internal carotid artery is unremarkable. OTHER: Cervical soft tissues exhibit no acute abnormality. No suspicious thyroidnodule. Superior mediastinum exhibits no acute abnormality. Lung apices are clear. ORIF of left clavicle fracture. Cervical osseous structures appear grossly intact at this technique;chronic multilevel degenerative change present. Degenerative dentition. IMPRESSION: 1. No acute intracranial abnormality. 2. No acute abnormality of the intracranial or cervical arterialvasculature. 3. Calcific atherosclerosis of the bifurcation of the right commoncarotid artery with 75% stenosis. 4. Mild stenosis of the intracranial segments of the internal carotidarteries secondary to calcific atherosclerosis. Referred By: Interpreted By: Jordi Hernandez MD, 08/27/2024 7:56 PM Fletcher Gonzalez MD CT Final Result * (ABNORMAL) COMPREHENSIVE METABOLIC PANEL (08/27/2024 6:50 PM CDT) GLUCOSE 127(H) 70 - 99 MG/DL 08/27/2024 7:27 PM CDT [facility] BUN 17 7 - 18 MG/DL 08/27/2024 7:27 PM CDT [facility] CREATININE S/P/B 0.96 0.7 - 1.3 MG/DL 08/27/2024 7:27 PM CDT [facility] SODIUM S/P/B 142 136 - 145 MMOL/L 08/27/2024 7:[address] [facility] POTASSIUM S/P/B 3.3(L) 3.5 - 5.1 MMOL/L 08/27/2024 7:[address] [facility] CHLORIDE S/P/B 104 100 - 108 MMOL/L 08/27/2024 7:[address] [facility] CO2 28.4 21 - 32 MMOL/L 08/27/2024 7:[address] [facility] CALCIUM S/P/B 9.2 8.5 - 10.1 MG/DL 08/27/2024 7:[address] [facility] BILIRUBIN TOTAL S/P/B 0.7 0.2 - 1.2 MG/DL 08/27/2024 7:[address] [facility] TOTAL PROTEIN S/P/B 6.8 6.4 - 8.2 G/DL 08/27/2024 7:[address] [facility] ALBUMIN S/P/B 3.8 3.4 - 5.0 G/DL 08/27/2024 7:[address] [facility] AST 16 15 - 37 U/L 08/27/2024 7:[address] [facility] ALT 17 16 - 60 U/L 08/27/2024 7:[address] [facility] ALKALINE PHOSPHATASE S/P/B 120 50 - 136 U/L 08/27/2024 7:[address] [facility] ANION GAP 9.6 5 - 15 MMOL/L 08/27/2024 7:[address] [facility] BUN CREATININE RATIO 17.7 6 - 26 08/27/2024 7:[address] [facility] A/G RATIO 1.3 1.0 - 2.0 RATIO 08/27/2024 7:27 PM CDT [facility] GFR ESTIMATE 89(L) >90 ML/MIN/1.7 3 M2 08/27/2024 7:27 PM CDT [facility] Comment: NOTE: eGFR is not calculated for patients <18 years of age. This is an estimated GFR calculation using the new CKD EPI creatinine equation without race and so does not require a correction factor for race. This estimated GFR should not be used for calculating drug doses. 08/27/2024 6:50 PM CDT us Fletcher Gonzalez MD LABORATORY Final Result [facility] [address] [place] [address], [place] [phone] * CBC W/DIFF AUTOMATED (08/27/2024 6:50 PM CDT) WBC 5.84 4.4 - 11.0 x10'3/uL 08/27/2024 7:18 PM CDT [facility] RBC 4.81 4.50 - 5.90 x10'6/uL 08/27/2024 7:18 PM CDT [facility] HGB 14.4 14.0 - 17.5 G/DL 08/27/2024 7:18 PM CDT [facility] HCT 42.0 41.5 - 50.4 % 08/27/2024 7:18 PM CDT [facility] MCV 87.3 80.0 - 96.0 FL 08/27/2024 7:18 PM CDT [facility] MCH 29.9 26.5 - 31.4 PG 08/27/2024 7:18 PM CDT [facility] MCHC 34.3 31.9 - 34.8 G/DL 08/27/2024 7:18 PM CDT [facility] RDW 12.3 12.3 - 14.3 % 08/27/2024 7:18 PM T [facility] PLT 168 151 - 353 x10'3/uL 08/27/2024 7:18 PM T [facility] MPV 10.4 9.7 - 11.9 FL 08/27/2024 7:18 PM T [facility] RBC MORPHOLOGY NORMAL 08/27/2024 7:18 PM T [facility] PLT MORPH. NORMAL 08/27/2024 7:18 PM T [facility] WBC MORPHOLOGY NORMAL 08/27/2024 7:18 PM T [facility] LYMPHOCYTES % 22.8 15.8 - 45.0 % 08/27/2024 7:18 PM T [facility] NEUTROPHILS % 68.5 42.1 - 71.9 % 08/27/2024 7:18 PM T [facility] MONOCYTES % 6.0 5.7 - 12.5 % 08/27/2024 7:[address] [facility] EOSINOPHILS 2.2 0.0 - 5.6 % 08/27/2024 7:[address] [facility] BASOPHILS 0.3 0.0 - 1.3 % 08/27/2024 7:18 PM T [facility] ABS. NEUTROPHILS 4.00 1.40 - 6.00 x10'3/uL 08/27/2024 7:18 PM T [facility] IMMATURE GRANS % 0.2 0.0 - 0.5 % 08/27/2024 7:[address] [facility] ABS. LYMPHOCYTES 1.33 0.80 - 4.70 x10'3/uL 08/27/2024 7:18 PM T [facility] 08/27/2024 6:50 PM CDT us Fletcher Gonzalez MD LABORATORY Final Result Performing Organization Address [facility] Co de Phone Number [facility] [address] [place] [address], [place] [phone] * TROPONIN, QUANT (08/27/2024 6:50 PM CDT) Pathologist [facility] TROPONIN I HIGH SENSITIVITY 6 0 - 75 ng/L 08/27/2024 7:30 PM CDT [facility] Comment: HIGH DOSES OF BIOTIN, TROPONIN-SPECIFIC AUTOANTIBODIES, AND ANTIBODY THERAPY CONTAINING HAMA MAY INTERFERE WITH THIS TEST RESULT. CORRELATION TO CLINICAL HISTORY AND PRESENTATION RECOMMENDED. 08/27/2024 6:50 PM CDT Fletcher Gonzalez MD LABORATORY Final Result Performing Organization Address [facility] Co de Phone Number [facility] [address] [place] [address], [place] [phone] * MAGNESIUM (08/27/2024 6:50 PM CDT) Pathologist [facility] MAGNESIUM 2.1 1.8 - 2.4 MG/DL 08/27/2024 7:27 PM CDT [facility] 08/27/2024 6:50 PM CDT Fletcher Gonzalez MD LABORATORY Final Result Performing Organization Address City/[facility]/ZIP Co de Phone Number [facility] [address] [place] [address], [place] [phone] * CK (CPK) (08/27/2024 6:50 PM CDT) Pathologist [facility] CPK 64 39 - 308 U/L 08/27/2024 7:27 PM CDT [facility] 08/27/2024 6:50 PM CDT Fletcher Gonzalez MD LABORATORY Final Result [facility] [address] [place] [address], [place] [phone] * ECG 12 lead (08/27/2024 6:36 PM CDT) 08/27/2024 6:36 PM CDT Narrative [facility] RAD - 08/29/2024 7:06 AM CDT [facility] Test Date: 2024-08-27 Pat Name: HERNAN YODER Department: 85 Room: EXAM 101 Gender: Male Bridge Ironworker: : 1960 Requested By: FLETCHER GONZALEZ Order Number: [id number] Reading MD: Melisa Whyte Measurements Intervals [place] Rate: 56 P: 39 SD: 172 QRS: 21 QRSD: 146 T: -11 QT: 419 QTc: 407 Interpretive Statements SINUS BRADYCARDIA WITH OCCASIONAL SUPRAVENTRICULAR PREMATURE COMPLEXES RIGHT BUNDLE BRANCH BLOCK [120+ ms QRS DURATION, UPRIGHT V1, 40+ ms S IN I/aVL/V4/V5/V6] Compared to ECG 06/15/2022 08:35:01 No significant changes Procedure Note Melisa Whyte MD - 08/29/2024 [facility] Test Date: 2024-08-27 Pat Name: HERNAN YODER Department: 85 Room: EXAM 101 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 RAD * IMAGE GENERIC (07/19/2024) Only the most recent of2 resultswithin the time period is included. Anatomical Region Laterality Modality Other 07/19/2024 us [facility] Scanned SCANNING Final Resu lt * PROCEDURE GENERIC (SCAN ORDER) (07/19/2024) 07/19/2024 us [facility] Scanned SCANNING Final Resu lt * COLONOSCOPY GENERIC (09/01/2021) 09/01/2021 Narrative 09/01/2021 Ordered by an unspecified provider. us Documents Scanned SCANNING Final Result from Last 3 Months or Most Recently Relevant to Health Maintenance Insurance [employer] Advance Directives * Full Code (Latest Code Status on File) Date Activated Date Inactivated Comments 06/15/2022 10:28 AM 06/15/2022 5:12 PM Care Teams Deicer Tester Relationship Specialty Start Date End Date Regina Camilo FNP- [address] [place] [address] PCP - General Nurse Practitioner Family 06/17/22
--- OUTSIDE RECORDS SUMMARY | 2024-08-30 13:12 | XMS_ITS | Encounter Summary ---
Author Organization [facility] Address [address] [place] [address] Care Team Providers Care Public Information Specialist Name Role Phone Ashley Gandhi MD Primary Care Provider Un available Jordi Deng MD Primary Care Provider Unavailable Ashley Gandhi MD Primary Care Provider Un available Jordi Marcus MD Primary Care Provider Jovanna vailable Ivania Coates ACCOUNT PROCESSOR Primary Care Provider [phone] [facility] Primary Care Provid er Encounter Details Date Type Department Care Team (Late st Contact Info) Description 06/14/2017 Abstract [facility] Elinor Morales PA-C [address] [address] Social History Tobacco Use Types Packs/Day Years Used Date Smoking Tobacco: Never Assessed Sex and Gender Information Value Date Recorded Sex Assigned at Male 07/25/2024 2:46 PM CDT Legal Sex Male 1:16 AM CDT Gender Identity Male 07/25/2024 2:46 PM CDT Sexual Orientation Straight 07/25/2024 2: 46 PM CDT documented as of this encounter Miscellaneous Notes * Letter - Elinor Morales PA-C - 06/14/2017 12:00 AM CST 06-14-2017 , Hernan [address] [place] [address] : 1960 Lab Order: PSA R35.0 Frequency of micturition PLEASE USE BLOOD THAT IS LAB ALREADY Normal [x] Stat [] ACE REPAIR MECHANIC documented in this encounter Plan of Treatment Upcoming Encounters Date Type Department Care Team (Late st Contact Info) Description 01/23/2025 2:20 PM CDT Office Visit [facility] [address] [place] [address] [facility] [address] [place] [address] 02/27/2025 2:00 PM FURNACE REPAIR MECHANIC Office Visit [facility] [address] [place] [address] Jerardo Valenzuela MD [address] [place] [address] documented as of this encounter Visit Diagnoses Not on filedocumented in this encounter Additional Health Concerns Infection Onset Date Last Indicated Resolved Time COVID-19 Rule Out 04/14/2023 04/14/2023 04/14/2023 7:19 AM FURNACE REPAIR MECHANIC Influenza - Seasonal 04/14/2023 04/14/202304/24/2 024 12:33 AM FURNACE REPAIR MECHANIC COVID-19 Rule Out 04/14/2023 04/14/2023 04/14/2023 11:18 AM FURNACE REPAIR MECHANIC COVID-19 Rule Out 07/19/2023 07/19/2023 07/19/2023 10:33 AM CDT COVID-19 Rule Out 12/15/2023 12/15/2023 12/15/2023 4:19 PM CDT documented as of this encounter Care Teams Public Information Specialist Relationship Specialty Start Date End Date Ashley Gandhi MD PCP - General INTERNAL MEDICINE 04/22/18 06/05/18 Jordi Deng MD PCP - General FAMILY PRACTICE 06/06/18 06/12/18 Ashley Gandhi MD PCP - General INTERNAL MEDICINE 06/13/18 05/14/20 Jordi Marcus MD PCP - General FAMILY PRACTICE 05/15/20 06/23/21 Ivania Coates NP [address] [place] [address] PCP - General NURSE PRACTITIONER 06/24/21 06/16/22 Regina Camilo, MASH FILTER OPERATOR- [address] [place] [address] PCP - General Nurse Practitioner Family 06/17/22 documented as of this encounter
--- OUTSIDE RECORDS SUMMARY | 2024-08-30 13:12 | XMS_ITS | Encounter Summary ---
Author Organization [facility] Address [address] [place] [address] Care Team Providers Care Band Machine Operator Name Role Phone Ashley Gandhi MD Primary Care Provider Un available Jordi Deng MD Primary Care Provider Unavailable Ashley Gandhi MD Primary Care Provider Un available Jordi Marcus MD Primary Care Provider Jovanna vailable Ivania Coates PEANUT PICKER Primary Care Provider [phone] Regina Camilo [facility] Primary Care Provid er Encounter Details Date Type Department Care Team (Late st Contact Info) Description 06/13/2013 Abstract [facility] [address] [place] [address] , Generic MD Edil Social History Tobacco Use Types Packs/Day Years [...] Description 01/23/2025 2:20 PM CDT Office Visit [address] [address] Regina Camilo, [facility] [address] [place], [place] [id number] 02/27/2025 2:00 PM HEEL SCOURER Office Visit [facility] [address] [place] [address] Jerardo Valenzuela MD [address] [facility] [address] [place] [address] documented as of this encounter Visit Diagnoses Not on filedocumented in this encounter Additional Health Concerns Infection Onset Date Last Indicated Resolved Time COVID-19 Rule Out 04/14/2023 04/14/2023 04/14/2023 7:19 AM HEEL SCOURER Influenza - Seasonal 04/14/2023 04/14/2023 024 12:33 AM HEEL SCOURER COVID-19 Rule Out 04/14/2023 04/14/2023 04/14/2023 11:18 AM HEEL SCOURER COVID-19 Rule Out 07/19/2023 07/19/2023 07/19/2023 10:33 AM CDT COVID-19 Rule Out 12/15/2023 12/15/2023 12/15/2023 4:19 PM CDT documented as of this encounter Care Teams Band Machine Operator Relationship Specialty Start Date End Date Ashley Gandhi MD PCP - General INTERNAL MEDICINE 04/22/18 06/05/18 Jordi Deng MD PCP - General FAMILY PRACTICE 06/06/18 06/12/18 Ashley Gandhi MD PCP - General INTERNAL MEDICINE 06/13/18 05/14/20 Jordi Marcus MD PCP - General FAMILY PRACTICE 05/15/20 06/23/21 Ivania Coates NP [address] [place] [address] PCP - General NURSE PRACTITIONER 06/24/21 06/16/22 Regina Camilo SOUND DESIGNER- [address] [place] [address] PCP - General Nurse Practitioner Family 06/17/22 documented as of this encounter
--- OUTSIDE RECORDS SUMMARY | 2024-08-30 13:12 | XMS_ITS | Referral Summary ---
Author Organization [facility] Address [address] [place] [address] Care Team Providers Care Sales Office Coordinator Name Role Phone Jordi Marcus MD Primary [...] on file Legal Sex Male 3:32 AM VOLUNTEER SERVICES COORDINATOR Gender Identity Male 09/06/2019 6:23 AM CDT Sexual Orientation Choose not to disclose 2019 6:23 AM CDT Last Filed Vital Signs Vital Sign Reading Time Taken Comments Blood Pressure 110/78 09/26/2020 2:31 PM CDT Pulse 64 09/26/2020 2:31 PM CDT Temperature 36.7 C (98.1 F) 05/26/2021 1:49 PM VOLUNTEER SERVICES COORDINATOR Respiratory Rate 18 09/26/2020 2:31 PM CDT Oxygen Saturation 98% 09/26/2020 2:31 PM CDT Inhaled Oxygen Concentration - - Weight 79.4 kg (175 lb) 05/26/2021 1:49 PM VOLUNTEER SERVICES COORDINATOR Height 172.7 cm (5' 8 ) 05/26/2021 1:49 PM VOLUNTEER SERVICES COORDINATOR Body Mass Index 26.61 05/26/2021 1:49 PM VOLUNTEER SERVICES COORDINATOR Plan of Treatment Not on file Insurance [facility] H[facility]O Address: [facility] [id number] [place] [phone] [facility] Member Subscriber Plan / Payer (Ef fective 2023-Present) Name:Hernan Landis Relation to Subscriber:Self Name:Hernan Landis Payer ID:[id number] (NAIC) Type:[employer] Address: [id number] [place] [id number] Care Teams Sales Office Coordinator Relationship Specialty Start Date End Date Jordi Marcus MD [address] [place] [address] PCP - General Family Medicine 07/04/20
== END 2024-08-30 12:57 | disposition home or self-care (01) ==
PROVIDERS: PCP Nurse Practitioner Family; Visit Provider Orthopaedic Surgery
DX: S42.022A Displaced fracture of shaft of left clavicle, initial encounter for closed fracture (principal); Z98.890 Other specified postprocedural states; Z47.89 Encounter for other orthopedic aftercare; X58.XXXA Exposure to other specified factors, initial encounter
CPT/HCPCS: 73000

== ENCOUNTER 2024-09-26 10:18 | Outpatient (CLI) | payer OTHER, SELFPAY ==
--- NOTE | ~2024-09-26 | CT_ITS ---
EXAMINATION: CT_LELTCWO_CT DATE: 09/26/2024 10:36 INDICATION: Left knee osteoarthritis. Preoperative planning. TECHNIQUE: High resolution computed tomography (CT) of the left lower extremity from the hip through the ankle was performed without intravenous contrast. Additional sagittal and coronal reconstructions were performed. Automated exposure control and iterative reconstruction technique were employed. The dose-length product was 1774.94 mGy-cm. COMPARISON: Left knee MRI dated 07/18/2024 FINDINGS: Noncemented left total hip arthroplasty which appears well seated in near-anatomic alignment. No mary prosthetic lucency to suggest loosening or infection. No fracture. Polyarticular osteoarthritis with small marginal ossified small 3 compartments of the knee. Joint spaces appear relatively preserved ho wever this likely underestimated on nonweightbearing imaging given the high-grade chondromalacia in t he medial compartment evident on the prior MRI. There is chondrocalcinosis along the menisci. A fluid attenuation defect to be seen at the site of the radial tear at the posterior horn of the medial men iscus. Small knee joint effusion and moderate-sized Singh's cyst. Thickening of the proximal aspect o f the medial collateral ligament corresponding to the tear seen on the prior MRI. Moderate osteoarthr itis at the first metatarsophalangeal joint and mild osteoarthritis at the ankle and multiple additio nal joints in the mid and forefoot. IMPRESSION: 1. Left total hip arthroplasty with polyarticular osteoarthritis in the more distal left lower limb a s detailed above. 2. Radial tear at the posterior horn of the medial meniscus and medial collateral ligament tear which are better appreciated on prior MRI. 2. Small left knee joint effusion and moderate-sized Singh's cyst. Reviewed, dictated and finalized at location A. IMPRESSION: 1. Left total hip arthroplasty with polyarticular osteoarthritis in the more di stal left lower limb as detailed above. 2. Radial tear at the posterior horn of the medial meniscus and medial collater al ligament tear which are better appreciated on prior MRI. 2. Small left knee joint effusion and moderate-sized Singh's cyst.
[2024-09-26 11:00] LABS: Hematocrit 43.6 % (42.0-52.0); Hemoglobin 14.7 g/dL (14.0-18.0)
--- OUTSIDE RECORDS SUMMARY | 2024-09-26 11:11 | XMS_ITS | Clinical Summary ---
Author Organization [facility] Address [address] [place] [address] Care Team Providers Care Is Manager Name Role Phone Jordi Marcus MD Primary [...] history of diabetes mellitus - (Added by Conv) Relation Name Status Comments Brother Father Mother Social History Tobacco Use Types Packs/Day Years Used Date Smoking Tobacco: Never Smokeless Tobacco: Never Sex and Gender Information Value Date Recorded Sex Assigned at Not on file Legal Sex Male 3:32 AM MANAGER HUMAN RESOURCES Gender Identity Male 09/06/2019 6:23 AM CDT Sexual Orientation Choose not to disclose 2019 6:23 AM CDT Obstetrics History Last Filed Vital Signs Vital Sign Reading Time Taken Comments Blood Pressure 110/78 09/26/2020 2:31 PM CDT Pulse 64 09/26/2020 2:31 PM CDT Temperature 36.7 C (98.1 F) 05/26/2021 1:49 PM MANAGER HUMAN RESOURCES Respiratory Rate 18 09/26/2020 2:31 PM CDT Oxygen Saturation 98% 09/26/2020 2:31 PM CDT Inhaled Oxygen Concentration - - Weight 79.4 kg (175 lb) 05/26/2021 1:49 PM MANAGER HUMAN RESOURCES Height 172.7 cm (5' 8) 05/26/2021 1:49 PM MANAGER HUMAN RESOURCES Body Mass Index 26.61 05/26/2021 1:49 PM MANAGER HUMAN RESOURCES Plan of Treatment Not on file Insurance [facility]/PPO Address: [facility] [id number] [place] [phone] [facility] Care Teams Is Manager Relationship Specialty Start Date End Date Jordi Marcus MD [address] [place] [address] PCP - General Family Medicine 07/04/20
--- OUTSIDE RECORDS SUMMARY | 2024-09-26 11:11 | XMS_ITS | Referral Summary ---
Author Organization [facility] Address [address] [place] [address] Care Team Providers Care Comprehensive Ophthalmologist Name Role Phone Jordi Marcus MD Primary [...] on file Legal Sex Male 3:32 AM MOLECULAR PATHOLOGIST Gender Identity Male 09/06/2019 6:23 AM CDT Sexual Orientation Choose not to disclose 2019 6:23 AM CDT Last Filed Vital Signs Vital Sign Reading Time Taken Comments Blood Pressure 110/78 09/26/2020 2:31 PM CDT Pulse 64 09/26/2020 2:31 PM CDT Temperature 36.7 C (98.1 F) 05/26/2021 1:49 PM MOLECULAR PATHOLOGIST Respiratory Rate 18 09/26/2020 2:31 PM CDT Oxygen Saturation 98% 09/26/2020 2:31 PM CDT Inhaled Oxygen Concentration - - Weight 79.4 kg (175 lb) 05/26/2021 1:49 PM MOLECULAR PATHOLOGIST Height 172.7 cm (5' 8) 05/26/2021 1:49 PM MOLECULAR PATHOLOGIST Body Mass Index 26.61 05/26/2021 1:49 PM MOLECULAR PATHOLOGIST Plan of Treatment Not on file Insurance [facility] Member Subscriber Plan / Payer (Ef fective 2023-Present) Name:Hernan Landis Relation to Subscriber:Self Name:Hernan Landis Payer ID:[id number] (NAIC) Type:[employer] Address: [address] [place] [id number] Care Teams Comprehensive Ophthalmologist Relationship Specialty Start Date End Date Jordi Marcus MD [address] [place] [address] PCP - General Family Medicine 07/04/20
--- OUTSIDE RECORDS SUMMARY | 2024-09-26 11:11 | XMS_ITS | Clinical Summary ---
Author Organization [facility] Address [address] [facility] [address] [place] [address] Phone Care Team Providers Care Doughmaker Name Role Phone Ashley Gandhi MD Primary Care Provider [phone] [phone] Allergies Active Allergy Reactions Criticality Noted Date [...] 4:00 AM CDT Height 167.6 cm (5' 6) 02/15/2019 12:5 4 PM CDT Body Mass [...] 2023 02/07/2018 Medical Devices Implanted Type Area Environmental Inspector Device Identifier Shelf Expiration Date Model / Serial / Lot Seamguard Endogia 60 Prpl [id number] - [id number] Implanted:Qty : 2 on 02/15/2019 by Elis Bales MD at [facility] Biological N/A: Stomach [employer] 10/16/2021 [id number] / / [id number] Seamguard Endogia 60 Blck [id number] - [id number] Implanted:Qty : 2 on 02/15/2019 by Elis Bales MD at [facility] Biological N/A: Stomach [employer] 01/16/2022 [id number] / / [id number] Seamguard Endogia 60 Prpl [id number] - [id number] Implanted:Qty : 1 on 02/15/2019 by Elis Bales MD at [facility] Biological N/A: Stomach [employer] 10/16/2021 [id number] / / [id number] Hip Hip Stent Stent Description:states one stent to lad Insurance RX [employer] PLANS (INTERNAL) [facility] Advance Directives For more information, please contact: [phone] * Full Code (Latest Code Status on File) Date Activated Date Inactivated Comments 02/15/2019 12:50 PM 02/16/2019 5:46 PM * Full Code Date Activated Date Inactivated Comments 02/15/2019 8:36 AM 02/15/2019 12:50 PM Care Teams Doughmaker Relationship Specialty Start Date End Date Ashley Gandhi MD [address] [place] [phone] PCP - General Internal Medicine 01/31/19
--- OUTSIDE RECORDS SUMMARY | 2024-09-26 11:11 | XMS_ITS | Encounter Summary ---
Author Organization [facility] Address [address] [place] [address] Care Team Providers Care Stunner Animal Name Role Phone Ashley Gandhi MD Primary Care Provider [phone] [phone] Encounter Details Date Type Department Care Team (Late st Contact Info) Description 02/07/2019 Abstract [facility] Non Integrated Provider [address] [place] [address] [place] [address] [place] [address] [place] [address] Social History Tobacco Use Types [...] on filedocumented in this encounter Care Teams Stunner Animal Relationship Specialty Start Date End Date Ashley Gandhi MD [address] [place] [phone] PCP - General Internal Medicine 01/31/19 documented as of this encounter
[2024-09-26 11:21] LABS: Albumin Level 4.2 g/dL (3.5-5.1); Estimated Glomerular Filt Rate > 60; Glucose 102 mg/dL (65-110)
== END 2024-09-26 10:19 | disposition home or self-care (01) ==
PROVIDERS: PCP Nurse Practitioner Family; Visit Provider Orthopaedic Surgery
DX: Z01.818 Encounter for other preprocedural examination (principal); M17.12 Unilateral primary osteoarthritis, left knee; S83.242A Other tear of medial meniscus, current injury, left knee, initial encounter; S83.412A Sprain of medial collateral ligament of left knee, initial encounter; M25.462 Effusion, left knee; X58.XXXA Exposure to other specified factors, initial encounter; Z96.642 Presence of left artificial hip joint; E78.5 Hyperlipidemia, unspecified
CPT/HCPCS: 36415; 73700; 82040; 82565; 82947; 85014; 85018

== ENCOUNTER 2024-10-06 14:00 | Outpatient (RCR) | payer OTHER, SELFPAY ==
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
--- NOTE | 2024-08-30 11:01 | OPREHPOC ---
Outpatient Therapy Plan of Care This is a Multidisciplinary Plan of Care that may contain components documented by all disciplines (PT, OT, and ST.) PT Goal 1 Goal / Goal Update Pt will be independent in HEP Pt will verbalize understanding of diagnosis and prognosis Target Visit 10 PT Problem 2 PT Problem #2 Pain PT Goal 1 Goal / Goal Update knee : Pt will report greatest pain level at 3/10 or less to improve ADLs and activities PT Goal 2 Goal / Goal Update shoulder: Pt will report resolution of pain to return to PLOF knee: Pt will report greatest pain at 2/10 with return to full functional use PT Problem 3 PT Problem #3 Impaired Range of Motion PT Goal 1 Goal / Goal Update Shoulder: Pt will demonstrate active ROM left shoulder abduction of 145 or greater without irritation Knee: Pt will demonstrate passive ROM of left knee extension of 5 or less Target Visit 10 PT Goal 2 Goal / Goal Update Shoulder: Pt will demonstrate full functional abduction of shoulder actively without pain Knee: pt will demonstrates active ROM left knee 0- 120 for greater ease of stair navigation PT Problem 4 PT Problem #4 Impaired Strength PT Goal 1 Goal / Goal Update Shoulder: Pt will report functional strength and use of left shoulder at PLOF for work related activities Knee: Pt will demonstrate and report greater ease of ascending/descending steps with stability (with or without brace) to improve functional mobility
--- NOTE | 2024-10-06 14:53 | PTOPDC ---
Assessment and note entered by Terri Johnson, PT Evaluation Information Assessment Status Discharge Diagnosis S42.022A, S83.412A, Z47.89 ICD-10 Condition Codes (PT) Pain in left shoulder M25.512,Pain in left knee M25.562,Abnormalities of gait and mobility R26.9, Encounter for other orthopedic aftercare Z47.89 Other ICD-10 Condition Codes ( left knee instability, abnormal posture PT) Onset 06/18/24 Subjective Information Pt reports stairs are lots better using correct feet and with using full foot. Pt reports no longer having back of the knee pain with dressing. Only pain with dressing is like it was before. The tendons that are damages don't seem to cause pain. After sitting a half hour knee needs to loosen up before walking, sitting is not a an issue but feels this is arthritis. Pt reports is using left arm normally. States clavicle feels fine, but may still have a rotator cuff injury according to MD. Has returned to using arm as previously, just eing careful and use other arm as much as possible Reported Pain Level Pain Score 1,0: Self Report Assessment PT Clinical Summary Pt has attended therapy consistently after an accident injuring his left knee and causing fracture with subsequent ORIF to left clavicle. He has progressed exceptionally well, stating he has returned to all his work and home activities. He still wears his knee brace for safety, and is set to have his knee replaced in about 6 weeks. Left shoulder shows full range, full strength, and does not appear to present as a RTC tear at this time. He does show possibly slight impingement symptoms though he reports they are very minor. Pt has met all goals for shoulder, and most goals for his knee. The only goal not met for the knee is his pain goal though the current pain he reports feeling is his normal arthritis pain and does not feel this is related to the knee injury. As he has progressed so well, and he is planning to have his knee replaced soon, we are discharging from therapy services due to completion of his plan of care. Plan of Care PT Services Indicated No
== END 2024-10-06 15:00 | disposition home or self-care (01) ==
LOC: ANHHIPT 14:00
PROVIDERS: PCP Nurse Practitioner Family; Visit Provider Physician Assistant Surgical
DX: S83.412A Sprain of medial collateral ligament of left knee, initial encounter (principal); S42.022A Displaced fracture of shaft of left clavicle, initial encounter for closed fracture; Z47.89 Encounter for other orthopedic aftercare
CPT/HCPCS: 97014; 97110; 97112; 97162; 97530; 97750; G0283

== ENCOUNTER 2024-10-18 13:45 | Outpatient (CLI) | payer OTHER, SELFPAY ==
--- OUTSIDE RECORDS SUMMARY | 2024-10-18 13:53 | XMS_ITS | Referral Summary ---
Author Organization [facility] Address [address] [place] [address] Care Team Providers Care Shredder Picker Name Role Phone Jordi Marcus MD Primary [...] on file Legal Sex Male 3:32 AM RECREATION LEADER Gender Identity Male 09/06/2019 6:23 AM CDT Sexual Orientation Choose not to disclose 2019 6:23 AM CDT Last Filed Vital Signs Vital Sign Reading Time Taken Comments Blood Pressure 110/78 09/26/2020 2:31 PM CDT Pulse 64 09/26/2020 2:31 PM CDT Temperature 36.7 C (98.1 F) 05/26/2021 1:49 PM RECREATION LEADER Respiratory Rate 18 09/26/2020 2:31 PM CDT Oxygen Saturation 98% 09/26/2020 2:31 PM CDT Inhaled Oxygen Concentration - - Weight 79.4 kg (175 lb) 05/26/2021 1:49 PM RECREATION LEADER Height 172.7 cm (5' 8) 05/26/2021 1:49 PM RECREATION LEADER Body Mass Index 26.61 05/26/2021 1:49 PM RECREATION LEADER Plan of Treatment Not on file Insurance INCLUDE 234 [facility]S AT THE [facility] H[facility]/O Address: [facility] [id number] [place] [phone] [facility] Member Subscriber Plan / Payer (Ef fective 2023-Present) Name:Hernan Landis Relation to Subscriber:Self Name:Hernan Landis Payer ID:[id number] (NAIC) Type:[employer] Address: [address] [place] [phone] Care Teams Shredder Picker Relationship Specialty Start Date End Date Jordi Marcus MD [address] [place] [address] PCP - General Family Medicine 07/04/20
--- OUTSIDE RECORDS SUMMARY | 2024-10-18 13:53 | XMS_ITS | Clinical Summary ---
Author Organization [facility] Address [address] [place] [address] Care Team Providers Care Dental Practice Manager Name Role Phone Jordi Marcus MD [...] on file Legal Sex Male 3:[address] Gender Identity Male 09/06/2019 6:23 AM CDT Sexual Orientation Choose not to disclose 2019 6:23 AM CDT Obstetrics History Last Filed Vital Signs Vital Sign Reading Time Taken Comments Blood Pressure 110/78 09/26/2020 2:31 PM CDT Pulse 64 09/26/2020 2:31 PM CDT Temperature 36.7 C (98.1 F) 05/26/2021 1:[address] Respiratory Rate 18 09/26/2020 2:31 PM CDT Oxygen Saturation 98% 09/26/2020 2:31 PM CDT Inhaled Oxygen Concentration - - Weight 79.4 kg (175 lb) 05/26/2021 1:[address] Height 172.7 cm (5' 8) 05/26/2021 1:[address] Body Mass Index 26.61 05/26/2021 1:[address] MAN Plan of Treatment Not on file [facility]/PPO Address: [facility] [id number] [place] [id number] [facility] Care Teams Dental Practice Manager Relationship Specialty Start Date End Date Jordi Marcus MD [address] [place] [address] PCP - General Family Medicine 07/04/20
[2024-10-18 15:29] LABS: Hematocrit 43.0 % (42.0-52.0); Hemoglobin 14.5 g/dL (14.0-18.0); Immature Granulocyte Percent A 0.3 % (0-0.5); Lymphocytes Absolute Auto 1.48 K/mm3 (0.9-3.2); Mean Corpuscular HGB Conc 33.7 g/dl (32-36); Mean Corpuscular Hemoglobin 29.6 pg (26-34); Mean Corpuscular Volume 87.8 fl (80-100); Nucleated Red Blood Cells Absolute Auto 0.000 K/mm3 (0.0-0.012); Nucleated Red Blood Cells Perc 0.0 % (0.0-0.2); Platelet Count Result 158 k/mm3 (150-375); Red Blood Count 4.90 M/mm3 (4.6-6.20); White Blood Count 5.7 K/mm3 (4.5-10.0)
[2024-10-18 15:45] LABS: Albumin Level 4.1 g/dL (3.5-5.1); Anion Gap 7 mmol/L (4-12); Blood Urea Nitrogen 19 mg/dL (9-20); Calcium 9.1 mg/dL (8.4-10.2); Carbon Dioxide 29 mmol/L (22-30); Chloride 105 mmol/L (98-107); Estimated Glomerular Filt Rate > 60; Glucose 105 mg/dL (65-110); Potassium 3.6 mmol/L (3.4-5.0); Sodium 141 mmol/L (137-145)
[2024-10-18 15:52] LABS: Hemoglobin A1C. 5.6 % (<5.7)
[2024-10-18 16:39] LABS: MRSA (PCR). NOT DETECTED (NOT DETECTE)
== END 2024-10-18 13:46 | disposition home or self-care (01) ==
LOC: ANHSURGERY 13:50
PROVIDERS: Anesthesiology; PCP Nurse Practitioner Family; Visit Provider Orthopaedic Surgery
DX: M17.12 Unilateral primary osteoarthritis, left knee (principal); Z51.81 Encounter for therapeutic drug level monitoring; Z79.899 Other long term (current) drug therapy
CPT/HCPCS: 36415; 80048; 80307; 82040; 83036; 85025; 87641

== ENCOUNTER 2024-11-16 00:22 | Day surgery (SDC) | payer OTHER, SELFPAY ==
[2024-10-18 14:22] VITALS: BP 145/70; PULSE 59; RESP 16; TEMP 36.9; O2SAT 98; BMI 32.1
--- NOTE | 2024-10-18 14:47 | PC.NURSE ---
Report to the Outpatient Waiting Room, entrance under the green pavilion located off [facility], at time ___8:00AM___ on date ___11/16/24____. Planned Procedure Time: ___10:00AM____.? Time changes happen often and if your time is changed the preop area will call you the afternoon before. - You and your visitor will be asked to self-screen and do not enter if you have any COVID symptoms. Please call surgeon if you need to reschedule. - A mask is optional within the hospital at this time. Patients may have clear liquids (water, carbonated beverages, clear teas, apple juice) until 3 hours prior to surgery (7:00AM) with a maximum of 20 ounces. - No food from midnight until time of surgery and no smoking, or chewing tobacco (or any form of nicotine). No chewing gum, candy or mints. Take only the following medications with a SIP of water on the morning of surgery: ___CARVEDILOL DO NOT STOP ANY OF YOUR OTHER PRESCRIPTION MEDICATIONS PRIOR TO SURGERY EXCEPT THE FOLLOWING Medications to discontinue per physician __HOLD ASPIRIN PER DR HARRISON HOLD ALL VITAMINS/SUPPLEMENTS [address] HARRISON- LAST DOSE 11/08/24. Please no make-up, nail luxembourgish, hairspray, perfume, deodorant, or body powder the day of surgery.? No jewelry (including any body piercings) or valuables the day of surgery, leave them at home.? Please take a shower or bath the night before, or the morning of, surgery with an antibacterial soap.? Wear comfortable, loose fitting clothing.? - Jewelry must be removed prior to entering the operating room.? Rings and piercings that are not removed may be cut off. - The hospital will not accept responsibility for valuables.? - Please leave all valuables, including medications, at home the day of surgery. If you are going home after surgery, a licensed catering truck driver must drive you home.? - NO public transportation without another adult if you receive anesthesia. - We recommend that an adult stay with you for 24 hours following discharge. - We also recommend that you do not drive, make important decision, drink alcoholic beverages, or take any drugs that were not prescribed by your health care provider for at least 24 hours after your discharge time. Follow any additional instructions given to you from your surgeon. Telephone instructions given to ____PATIENT & WIFE and asked if any additional questions and then verbalized understanding. Patient advised to call surgeon office or pre surgery nurse liaison [phone] if any additional questions.
[2024-11-16] VITALS (15 sets, daily range): BP systolic 126–185; BP diastolic 63–95; PULSE 50–71; RESP 10–20; TEMP 36.1–36.8; O2SAT 94–100; BMI 30.9
--- NOTE | ~2024-11-16 | XR_ITS ---
EXAMINATION: [id number] DATE: 11/16/2024 12:57 CDT INDICATION: Left knee arthroplasty TECHNIQUE: 2 views left knee FINDINGS: There is a left total knee arthroplasty in expected position. Subcutaneous gas with fluid and air in the joint are consistent with recent surgery. No evidence of periprosthetic fracture. IMPRESSION: 1. Recent left total knee arthroplasty. Reviewed, dictated and finalized at location B.
--- OUTSIDE RECORDS SUMMARY | 2024-11-16 00:25 | XMS_ITS | Encounter Summary ---
Author Organization [facility] Address [address] [place] [address] Care Team Providers Care Shot Grinder Operator Name Role Phone Ashley Gandhi MD Primary Care Provider Un available Jordi Deng MD Primary Care Provider Unavailable Ashley Gandhi MD Primary Care Provider Un available Jordi Marcus MD Primary Care Provider Jovanna vailable Ivania Coates WET FINISHER Primary Care Provider [phone] [facility] Primary Care Provid er Encounter Details Date Type Department Care Team (Late st Contact Info) Description 06/14/2017 Abstract [facility] Elinor Morales PA-C [address] [address] Social History Tobacco Use Types [...] 12:00 AM CST 06-14-2017 , Hernan Martinez Lat[address]iry[address] [place] [address] : 1960 Lab Order: PSA R35.0 Frequency of micturition PLEASE USE BLOOD THAT IS LAB ALREADY Normal [x] Stat [] IRATORY THERAPY TECHNICIAN documented in this encounter Plan of Treatment Upcoming Encounters Date Type Department Care Team (Late st Contact Info) Description 01/23/2025 2:20 PM CDT Office Visit [facility] [address] [place] [address] [facility] [address] [place] [address] 02/27/2025 2:00 PM RESPIRATORY THERAPY TECHNICIAN Office Visit [facility] [address] [place] [phone] Jerardo Valenzuela MD 3 [facility] [address] [place] [address] 10/01/2025 10:00 AM CDT Appointment [facility] [address] [place], [place] [phone] Albino Wilburn MD Three [facility]. [address] [place] [address] documented as of this encounter Visit Diagnoses Not on filedocumented in this encounter Additional Health Concerns Infection Onset Date Last Indicated Resolved Time COVID-19 Rule Out 04/14/2023 04/14/2023 04/14/2023 7:19 AM RESPIRATORY THERAPY TECHNICIAN Influenza - Seasonal 04/14/2023 04/14/2023 024 12:33 AM RESPIRATORY THERAPY TECHNICIAN COVID-19 Rule Out 04/14/2023 04/14/2023 04/14/2023 11:18 AM RESPIRATORY THERAPY TECHNICIAN COVID-19 Rule Out 07/19/2023 07/19/2023 07/19/2023 10:33 AM CDT COVID-19 Rule Out 12/15/2023 12/15/2023 12/15/2023 4:19 PM CDT documented as of this encounter Care Teams Shot Grinder Operator Relationship Specialty Start Date End Date Ashley Gandhi MD PCP - General INTERNAL MEDICINE 04/22/18 06/05/18 Jordi Deng MD PCP - General FAMILY PRACTICE 06/06/18 06/12/18 Ashley Gandhi MD PCP - General INTERNAL MEDICINE 06/13/18 05/14/20 Jordi Marcus MD PCP - General FAMILY PRACTICE 05/15/20 06/23/21 Ivania Coates, [facility] [address] [place] [address] PCP - General NURSE PRACTITIONER 06/24/21 06/16/22 Regina Camilo, TRACK ANNOUNCER- [address] [place] [address] PCP - General Nurse Practitioner Family 06/17/22 documented as of this encounter
--- OUTSIDE RECORDS SUMMARY | 2024-11-16 00:25 | XMS_ITS | Clinical Summary ---
Author Organization [facility] Address [address] [facility] [address] [place] [address] Phone Care Team Providers Care Program Officer Name Role Phone Ashley Gandhi MD Primary Care Provider [phone] Allergies Active Allergy Reactions Criticality Noted Date [...] years 1-dose series) 2021 INFLUENZA VACCINE (#1) 2024 02/07/2018 Medical Devices Implanted Type Area Dry Mill Worker Device Identifier Shelf Expiration Date Model / Serial / Lot Seamguard Endogia 60 Prpl [id number] - [id number] Implanted:Qty : 2 on 02/15/2019 by Elis Bales MD at [facility] Biological N/A: Stomach [employer] 10/16/2021 [id number] / / [id number] Seamguard Endogia 60 Blck [id number] - [id number] Implanted:Qty : 2 on 02/15/2019 by Elis Bales MD at [facility] Biological N/A: Stomach [employer] 01/16/2022 [id number] / / [id number] Seamguard Endogia 60 Prpl [id number] - [id number] Implanted:Qty : 1 on 02/15/2019 by Elis Bales MD at [facility] Biological N/A: Stomach [employer] 10/16/2021 [id number] / / [id number] Hip Hip Stent Stent Description:states one stent to lad Insurance RX FUNEZ PLANS (INTERNAL) [facility] Plans Advance Directives For more information, please contact: [phone] * Full Code (Latest Code Status on File) Date Activated Date Inactivated Comments 02/15/2019 12:50 PM 02/16/2019 5:46 PM * Full Code Date Activated Date Inactivated Comments 02/15/2019 8:36 AM 02/15/2019 12:50 PM Care Teams Program Officer Relationship Specialty Start Date End Date Ashley Gandhi MD [address] [place] [phone] PCP - General Internal Medicine 01/31/19
--- OUTSIDE RECORDS SUMMARY | 2024-11-16 00:25 | XMS_ITS | Encounter Summary ---
Author Organization [facility] Address [address] [place] [address] Care Team Providers Care Roller Mechanic Name Role Phone Ashley Gandhi MD Primary Care Provider Un available Jordi Deng MD Primary Care Provider Unavailable Ashley Gandhi MD Primary Care Provider Un available Jordi Marcus MD Primary Care Provider Jovanna vailable Ivania Coates STRUCTURAL STEEL DETAILER Primary Care Provider [phone] Regina Camilo Primary Care Provid er Encounter Details Date Type Department Care Team (Late st Contact Info) Description 02/03/2014 Abstract [facility] Conversion , Generic Conversion, Social [...] Description 01/23/2025 2:20 PM CDT Office Visit [address] [address] Regina Camilo FNP-DANIELA [address] [place] [address] 02/27/2025 2:00 PM SOURCING INTERN Office Visit [facility] [address] [place] [phone] Jerardo Valenzuela MD 3 [facility] [address] [place] [address] 10/01/2025 10:00 AM CDT Appointment [facility] [address] [facility] [place] [address] Albino Wilburn MD [address] [place] [address] documented as of this encounter Visit Diagnoses Not on filedocumented in this encounter Additional Health Concerns Infection Onset Date Last Indicated Resolved Time COVID-19 Rule Out 04/14/2023 04/14/2023 04/14/2023 7:19 AM SOURCING INTERN Influenza - Seasonal 04/14/2023 04/14/2023 024 12:33 AM SOURCING INTERN COVID-19 Rule Out 04/14/2023 04/14/2023 04/14/2023 11:18 AM SOURCING INTERN COVID-19 Rule Out 07/19/2023 07/19/2023 07/19/2023 10:33 AM CDT COVID-19 Rule Out 12/15/2023 12/15/2023 12/15/2023 4:19 PM CDT documented as of this encounter Care Teams Roller Mechanic Relationship Specialty Start Date End Date Ashley Gandhi MD PCP - General INTERNAL MEDICINE 04/22/18 06/05/18 Jordi Deng MD PCP - General FAMILY PRACTICE 06/06/18 06/12/18 Ashley Gandhi MD PCP - General INTERNAL MEDICINE 06/13/18 05/14/20 Jordi Marcus MD PCP - General FAMILY PRACTICE 05/15/20 06/23/21 Ivania Coates NP [address] [place] [address] PCP - General NURSE PRACTITIONER 06/24/21 06/16/22 Regina Camilo, [facility]- [address] [place] [address] PCP - General Nurse Practitioner Family 06/17/22 documented as of this encounter
--- OUTSIDE RECORDS SUMMARY | 2024-11-16 00:25 | XMS_ITS | Encounter Summary ---
Author Organization [facility] Address [address] [place] [address] Care Team Providers Care Board Hammer Operator Name Role Phone Ashley Gandhi MD Primary Care Provider Un available Jordi Deng MD Primary Care Provider Unavailable Ashley Gandhi MD Primary Care Provider Un available Jordi Marcus MD Primary Care Provider Jovanna vailable Ivania Coates WINCHER Primary Care Provider [phone] Regina Camilo [facility] Primary Care Provid er Encounter Details Date Type Department Care Team (Late st Contact Info) Description 02/13/2015 Abstract [facility] [address] [place] [address] , Generic ConversionMD Social History Tobacco Use [...] Office Visit [facility] [address] [place] [address] LucyRegina black, [facility] [address] [place], [place] [address] 02/27/2025 2:00 PM POWER SHOVEL OPERATOR Office Visit [facility] [address] [place] [address] Jerardo Valenzuela MD 3 [facility] [address] [facility] [place] [address] 10/01/2025 10:00 AM CDT Appointment [facility] [address] [place] [address] Albino Wilburn MD [address] [place] [address] documented as of this encounter Visit Diagnoses Not on filedocumented in this encounter Additional Health Concerns Infection Onset Date Last Indicated Resolved Time COVID-19 Rule Out 04/14/2023 04/14/2023 04/14/2023 7:19 AM POWER SHOVEL OPERATOR Influenza - Seasonal 04/14/2023 04/14/2023 024 12:33 AM POWER SHOVEL OPERATOR COVID-19 Rule Out 04/14/2023 04/14/2023 04/14/2023 11:18 AM POWER SHOVEL OPERATOR COVID-19 Rule Out 07/19/2023 07/19/2023 07/19/2023 10:33 AM CDT COVID-19 Rule Out 12/15/2023 12/15/2023 12/15/2023 4:19 PM CDT documented as of this encounter Care Teams Board Hammer Operator Relationship Specialty Start Date End Date Ashley Gandhi MD PCP - General INTERNAL MEDICINE 04/22/18 06/05/18 Jordi Deng MD PCP - General FAMILY PRACTICE 06/06/18 06/12/18 Ashley Gandhi MD PCP - General INTERNAL MEDICINE 06/13/18 05/14/20 Jordi Marcus MD PCP - General FAMILY PRACTICE 05/15/20 06/23/21 Ivania Coates NP [address] [place] [address] PCP - General NURSE PRACTITIONER 06/24/21 06/16/22 Regina Camilo, CASE PICKER- [address] [place], [place] [phone] PCP - General Nurse Practitioner Family 06/17/22 documented as of this encounter
--- OUTSIDE RECORDS SUMMARY | 2024-11-16 00:25 | XMS_ITS | Encounter Summary ---
Author Organization [facility] Address [address] [place] [address] Care Team Providers Care Water Plant Pump Operator Supervisor Name Role Phone Ivania Coates NP Primary Care Provider [phone] [facility] Primary Care Provid er Encounter Details Date Type Department Care Team (Late st Contact Info) Description 08/11/2021 Met[place] Message [facility] [address] [place] [address] Ivania Coates RICE DRIER [address] [place] [address] Blood Pressure Social History Tobacco [...] Description 01/23/2025 2:20 PM CDT Office Visit [facility] [address] [place] [phone] [facility] [address] [place], [place] [phone] 02/27/2025 2:00 PM CHIN STRAP CUTTER Office Visit [facility] [address] [place] [phone] Jerardo Valenzuela MD 3 [facility] [address] [place] [address] 10/01/2025 10:00 AM CDT Appointment [facility] [address] [place], [place] [phone] Albino Wilburn MD Three [facility]. [address] [place] [phone] documented as of this encounter Visit Diagnoses Not on filedocumented in this encounter Additional Health Concerns Infection Onset Date Last Indicated Resolved Time COVID-19 Rule Out 04/14/2023 04/14/2023 04/14/2023 7:19 AM CHIN STRAP CUTTER Influenza - Seasonal 04/14/2023 04/14/2023 024 12:33 AM CHIN STRAP CUTTER COVID-19 Rule Out 04/14/2023 04/14/2023 04/14/2023 11:18 AM CHIN STRAP CUTTER COVID-19 Rule Out 07/19/2023 07/19/2023 07/19/2023 10:33 AM CDT COVID-19 Rule Out 12/15/2023 12/15/2023 12/15/2023 4:19 PM CDT Assessment Noted Time PHQ-9 Depression Total Score: 0 07/09/19 2:46 PM CDT documented as of this encounter Care Teams Water Plant Pump Operator Supervisor Relationship Specialty Start Date End Date Ivania Coates NP [address] [place] [address] PCP - General NURSE PRACTITIONER 06/24/21 06/16/22 Regina Camilo FNP- [address] [place] [address] PCP - General Nurse Practitioner Family 06/17/22 documented as of this encounter
--- OUTSIDE RECORDS SUMMARY | 2024-11-16 00:25 | XMS_ITS | Encounter Summary ---
Author Organization [facility] Address [address] [place] [address] Care Team Providers Care Salvation Army Officer Name Role Phone Ashley Gandhi MD Primary Care Provider Un available Jordi Deng MD Primary Care Provider Unavailable Ashley Gandhi MD Primary Care Provider Un available Jordi Marcus MD Primary Care Provider Jovanna vailable Ivania Coates HOPPER ATTENDANT Primary Care Provider [phone] Regina Camilo Primary Care Provid er Encounter Details Date Type Department Care Team (Late st Contact Info) Description 07/07/2005 Abstract [facility] Conversion , Generic Conversion, [...] Description 01/23/2025 2:20 PM CDT Office Visit [address] [address] Regina Camilo FNP-DANIELA [address] [place] [address] 02/27/2025 2:00 PM ENGINEERING MECHANIC Office Visit [facility] [address] [place] [phone] Jerardo Valenzuela MD 3 [facility] [place] [address] [place] [address] 10/01/2025 10:00 AM CDT Appointment [facility] [address] [place] [address] Albino Wilburn MD [address] [place] [address] documented as of this encounter Visit Diagnoses Not on filedocumented in this encounter Additional Health Concerns Infection Onset Date Last Indicated Resolved Time COVID-19 Rule Out 04/14/2023 04/14/2023 04/14/2023 7:19 AM ENGINEERING MECHANIC Influenza - Seasonal 04/14/2023 04/14/2023 024 12:33 AM ENGINEERING MECHANIC COVID-19 Rule Out 04/14/2023 04/14/2023 04/14/2023 11:18 AM ENGINEERING MECHANIC COVID-19 Rule Out 07/19/2023 07/19/2023 07/19/2023 10:33 AM CDT COVID-19 Rule Out 12/15/2023 12/15/2023 12/15/2023 4:19 PM CDT documented as of this encounter Care Teams Salvation Army Officer Relationship Specialty Start Date End Date Ashley Gandhi MD PCP - General INTERNAL MEDICINE 04/22/18 06/05/18 Jordi Deng MD PCP - General FAMILY PRACTICE 06/06/18 06/12/18 Ashley Gandhi MD PCP - General INTERNAL MEDICINE 06/13/18 05/14/20 Jordi Marcus MD PCP - General FAMILY PRACTICE 05/15/20 06/23/21 Ivania Coates NP [address] [place] [address] PCP - General NURSE PRACTITIONER 06/24/21 06/16/22 Regina Camilo, [facility]- [address] [place] [address] PCP - General Nurse Practitioner Family 06/17/22 documented as of this encounter
--- OUTSIDE RECORDS SUMMARY | 2024-11-16 00:25 | XMS_ITS | Encounter Summary ---
Author Organization [facility] Address [address] [place] [address] Care Team Providers Care Technical Business Systems Analyst Name Role Phone Ashley Gandhi MD Primary Care Provider Un available Jordi Deng MD Primary Care Provider Unavailable Ashley Gandhi MD Primary Care Provider Un available Jordi Marcus MD Primary Care Provider Joavnna vailable Ivania Coates WOOD MILLING MACHINE HAND Primary Care Provider [phone] Regina Camilo [facility] Primary Care Provid er Encounter Details Date Type Department Care Team (Late st Contact Info) Description 06/13/2013 Abstract [facility] CONVERSION [address] [place] [address] , Generic MD Edil Social History Tobacco [...] Description 01/23/2025 2:20 PM CDT Office Visit [address] [address] LucyRegina black, [facility] [address] [place], [place] [address] 02/27/2025 2:00 PM ACCOUNTING TUTOR Office Visit [facility] [address] [place] [address] Jerardo Valenzuela MD 3 [facility] Suite [facility] [place] [address] 10/01/2025 10:00 AM CDT Appointment [facility] [address] [place] [address] Albino Wilburn MD [address] [place] [address] documented as of this encounter Visit Diagnoses Not on filedocumented in this encounter Additional Health Concerns Infection Onset Date Last Indicated Resolved Time COVID-19 Rule Out 04/14/2023 04/14/2023 04/14/2023 7:19 AM ACCOUNTING TUTOR Influenza - Seasonal 04/14/2023 04/14/2023 024 12:33 AM ACCOUNTING TUTOR COVID-19 Rule Out 04/14/2023 04/14/2023 04/14/2023 11:18 AM ACCOUNTING TUTOR COVID-19 Rule Out 07/19/2023 07/19/2023 07/19/2023 10:33 AM CDT COVID-19 Rule Out 12/15/2023 12/15/2023 12/15/2023 4:19 PM CDT documented as of this encounter Care Teams Technical Business Systems Analyst Relationship Specialty Start Date End Date Ashley Gandhi MD PCP - General INTERNAL MEDICINE 04/22/18 06/05/18 Jordi Deng MD PCP - General FAMILY PRACTICE 06/06/18 06/12/18 Ashley Gandhi MD PCP - General INTERNAL MEDICINE 06/13/18 05/14/20 Jordi Marcus MD PCP - General FAMILY PRACTICE 05/15/20 06/23/21 Ivania Coates NP [address] [place] [address] PCP - General NURSE PRACTITIONER 06/24/21 06/16/22 Regina Camilo, MEDICAL BILLING INSTRUCTOR- [address] [place], [place] [phone] PCP - General Nurse Practitioner Family 06/17/22 documented as of this encounter
--- OUTSIDE RECORDS SUMMARY | 2024-11-16 00:25 | XMS_ITS | Encounter Summary ---
Author Organization [facility] Address [address] [place] [address] Care Team Providers Care Laborer Concrete Plant Name Role Phone Ivania Coates NP Primary Care Provider [phone] Regina Camilo- Primary Care Provid er Encounter Details Date Type Department Care Team (Late st Contact Info) Description 02/02/2022 [email or web address] Message [facility] [address] [place] [address] [facility] Provider Summary of ECHO results Social History [...] Description 01/23/2025 2:20 PM CDT Office Visit [facility] [address] [place] [phone] Regina Camilo, [facility] [address] [place], [place] [phone] 02/27/2025 2:00 PM SUPERVISOR BLAST FURNACE Office Visit [facility] [address] [place] [phone] Jerardo Valenzuela MD 3 [facility] [address] [place] [address] 10/01/2025 10:00 AM CDT Appointment [facility] [address] [place] [address] Albino Wilburn MD Three [facility]. [address] [place] [address] documented as of this encounter Visit Diagnoses Not on filedocumented in this encounter Additional Health Concerns Infection Onset Date Last Indicated Resolved Time COVID-19 Rule Out 04/14/2023 04/14/2023 04/14/2023 7:19 AM SUPERVISOR BLAST FURNACE Influenza - Seasonal 04/14/2023 04/14/2023 024 12:33 AM SUPERVISOR BLAST FURNACE COVID-19 Rule Out 04/14/2023 04/14/2023 04/14/2023 11:18 AM SUPERVISOR BLAST FURNACE COVID-19 Rule Out 07/19/2023 07/19/2023 07/19/2023 10:33 AM CDT COVID-19 Rule Out 12/15/2023 12/15/2023 12/15/2023 4:19 PM CDT Assessment Noted Time PHQ-9 Depression Total Score: 0 07/09/19 2:46 PM CDT documented as of this encounter Care Teams Laborer Concrete Plant Relationship Specialty Start Date End Date Ivania Coates NP [address] [place] [address] PCP - General NURSE PRACTITIONER 06/24/21 06/16/22 Regina Camilo, WEB RETAILER- [address] [place] [address] PCP - General Nurse Practitioner Family 06/17/22 documented as of this encounter
--- OUTSIDE RECORDS SUMMARY | 2024-11-16 00:25 | XMS_ITS | Clinical Summary ---
Author Organization [facility] Address [address] [place] [address] Care Team Providers Care Banquet Waiter/Waitress Name Role Phone LucyRegina black Elie [facility] Primary Care Provid er Allergies Active Allergy Reactions Criticality Noted Date Comments Lisinopril Shortness of Breath High 02/21/2014 Medications aspirin 81 MG chewable tablet Chew by mouth daily. 6 Active vitamin C (ASCORBIC ACID) 500 MG tablet Take by mouth daily. 5 Active Multiple Vitamin ([facility] DAILY MULTIPLE) Tab Take by mouth daily. 7 Active Calcium Carb-Cholecalcifero l (CALCIUM CARBONATE-VITAMIN D3) [...] twice daily 180 tablet 3 4 Active ondansetron (ZOFRAN-ODT) 4 MG disintegrating tablet Take 1 tablet (4 mg total) by mouth every 8 (eight) hours as needed for Nausea. 20 tablet 5 Active losartan (COZAAR) 50 MG tabletIndications:E ssential hypertension Take 1 tablet (50 mg total) by mouth daily. 90 tablet 1 5 Active atorvastatin (LIPITOR) 10 MG tabletIndications:O ther hyperlipidemia Take 1 tablet (10 mg total) by mouth nightly at bedtime. at bedtime 90 tablet 5 Active hydroCHLOROthiazide (MICROZIDE) 12.5 MG capsuleIndications: HTN (hypertension) Take 1 capsule (12.5 mg total) by mouth daily. 90 capsule 5 Active hydroCHLOROthiazide (MICROZIDE) 12.5 MG capsuleIndications: Essential hypertension Take 1 capsule (12.5 mg total) by mouth daily. 90 capsule 1 5 025 Discontin ued(Reord er) atorvastatin (LIPITOR) 10 MG tabletIndications:O ther hyperlipidemia Take 1 tablet (10 mg total) by mouth nightly at bedtime. at bedtime 90 tablet 1 5 025 Discontin ued(Reord er) Active Problems Problem Noted Date Diagnosed Date Carotid stenosis, right 09/13/2024 Aortic valve sclerosis 02/17/2022 Coronary stent patent 02/13/2022 ETD (Eustachian tube dysfunction), bilateral 11/2021 Sensorineural hearing loss (SNHL) of both ears 0 05/27/2021 Tinnitus of both ears 05/27/2021 S/P gastric bypass 04/17/2019 Coronary artery disease of n ative artery of [place] heart with stable angina pectoris 12/22/2016 Overview [...] Mild intermittent asthma wit h acute exacerbation ([facility]) 12/22/2016 02/19/2021 Overview (06/13/2018): off meds no treatment Obstructive sleep apnea 12/22/201606/2020 Other depressive disorder 12/22/2016 Overview (06/13/2018): doing well on small dose of lexapro off meds Other obesity due to excess calories 12/22/2016 11/30/2019 Overview (06/13/2018): bmi 38 cardiac rehab needs to lose Benign paroxysmal positional vertigo 05/29/2013 07/29/2024 Overview (06/13/2018): occasional bpv Encounters Date Type Department Care Team Description 10/19/2024 Telephone [facility] [address] [address] Albino Penaloza MD Information ([facility]-Pre-Test/A nesthisia) 10/03/2024 Orders Only [facility] [place] [address] [place] [address] Albino Penaloza MD 10/03/2024 Telephone [facility] [place] [facility], [address] [address] Albino Penaloza MD Results (CAROTID DUPLEX STUDY) 09/26/2024 Scan HEALTH INFO SRVCS Scanned, Doc Med Group CT (SCAN) 09/19/2024 1:58 PM CDT - 09/19/2024 11:59 PM CDT Hospital Encounter [facility] Ultrasound [address] [place] [address] Albino Penaloza MD Discharge Disposition: Home or Self Care (Routine Discharge) 09/19/2024 Travel 09/13/2024 9:00 AM CDT [facility] [address] [place] [phone] Albino Penaloza MD Carotid Stenosis 09/13/2024 Orders Only [facility], [address] [address] Albino Penaloza MD 09/05/2024 Telephone [facility] [address] [address] Jerardo Valenzuela MD Results 08/30/2024 Scan HEALTH INFO SRVCS Scanned, Doc [facility] Image (SCAN) 08/27/2024 6:32 PM CDT - 08/27/2024 9:00 PM CDT Emergency [facility] Emergency Room [address] [place] [address] Fletcher Gonzalez MD Dizziness Discharge Disposition: Home or Self Care (Routine Discharge) 08/27/2024 Travel from Last 3 Months Immunizations Immunization Administration [...] Sign Reading Time Taken Comments Blood Pressure 128/76 09/13/2024 9:14 AM CDT Pulse 54 09/13/2024 9:14 AM CDT Temperature 36.3 C (97.4 F) 08/27/2024 8:45 PM CDT Respiratory Rate 23 08/27/2024 8:45 PM CDT Oxygen Saturation 94% 08/27/2024 8:45 PM CDT Inhaled Oxygen Concentration - - Weight 91.6 kg (202 lb) 09/13/2024 9:14 AM CDT Height 172.7 cm (5' 8) 09/13/2024 9:14 AM CDT Body Mass Index 30.71 09/13/2024 9:14 AM CDT Plan of Treatment Upcoming Encounters Date Type Department Care Team (Late st Contact Info) Description 01/23/2025 2:20 PM CDT Office Visit [facility] [address] [place] [address] [facility] [address] [place], [place] [phone] 02/27/2025 2:00 PM [employer] TENDER Office Visit [facility] [address] [place] [phone] Jerardo Valenzuela MD 3 [facility] [address] [place] [phone] 10/01/2025 10:00 AM CDT Appointment [facility] Ultrasound [address] [place], [place] [id number] Albino Penaloza MD Three [facility]. [address] [place] [phone] Health Maintenance Due Date Last Done Comments Hepatitis C 07/02/1979 RSV Immunization or 60+ Years (1 - Risk 60-74 years 1-dose series) 2021 Pneumococcal Vaccine: 50+ Years (3 of 3 - PCV20 or PCV21) 06/13/2023 06/13/2018, 02/21/2014, 03/29/2010 COVID-19 Vaccine (3 - season) 2023 07/18/2020, 06/20/2020 PHQ-2 (Physician Telferner) 04/19/2024 12/15/2023 Annual Physical 01/26/2025 01/27/2024, 12/2022, [...] Procedure Name Priority Date/Time Associated Diagnosis Comments CT GENERIC 09/26/2024 USV CAROTID DUPLEX CANDIDO Routine 2:32 PM CDT Carotid stenosis, bilateral IMAGE GENERIC 08/30/2024 CTA HEAD+NECK STAT 08/27/2024 7:47 PM CDT MAGNESIUM STAT 08/27/2024 6:50 PM CDT CK (CPK) STAT 08/27/2024 6:50 PM CDT TROPONIN, QUANT STAT 08/27/2024 6:50 PM CDT COMPREHENSIVE METABOLIC PANEL STAT 08/27/2024 6:50 PM CDT CBC W/DIFF AUTOMATED STAT 08/27/2024 6:50 PM CDT ECG 12-LEAD Routine 08/27/2024 6:36 PM CDT COLONOSCOPY GENERIC (SCAN ORDER) 09/01/2021 from Last 3 Months or Most Recently Relevant to Health Maintenance Results * CT GENERIC (09/26/2024) Anatomical Region Laterality Modality Other 09/26/2024 us Doc [facility] Scanned SCANNING Final Resu lt * USV CAROTID DUPLEX CANDIDO (09/19/2024 2:32 PM CDT) Anatomical Region Laterality Modality Neck Ultrasound 09/22/2024 4:00 PM CDT Impressions 09/22/2024 4:14 PM CDT IMPRESSION: 1. No evidence of hemodynamically significant stenosis.. 2. Moderate calcified plaque within the proximal right internal carotid artery with mild advancement since prior ultrasound. Approximately 50% stenosis within the proximal right internal carotid artery. Correlates with recent CTA. Continued follow-up would be of benefit. Ordered By: ALBINO PENALOZA Interpreted By: Stepan Gonzalez, 09/22/2024 4:00 PM Narrative 09/22/2024 4:14 PM CDT [facility] [address] [place] [id number] IMAGING STUDIES:USV CAROTID DUPLEX CANDIDO DATE: 09/19/2024 2:04 PM INDICATION: EVAL CAROTID STENOSIS . COMPARISON: 02/20/2014. CTA of the neck of 08/27/2024. TECHNIQUE: Examination performed by bi developer using grayscale with color flow and spectral Doppler. Selected images submitted for interpretation. Worksheet completed. FINDINGS: RIGHT CAROTID BIFURCATION: Peak systolic velocities (cm/s) CCA 59, ICA 108, ECA 102, ICA/CCA 0.92. Prior measurement of 0.62. Moderate calcified plaque within the proximal right internal carotid artery. There is no evidence to suggest the presence of a hemodynamically significant stenosis within the proximal right internal carotid artery or carotid bulb. Approximate 50% stenosis within the proximal right internal carotid artery.. LEFT CAROTID BIFURCATION: Peak systolic velocities (cm/s) CCA 72, ICA 97, ECA 117, ICA/CCA 0.79. Prior measurement of 1.08. Mild plaque formation. There is no evidence to suggest the presence of a hemodynamically significant stenosis within the proximal left internal carotid artery or carotid bulb. (less than 50% diameter stenosis). VERTEBRAL ARTERIES: Antegrade flow present in both vertebral arteries. Stenoses evaluated using criteria similar to NASCET. Procedure Note Robert Gonzalez MD - 09/22/2024 [facility] [address] [place] [address] IMAGING STUDIES:USV CAROTID DUPLEX BILDATE: 09/19/2024 2:04 PM INDICATION: EVAL CAROTID STENOSIS . COMPARISON: 02/20/2014. CTA of the neck of 08/27/2024. TECHNIQUE: Examination performed by bi developer using grayscale withcolor flow and spectral Doppler. Selected images submitted forinterpretation. Worksheet completed. FINDINGS: RIGHT CAROTID BIFURCATION: Peak systolic velocities (cm/s) CCA 59, ICA 108, ECA 102, ICA/CCA0.92. Prior measurement of 0.62. Moderate calcified plaque within the proximal right internal carotidartery. There is no evidence to suggest the presence of a hemodynamicallysignificant stenosis within the proximal right internal carotid artery orcarotid bulb. Approximate 50% stenosis within the proximal right internalcarotid artery.. LEFT CAROTID BIFURCATION: Peak systolic velocities (cm/s) CCA 72, ICA 97, ECA 117, ICA/CCA 0.79.Prior measurement of 1.08. Mild plaque formation. There is no evidence to suggest the presence of a hemodynamicallysignificant stenosis within the proximal left internal carotid artery orcarotid bulb. (less than 50% diameter stenosis). VERTEBRAL ARTERIES: Antegrade flow present in both vertebral arteries. Stenoses evaluated using criteria similar to NASCET. IMPRESSION: 1. No evidence of hemodynamically significant stenosis.. 2. Moderate calcified plaque within the proximal right internal carotidartery with mild advancement since prior ultrasound. Approximately 50%stenosis within the proximal right internal carotid artery. Correlateswith recent CTA. Continued follow-up would be of benefit. Ordered By: ALBINO PENALOZA Interpreted By: Stepan Gonzalez, 09/22/2024 4:00 PM Albino Penaloza MD [facility] Final Result * IMAGE GENERIC (08/30/2024) Anatomical Region Laterality Modality Other 08/30/2024 us Doc [facility] Scanned SCANNING Final Resu lt * CTA HEAD+NECK (08/27/2024 7:47 PM CDT) [...] 7:56 PM Narrative 08/27/2024 8:08 PM CDT [facility] [address] [place] [address] INDICATION: Persistent dizziness, concern for posterior stroke [...] Procedure Note Jordi Hernandez MD - 08/27/2024 [facility] [address] [facility] [address] [place] [phone] INDICATION: Persistent dizziness, concern for posterior stroke [...] Jordi Hernandez MD, 08/27/2024 7:56 PM Fletcher oGnzalez MD CT Final Result * (ABNORMAL) COMPREHENSIVE METABOLIC PANEL (08/27/2024 6:50 PM CDT) GLUCOSE 127(H) 70 - 99 MG/DL 08/27/2024 7:[address] [facility] BUN 17 7 - 18 MG/DL 08/27/2024 7:[address] [facility] CREATININE S/P/B 0.96 0.7 - 1.3 MG/DL 08/27/2024 7:[address] [facility] SODIUM S/P/B 142 136 - 145 MMOL/L 08/27/2024 7:[address] [facility] POTASSIUM S/P/B 3.3(L) 3.5 - 5.1 MMOL/L 08/27/2024 7:27 PM [facility] CHLORIDE S/P/B 104 100 - 108 MMOL/L 08/27/2024 7:27 PM [facility] CO2 28.4 21 - 32 MMOL/L 08/27/2024 7:27 PM [facility] CALCIUM S/P/B 9.2 8.5 - 10.1 MG/DL 08/27/2024 7:27 PM [facility] BILIRUBIN TOTAL S/P/B 0.7 0.2 - 1.2 MG/DL 08/27/2024 7:27 PM [facility] TOTAL PROTEIN S/P/B 6.8 6.4 - 8.2 G/DL 08/27/2024 7:27 PM [facility] ALBUMIN S/P/B 3.8 3.4 - 5.0 G/DL 08/27/2024 7:27 PM [facility] AST 16 15 - 37 U/L 08/27/2024 7:27 PM [facility] ALT 17 16 - 60 U/L 08/27/2024 7:27 PM [facility] ALKALINE PHOSPHATASE S/P/B 120 50 - 136 U/L 08/27/2024 7:27 PM [facility] ANION GAP 9.6 5 - 15 MMOL/L 08/27/2024 7:27 PM [facility] BUN CREATININE RATIO 17.7 6 - 26 08/27/2024 7:27 PM [facility] A/G RATIO 1.3 1.0 - 2.0 RATIO 08/27/2024 7:27 PM [facility] GFR ESTIMATE 89(L) >90 ML/MIN/1.7 3 M2 08/27/2024 7:[address] [facility] Comment: NOTE: eGFR is not calculated for patients <18 years of age. This is an estimated GFR calculation using the new CKD EPI creatinine equation without race and so does not require a correction factor for race. This estimated GFR should not be used for calculating drug doses. 08/27/2024 6:50 PM CDT Fletcher Gonzalez MD LABORATORY Final Result [facility] [address] [place] [address], * CBC W/DIFF AUTOMATED (08/27/2024 6:50 PM CDT) WBC 5.84 4.4 - 11.0 x10'3/uL 08/27/2024 7:[address] [facility] RBC 4.81 4.50 - 5.90 x10'6/uL 08/27/2024 7:[address] [facility] HGB 14.4 14.0 - 17.5 G/DL 08/27/2024 7:[address] [facility] HCT 42.0 41.5 - 50.4 % 08/27/2024 7:[address] [facility] MCV 87.3 80.0 - 96.0 FL 08/27/2024 7:[address] [facility] MCH 29.9 26.5 - 31.4 PG 08/27/2024 7:[address] [facility] MCHC 34.3 31.9 - 34.8 G/DL 08/27/2024 7:[address] [facility] RDW 12.3 12.3 - 14.3 % 08/27/2024 7:[address] [facility] PLT 168 151 - 353 x10'3/uL 08/27/2024 7:[address] [facility] MPV 10.4 9.7 - 11.9 FL 08/27/2024 7:[address] [facility] RBC MORPHOLOGY NORMAL 08/27/2024 7:[address] [facility] PLT MORPH. NORMAL 08/27/2024 7:[address] [facility] WBC MORPHOLOGY NORMAL 08/27/2024 7:[address] [facility] LYMPHOCYTES % 22.8 15.8 - 45.0 % 08/27/2024 7:[address] [facility] NEUTROPHILS % 68.5 42.1 - 71.9 % 08/27/2024 7:[address] [facility] MONOCYTES % 6.0 5.7 - 12.5 % 08/27/2024 7:[address] [facility] EOSINOPHILS 2.2 0.0 - 5.6 % 08/27/2024 7:[address] [facility] BASOPHILS 0.3 0.0 - 1.3 % 08/27/2024 7:[address] [facility] ABS. NEUTROPHILS 4.00 1.40 - 6.00 x10'3/uL 08/27/2024 7:[address] [facility] IMMATURE GRANS % 0.2 0.0 - 0.5 % 08/27/2024 7:[address] [facility] ABS. LYMPHOCYTES 1.33 0.80 - 4.70 x10'3/uL 08/27/2024 7:[address] [facility] 08/27/2024 6:50 PM CDT us Fletcher Gonzalez MD LABORATORY Final Result Performing Organization Address [facility]/ZIP Co de Phone Number [facility] [address] [place] [address], [place] [phone] * TROPONIN, QUANT (08/27/2024 6:50 PM CDT) TROPONIN I HIGH SENSITIVITY 6 0 - 75 ng/L 08/27/2024 7:[address] [facility] Comment: HIGH DOSES OF BIOTIN, TROPONIN-SPECIFIC AUTOANTIBODIES, AND ANTIBODY THERAPY CONTAINING HAMA MAY INTERFERE WITH THIS TEST RESULT. CORRELATION TO CLINICAL HISTORY AND PRESENTATION RECOMMENDED. 08/27/2024 6:50 PM CDT us Fletcher Gonzalez MD LABORATORY Final Result Performing Organization Address [facility] Co de Phone Number [facility] [address] [place] [address], [place] [phone] * MAGNESIUM (08/27/2024 6:50 PM CDT) Pathologist [facility] MAGNESIUM 2.1 1.8 - 2.4 MG/DL 08/27/2024 7:[address] [facility] 08/27/2024 6:50 PM CDT us Fletcher Gonzalez MD LABORATORY Final Result Performing Organization Address City/[facility]/ZIP Co de Phone Number [facility] [address] [place] [address], [place] [phone] * CK (CPK) (08/27/2024 6:50 PM CDT) CPK 64 39 - 308 U/L 08/27/2024 7:[address] [facility] 08/27/2024 6:50 PM CDT Fletcher Gonzalez MD LABORATORY Final Result [facility] [address] [place] [address], [place] [phone] * ECG 12 lead (08/27/2024 6:36 PM CDT) 08/27/2024 6:36 PM CDT Narrative [facility] RAD - 08/29/2024 7:06 AM CDT [facility] Test Date: 2024-08-27 Pat Name: HERNAN YODER Department: 85 Room: EXAM 101 Gender: Male Riddler Operator: : 1960 Requested By: FLETCHER GONZALEZ Order Number: [id number] Reading MD: Melisa Whyte Measurements Intervals Ewen Rate: 56 P: 39 NH: 172 QRS: 21 QRSD: 146 T: -11 QT: 419 QTc: 407 Interpretive Statements SINUS BRADYCARDIA WITH OCCASIONAL SUPRAVENTRICULAR PREMATURE COMPLEXES RIGHT BUNDLE BRANCH BLOCK [120+ ms QRS DURATION, UPRIGHT V1, 40+ ms S IN I/aVL/V4/V5/V6] Compared to ECG 06/15/2022 08:35:01 No significant changes Procedure Note Melisa Whyte MD - 08/29/2024 [facility] Test Date: 2024-08-27 Pat Name: HERNAN YODER Department: 85 Room: EXAM 101 Gender: Male Riddler Operator: : 1960 Requested By: FLETCHER GONZALEZ Order Number: [id number] Reading MD: Melisa Whyte Measurements Intervals Ewen Rate: 56 P: 39 NH: 172 QRS: 21 QRSD: 146 T: -11 QT: 419 QTc: 407 Interpretive Statements SINUS BRADYCARDIA WITH OCCASIONAL SUPRAVENTRICULAR PREMATURE COMPLEXES RIGHT BUNDLE BRANCH BLOCK [120+ ms QRS DURATION, UPRIGHT V1, 40+ ms SIN I/aVL/V4/V5/V6] Compared to ECG 06/15/2022 08:35:01 No significant changes us Fletcher Gonzalez MD ECG ORDERABLES Final Result [facility] RAD * COLONOSCOPY GENERIC (09/01/2021) 09/01/2021 Narrative 09/01/2021 Ordered by an unspecified provider. us Documents Scanned SCANNING Final Result from Last 3 Months or Most Recently Relevant to Health Maintenance Insurance R Advance Directives * Full Code (Latest Code Status on File) Date Activated Date Inactivated Comments 06/15/2022 10:28 AM 06/15/2022 5:12 PM Care Teams Banquet Waiter/Waitress Relationship Specialty Start Date End Date Regnia Camilo FNP-DANIELA [address] [place] [address] PCP - General Nurse Practitioner Family 06/17/22
--- OUTSIDE RECORDS SUMMARY | 2024-11-16 00:25 | XMS_ITS | Encounter Summary ---
Author Organization [facility] Address [address] [place] [address] Care Team Providers Care Psychiatric Cns Name Role Phone Ashley Gandhi MD Primary Care Provider [phone] Encounter Details Date Type Department Care Team (Late st Contact Info) Description 02/07/2019 Abstract [facility] Non Integrated Provider [address] [place] [address] [place] [address] [place] [address] [place] [address] Social History Tobacco Use Types [...] on filedocumented in this encounter Care Teams Psychiatric Cns Relationship Specialty Start Date End Date Ashley Gandhi MD [address] [place] [phone] PCP - General Internal Medicine 01/31/19 documented as of this encounter
--- OUTSIDE RECORDS SUMMARY | 2024-11-16 00:25 | XMS_ITS | Encounter Summary ---
Author Organization [facility] Address [address] [place] [address] Care Team Providers Care Engineering Document Control Clerk Name Role Phone Ashley Gandhi MD Primary Care Provider Un available Jordi Deng MD Primary Care Provider Unavailable Ashley Gandhi MD Primary Care Provider Un available Jordi Marcus MD Primary Care Provider Jovanna vailable Ivania Coates PIANO MAKER Primary Care Provider [phone] Regina Camilo Primary Care Provid er Encounter Details Date Type Department Care Team (Late st Contact Info) Description 06/26/[address] [facility] Conversion , Generic Conversion, Social [...] Description 01/23/2025 2:20 PM CDT Office Visit [address] [address] Regina Camilo FNP-DANIELA [address] [place] [address] 02/27/2025 2:00 PM TOOL CHASER Office Visit [facility] [address] [place] [phone] Jerardo Valenzuela MD [address] [facility] [place] [address] [place] [address] 10/01/2025 10:00 AM CDT Appointment [facility] [address] [facility] [place] [address] Albino Wilburn MD [address] [place] [address] documented as of this encounter Visit Diagnoses Not on filedocumented in this encounter Additional Health Concerns Infection Onset Date Last Indicated Resolved Time COVID-19 Rule Out 04/14/2023 04/14/2023 04/14/2023 7:19 AM TOOL CHASER Influenza - Seasonal 04/14/2023 04/14/2023 024 12:33 AM TOOL CHASER COVID-19 Rule Out 04/14/2023 04/14/2023 04/14/2023 11:18 AM TOOL CHASER COVID-19 Rule Out 07/19/2023 07/19/2023 07/19/2023 10:33 AM CDT COVID-19 Rule Out 12/15/2023 12/15/2023 12/15/2023 4:19 PM CDT documented as of this encounter Care Teams Engineering Document Control Clerk Relationship Specialty Start Date End Date Ashley Gandhi MD PCP - General INTERNAL MEDICINE 04/22/18 06/05/18 Jordi Deng MD PCP - General FAMILY PRACTICE 06/06/18 06/12/18 Ashley Gandhi MD PCP - General INTERNAL MEDICINE 06/13/18 05/14/20 Jordi Marcus MD PCP - General FAMILY PRACTICE 05/15/20 06/23/21 Ivania Coates NP [address] [place] [address] PCP - General NURSE PRACTITIONER 06/24/21 06/16/22 Regina Camilo, [facility]- [address] [place] [address] PCP - General Nurse Practitioner Family 06/17/22 documented as of this encounter
--- OUTSIDE RECORDS SUMMARY | 2024-11-16 00:25 | XMS_ITS | Encounter Summary ---
Author Organization [facility] Address [address] [place] [address] Care Team Providers Care Biomed Tech Name Role Phone Ivania Coates NP Primary Care Provider [phone] Regina Camilo- Primary Care Provid er Encounter Details Date Type Department Care Team (Late st Contact Info) Description 04/10/2022 Abstract [facility] [address] Jet Gomez MA Social History Tobacco Use [...] Coronavirus/COVID-19? No / Unsure 03/31/2022 11:29 AM ELECTRONIC SALES AND SERVICE TECHNICIAN documented as of this encounter Plan of Treatment Upcoming Encounters Date Type Department Care Team (Late st Contact Info) Description 01/23/2025 2:20 PM CDT Office Visit [facility] [address] [place] [phone] Regina Camilo, [facility] [address] [place], [place] [phone] 02/27/2025 2:00 PM ELECTRONIC SALES AND SERVICE TECHNICIAN Office Visit [facility] [address] [place] [phone] Jerardo Valenzuela MD 3 [facility] [place] [address] [place] [phone] 10/01/2025 10:00 AM CDT Appointment [facility] [address] [place] [address] Albino Wilburn MD [address] [place] [phone] documented as of this encounter Procedures Procedure Name Priority Date/Time Associated Diagnosis Comments FOLATE (OUTSIDE LAB) Routine 02/20/2022 CBC (OUTSIDE LAB) Routine 02/20/2022 VITAMIN B-12 Routine 02/20/2022 COMPREHENSIVE METABOLIC PANEL Routine 02/20/2022 LIPID PANEL Routine 02/20/2022 MAGNESIUM Routine 02/20/2022 documented in this encounter Results * CBC (OUTSIDE LAB) (02/20/2022) Pathologist [facility] WBC 4.6 HGB 15.3 HCT 45.2 PLT 140 02/20/2022 us Default History Genericprovider LAB-OUTSIDE/ABST RACTED Final Result * MAGNESIUM (02/20/2022) Pathologist [facility] MAGNESIUM 2.4 02/20/2022 us Default History Genericprovider LABORATORY Final Result * LIPID PANEL (02/20/2022) Pathologist [facility] CHOLESTEROL 130 HDL 53 TRIGLYCERIDES 63 NON HDL CHOLESTEROL 77 LDL (CALCULATED) 63 02/20/2022 Default History Genericprovider LABORATORY Final Result [...] Rule Out 04/14/2023 04/14/2023 04/14/2023 7:19 AM ELECTRONIC SALES AND SERVICE TECHNICIAN Influenza - Seasonal 04/14/2023 04/14/2023 024 12:33 AM ELECTRONIC SALES AND SERVICE TECHNICIAN COVID-19 Rule Out 04/14/2023 04/14/2023 04/14/2023 11:18 AM ELECTRONIC SALES AND SERVICE TECHNICIAN COVID-19 Rule Out 07/19/2023 07/19/2023 07/19/2023 10:33 AM CDT COVID-19 Rule Out 12/15/2023 12/15/2023 12/15/2023 4:19 PM CDT Assessment Noted Time PHQ-9 Depression Total Score: 0 07/09/19 2:46 PM CDT documented as of this encounter Care Teams Biomed Tech Relationship Specialty Start Date End Date Ivania Coates NP [address] [place] [address] PCP - General NURSE PRACTITIONER 06/24/21 06/16/22 Regina Camilo FNP- [address] [place] [address] PCP - General Nurse Practitioner Family 06/17/22 documented as of this encounter
--- OUTSIDE RECORDS SUMMARY | 2024-11-16 00:25 | XMS_ITS | Clinical Summary ---
Author Organization [facility] Address [address] [place] [address] Care Team Providers Care Drier Take Off Tender Name Role Phone Jordi Marcus MD Primary [...] on file Legal Sex Male 3:32 AM INNOVATION MANAGER Gender Identity Male 09/06/2019 6:23 AM CDT Sexual Orientation Choose not to disclose 2019 6:23 AM CDT Obstetrics History Last Filed Vital Signs Vital Sign Reading Time Taken Comments Blood Pressure 110/78 09/26/2020 2:31 PM CDT Pulse 64 09/26/2020 2:31 PM CDT Temperature 36.7 C (98.1 F) 05/26/2021 1:49 PM INNOVATION MANAGER Respiratory Rate 18 09/26/2020 2:31 PM CDT Oxygen Saturation 98% 09/26/2020 2:31 PM CDT Inhaled Oxygen Concentration - - Weight 79.4 kg (175 lb) 05/26/2021 1:49 PM INNOVATION MANAGER Height 172.7 cm (5' 8) 05/26/2021 1:49 PM INNOVATION MANAGER Body Mass Index 26.61 05/26/2021 1:49 PM INNOVATION MANAGER Plan of Treatment Not on file [facility]PPO Address: [facility] [id number] [place] [id number] [facility] Care Teams Drier Take Off Tender Relationship Specialty Start Date End Date Jordi Marcus MD [address] [place] [address] PCP - General Family Medicine 07/04/20
--- OUTSIDE RECORDS SUMMARY | 2024-11-16 00:25 | XMS_ITS | Encounter Summary ---
Author Organization [facility] Address [address] [place] [address] Care Team Providers Care Hotel Attendant Name Role Phone Jordi Marcus MD Primary Care Provider Jovanna Ivania Perdomo NP Primary Care Provider [phone] [facility] Primary Care Provid er Encounter Details Date Type Department Care Team (Late st Contact Info) Description 06/23/20[address] [place] [address] [phone] [facility] Provider stent Social History Tobacco Use [...] Coronavirus/COVID-19? No / Unsure 06/20/2021 1:43 PM RN CLINICAL COORDINATOR documented as of this encounter Plan of Treatment Upcoming Encounters Date Type Department Care Team (Late st Contact Info) Description 01/23/2025 2:20 PM CDT Office Visit [facility] [address] [place] [phone] Regina Camilo, [facility] [address] [place] [address] 02/27/2025 2:00 PM RN CLINICAL COORDINATOR Office Visit [facility] [address] [place] [address] Jerardo Valenzuela MD 3 [facility] [place] [address] [place] [phone] 10/01/2025 10:00 AM CDT Appointment [facility] [address] [place], [place] [phone] Albino Wilburn MD Three [facility] [address] [place] [phone] documented as of this encounter Visit Diagnoses Not on filedocumented in this encounter Additional Health Concerns Infection Onset Date Last Indicated Resolved Time COVID-19 Rule Out 04/14/2023 04/14/2023 04/14/2023 7:19 AM RN CLINICAL COORDINATOR Influenza - Seasonal 04/14/2023 04/14/2023 024 12:33 AM RN CLINICAL COORDINATOR COVID-19 Rule Out 04/14/2023 04/14/2023 04/14/2023 11:18 AM RN CLINICAL COORDINATOR COVID-19 Rule Out 07/19/2023 07/19/2023 07/19/2023 10:33 AM CDT COVID-19 Rule Out 12/15/2023 12/15/2023 12/15/2023 4:19 PM CDT Assessment Noted Time PHQ-9 Depression Total Score: 0 06/21/19 1:49 PM RN CLINICAL COORDINATOR documented as of this encounter Care Teams Hotel Attendant Relationship Specialty Start Date End Date Jordi Marcus MD PCP - General FAMILY PRACTICE 05/15/20 06/23/21 Ivania Coates, [facility] [address] [place] [address] PCP - General NURSE PRACTITIONER 06/24/21 06/16/22 Regina Camilo FNP- [address] [place] [address] PCP - General Nurse Practitioner Family 06/17/22 documented as of this encounter
--- OUTSIDE RECORDS SUMMARY | 2024-11-16 00:25 | XMS_ITS | Encounter Summary ---
Author Organization [facility] Address [address] [place] [address] Care Team Providers Care Relationship Advisor Name Role Phone Ivania Coates NP Primary Care Provider [phone] [facility] Primary Care Provid er Encounter Details Date Type Department Care Team (Late st Contact Info) Description 07/30/2021 [employer] Message [facility] [address] [place] [address] Ivania Coates NP [address] [place] [address] GENEVIEVE Social History Tobacco Use [...] Description 01/23/2025 2:20 PM CDT Office Visit [facility] [address] [place] [phone] [facility] [address] [place], [place] [phone] 02/27/2025 2:00 PM LANDSCAPE TECHNICIAN Office Visit [facility] [address] [place] [phone] Jerardo Valenzuela MD 3 [facility] [place] [address] [place] [phone] 10/01/2025 10:00 AM CDT Appointment [facility] [address] [place], [place] [phone] Albino Wilburn MD Three [facility]. [address] [place] [phone] documented as of this encounter Visit Diagnoses Not on filedocumented in this encounter Additional Health Concerns Infection Onset Date Last Indicated Resolved Time COVID-19 Rule Out 04/14/2023 04/14/2023 04/14/2023 7:19 AM LANDSCAPE TECHNICIAN Influenza - Seasonal 04/14/2023 04/14/2023 024 12:33 AM LANDSCAPE TECHNICIAN COVID-19 Rule Out 04/14/2023 04/14/2023 04/14/2023 11:18 AM LANDSCAPE TECHNICIAN COVID-19 Rule Out 07/19/2023 07/19/2023 07/19/2023 10:33 AM CDT COVID-19 Rule Out 12/15/2023 12/15/2023 12/15/2023 4:19 PM CDT Assessment Noted Time PHQ-9 Depression Total Score: 0 07/09/19 2:46 PM CDT documented as of this encounter Care Teams Relationship Advisor Relationship Specialty Start Date End Date Ivania Coates NP [address] [place] [address] PCP - General NURSE PRACTITIONER 06/24/21 06/16/22 Regina Camilo FNP- [address] [place] [address] PCP - General Nurse Practitioner Family 06/17/22 documented as of this encounter
--- OUTSIDE RECORDS SUMMARY | 2024-11-16 00:25 | XMS_ITS | Referral Summary ---
Author Organization [facility] Address [address] [place] [address] Care Team Providers Care Director Religious Education Name Role Phone Jordi Marcus MD Primary [...] on file Legal Sex Male 3:32 AM FREIGHT LOADING SUPERVISOR Gender Identity Male 09/06/2019 6:23 AM CDT Sexual Orientation Choose not to disclose 2019 6:23 AM CDT Last Filed Vital Signs Vital Sign Reading Time Taken Comments Blood Pressure 110/78 09/26/2020 2:31 PM CDT Pulse 64 09/26/2020 2:31 PM CDT Temperature 36.7 C (98.1 F) 05/26/2021 1:49 PM FREIGHT LOADING SUPERVISOR Respiratory Rate 18 09/26/2020 2:31 PM CDT Oxygen Saturation 98% 09/26/2020 2:31 PM CDT Inhaled Oxygen Concentration - - Weight 79.4 kg (175 lb) 05/26/2021 1:49 PM FREIGHT LOADING SUPERVISOR Height 172.7 cm (5' 8) 05/26/2021 1:49 PM FREIGHT LOADING SUPERVISOR Body Mass Index 26.61 05/26/2021 1:49 PM FREIGHT LOADING SUPERVISOR Plan of Treatment Not on file Insurance [facility] MEDIC[facility] Member Subscriber Plan / Payer (Ef fective 2023-Present) Name:Hernan Landis Relation to Subscriber:Self Name:Hernan Landis Payer ID:[id number] (NAIC) Type:[employer] Address: [id number] [place] [id number] Care Teams Director Religious Education Relationship Specialty Start Date End Date Jordi Marcus MD [address] [place] [address] PCP - General Family Medicine 07/04/20
--- OUTSIDE RECORDS SUMMARY | 2024-11-16 00:25 | XMS_ITS | Encounter Summary ---
Author Organization [facility] Address [address] [place] [address] Care Team Providers Care Director Of Software Development Name Role Phone Ashley Gandhi MD Primary Care Provider Un available Jordi Deng MD Primary Care Provider Unavailable Ashley Gandhi MD Primary Care Provider Un available Jordi Marcus MD Primary Care Provider Jovanna vailable Ivania Coates SKIN FORMER Primary Care Provider [phone] Regina Camilo Primary Care Provid er Encounter Details Date Type Department Care Team (Late st Contact Info) Description 03/16/2000 Abstract [facility] Conversion , Generic Conversion, Social [...] Description 01/23/2025 2:20 PM CDT Office Visit [address] [phone] Regina Camilo FNP-DANIELA [address] [place] [address] 02/27/2025 2:00 PM ROD DRAWER Office Visit [facility] [address] [place] [phone] Jerardo Valenzuela MD 3 [facility] [place] [address] [place] [address] 10/01/2025 10:00 AM CDT Appointment [facility] [address] [place] [address] Albino Wilburn MD [address] [place] [address] documented as of this encounter Visit Diagnoses Not on filedocumented in this encounter Additional Health Concerns Infection Onset Date Last Indicated Resolved Time COVID-19 Rule Out 04/14/2023 04/14/2023 04/14/2023 7:19 AM ROD DRAWER Influenza - Seasonal 04/14/2023 04/14/2023 024 12:33 AM ROD DRAWER COVID-19 Rule Out 04/14/2023 04/14/2023 04/14/2023 11:18 AM ROD DRAWER COVID-19 Rule Out 07/19/2023 07/19/2023 07/19/2023 10:33 AM CDT COVID-19 Rule Out 12/15/2023 12/15/2023 12/15/2023 4:19 PM CDT documented as of this encounter Care Teams Director Of Software Development Relationship Specialty Start Date End Date Ashley Gandhi MD PCP - General INTERNAL MEDICINE 04/22/18 06/05/18 Jordi Deng MD PCP - General FAMILY PRACTICE 06/06/18 06/12/18 Ashley Gandhi MD PCP - General INTERNAL MEDICINE 06/13/18 05/14/20 Jordi Marcus MD PCP - General FAMILY PRACTICE 05/15/20 06/23/21 Ivania Coates NP [address] [place] [address] PCP - General NURSE PRACTITIONER 06/24/21 06/16/22 Regina Camilo, [facility] [address] [place] [address] PCP - General Nurse Practitioner Family 06/17/22 documented as of this encounter
--- OUTSIDE RECORDS SUMMARY | 2024-11-16 00:25 | XMS_ITS | Encounter Summary ---
Author Organization [facility] Address [address] [place] [address] Care Team Providers Care Retention Manager Name Role Phone Ashley Gandhi MD Primary Care Provider Un available Jordi Deng MD Primary Care Provider Unavailable Ashley Gandhi MD Primary Care Provider Un available Jordi Marcus MD Primary Care Provider Jovanna vailable Ivania Coates [employer] COMMUNITY SERVICE OFFICER Primary Care Provider [phone] Regina Camilo Primary Care Provid er Encounter Details Date Type Department Care Team (Late st Contact Info) Description 06/06/2014 Abstract [facility] Conversion , Generic Conversion, Social [...] Description 01/23/2025 2:20 PM CDT Office Visit [address] [phone] Regina Camilo FNP-DANIELA [address] [place] [address] 02/27/2025 2:00 PM FACILITY TECHNICIAN Office Visit [facility] [address] [place] [phone] Jerardo Valenzuela MD 3 [facility] [place] [address] [place] [address] 10/01/2025 10:00 AM CDT Appointment [facility] [address] [facility] [place] [address] Albino Wilburn MD [address] [place] [address] documented as of this encounter Visit Diagnoses Not on filedocumented in this encounter Additional Health Concerns Infection Onset Date Last Indicated Resolved Time COVID-19 Rule Out 04/14/2023 04/14/2023 04/14/2023 7:19 AM FACILITY TECHNICIAN Influenza - Seasonal 04/14/2023 04/14/2023 024 12:33 AM FACILITY TECHNICIAN COVID-19 Rule Out 04/14/2023 04/14/2023 04/14/2023 11:18 AM FACILITY TECHNICIAN COVID-19 Rule Out 07/19/2023 07/19/2023 07/19/2023 10:33 AM CDT COVID-19 Rule Out 12/15/2023 12/15/2023 12/15/2023 4:19 PM CDT documented as of this encounter Care Teams Retention Manager Relationship Specialty Start Date End Date Ashley Gandhi MD PCP - General INTERNAL MEDICINE 04/22/18 06/05/18 Jordi Deng MD PCP - General FAMILY PRACTICE 06/06/18 06/12/18 Ashley Gandhi MD PCP - General INTERNAL MEDICINE 06/13/18 05/14/20 Jordi Marcus MD PCP - General FAMILY PRACTICE 05/15/20 06/23/21 Ivania Coates NP [address] [place] [address] PCP - General NURSE PRACTITIONER 06/24/21 06/16/22 Regina Camilo, [facility]- [address] [place] [address] PCP - General Nurse Practitioner Family 06/17/22 documented as of this encounter
--- NOTE | 2024-11-16 07:14 | WPDHPUPDATE1 ---
History and Physical Update Update Date/Time: 11/16/24 07:14 History and Physical has been reviewed, including an updated exam of the patient. There are NO changes in the patient's condition. Risks, benefits, and alternatives have been discussed and questions answered. Patient agrees to proceed with procedure.
[2024-11-16] MEDS: ACETAMINOPHEN 500 MG TABLET 1000 MG PO (08:05)
[2024-11-16] MEDS: TRANEXAMIC ACID 1,000MG/ISO100 1,000 MG/100 ML BAG 200 MG IVPB (08:30)
--- NOTE | 2024-11-16 09:57 | P.PNAN_ITS ---
Anes - Initial Pre Proc Eval Procedure: Operation Date: 11/16/24 10:00 Proposed Procedures p Left Custom Total Knee Arthroplasty - Catrachito Lay MD Date/Time: 11/16/24 09:57 Surgeon: Catrachito Lay MD Pre Op Diagnosis: Prim O A Left Knee Patient Data Age: 64 Gender: M Height: 1.7 m Weight: 89.5 kg Last Vital Signs Temp 36.1 C L 11/16/24 07:55 Pulse 59 L 11/16/24 07:55 Resp 18 11/16/24 07:55 BP 185/78 H 11/16/24 07:55 Pulse Ox 98 11/16/24 07:55 O2 Del Method Room Air 11/16/24 07:55 Allergies Allergy/AdvReac Type Severity Reaction Status Date / Time lisinopril AdvReac Intermediate COUGH Verified 11/16/24 08:24 Home Medications ?Medication ?Instructions ?Recorded ?Confirmed ?Type losartan 50 mg tablet 50 mg PO DAILY 05/28/21 11/16/24 History hydrochlorothiazide 12.5 mg capsule 12.5 mg PO DAILY 08/11/21 11/16/24 History ascorbate calcium (vitamin C) 500 500 mg PO DAILY 10/19/23 11/16/24 History mg tablet carvedilol 6.25 mg tablet 6.25 mg PO BID 10/19/23 11/16/24 History multivitamin (Multiple Vitamins 1 tablet PO DAILY 10/19/23 11/16/24 History tablet) fexofenadine 180 mg tablet 180 mg PO DAILY 11/12/23 11/16/24 History (Trista Hives) cyanocobalamin (vitamin B-12) 500 500 mcg PO DAILY 02/02/24 11/16/24 History mcg tablet tamsulosin 0.4 mg capsule 0.4 mg PO HS 02/02/24 11/16/24 History aspirin 81 mg tablet,delayed 81 mg PO DAILY 07/14/24 11/16/24 History release (Adult Low Dose Aspirin) atorvastatin 10 mg tablet 10 mg PO DAILY 08/02/24 11/16/24 History Laboratory Tests 11/16/24 08:13 Blood Type O Positive Antibody Screen Negative Patient hx anesthesia problems: none Family hx anesthesia problems: none Results Review: All pre-operative results and documents have been reviewed as part of the pre- operative evaluation. [facility] Past Medical History Medical History Tinnitus of both ears Sensorineural hearing loss (SNHL) of both ears ETD (eustachian tube dysfunction) bilateral Aortic valve sclerosis Coronary stent patent Benign paroxysmal positional vertigo Primary snoring 09/26/2020 PLMD (periodic limb movement disorder) 07/04/2020 Other obesity due to excess calories BMI 38 [facility] needs to lose 12/22/2016 Other hyperlipidemia 12/22/2016 NABIL on CPAP Obstructive sleep apnea 12/22/2016- Resolved Mild intermittent asthma with (acute) exacerbation 12/22/2016 Hypertension Hyperlipemia DJD (degenerative joint disease) CAD (coronary artery disease) CO/STENT 2013 Asthma Past heart attack History of high blood pressure High cholesterol Surgical History Surgical History H/O sinus surgery History of carpal tunnel release Bilateral H/O cardiac catheterization (~2013) H/O arthroscopic knee surgery (~09/2021) left knee S/P coronary artery stent placement 2013 History of right hip replacement H/O eye surgery Lasik H/O gastric sleeve (~01/2019) Family History Family History Father Heart disease Hypertension Mother Breast cancer Grandparent Hypertension Skin cancer Social History Social History Smoking status: Never smoker Additional smoking assessment comments: DENIES ANY FORM OF TOBACCO USE Alcohol intake: current Alcohol use details: 1-2 DRINKS PER MONTH Substance use: never Substance use type: does not use Do You Feel Safe in your Home?: Yes Lack of Transportation: No Lack of Food: Never True Current Housing: I Have Housing Concerned About Future Housing: No Difficulty Paying Gas/Electric Bills: No Difficulty Paying for Meds: No Currently Unemployed: No Education: High School Diploma/GED Difficulty w/ Childcare or Family Care: No Living arrangements: with family Additional living arrangements comments: SP[place] Gender identity (if verbalized by the patient): Male Spiritual care concerns: No Anes - Eval Final PreProcedure Day of Procedure 11/16/24 09:57 Patient weight: obese Heart: regular rate and rhythm Lungs: clear to auscultation Airway: Mallampati scale class II Neurological: alert and oriented Last oral intake: >/= 8 hours ASA classification: III Emergent: no Anesthetic plan: proceed Anesthesia type and monitoring: general LMA and standard monitoring Results Review: All pre-operative results and documents have been reviewed as part of the pre- operative evaluation. Informed Consent: The patient's anesthetic plan and its attendant risks and benefits were discussed with the patient/family/POA. Questions were solicited and answers provided to the satisfaction of the patient/family/POA.
[2024-11-16] MEDS: ceFAZolin 2 GM in SODIUM CHLORIDE 0.9% IV 50 ML 100 ML IVPB (10:11)
[2024-11-16] MEDS: SODIUM CHLORIDE 0.9% IV 37.7 ML, MORPHINE SULFATE INJ (*CRX) 2 MG, ROPivacaine HCL 1% 2... INFILTRATE (10:46)
[2024-11-16] MEDS: LACTATED RINGERS 1,000 ML 30 ML IV CONT (12:30)
--- NOTE | 2024-11-16 12:41 | W.PM.PROC2 ---
Procedure Note - Detailed Date of Procedure 11/16/24 Pre-op Diagnosis Left knee degenerative arthritis. Post-op Diagnosis Same Procedure Performed Custom total knee arthroplasty, left. Surgeon Catrachito Lay MD Anesthesia General Findings MCL healed well. No significant releases. Description of Procedure Preoperative antibiotics were given. The limb was prepped and draped in the usual sterile fashion with a well-padded tourniquet high on the thigh. The limb was exsanguinated and the tourniquet inflated to 300 mmHg. A longitudinal incision was created just medial to the patella. A trivector approach to the knee was performed. Arthrotomy was taken down through the joint capsule. No significant releases were initially taken. The femur was exposed and the F1 jig was applied. The coring tool was used to remove the cartilage for the F2 jig to sit flush with the bone. The jig was pinned and the distal cut carefully taken. Caliper measurements confirmed appropriate bony resections according to the preoperative templated plan. The F4 cutting jig for the femur was applied, at the standard rotation. The AP and anterior chamfer cuts were taken. The F5 jig was applied and the posterior chamfer cuts were taken. The tibia was prepared using the T1 jig, after removing cartilage for the jig contact points. Proper alignment was checked with the alignment saulo. The tibia was cut using the T1u guide. Gap balancing was performed. Gap measurements were taken and the knee was trialed. Excellent alignment and soft tissue balancing was confirmed. The posterior cruciate ligament was recessed along the proximal tibia. Lateral patellar facetectomy was performed. Meniscal remnants were removed. The trial components were assembled. Excellent range of motion and proper soft tissue balancing were confirmed throughout the full range of motion. Patellar tracking was excellent. The knee was copiously irrigated periodically throughout the procedure. The real implants were cemented into position. Excess cement was carefully removed. The wound was closed in layers with interrupted #1 Vicryl suture, 2-0 strata fix suture, 0 strata fix suture, 2-0 strata fix suture. Steri-Strips placed on the skin with the knee flexed. Sterile bulky dressing applied. The patient was brought to the recovery room in stable condition. There were no complications. Implants Conformis Custom total knee arthroplasty. Cemented. Cruciate retaining. 7B insert. Estimated Blood Loss 100 Drains No Complications No immediate complications Condition Stable Disposition PACU [facility] Billing Surgery - Charge Forward: Surgery Billing
[2024-11-16] MEDS: fentaNYL CITRATE INJ (*CRX) 100 MCG/2 ML VIAL 25 MCG IV PUSH (12:55)
--- NOTE | 2024-11-16 14:00 | ADMGEN ---
This patient, Hernan Landis, was admitted to Medical Room 252-01. Patient/family oriented to hospital policies and general routines including ID bracelet, bed and alarms, visiting hours, pain management, procedures, bathroom and other care routines, personal items, smoking policy, room service/diet, and visiting hours. Information on how to activate the Rapid Response Team has been discussed. Patient/Family are encouraged to report perceived risks to care and to ask questions if they do not understand what they are told or what they should do.
[2024-11-16] MEDS: MELOXICAM 7.5 MG TABLET PO (17:03)
[2024-11-16] MEDS: SENNA/DOCUSATE SODIUM TABLET 2 TAB PO (17:04)
[2024-11-16] MEDS: ceFAZolin 2 GM/D5W 50 ML 2 GM/50 ML BAG IVPB (17:04)
[2024-11-16] MEDS: oxyCODONE/ACETAMINOPHEN (*CRX) 5-325 MG TABLET 1 TABLET PO ×2 (18:41→23:58)
[2024-11-16] MEDS: TAMSULOSIN HCL 0.4 MG CAPSULE PO (20:29)
[2024-11-16] MEDS: LORATADINE 10 MG TABLET PO (20:30)
[2024-11-17] MEDS: ceFAZolin 2 GM/D5W 50 ML 2 GM/50 ML BAG IVPB (02:10)
[2024-11-17 04:26] VITALS: BP 118/60; PULSE 60; RESP 16; TEMP 36.8; O2SAT 97
[2024-11-17 05:18] LABS: Hematocrit 38.2 % (42.0-52.0); Hemoglobin 12.8 g/dL (14.0-18.0); Immature Granulocyte Percent A 0.2 % (0-0.5); Immature Platelet Fraction Pct 2.3 % (0.9-11.2); Lymphocytes Absolute Auto 1.02 K/mm3 (0.9-3.2); Mean Corpuscular HGB Conc 33.5 g/dl (32-36); Mean Corpuscular Hemoglobin 29.8 pg (26-34); Mean Corpuscular Volume 88.8 fl (80-100); Nucleated Red Blood Cells Absolute Auto 0.000 K/mm3 (0.0-0.012); Nucleated Red Blood Cells Perc 0.0 % (0.0-0.2); Platelet Count Result 119 k/mm3 (150-375); Red Blood Count 4.30 M/mm3 (4.6-6.20); White Blood Count 6.1 K/mm3 (4.5-10.0)
[2024-11-17 05:40] LABS: Anion Gap 2 mmol/L (4-12); Blood Urea Nitrogen 15 mg/dL (9-20); Calcium 8.0 mg/dL (8.4-10.2); Carbon Dioxide 28 mmol/L (22-30); Chloride 102 mmol/L (98-107); Estimated CRCL calculation 80 ml/min; Estimated Glomerular Filt Rate > 60; Glucose 104 mg/dL (65-110); Potassium 3.4 mmol/L (3.4-5.0); Sodium 132 mmol/L (137-145)
[2024-11-17] MEDS: oxyCODONE/ACETAMINOPHEN (*CRX) 5-325 MG TABLET 1 TABLET PO (06:14)
[2024-11-17] MEDS: ASPIRIN 81 MG ENTERIC TABLET PO (08:14)
[2024-11-17] MEDS: MELOXICAM 7.5 MG TABLET PO (08:14)
[2024-11-17] MEDS: ACETAMINOPHEN 500 MG TABLET PO (08:14)
[2024-11-17 08:15] VITALS: PULSE 88
[2024-11-17] MEDS: MULTIVITAMINS THERAPEUTIC TAB (*BKC) 1 TABLET PO (08:15)
[2024-11-17] MEDS: SENNA/DOCUSATE SODIUM TABLET 2 TAB PO (08:15)
[2024-11-17] MEDS: LOSARTAN POTASSIUM 50 MG TABLET PO (08:15)
[2024-11-17] MEDS: CYANOCOBALAMIN 500 MCG TABLET PO (08:15)
[2024-11-17] MEDS: ATORVASTATIN 10 MG TABLET PO (08:15)
== END 2024-11-17 09:50 | disposition home or self-care (01) ==
LOC: ANHSURGERY 12:39 → ANH2MED 13:44
PROVIDERS: PCP Physician Assistant Medical; Visit Provider Orthopaedic Surgery
PROC: (CPT 27447; principal; 2024-11-16 10:00)
DX: M17.12 Unilateral primary osteoarthritis, left knee (principal); I10 Essential (primary) hypertension; E78.49 Other hyperlipidemia; G47.33 Obstructive sleep apnea (adult) (pediatric); J45.909 Unspecified asthma, uncomplicated; I25.10 Atherosclerotic heart disease of native coronary artery without angina pectoris; I35.8 Other nonrheumatic aortic valve disorders; G47.61 Periodic limb movement disorder; I25.2 Old myocardial infarction; H93.13 Tinnitus, bilateral; H90.3 Sensorineural hearing loss, bilateral; M51.9 Unspecified thoracic, thoracolumbar and lumbosacral intervertebral disc disorder; E66.9 Obesity, unspecified; Z68.30 Body mass index [BMI] 30.0-30.9, adult; Z79.82 Long term (current) use of aspirin; Z99.89 Dependence on other enabling machines and devices; Z98.890 Other specified postprocedural states; Z98.84 Bariatric surgery status; Z95.5 Presence of coronary angioplasty implant and graft; Z84.0 Family history of diseases of the skin and subcutaneous tissue; Z80.3 Family history of malignant neoplasm of breast; Z82.49 Family history of ischemic heart disease and other diseases of the circulatory system
CPT/HCPCS: 27447; 36415; 73560; 80048; 85025; 85055; 86850; 86900; 86901; 97110; 97161; 97165; 97530; 97535; J0690; A9270; C1713; C1776; J0166; J1100; J1885; J2003; J2250; J2270; J2405; J2704; J2795; J3010; J7120; J7512

== ENCOUNTER 2025-01-05 14:00 | Outpatient (RCR) | payer OTHER, SELFPAY ==
--- NOTE | 2024-11-30 17:08 | PTOPEVAL1 ---
Assessment and note entered by Terri Johnson, PT Evaluation Information Assessment Status Evaluation Diagnosis Left knee total knee replacement ICD-10 Condition Codes (PT) Pain in left knee M25.562,Encounter for other orthopedic aftercare Z47.89,Aftercare following joint replacement surgery Z47.1 Other ICD-10 Condition Codes ( Presence of left artificial knee joint PT) Onset 11/16/24 Subjective Information Pt had surgery 11/16/24 Reports the green sheet was provided states is supposed to be elevated 40 minutes of 60 every waking hour Reports is doing well with pain, lots of walking increases pain but otherwise is mostly taking OTC medication. Did report some RLS symptoms and started back with oxycodone for this. Also ankle is more painful after surgery Reported Pain Level Pain Score 1: Self Report Assessment PT Clinical Summary Pt presents s/p left total knee replacement . He is doing exceptionally well with minimal swelling, functional and safe gait pattern with single point cane, minimal strength loss, and minimal pain. He does lack ROM currently actively and passively which will be initial focus of therapy. Pt will greatly benefit from physical therapy to address deficits, and progress to higher functional levels of activity to return to PLOF. Plan of Care Interventions Electrical Stimulation,Gait Training,Hot Pack/Cold Pack,Manual Therapy,Neuro Re-education,Patient/ Caregiver Education,Therapeutic Activities, Therapeutic Exercise,Self-Care/Home Management, Other Other Interventions Intermittent compression, taping PT Services Indicated Yes Treatment Frequency and 1-2x weekly x 20 visits Duration These treatments will address the objective and functional deficits as defined above. The patient will be advanced safely and appropriately in order for the patient to progress towards his/her prior level of function. Additional exercises will be introduced and as well as a comprehensive home exercise program upon discharge, if needed, ?to ensure carryover of functional gains achieved in the clinic. This treatment plan has been reviewed and agreement upon by the patient.
--- NOTE | 2024-11-30 17:08 | OPREHPOC ---
Outpatient Therapy Plan of Care This is a Multidisciplinary Plan of Care that may contain components documented by all disciplines (PT, OT, and ST.) PT Problem 1 PT Problem #1 Knowledge Deficit PT Goal 1 Goal / Goal Update Pt will be independent in HEP Pt will verbalize understanding of diagnosis and prognosis Target Visit 10 PT Problem 2 PT Problem #2 Pain PT Goal 1 Goal / Goal Update Pt will report greatest pain level at 3/10 or less to improve ADLs and activities PT Goal 2 Goal / Goal Update Pt will report resolution of pain to return to PLOF PT Problem 3 PT Problem #3 Impaired Range of Motion PT Goal 1 Goal / Goal Update Pt will demo AROM 5-100 left knee to improve mobility Target Visit 10 PT Goal 2 Goal / Goal Update Pt will demo AROM 0-120 left knee to improve mobility Target Visit 20 PT Problem 4 PT Problem #4 Impaired Gait PT Goal 1 Goal / Goal Update Pt will demonstrate 2 min walk test without AD of 240 ft with normalized pattern to return to PLOF Target Visit 20
--- NOTE | 2025-01-02 14:38 | PTOPPROG ---
Assessment and note entered by Terri Johnson, PT Evaluation Information Assessment Status Progress Diagnosis Left knee total knee replacement ICD-10 Condition Codes (PT) Pain in left knee M25.562,Encounter for other orthopedic aftercare Z47.89,Aftercare following joint replacement surgery Z47.1 Other ICD-10 Condition Codes ( Presence of left artificial knee joint PT) Onset 11/16/24 Subjective Information Ankle pain is pretty much gone, gets it once in a while and then relieves. No longer taking any pain medication. Gets about 6 hours of sleep at night, not because of knee. 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 Below knee cap skin is tight and almost feels numb . Last tape of hamstring helped a lot and massaging the hamstring helped. Uses hand rail for going up and down steps, but otherwise no issues. Perceived improvement: 97%, skin being tight is only issue Assessment PT Clinical Summary Pt has attended therapy consistently s/p left TKR 11/16/24. He has done exceptionally well, demonstrating low levels of pain from the beginning of therapy. He has progressed well in all his goals, though he does still lack terminal knee extension by 3 degrees. He has had a couple of small irritations in the iliotibial band and hamstring through his POC, though these issues have resolved quickly as well. He is to return to his ortho 01/12/2025. Will continue therapy until this visit and await further instructions though patient is doing very well. Plan of Care Interventions Electrical Stimulation,Gait Training,Hot Pack/Cold Pack,Manual Therapy,Neuro Re-education,Patient/ Caregiver Education,Therapeutic Activities, Therapeutic Exercise,Self-Care/Home Management, Other Other Interventions Intermittent compression, taping PT Services Indicated Yes Treatment Frequency and 1-2x weekly x 10 visits Duration These treatments will address the objective and functional deficits as defined above. The patient will be advanced safely and appropriately in order for the patient to progress towards his/her prior level of function. Additional exercises will be introduced and as well as a comprehensive home exercise program upon discharge, if needed, ?to ensure carryover of functional gains achieved in the clinic. This treatment plan has been reviewed and agreement upon by the patient.
--- NOTE | 2025-01-12 12:45 | PTOPDC ---
Assessment and note entered by Terri Johnson, PT Evaluation Information Assessment Status Discharge - Pt Not Present Diagnosis Left knee total knee replacement ICD-10 Condition Codes (PT) Pain in left knee M25.562,Encounter for other orthopedic aftercare Z47.89,Aftercare following joint replacement surgery Z47.1 Other ICD-10 Condition Codes ( Presence of left artificial knee joint PT) Onset 11/16/24 Subjective Information Ankle pain is pretty much gone, gets it once in a while and then relieves. No longer taking any pain medication. Gets about 6 hours of sleep at night, not because of knee. 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 Below knee cap skin is tight and almost feels numb . Last tape of hamstring helped a lot and massaging the hamstring helped. Uses hand rail for going up and down steps, but otherwise no issues. Perceived improvement: 97%, skin being tight is only issue Assessment PT Clinical Summary Pt dropped by clinic to say thank you and that ortho has released him from therapy. Thus plan of care will be closed as patient has done exceptionally well post surgically. Plan of Care PT Services Indicated No
== END 2025-01-12 13:25 | disposition home or self-care (01) ==
LOC: ANHHIPT 14:00
PROVIDERS: PCP Physician Assistant Medical; Visit Provider Orthopaedic Surgery
DX: Z47.1 Aftercare following joint replacement surgery (principal); Z96.652 Presence of left artificial knee joint
CPT/HCPCS: 97016; 97110; 97140; 97161; 97750

== ENCOUNTER 2025-02-19 14:03 | Outpatient (CLI) | payer OTHER, SELFPAY ==
--- NOTE | ~2025-02-19 | CT_ITS ---
EXAMINATION: CT_LERTCWO_CT DATE: 02/19/2025 14:49 INDICATION: Right knee osteoarthritis for preoperative planning. TECHNIQUE: High resolution computed tomography (CT) of the right lower extremity from the hip through the ankle was performed without intravenous contrast. Additional sagittal and coronal reconstructions were performed. Automated exposure control and iterative reconstruction technique were employed. The dose- length product was 3745.06 mGy-cm. COMPARISON: Right knee radiographs dated 02/12/2025 FINDINGS: Bilateral total hip arthroplasties which appear well seated in near-anatomic alignment. No periprosthetic lucency to suggest loosening or infection. There is also a left total knee arthroplasty on the freight broker topogram. No fractures. Tricompartmental osteoarthritis at the right knee with severe joint space narrowing in the medial compartment better appreciated on the prior weightbearing imaging with secondary remodeling of the articular cortices with slight downward sloping of the medial side of the medial tibial plateau and with slight flattening of the curvature of the articular cortex of the central weightbearing medial femoral condyle. Small marginal ossified than the lateral and patellofemoral compartments. 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 Soft tissues are unremarkable. No evident joint effusions at the left hip, knee or ankle. No pathologically enlarged right pelvic or inguinal lymphadenopathy. IMPRESSION: 1. Severe medial compartment predominant tricompartmental osteoarthritis of the right knee. Reviewed, dictated and finalized at location A. R[facility] PREVENTION COORDINATOR
[2025-02-19 15:14] LABS: Hematocrit 43.4 % (42.0-52.0); Hemoglobin 14.5 g/dL (14.0-18.0)
[2025-02-19 15:23] LABS: Albumin Level 4.1 g/dL (3.5-5.1); Estimated Glomerular Filt Rate > 60; Glucose 169 mg/dL (65-110)
== END 2025-02-19 14:04 | disposition home or self-care (01) ==
LOC: ANHIMG 14:06
PROVIDERS: PCP Physician Assistant Medical; Visit Provider Orthopaedic Surgery
DX: M17.11 Unilateral primary osteoarthritis, right knee (principal); Z01.818 Encounter for other preprocedural examination; Z79.899 Other long term (current) drug therapy
CPT/HCPCS: 73700; 80307; 82040; 82565; 82947; 85014; 85018